=== PATIENT | male | born 1940 | race Caucasian/White ===

== ENCOUNTER → 2017-11-16 16:07 | Outpatient (CLI) | payer MEDICARE, SELFPAY ==
--- NOTE | 2017-11-16 16:11 | RAD_ITS ---
XR Spine Cervical 2 or 3 Views INDICATION: neck pain and back pain COMPARISON: None TECHNIQUE: Frontal and lateral views of the cervical spine including lateral spur is view and open-mouth odontoid view FINDINGS: There is normal cervical lordosis. Height of the vertebral bodies and intervertebral disc spaces is preserved. Anterior osteophyte is noted and C2-3. Prevertebral soft tissue stripe is within normal limits. There is normal atlantoaxial relationship. Vascular calcifications are suggested at the carotid bifurcations. RAD/Cerv Spine 2 or 3 Views IMPRESSION: Negative frontal and lateral views of the cervical spine. at 0040 Reported and signed by: Mickie Davies MD Electronically Signed: Mickie Davies MD at 23:39 EST Tel , Service support ,
--- NOTE | 2017-11-16 16:11 | RAD_ITS ---
STUDY: X-RAY - LEFT KNEE REASON FOR EXAM: Male, 77 years old. Left knee pain TECHNIQUE: 4 view(s) of the knee. COMPARISON: None. FINDINGS: Status post left knee arthroplasty. No evidence of hardware failure or loosening. No acute fracture or dislocation. No significant joint effusion or soft tissue swelling. Vascular calcifications RAD/Knee 4 or More Views IMPRESSION: Left knee arthroplasty without evidence of complications Electronically Signed: Brant Muñoz DO at 8:40 EST Tel , Service support ,
--- NOTE | 2017-11-16 16:12 | RAD_ITS ---
XR Spine Lumbar 2 or 3 Views INDICATION: lower back pain COMPARISON: None TECHNIQUE: Frontal and lateral views of the lumbar spine and coned-down lateral view of the lumbosacral junction FINDINGS: There are 5 lumbar type nonrib-bearing vertebral bodies. There is normal lumbar lordosis and no evidence of scoliosis. Height of the vertebral bodies is preserved. Disc spaces are decreased at all levels with exception of L4-5. Multilevel facet arthritic changes are noted. Marked vascular calcifications are noted. 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 Vascular calcifications. at 0042 Reported and signed by: Mickie Davies MD Electronically Signed: Mickie Davies MD at 23:40 EST Tel , Service support ,
--- NOTE | 2017-11-16 16:20 | RAD_ITS ---
STUDY: X-RAY - RIGHT SHOULDER REASON FOR EXAM: Male, 77 years old. Right shoulder pain TECHNIQUE: 4 view(s) of the shoulder. COMPARISON: None. FINDINGS: There is mild degenerative arthrosis of the glenohumeral articulation. There is degenerative arthrosis of the acromioclavicular joint without inferior osseous spur formation. Normal acromion. High riding humeral head compatible with chronic rotator cuff tear There is demineralization of the humerus and visualized osseous structures. The soft tissue structures are unremarkable. There is no demonstrated fracture. Normal visualized pulmonary apex. RAD/Shoulder min 2 Views IMPRESSION: Degenerative changes of the right shoulder with findings compatible with chronic rotator cuff tear Electronically Signed: Brant Muñoz DO at 8:41 EST Tel , Service support ,
== END ==
PROVIDERS: Family Provider Family Medicine; PCP Family Medicine; Visit Provider Anesthesiology Pain Medicine
DX: M25.511 Pain in right shoulder (principal); M25.562 Pain in left knee; M54.5 Low back pain; M54.2 Cervicalgia
CPT/HCPCS: 72040; 72100; 73030; 73564

== ENCOUNTER → 2017-12-09 12:42 | Outpatient (CLI) | payer MEDICARE, SELFPAY ==
--- NOTE | 2017-12-09 12:45 | RAD_ITS ---
STUDY: X-RAY - RIGHT ELBOW REASON FOR EXAM: Male, 77 years old. Right elbow pain and spur. TECHNIQUE: 3 view(s) of the elbow. COMPARISON: None. FINDINGS: Hypertrophic spur/ enthesophyte of the medial humeral epicondyle. Enthesophyte of the olecranon process. Otherwise normal elbow. Negative for joint effusion. Vascular calcifications. RAD/Elbow min 3 Views IMPRESSION: Spurring/enthesophyte of the medial humeral epicondyles and the olecranon process. No other bone or joint abnormalities. Electronically Signed: Monika Shafer MD at 23:00 EDT , Service support ,
== END ==
PROVIDERS: Family Provider Family Medicine; PCP Family Medicine; Visit Provider Anesthesiology Pain Medicine
DX: M25.521 Pain in right elbow (principal)
CPT/HCPCS: 73080

== ENCOUNTER → 2018-03-24 09:00 | Outpatient (CLI) | payer MEDICARE, SELFPAY ==
--- NOTE | 2018-03-24 09:03 | NM_ITS ---
CLINICAL: 77-year-old male with reported history of painful left knee arthroplasty, operated approximately 4 years previous. LIMITED 99m Tc MDP THREE PHASE BONE SCINTIGRAPHY COMPARISON: Plain film radiograph report left knee 11/16/2017 FINDINGS: Following the intravenous administration of 26.3 mCi of 99m Tc MDP, three-phase bone acquisitions of the knee articulations reveal: 1. The flow and immediate static blood pool acquisitions demonstrate symmetric-normal arterial and venous phase distribution of the radiopharmaceutical. 2. Delayed images depict increased tracer concentration subtly defined in the medial femoral component of the symptomatic right knee prosthesis. 3. Enhanced uptake is defined in the patellofemoral compartment of the left knee, medial tibial compartment of the right knee. 4. The remaining limited skeletal structures are scintigraphically unremarkable. NM/Bone Scan Three Phase IMPRESSION: 1. The increased radiopharmaceutical concentration defined in the medial femoral component of the symptomatic right knee arthroplasty may represent minimal loosening in the setting of operative intervention > 2 years prior to the current presentation. If an infectious ideology is a diagnostic consideration, correlation with labeled leukocyte imaging is recommended. 2. Degenerative arthritis is otherwise demonstrated in the medial tibiofemoral compartment right knee and patellofemoral compartment of the left knee (in the absence of patellar hardware placement). Electronically Signed: Gonzalo Mercado DO at 13:39 EDT Tel , Service support ,
== END ==
PROVIDERS: Family Provider Family Medicine; PCP Family Medicine; Visit Provider Orthopaedic Surgery
DX: T84.84XA Pain due to internal orthopedic prosthetic devices, implants and grafts, initial encounter (principal)
CPT/HCPCS: 78315

== ENCOUNTER 2018-07-25 21:47 | Emergency (ER) | payer MEDICARE, SELFPAY ==
[2018-07-25 21:48] VITALS: BP 173/80; PULSE 80; RESP 14; TEMP 36.7; O2SAT 98; BMI 10.5
[2018-07-25 22:04] VITALS: BP 190/83; PULSE 79; RESP 18; O2SAT 94
--- NOTE | 2018-07-25 22:13 | EKG12_ITS ---
Test Reason : HTN Blood Pressure : / mmHG Vent. Rate : 072 BPM Atrial Rate : 072 BPM P-R Int : 182 ms QRS Dur : 166 ms QT Int : 452 ms P-R-T Axes : 044 -38 022 degrees QTc Int : 494 ms Normal sinus rhythm Left axis deviation Right bundle branch block Voltage criteria for left ventricular hypertrophy Abnormal ECG Confirmed by MALATHI PEREIRA, RE ([id number]), deputy editor in chief JAMI STEIN ([id number]) on 07/28/2018 2:52:45 PM Referred By: REYNA Confirmed By:RE SERVIN MD
--- NOTE | 2018-07-25 22:13 | US_ITS ---
STUDY: ABDOMINAL ULTRASOUND - RIGHT UPPER QUADRANT REASON FOR VISIT: Male, 78 years old. Right upper quadrant pain TECHNIQUE: Ultrasound evaluation of the right upper quadrant was performed with real-time and static ramirez-scale imaging. TECHNICAL QUALITY: Adequate. COMPARISON: None. FINDINGS: Liver: The liver measures 15.5 cm. There is increased echogenicity consistent with fatty infiltration. The bile ducts are within normal limits. There is hepatic color flow. The direction of portal flow is hepatopetal. There is no demonstrated mass lesion. Gallbladder: Normal distended gallbladder. The gallbladder wall measures 3 mm. There is a negative sonographic Renteria's sign. There is no pericholecystic fluid. No shadowing gallstones are seen. Multiple small 3 to 4 mm nonshadowing nodular foci are present along the bucio of the gallbladder which may be small polyps. Common Bile Duct (C.B.D.): The common bile duct measures 3 mm. Pancreas: Tail is obscured by gas. Visible portions are normal. Right Kidney: Normal size of the right kidney. The right kidney measures 13 x 5.6 x 5.3 cm. Normal renal cortex. The right cortex measures 1.6 cm. 4 mm nonobstructing stone. Round slightly hyperechoic renal mass measuring 4.4 x 4.1 x 3.7 cm. There is no right hydronephrosis. US/Gallbladder IMPRESSION: No shadowing gallstones are seen. Multiple small 3 to 4 mm nonshadowing nodular foci are present along the bucio of the gallbladder which may be small polyps. Fatty liver. Right renal mass measuring up to 4.4 cm. Follow-up nonemergent dynamic pre and postcontrast renal CT or MRI is recommended to characterize further if possible. Small nonobstructing right renal stone. Electronically Signed: Fausto Christensen MD at 23:06 EST Tel , Service support ,
--- NOTE | 2018-07-25 22:15 | RAD_ITS ---
STUDY: X-RAY CHEST REASON FOR EXAM: Male, 78 years old. Right lower chest pain TECHNIQUE: Single frontal view of the chest. COMPARISON: 11/30/2015 FINDINGS: Chronic interstitial lung changes without superimposed acute alveolar disease. There is no demonstrated pleural abnormality. Stable cardiomediastinal silhouette. Normal mediastinum and cortney. Normal visualized pulmonary arteries. Normal visualized aortic arch and descending thoracic aorta. Normal visualized thoracic spine. Degenerative right shoulder change. There is no demonstrated abnormality of the visualized soft tissue structures of the upper abdomen. RAD/Chest 1 View (Portable) IMPRESSION: Chronic interstitial lung changes without superimposed acute alveolar disease. Electronically Signed: Fausto Christensen MD at 22:30 EST Tel , Service support ,
[2018-07-25 22:21] LABS: Absolute Neutrophil Count 6.5 X10^3/uL (2.0-7.7); Basophil# 0.03 X10^3/uL; Basophil% 0.3 % (0-1); Eosinophil# 0.47 X10^3/uL; Eosinophils% 4.4 % (0-5); Hematocrit 45.4 % (40-54); Hemoglobin 15.4 g/dl (13.0-16.5); Lymphocyte % 27.3 % (19-41); Mean Corp Hgb Conc 33.9 g/gl (32-36); Mean Corpuscular Hgb 29.2 pg (27.0-32.0); Mean Platelet Vol. 9.7 fl (6.2-12.0); Monocyte# 0.73 X10^3/uL; Monocyte% 6.9 % (0-10); Neutrophil # 6.47 X10^3/uL (2.7-7.7); Neutrophil % 60.9 % (47-70); POSITIVE COUNT NO; POSITIVE DIFFERENTIAL NO; POSITIVE MORPHOLOGY NO; Platelet Count 210 K/mm3 (150-450); RBC Distribution Width CV 13.5 % (11.6-14.6); RBC Distribution Width SD 42.5 fl (35.1-43.9); Red Blood Count 5.28 M/mm3 (4.6-6.2); White Blood Count 10.6 K/mm3 (4.4-11.0)
--- NOTE | 2018-07-25 22:22 | ED.DCSUM_ITS ---
- ER Visit Summary Date of Service: 07/25/18 Chief Complaint: Right upper quadrant abdominal pain History of Present Illness: The patient is a 78 M history of hypertension, rqm-pfbjoiu-prwzlwgyt diabetes and chronic pain. Patient states the last 4 days she has had some right upper quadrant abdominal pain. Not associated with food. No nausea vomiting or diarrhea. No fever. No trauma. He initially thought he may have pulled a muscle but is gotten worse. He saw the nurse practitioner his primary care physician's office in the last day or so who did no testing. He denies any dysuria or melena. He denies chest pain or shortness of breath. Also his blood pressures been elevated. Physical Examination: Well-appearing older male. Vital signs are stable afebrile. Pulse ox 98% on room air no hypoxia. No distress. HEENT exam unremarkable. Neck nontender. Lungs clear to auscultation bilaterally. Heart regular rate and rhythm no murmur rate about 80. Chest wall nontender. Abdomen soft. Nondistended. Normal bowel sounds. No peritoneal signs. He has mild tenderness in the right upper quadrant. No Renteria sign. No McBurney's point tenderness. No pulsatile mass. Patient is moving all 4 extremities. 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 Moving the lower extremities. Calves are nontender no edema. Neurologically is awake and alert. Back is nontender. Test Results: CBC normal white count of 10. Hemoglobin 15. Chemistries normal normal creatinine and gap. Liver enzymes normal. Lipase normal. EKG sinus rhythm rate of 72 no acute signs of ischemia. Chest x-ray chronic changes no acute process. Ultrasound the right upper quadrant shows no gallbladder stones. There were gallbladder polyps. There was a right renal stone no Renteria sign. There is an incidental finding of a renal abnormality on the right which may or may not be a cyst versus a mass. I discussed this with the patient and the family. He will follow-up with his primary care physician Dr. Stanford Tan iii for further imaging. Radiology suggested a possible CT abdomen pelvis with and without contrast to evaluate the kidney. Emergency Department Course and Treatment: Patient with nondescript mild right upper quadrant abdominal pain. Multiple repeat exams patient is doing well. Abdomen is benign. Treatment Plan: Log blood pressures daily. Follow-up with his primary care physician for reevaluation of his blood pressure medications. Also possible further imaging of his right kidney. Disposition: Discharge Impression: Acute right upper quadrant abdominal pain of uncertain etiology. Acute on chronic hypertension Abnormality of the right kidney seen on ultrasound of uncertain etiology which may need further imaging This note was generated with [employer] dictation software. It may contain incorrect words, spelling, and punctuation that were not noted in review of the chart prior to signing ED Disposition - Plan for ED Patient: Chief Complaint: Hypertension Referrals: Stanford Tan III, MD [Primary Care Provider] -
[2018-07-25 22:39] LABS: AST(SGOT) 40 U/L (15-37); Alanine Aminotransfer ALT/SGPT 45 U/L (16-61); Albumin, Serum 3.7 g/dL (3.2-5.0); Alkaline Phosphatase 89 U/L (45-117); Anion Gap 7 (5-15); BUN 16 mg/dL (7-18); Bilirubin, Direct 0.07 mg/dL (0.00-0.30); Calcium,Total 8.2 mg/dL (8.5-10.1); Chloride 105 mmol/L (98-107); Creatinine, Serum 0.73 mg/dL (0.70-1.30); EST Glomerular Filtration Rate 111 mL/min (>60); Est Glom Filt Rate - Afr Amer 134 mL/min (>60); Glucose 124 mg/dL (74-106); Lipase 119 U/L (73-393); Potassium 4.6 mmol/L (3.5-5.1); Protein, Total 7.7 g/dL (6.4-8.2); Sodium Level 138 mmol/L (136-145)
--- NOTE | 2018-07-25 23:53 | ED.DEP ---
ED Disposition - Plan for ED Patient: Disposition: Home or Assisted Living Chief Complaint: Hypertension Instructions: ED Hypertension Conf Out Of Control, ED Abdominal Pain Unkn Cause Referrals: Stanford Tan III, MD [Primary Care Provider] - 1 Week Additional Instructions: Log your blood pressure daily. Follow-up with Dr. Tan to see if he may or may not need to adjust her blood pressure medications. Take your medications currently as prescribed. Your labs tonight were unremarkable. The ultrasound of your gallbladder happened to notice an abnormality of your right kidney which may be a simple renal cyst. Versus other etiologies. Radiology would prefer that you follow-up and get a CAT scan of your abdomen with and without contrast to evaluate the right kidney. You can follow this up with Dr. Tan your primary care physician.
[2018-07-25 23:54] VITALS: BP 184/90; PULSE 83; RESP 16; O2SAT 94
[2018-07-26 00:01] VITALS: RESP 16; O2SAT 97
[2018-07-26] MEDS: Acetaminophen 500 MG Tablet 1000 MG PO (00:04)
== END 2018-07-26 00:07 | disposition home or self-care (01) ==
PROVIDERS: Emergency Provider Emergency Medicine; Family Provider Family Medicine; PCP Family Medicine
DX: R10.11 Right upper quadrant pain (principal); I10 Essential (primary) hypertension; E11.9 Type 2 diabetes mellitus without complications; G89.29 Other chronic pain; Z89.222 Acquired absence of left upper limb above elbow; N20.0 Calculus of kidney; K82.4 Cholesterolosis of gallbladder; I45.10 Unspecified right bundle-branch block; E78.00 Pure hypercholesterolemia, unspecified
CPT/HCPCS: 71045; 76705; 80048; 80076; 83690; 85025; 93005; 99284; A4216

== ENCOUNTER 2018-10-18 12:26 | Inpatient (IN) | payer MEDICARE, OTHER, SELFPAY ==
[2018-09-27 13:53] VITALS: BP 154/85; PULSE 71; RESP 16; TEMP 36.9; O2SAT 96; BMI 29.0
[2018-09-27 14:53] LABS: Prothrombin Time (Protime)PT. 13.5 SECONDS (11.7-14.9)
[2018-09-27 14:54] LABS: Partial Thromboplast Time 55.8 Seconds (24.1-36.2)
[2018-09-27 15:32] LABS: Hemoglobin A1c 6.4 % (4.2-6.3)
[2018-10-18] VITALS (17 sets, daily range): BP systolic 101–152; BP diastolic 59–86; PULSE 68–91; RESP 16–22; TEMP 36.6–37.1; O2SAT 92–100; BMI 29.0
--- NOTE | 2018-10-18 | KI_PTH ---
PATIENT: LOIS GOODMAN LOC: MS2 U#:[id number] AGE/SX: 78/M ROOM: MS210 RE10/18/[address]: Dr. Yuriy Squires MD : [id number] BED: 1 DIS: 10/22/2018 SPEC #: [id number] RECD: 10/18/18 09:52 STATUS: PRIYANK REQ #: [id number] TOMA: 10/18/18 00:[address]: Yuriy Squires DEPT: SURGICAL PATHOLOGY RECD BY: Tonya Sawyer ENTERED: 10/18/18 10:44 SP TYPE: KIDNEY BX OTHR DR: Dr. Stanford Tan III, MD Tissues: A - Adrenal gland, NOS B - Kidney, NOS Procedures: Frozen Section (charge) Surgery Specimen Level IV Surgery Specimen Level V HEADER OPERATION: Lap robotic partial nephrectomy PRE-OP DIAGNOSIS: Right renal mass TISSUE SUBMITTED: A - Sample of right adrenal gland sent to lab 0947, FS, B - Right renal mass FROZEN SECTION DIAGNOSIS A. Right adrenal gland, biopsy: Adrenal gland tissue. AM:barbara 10/18/18 Case has been reviewed in consultation with Dr. Kuo who concurs with the above diagnosis. IDC:COY MICROSCOPIC DIAGNOSIS A. Right adrenal gland, biopsy: A piece of benign adrenal gland tissue. B. Right renal mass, partial nephrectomy: Chromophobe renal cell carcinoma. See cancer summary below. 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 Distant metastasis - not applicable Pathologic findings in nonneoplastic kidney - no significant pathologic change. PATHOLOGIC STAGE: pT1a pNx Mx The above summary is in compliance with [employer] [place] [employer] (CAP) Cancer Protocols Checklist and [place] [employer] on Cancer (AJCC), Staging Manual, 8th Ed. COMMENT Case has been reviewed in consultation with Dr. Desai who concurs with the above diagnosis. IDC: MICROSCOPIC DESCRIPTION Slides are reviewed. GROSS DESCRIPTION A - Received fresh for frozen section diagnosis labeled with the patient's name is a specimen designated sample of right adrenal gland. The specimen consists of a piece of hutchison-red soft tissue measuring 1 x 0.6 x 0.1 cm. The entire specimen is submitted for frozen section diagnosis in one cassette. / AM:barbara 10/18/18 B - Received in fixative is one container labeled with the patient's name and designated right renal mass. The specimen consists of a partial nephrectomy specimen weighing 46 gm and measuring 7 x 5 x 4 cm. A portion of the surface appears to be the renal capsular surface. This surface is inked black and rest of the surface is inked blue. A small amount of perirenal adipose tissue is also present. Grossly, a focal area shows a normal renal cortex which measures up to 1 cm in width. Serial sections reveal a hutchison-yellow congested nodular mass measuring 4 x 4 x 3.5 cm. [employer] sections are submitted in eight cassettes as follows: 1-5 - tumor, 6 & 7 - tumor with adjacent normal appearing renal parenchymal tissue, 8 - perirenal adipose tissue. / SJ:barbara 10/19/18 TC:0 CPT: 06401, 00118, 78483
[2018-10-18 07:02] LABS: Bedside Glucose 135 mg/dL (70-110)
--- NOTE | 2018-10-18 07:04 | HP.PCM_ITS ---
History and Physical Date of Admission: 10/18/18 CC/HPI: 78 yo male with a solid rigth renal mass. Recent pain in the RUQ had u/s with mass on kidney MRI confirms a mostly endophytic right solid renal mass 4cm in size. still having some RUQ pain today discussed the surgery how its done and what to expect. 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 Balanitis - 2014 Benign prostatic hyperplasia without lower urinary tract symptoms - 2014 NON- PMH: Dvrtclos of lg int w/o perforation or abscess w/o bleeding Essential (primary) hypertension 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 Smoking cessation counseling was provided. Does not use smokeless tobacco. Has never drank. Does not use drugs. Drinks 4+ caffeinated drinks per day. Has not had a blood transfusion. REVIEW OF SYSTEMS: Constitutional: Patient denies fever, chills, weight loss, and weight gain. Eyes: Patient denies blurry vision, cataracts, and glaucoma. Ears, Nose, Mouth, Throat: Patient denies hearing loss, sinus infections, and sleep apnea. Cardiovascular: Patient denies chest pains, swollen ankles, irregular heartbeat, and pacemaker/defib. Respiratory: Patient denies shortness of breath, wheezing, oxygen, and cpap machine. Gastrointestinal: Patient denies nausea, diarrhea, constipation, abdominal pain, and vomiting. Genitourinary: Patient reports frequent urination, get up at night to void, and leakage of urine. Patient denies urinary retention, painful urination, blood in the urine, frequent uti's, history of stones, difficulty starting stream, weak stream/scanty, and bedwetting. Musculoskeletal: Patient denies sore muscles, back pain, and gout. Integumentary/Skin: Patient denies rash, skin cancer, and chronic itching. Neurological: Patient denies falling/unsteady, paralysis, and stroke/tia. Hematologic/Lymphatic: Patient denies abnormal bleeding, blood transfusion, swollen lymph nodes, deep venous thrombosis, and pulmonary embolism. Notes: Reviewed previous review of systems 09/18/2018. No changes. VITAL SIGNS: None MULTI-SYSTEM PHYSICAL EXAMINATION: Constitutional: Well-nourished. No physical deformities. Normally developed. Good grooming. Neck: Neck symmetrical, not swollen. Normal tracheal position. Respiratory: No labored breathing, no use of accessory muscles. Cardiovascular: Normal temperature, normal extremity pulses, no swelling, no varicosities. Lymphatic: No enlargement of neck, axillae, groin. Skin: No paleness, no jaundice, no cyanosis. No lesion, no ulcer, no rash. Neurologic / Psychiatric: Oriented to time, oriented to place, oriented to person. No depression, no anxiety, no agitation. Gastrointestinal: No mass, no tenderness, no rigidity, non obese abdomen. Eyes: Normal conjunctivae. Normal eyelids. Ears, Nose, Mouth, and Throat: Left ear no scars, no lesions, no masses. Right ear no scars, no lesions, no masses. Nose no scars, no lesions, no masses. Normal hearing. Normal lips. Musculoskeletal: Normal gait and station of head and neck. 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 bowel prep instructions given.
[2018-10-18] MEDS: Cefazolin 2 GM in 0.9% Normal Saline 100 ML IV (07:26)
[2018-10-18] MEDS: Bupivacaine Mpf 0.5% 30 ML VIAL (12:19)
--- NOTE | 2018-10-18 12:19 | OP.PCM_ITS ---
Report of Operation Date of Procedure: 10/18/18 Pre-Operative Diagnosis: Right renal mass in size Post-Operative Diagnosis: Same Surgery/Procedure Performed:: Laparoscopic robotic-assisted right partial nephrectomy Description of Surgical Findings:: 78-year-old male who was found to have incidental mass on the right kidney on CAT scan is about 4 cm in size given the size of the mass recommended treatment for this mass with a surgical removal with a partial nephrectomy he understands the risks of the procedure include loss of the kidney bleeding infection injury to any critical structures within the abdomen small bowel large bowel liver s pleen vessels and nerves. We also talked about the risk of the surgery and the risk of anesthesia. 78-year-old male taken back to the operating room after smooth induction of anesthesia he was first placed about time in the supine on the table we then placed a Sykes catheter into the bladder we then placed a laterally with the right side up with the axillary roll in place table flexed over the hips and the kidney rest was down we then secured the patient the table made sure all his pressure points were padded and then the abdomen was shaved prepped and draped in usual sterile fashion made a small carina incision in the mid abdomen advanced the Veress needle into the peritoneal cavity and inflated the peritoneal cavity with CO2 gas. Once establishing the peritoneal cavity CO2 gas placed my camera trocar right arm robotic trocar left arm robotic trocar and left arm second trocar and then placed a an air seal port for my sourcing assistant. We started off by dissecting the colon off the lateral wall and incising the white line of Toldt reflecting the colon off the kidney starting inferiorly and working out all the way superiorly until we got to the liver after dissecting the entire colon off the kidney identified Gerota's fascia and the fat of the mesentery these were we then identified the dura was fascia got above the General's fascia and lifted the dura was fashioned up to it that was underneath the ureter I then used the fourth arm the robotic fourth arm to retract the pole truck driver's fascia and the kidney upward and then dissected as I marched along the vena cava came across the gonadal vessel this was clipped and ligated with hemo-locks and then came across one large vein dissected around this and then came up came across the large renal artery artery and artery was branching early but is able to get to the base of the of the renal artery and dissect the space around the renal artery below it I then went up to the renal vein and another renal vein I dissected around the renal vein were then went up to the adrenal gland and the adrenal gland appear to be in usual surgical sample the adrenal gland cutting through the top part of sent off for specimen and this came back normal adrenal tissue therefore left adrenal gland in place after dissecting out the renal artery then we note that the kidney we used the laparoscopic ultrasound to find the tumor the tumor was in the upper pole tumor posterior difficult location this required complete mobilization of the kidney defatted the kidney completely the kidney off the lower pole and upper pole attachments allowed to freely rotate and then was able to rotate the kidney so I could see the tumor on the upper pole posterior wheeze laparoscopic ultrasound to narciso out all the edges of the tumor circumferentially we then plantar attack to the resection of this tumor I then clamped the renal artery with 2 bulldogs the kidney went completely white and then we started with the resection using cold cautery f ollowed our edge of the line of resection it was marked on the kidney until I got underneath the tumor transected through underneath the tumor into the sinus fat and then lifted off the tumor off the kidney base and then the tumor was completely extracted without any violation of the tumor and an completely intact and a complete resection of the tumor was immediately placed into an Endo Catch bag and then I ran the base of the resection site with a 30V lock stitch and then I ran interrupted bolster stitches putting compression on both sides of the kidney from the left and right side all the way along the kidney we then we then continued with a resection at the end of all the bolsters were placed we then unclamped the artery the clamp time was 27 minutes there was a little bit of oozing from the mid part of the resection I placed an extra bolster here tied it down using Humalog and right clips after tightening this down replaced tumor bolster was here and that redness reddish oozing stopped completely there was no bleeding from the resection site during the placement of 1 of the clips the clip did not hold onto the stitch and then the clip flipped off the end of the applicator device we attempted to find his clip initially but we could not find it has not and I flipped off the end of the applicator device, since we are still in the middle of the resection is still a bit of bleeding to continue with the surgery continue planes the more posterior is on the kidney we then rate we removed all suture then at the end of the placement of the pulse was in the kidney resection site there was no more bleeding lower the to 5 again no more bleeding we then undocked the robot we extracted the tumor through the umbilicus site by opening this up and then we closed this up with interrupted V lock 0 Vicryl in [id number] fashion I then went back into the abdomen and looked extensively for this clip and it coming off and could not find it we looked in the pelvis above the liver we suctioned out all the blood there was no more bleeding but we extensively looked for this 1 clip that with diet: Off and on and after an extensive half hour search we decided to abort searching for the clip in my best judgment I felt like it was not necessary to open up the patient the findings clipped there was a small plastic clip should be benign and hopefully will not cause any problems this was a decision made at the time of the surgery we then extracted all the ports closed our air seal port with a stitch and then we closed our subcu jugular stitches. Patient anesthetic is currently being reversed blood loss was minimal was only about 400cc resection was complete complete tumor was removed sent off as a specimen all needle counts were accounted for and one clip was lost in the abdomen patient will be aware and the family will be aware of this I do not think any sequelae work recurrent but we decided not to do an open exploration for such a small clip and the patient is currently being awakened. Type of Anesthesia:: General Drains: sykes. - Admit VTE Documentation VTE Present on Admission: No VTE Mechan Device Prophylaxis: SCD's
[2018-10-18 12:57] LABS: Hematocrit 41.3 % (40-54); Hemoglobin 13.8 g/dl (13.0-16.5); Mean Corp Hgb Conc 33.4 g/gl (32-36); Mean Corpuscular Hgb 28.9 pg (27.0-32.0); Mean Corpuscular Volume 86.6 fL (80-94); Mean Platelet Vol. 10.3 fl (6.2-12.0); Platelet Count 197 K/mm3 (150-450); RBC Distribution Width CV 13.6 % (11.6-14.6); RBC Distribution Width SD 43.3 fl (35.1-43.9); Red Blood Count 4.77 M/mm3 (4.6-6.2); White Blood Count 17.3 K/mm3 (4.4-11.0)
[2018-10-18 12:58] LABS: Scan Indicated on CBC? Y/N NO
[2018-10-18 13:02] LABS: Bedside Glucose 180 mg/dL (70-110)
[2018-10-18 13:15] LABS: Anion Gap 11 (5-15); BUN 15 mg/dL (7-18); Calcium,Total 8.1 mg/dL (8.5-10.1); Chloride 107 mmol/L (98-107); Creatinine, Serum 1.07 mg/dL (0.70-1.30); EST Glomerular Filtration Rate 71 mL/min (>60); Est Glom Filt Rate - Afr Amer 86 mL/min (>60); Glucose 182 mg/dL (74-106); Potassium 3.9 mmol/L (3.5-5.1); Sodium Level 141 mmol/L (136-145)
--- NOTE | 2018-10-18 13:52 | SUR.PHASEI ---
Addendum entered by Avis Calderon 10/18/18 15:19: MORE ALERT, ANSWERS QUESTIONS, FOLLOWS COMMANDS SLOWLY, MATTHEWS X 4, NO NEURO DEFICIT NOTED. MINIMAL PAIN. VSS. SON UPDATED. Original Note: Addendum entered by Avis Calderon 10/18/18 14:07: WITH MUCH PHYSICAL STIMULUS, PATIENT WILL RESPOND WITH ONE WORD, DENIES PAIN, INDICATES HE'S WELL, STILL DOES NOT FOLLOW COMMANDS BUT WHEN ARM MOVED BY RN, PATIENT RESISTS. ROBEL HATFIELD, [facility], SPOKE WITH SON WHO STATES IT TOOK PATIENT THREE HOURS TO WAKE UP FROM LAST SURGERY. DR VILLAGRAN TO BEDSIDE TO EVALUATE, OPENS EYES TO COMMANDS, WILL ANSWER YES WHEN ASKED IF HE'S OKAY. DR VILLAGRAN ADVISED TO CHANGE NASAL CANNULA TO SIMPLE MASK TO HELP BLOW OFF ANY INHALED ANESTHETICS. NO FACIAL OR TONGUE ASYMMETRY, JODI. CONTINUE TO MONITOR. Original Note: IN PACU: PATIENT VERY SOMNOLENT POST-OP, OPENS EYES TO VERBAL/PHYSICAL STIMULI BUT WILL NOT FOLLOW COMMANDS, WILL NOT SQUEEZE RT HAND, MOVE FEET, OR SPEAK ON COMMAND. NOTIFIED DR VILLAGRAN TO EVALUATE.
[2018-10-18] MEDS: Lactated Ringers 1,000 ML 125 ML IV ×2 (14:00→21:06)
[2018-10-18 16:37] LABS: Bedside Glucose 175 mg/dL (70-110)
[2018-10-18] MEDS: Ketorolac 15 MG/ML Vial IV (17:40)
[2018-10-18] MEDS: Ondansetron 4 MG/2 ML Vial IV (21:05)
[2018-10-18] MEDS: 0.9% NaCl Peripheral Flush Adult/Peds IV (21:05)
[2018-10-18] MEDS: Morphine 2 MG/ML Syringe IV (21:05)
[2018-10-18] MEDS: Docusate Sodium 100 MG Capsule PO (21:06)
[2018-10-18] MEDS: Lisinopril 20 MG Tablet PO (21:06)
[2018-10-19] MEDS: Ketorolac 15 MG/ML Vial IV ×2 (00:28→05:16)
[2018-10-19] MEDS: 0.9% NaCl Peripheral Flush Adult/Peds IV ×5 (00:28→20:45)
[2018-10-19] MEDS: Lactated Ringers 500 ML 999 ML IV (01:27)
[2018-10-19 03:15] VITALS: BP 116/62; PULSE 92; RESP 16; TEMP 37.2; O2SAT 96
[2018-10-19] MEDS: HYDROcodone Bitartrate/Apap 5/325 Tablet PO ×5 (03:18→20:31)
[2018-10-19] MEDS: Lactated Ringers 1,000 ML 125 ML IV (05:16)
[2018-10-19] MEDS: Enoxaparin 40 MG/0.4 ML Syringe SC (05:16)
[2018-10-19 06:16] LABS: Anion Gap 12 (5-15); BUN 19 mg/dL (7-18); BUN/Creat Ratio 13.3 RATIO (10-20); Calcium,Total 7.6 mg/dL (8.5-10.1); Chloride 104 mmol/L (98-107); Creatinine, Serum 1.43 mg/dL (0.70-1.30); EST Glomerular Filtration Rate 51 mL/min (>60); Est Glom Filt Rate - Afr Amer 61 mL/min (>60); Estimated Creatinine Clearance 43.25 ml/min; Glucose 142 mg/dL (74-106); Potassium 3.9 mmol/L (3.5-5.1); Sodium Level 139 mmol/L (136-145)
[2018-10-19 06:27] LABS: Hematocrit 35.1 % (40-54); Hemoglobin 11.4 g/dl (13.0-16.5); Mean Corp Hgb Conc 32.5 g/gl (32-36); Mean Corpuscular Hgb 28.6 pg (27.0-32.0); Platelet Count 216 K/mm3 (150-450); RBC Distribution Width SD 44.1 fl (35.1-43.9); Red Blood Count 3.99 M/mm3 (4.6-6.2); White Blood Count 13.5 K/mm3 (4.4-11.0)
[2018-10-19 06:28] LABS: Scan Indicated on CBC? Y/N NO
--- NOTE | 2018-10-19 07:38 | PCM.PROGNOTE ---
Subjective: doing well up in a chair this am no bm no flatus no cp, no sob, no n/v - Physical Exam General: Alert, Oriented x3, Cooperative HEENT: Atraumatic, PERRLA, EOMI, Normocephalic Neck: Supple, No JVD, Negative Carotid Bruits Lungs: Clear to auscultation, Normal air movement Cardiovascular: Regular rate, No murmurs Abdomen: Bowel Sounds Present, Soft, Non Tender Extremities: No edema, Capillary Refill Less than 3 Seconds Skin: No rashes, No breakdown Musculoskeletal: No Tenderness to Palpation of Joints or Extremities Neurological: Cranial nerves II-XII grossly intact Psych/Mental Status: Normal Affect, Appropriate Vital Signs Temp Pulse Resp BP Pulse Ox 98.9 F 92 16 116/62 96 10/19/18 03:15 10/19/18 03:15 10/19/18 03:15 10/19/18 03:15 10/19/18 03:15 Oxygen Flow Rate (L/min) 2 Oxygen Delivery Method Nasal Cannula Weight: 91.8 kg Body Mass Index (BMI) 29.0 Finger Stick Blood Glucose 180 Intake and Output for Last 24 Hours 10/17/18 10/18/18 10/19/18 23:59 23:59 23:59 Intake Total 5200 / 5200 3051 / 3051 Output Total 350 / 350 275 / 275 Balance 4850 / 4850 2776 / 2776 Laboratory Tests Past 24 Hrs 10/18/18 10/18/18 10/19/18 12:45 12:45 05:30 WBC 17.3 H 13.5 H RBC 4.77 3.99 L Hgb 13.8 11.4 L Hct 41.3 35.1 L MCV 86.6 88.0 MCH 28.9 28.6 MCHC 33.4 32.5 RDW 13.6 14.0 RDW Differential 43.3 44.1 H Plt Count 197 216 MPV 10.3 11.0 Sodium 141 Potassium 3.9 Chloride 107 Carbon Dioxide 23.0 Anion Gap 11 BUN 15 Creatinine 1.07 Estim Creat Clear Calc 57.80 Est GFR (MDRD) Af Amer 86 Est GFR (MDRD) Non-Af 71 BUN/Creatinine Ratio 14.0 Glucose 182 H Calcium 8.1 L 10/19/18 05:30 WBC RBC Hgb Hct MCV MCH MCHC RDW RDW Differential Plt Count MPV Sodium 139 Potassium 3.9 Chloride 104 Carbon Dioxide 23.0 Anion Gap 12 BUN 19 H Creatinine 1.43 H Estim Creat Clear Calc 43.25 Est GFR (MDRD) Af Amer 61 Est GFR (MDRD) Non-Af 51 L BUN/Creatinine Ratio 13.3 Glucose 142 H Calcium 7.6 L POC Glucose 10/18/18 10/18/18 16:16 12:57 POC Glucose 175 H 180 H Medical Necessity - Tobacco Use Smoking Status: Never smoker Assessment/Plan All Active Problems Chest pain (Acute) heplock ivf dc sykes full liquid diet ambulate.
--- NOTE | 2018-10-19 09:23 | CASEMGMT ---
RN CM Assessment Presentation: Rt Lap robotic partia nephrectomy. Pt is ambulatory, walked around halls. Denies needing assistance. Intro role of CM and purpose of RN CM assessment. PCP:Dr. Stanford Tan III Specialists: Dr. Squires Preferred Pharmacy: [facility] Insurance: [employer] Prescription Benefit: yes LNOK: Nephew/Niece Living Arrangements: Two story home with 1st floor set up for bedroom, bath, living area and kitchen. Transportation: Has family who can assist, but RN CM discussed and gave brochure for Transportation assist through [facility]. Call to Transportation department and they verified they would do sheepskin pickler from [place] to Dr. Squires's office. DME/HHC: walker, cane- but does not use. No oxygen equipment, no Cpap (pt has been told he needs Cpap, but does not wish to pursue). DC PLAN: anticipate home on discharge. Vickie BANDA RN ACM
--- NOTE | 2018-10-19 10:00 | CASEMGMT ---
SW asked pt about LW/POA. Pt states he has these forms, thought they were on file here. Pt states his nephew Edmar is his POA. SW explained that we do not have copies in the chart unfortunately. SW asked pt if here again if he can bring the forms in, pt states understanding. Pt also states that [facility] has them on file there. INOCENCIA Savage, EDGE STRIPPER
[2018-10-19 10:08] VITALS: BP 110/61; PULSE 90; RESP 18; TEMP 36.6; O2SAT 93
[2018-10-19] MEDS: amLODIPine 10 MG Tablet PO (10:11)
[2018-10-19] MEDS: Docusate Sodium 100 MG Capsule PO ×2 (10:11→22:00)
[2018-10-19] MEDS: Magnesium Hydroxide 30 ML UDC 15 ML PO (10:12)
[2018-10-19] MEDS: Lisinopril 20 MG Tablet PO ×2 (10:12→22:00)
[2018-10-19] MEDS: Psyllium 1 PACKET PO (10:12)
[2018-10-19] MEDS: Pantoprazole Sodium 20 MG Tablet PO (10:12)
[2018-10-19] MEDS: Atorvastatin Calcium 10 MG Tablet 5 MG PO (12:34)
[2018-10-19] MEDS: 0.9% Normal Saline 1,000 ML 500 ML IV (12:34)
[2018-10-19 14:44] VITALS: BP 118/64; PULSE 100; RESP 20; TEMP 37.8; O2SAT 92
[2018-10-19] MEDS: Clobetasol Propionate 0.05% Cream 1 APPLIC TOPICAL (15:08)
[2018-10-19] MEDS: Lidocaine Jelly 2% 20 ML Syringe (URO-JET) 20 APPLIC TOPICAL (18:00)
[2018-10-19] MEDS: Bisacodyl 10 MG Suppository RECTAL (18:31)
[2018-10-19 20:00] VITALS: BP 143/82; PULSE 116; RESP 16; TEMP 37.7; O2SAT 92
[2018-10-19] MEDS: 0.9% Normal Saline 1,000 ML 75 ML IV (20:32)
[2018-10-19 20:58] VITALS: O2SAT 93
[2018-10-19 22:00] VITALS: BP 127/74; PULSE 104; RESP 16; TEMP 37.4; O2SAT 94
[2018-10-20] VITALS (7 sets, daily range): BP systolic 145–165; BP diastolic 69–91; PULSE 95–104; RESP 16–19; TEMP 37–37.9; O2SAT 93–96
[2018-10-20] MEDS: Enoxaparin 40 MG/0.4 ML Syringe SC (05:48)
[2018-10-20 06:26] LABS: Anion Gap 9 (5-15); BUN 19 mg/dL (7-18); BUN/Creat Ratio 15.4 RATIO (10-20); Calcium,Total 7.6 mg/dL (8.5-10.1); Chloride 104 mmol/L (98-107); Creatinine, Serum 1.23 mg/dL (0.70-1.30); EST Glomerular Filtration Rate 60 mL/min (>60); Est Glom Filt Rate - Afr Amer 73 mL/min (>60); Estimated Creatinine Clearance 50.28 ml/min; Glucose 119 mg/dL (74-106); Potassium 3.8 mmol/L (3.5-5.1); Sodium Level 137 mmol/L (136-145)
--- NOTE | 2018-10-20 07:24 | PCM.PROGNOTE ---
Subjective: feeling better, pass gas, + loose BM abd less distended. feels ready to try solids - Physical Exam General: Alert, Oriented x3, Cooperative HEENT: Atraumatic, PERRLA, EOMI, Normocephalic Neck: Supple, No JVD, Negative Carotid Bruits Lungs: Clear to auscultation, Normal air movement Cardiovascular: Regular rate, No murmurs Abdomen: Bowel Sounds Present, Soft, Non Tender Extremities: No edema, Capillary Refill Less than 3 Seconds Skin: No rashes, No breakdown Musculoskeletal: No Tenderness to Palpation of Joints or Extremities Neurological: Cranial nerves II-XII grossly intact Psych/Mental Status: Normal Affect, Appropriate Vital Signs Temp Pulse Resp BP Pulse Ox 99.7 F H 99 16 155/81 H 94 10/20/18 05:45 10/20/18 05:45 10/20/18 05:45 10/20/18 05:45 10/20/18 05:45 Oxygen Flow Rate (L/min) 2 Oxygen Delivery Method Nasal Cannula Weight: 91.8 kg Body Mass Index (BMI) 29.0 Finger Stick Blood Glucose 180 Intake and Output for Last 24 Hours 10/18/18 10/19/18 10/20/18 23:59 23:59 23:59 Intake Total 5200 / 5200 6214 / 6214 662 / 662 Output Total 350 / 350 475 / 475 1450 / 1450 Balance 4850 / 4850 5739 / 5739 -788 / -788 Laboratory Tests Past 24 Hrs 10/20/18 05:44 Sodium 137 Potassium 3.8 Chloride 104 Carbon Dioxide 24.0 Anion Gap 9 BUN 19 H Creatinine 1.23 Estim Creat Clear Calc 50.28 Est GFR (MDRD) Af Amer 73 Est GFR (MDRD) Non-Af 60 BUN/Creatinine Ratio 15.4 Glucose 119 H Calcium 7.6 L Medical Necessity - Tobacco Use Smoking Status: Never smoker Assessment/Plan All Active Problems Chest pain (Acute) s/p partial nephrectomy doing better slow down Ivf reg diet keep sykes in for now, probably remove tomorrow.
[2018-10-20] MEDS: Magnesium Hydroxide 30 ML UDC 15 ML PO (08:49)
[2018-10-20] MEDS: Lisinopril 20 MG Tablet PO ×2 (08:50→18:47)
[2018-10-20] MEDS: Docusate Sodium 100 MG Capsule PO ×2 (08:50→18:47)
[2018-10-20] MEDS: Pantoprazole Sodium 20 MG Tablet PO (08:50)
[2018-10-20] MEDS: amLODIPine 10 MG Tablet PO (08:50)
[2018-10-20] MEDS: Psyllium 1 PACKET PO (08:50)
[2018-10-20] MEDS: Atorvastatin Calcium 10 MG Tablet 5 MG PO (12:06)
[2018-10-20] MEDS: 0.9% Normal Saline 1,000 ML 40 ML IV (13:00)
[2018-10-20] MEDS: Tamsulosin HCl 0.4 MG Capsule PO (18:46)
[2018-10-21 03:16] VITALS: BP 152/78; PULSE 92; RESP 20; TEMP 37.5; O2SAT 95
[2018-10-21 07:24] LABS: Hematocrit 29.9 % (40-54); Hemoglobin 9.9 g/dl (13.0-16.5); Mean Corp Hgb Conc 33.1 g/gl (32-36); Mean Corpuscular Hgb 28.9 pg (27.0-32.0); Mean Corpuscular Volume 87.4 fL (80-94); Platelet Count 155 K/mm3 (150-450); RBC Distribution Width CV 13.3 % (11.6-14.6); RBC Distribution Width SD 41.5 fl (35.1-43.9); Red Blood Count 3.42 M/mm3 (4.6-6.2); White Blood Count 13.3 K/mm3 (4.4-11.0)
[2018-10-21 07:25] LABS: Scan Indicated on CBC? Y/N NO
[2018-10-21 07:34] LABS: Anion Gap 10 (5-15); BUN 15 mg/dL (7-18); BUN/Creat Ratio 13.8 RATIO (10-20); Calcium,Total 7.7 mg/dL (8.5-10.1); Chloride 104 mmol/L (98-107); Creatinine, Serum 1.09 mg/dL (0.70-1.30); EST Glomerular Filtration Rate 69 mL/min (>60); Est Glom Filt Rate - Afr Amer 84 mL/min (>60); Estimated Creatinine Clearance 56.74 ml/min; Glucose 116 mg/dL (74-106); Potassium 3.5 mmol/L (3.5-5.1); Sodium Level 138 mmol/L (136-145)
--- NOTE | 2018-10-21 07:48 | NURSING ---
Pt walked the marie all around the unit. Stood at sink, washed face and brushed teeth. Pt states that he washed up at 2am this morning when this nurse offered him a bath.
--- NOTE | 2018-10-21 08:50 | PCM.PROGNOTE ---
Subjective: appetite still not 100% doing better good uop will d/c sykes - Physical Exam General: Alert, Oriented x3, Cooperative HEENT: Atraumatic, PERRLA, EOMI, Normocephalic Neck: Supple, No JVD, Negative Carotid Bruits Lungs: Clear to auscultation, Normal air movement Cardiovascular: Regular rate, No murmurs Abdomen: Bowel Sounds Present, Soft, Non Tender Extremities: No edema, Capillary Refill Less than 3 Seconds Skin: No rashes, No breakdown Musculoskeletal: No Tenderness to Palpation of Joints or Extremities Neurological: Cranial nerves II-XII grossly intact Psych/Mental Status: Normal Affect, Appropriate Vital Signs Temp Pulse Resp BP Pulse Ox 99.5 F H 92 20 H 152/78 H 95 10/21/18 03:16 10/21/18 03:16 10/21/18 03:16 10/21/18 03:16 10/21/18 03:16 Oxygen Flow Rate (L/min) 2 Oxygen Delivery Method Nasal Cannula Weight: 91.8 kg Body Mass Index (BMI) 29.0 Finger Stick Blood Glucose 180 Intake and Output for Last 24 Hours 10/19/18 10/20/18 10/21/18 23:59 23:59 23:59 Intake Total 6214 / 6214 1940 / 1940 1723 / 1723 Output Total 475 / 475 2250 / 2250 800 / 800 Balance 5739 / 5739 -310 / -310 923 / 923 Laboratory Tests Past 24 Hrs 10/21/18 10/21/18 06:35 06:35 WBC 13.3 H RBC 3.42 L Hgb 9.9 L Hct 29.9 L MCV 87.4 MCH 28.9 MCHC 33.1 RDW 13.3 RDW Differential 41.5 Plt Count 155 MPV 11.0 Sodium 138 Potassium 3.5 Chloride 104 Carbon Dioxide 24.0 Anion Gap 10 BUN 15 Creatinine 1.09 Estim Creat Clear Calc 56.74 Est GFR (MDRD) Af Amer 84 Est GFR (MDRD) Non-Af 69 BUN/Creatinine Ratio 13.8 Glucose 116 H Calcium 7.7 L Medical Necessity - Tobacco Use Smoking Status: Never smoker Assessment/Plan All Active Problems Chest pain (Acute) d/c sykes heplock ivf
[2018-10-21] MEDS: Psyllium 1 PACKET PO (09:36)
[2018-10-21] MEDS: Docusate Sodium 100 MG Capsule PO ×2 (09:36→21:01)
[2018-10-21] MEDS: Lisinopril 20 MG Tablet PO ×2 (09:36→21:02)
[2018-10-21] MEDS: amLODIPine 10 MG Tablet PO (09:36)
[2018-10-21] MEDS: Pantoprazole Sodium 20 MG Tablet PO (09:36)
[2018-10-21] MEDS: Magnesium Hydroxide 30 ML UDC 15 ML PO (09:44)
[2018-10-21 09:50] VITALS: BP 156/89; PULSE 97; RESP 18; TEMP 36.7; O2SAT 96
[2018-10-21] MEDS: Atorvastatin Calcium 10 MG Tablet 5 MG PO (12:24)
[2018-10-21 16:00] VITALS: BP 154/85; PULSE 96; RESP 18; TEMP 37.4; O2SAT 92
--- NOTE | 2018-10-21 16:12 | NURSING ---
Walked in marie for the second time today. This nurse encouraged pt to drink water. Few sips taken. Went to bathroom and urinated 50cc. Will continue to monitor output.
[2018-10-21] MEDS: Tamsulosin HCl 0.4 MG Capsule PO (17:59)
[2018-10-21] MEDS: Acetaminophen 500 MG Tablet PO (17:59)
[2018-10-21 19:55] VITALS: BP 123/69; PULSE 99; RESP 16; TEMP 36.9; O2SAT 94
[2018-10-21] MEDS: Clobetasol Propionate 0.05% Cream 1 APPLIC TOPICAL (21:02)
[2018-10-22 02:14] VITALS: BP 161/80; PULSE 99; RESP 16; TEMP 37.8; O2SAT 94
[2018-10-22] MEDS: 0.9% NaCl Peripheral Flush Adult/Peds IV (02:14)
[2018-10-22] MEDS: Acetaminophen 500 MG Tablet PO (02:14)
[2018-10-22 03:54] VITALS: TEMP 37.8
[2018-10-22 05:48] VITALS: TEMP 37.4
--- NOTE | 2018-10-22 06:15 | NURSING ---
pt walked in marie with rn gait steady with walker
[2018-10-22 08:03] VITALS: BP 157/80; PULSE 85; RESP 16; TEMP 37.1; O2SAT 94
[2018-10-22] MEDS: Lisinopril 20 MG Tablet PO (08:16)
[2018-10-22] MEDS: Pantoprazole Sodium 20 MG Tablet PO (08:17)
[2018-10-22] MEDS: amLODIPine 10 MG Tablet PO (08:17)
--- NOTE | 2018-10-22 08:24 | NURSING ---
Walked into bathroom, had small nonformed, soft BM and voided approx 50cc. Back into chair and starting to eat breakfast.
--- NOTE | 2018-10-22 09:30 | DCINST_ITS ---
Discharge Diet: Light diet - advance as tolerated Discharge Activity: Return to Normal Activity, May not drive while taking narcotic pain medications., May Shower May shower in (days): 1 Call your doctor if your incision/area has: Continuous Slow Oozing, Sudden Increased Bleeding, Increased Pain/ Swelling, Increased Redness, Foul Smelling Discharge, Swelling at the incision site Call your doctor if you observe: Fever of 101 or Higher, Inability to urinate, I nability to have a bowel movement, Shortness of breath, Swelling in the ankles, Chest pain, Uncontrolled pain Suture Line Care: Avoid Pulling/Pushing, Avoid Pinching/Bending Allergies/Adverse Reactions: Allergies Penicillins Allergy (Verified 07/25/18 21:53) Hives Medications to take at Discharge Amlodipine [Norvasc] 10 mg PO DAILY 11/30/15 Aspirin [Aspirin, Baby] 81 mg PO DAILY@0800 11/30/15 Glimepiride [Amaryl] 1 mg PO DAILY 11/30/15 Lovastatin [Mevacor] 20 mg PO LUNCH 11/30/15 Quinapril HCl [Accupril] 20 mg PO BID 11/30/15 Betamethasone Dipropionate 15 gm TP PRN PRN 09/27/18 Celecoxib [Celebrex] 200 mg PO DAILY 09/27/18 Hydrocodone/Acetaminophen [[place] 5-325 Tablet] 1 each PO PRN PRN 09/27/18 Psyllium [Metamucil] 1 packet PO DAILY 09/27/18 Primary Care Physician: Stanford Tan III, MD [Primary Care Provider] - Test Results: Test results from this visit will be discussed in further detail at your follow- up appointment, if applicable. Please Follow Up With: Yuriy Squires MD When: in 2 weeks, please call to make an appointment.
--- NOTE | 2018-10-22 09:32 | DS.PCM_ITS ---
Discharge Date and Diagnosis Date of Admission: 10/18/18 Date of Discharge: 10/22/18 - Secondary Discharge Diagnosis Chronic Problems Hypertension (Chronic) Psoriasis (Chronic) Hospital Course and Treatment Operations: - - Right robotic partial nephrectomy Procedures: None Summary of Care Provided: The patient is a 78 year old male with a 4 cm renal mass he underwent a right robotic partial nephrectomy postoperative day #1 he had a small ileus Liquid Diet Finally by Postop Day #3 He Started Passing Gas and Had a Liquid Bowel Movement Also Had Some Mild Dehydration Postoperatively Which Eventually Recovered with Gentle Hydration. Was Not Able to Urinate Postop Day #1 but Then Finally Was Able to Urinate Postoperative and 3 on Postoperative Day #4 Is Doing Well Ambulating Urinating Tolerating Tolerating Regular Diet Abdomen Soft and Benign Passing Gas Having Bowel Movements Showering and Shaving He Is Doing Well Ambulating on His Own in the Hallway with a Use of a Walker and a Cane He Has Family Assistance at Home We Will Send Him Home Today with Family. - Physical Exam General: Alert, Oriented x3, Cooperative HEENT: Atraumatic, PERRLA, EOMI, Normocephalic Neck: Supple, No JVD, Negative Carotid Bruits Lungs: Clear to auscultation, Normal air movement Cardiovascular: Regular rate, No murmurs Abdomen: Bowel Sounds Present, Soft, Non Tender Extremities: No edema, Capillary Refill Less than 3 Seconds Skin: No rashes, No breakdown Musculoskeletal: No Tenderness to Palpation of Joints or Extremities Neurological: Cranial nerves II-XII grossly intact Psych/Mental Status: Normal Affect, Appropriate Vital Signs Temp Pulse Resp BP Pulse Ox 98.7 F 85 16 157/80 H 94 10/22/18 08:03 10/22/18 08:03 10/22/18 08:03 10/22/18 08:03 10/22/18 08:03 Oxygen Flow Rate (L/min) 2 Oxygen Delivery Method Room Air Weight: 91.8 kg Body Mass Index (BMI) 29.0 Finger Stick Blood Glucose 180 Intake and Output for Last 24 Hours 10/20/18 10/21/18 10/22/18 23:59 23:59 23:59 Intake Total 1940 / 1940 2633 / 2633 680 / 680 Output Total 2250 / 2250 1800 / 1800 1900 / 1900 Balance -310 / -310 833 / 833 -1220 / -1220 Discharge Diet: Light diet - advance as tolerated Discharge Activity: Return to Normal Activity, May not drive while taking narcotic pain medications., May Shower May shower in (days): 1 Call your doctor if your incision/area has: Continuous Slow Oozing, Sudden Increased Bleeding, Increased Pain/ Swelling, Increased Redness, Foul Smelling Discharge, Swelling at the incision site Call your doctor if you observe: Fever of 101 or Higher, Inability to urinate, Inability to have a bowel movement, Shortness of breath, Swelling in the ankles, Chest pain, Uncontrolled pain Suture Line Care: Avoid Pulling/Pushing, Avoid Pinching/Bending Home Medications: Medications to take at Discharge Amlodipine [Norvasc] 10 mg PO DAILY 11/30/15 Aspirin [Aspirin, Baby] 81 mg PO DAILY@0800 11/30/15 Glimepiride [Amaryl] 1 mg PO DAILY 11/30/15 Lovastatin [Mevacor] 20 mg PO LUNCH 11/30/15 Quinapril HCl [Accupril] 20 mg PO BID 11/30/15 Betamethasone Dipropionate 15 gm TP PRN PRN 09/27/18 Celecoxib [Celebrex] 200 mg PO DAILY 09/27/18 Hydrocodone/Acetaminophen [[place] 5-325 Tablet] 1 each PO PRN PRN 09/27/18 Psyllium [Metamucil] 1 packet PO DAILY 09/27/18 Primary Care Physician: Stanford Tan III, MD [Primary Care Provider] - Please Follow Up With: Yuriy Squires MD When: in 2 weeks, please call to make an appointment. Medical Necessity - Tobacco Use Smoking Status: Never smoker Meaningful Use Info Meaningful Use Diagnoses (Choose all that apply): None applicable
[2018-10-22 13:20] VITALS: BP 160/93; PULSE 92; RESP 18; TEMP 37; O2SAT 94
--- NOTE | 2018-10-23 15:18 | CASEMGMT ---
[facility] DC Note DC DATE: 10/22/18 DC DISPOSITION: HOME LACE/STRATA: 06/14 No answer to call, no machine garbage pick up worker for message. Vickie AGUIRREN RN ACM
== END 2018-10-22 13:15 | disposition home or self-care (01) | DRG 658 ==
LOC: SDC 13:16
PROVIDERS: Anesthesiology; Admitting Provider Urology; Family Provider Family Medicine; PCP Family Medicine; Referring Provider Urology; Visit Provider Urology
PROC: 0TB04ZZ Excision of Right Kidney, Percutaneous Endoscopic Approach (ICD-10-PCS; CPT 50543; principal; 2018-10-18 07:10)
DX: C64.1 Malignant neoplasm of right kidney, except renal pelvis (principal); N40.0 Benign prostatic hyperplasia without lower urinary tract symptoms; I10 Essential (primary) hypertension; L40.9 Psoriasis, unspecified; E86.0 Dehydration; E11.9 Type 2 diabetes mellitus without complications; H91.90 Unspecified hearing loss, unspecified ear; H54.7 Unspecified visual loss; E78.5 Hyperlipidemia, unspecified; Z79.84 Long term (current) use of oral hypoglycemic drugs
CPT/HCPCS: 36415; 80048; 82962; 83036; 85027; 85610; 85730; 88305; 88307; 88331; J7030; J7040; J7120; A4216; J2405

== ENCOUNTER 2018-10-29 10:39 | Emergency (ER) | payer MEDICARE, SELFPAY ==
[2018-10-18 15:57] VITALS: BMI 29.0
[2018-10-29 10:40] VITALS: BP 134/70; PULSE 83; RESP 18; TEMP 37.6; O2SAT 96; BMI 27.9
[2018-10-29 11:02] VITALS: TEMP 36.6
--- NOTE | 2018-10-29 11:37 | RAD_ITS ---
STUDY: X-RAY CHEST REASON FOR EXAM: Male, 78 years old. Fever x2 days TECHNIQUE: PA and lateral views of the chest. COMPARISON: 07/25/2018 FINDINGS: The lungs are clear and expanded. There is no demonstrated pleural abnormality. Normal size heart. Normal mediastinum and cortney. Normal visualized pulmonary arteries. Normal visualized aortic arch and descending thoracic aorta. There are diffuse degenerative changes of the visualized thoracic spine. Normal visualized ribs, clavicles, and shoulders. There is no demonstrated abnormality of the visualized soft tissue structures of the upper abdomen. RAD/Chest PA and Lateral IMPRESSION: Normal x-ray examination of the chest. Electronically Signed: Brant Muñoz DO at 12:54 EST Tel , Service support ,
--- NOTE | 2018-10-29 11:42 | ED.DCSUM_ITS ---
- ER Visit Summary Date of Service: 10/29/18 Chief Complaint: Fevers and chills History of Present Illness: The patient is a 78 M who presents with subjective fevers and chills for the past 2 days. Patient had a recent partial nephrectomy performed approximately 11 days ago. Patient states he has been having subjective fevers and chills at home. Patient states she still has some mild right-sided abdominal pain. Patient describes it as constant and dull. Patient did not take his temperature at home. Patient states he has felt warm. Patient denies any nausea or vomiting. Patient denies any dysuria or hematuria. Physical Examination: Vital signs are stable. Patient is afebrile. Patient is in no acute distress. Oral mucosa is pink and moist. Neck is supple. Trachea is midline. There is no JVD noted. Heart was regular rate and rhythm. Lungs are clear and equal bilateral. Abdomen is soft. Bowel sounds are normal. There is mild right-sided tenderness. There is no rebound or guarding noted. Skin is warm dry. Incisions are intact. There is no erythema around the incisions. Steri-Strips are in place. There is some ecchymosis around the incisions. Cranial nerves II through XII are intact. There are no focal motor or sensory deficits noted. The remaining physical exam is within normal limits. Test Results: CBC shows a mild leukocytosis of 14.7. Urinalysis shows evidence of urinary tract infection. Basic metabolic profile was normal. Chest x-ray does not show any acute cardiopulmonary process. Emergency Department Course and Treatment: Patient was given a dose of Cipro IV here. Patient was given a prescription for Cipro. Patient was instructed to follow-up with his urologist in 3-5 days. Patient understood and was agreeable with the plan. All questions were answered. Disposition: Discharge home Impression: Urinary tract infection This note was generated with [employer] dictation software. It may contain incorrect words, spelling, and punctuation that were not noted in review of the chart prior to signing ED Disposition - Plan for ED Patient: Disposition: Home or Assisted Living Diagnosis: Urinary tract infection Instructions: ED UTI Pyelonephritis Male Prescriptions: Ciprofloxacin [Cipro] 500 mg PO BID #14 tablet Referrals: Stanford Tan III, MD [Primary Care Provider] -
[2018-10-29 11:51] LABS: Absolute Lymphocyte Count 2.42 X10^3/ul (0.83-4.51); Absolute Neutrophil Count 10.5 X10^3/uL (2.0-7.7); Basophil# 0.13 X10^3/uL; Basophil% 0.9 % (0-1); Eosinophil# 0.81 X10^3/uL; Eosinophils% 5.5 % (0-5); Hematocrit 36.5 % (40-54); Lymphocyte # 2.42 X10^3/ul (4.0); Lymphocyte % 16.4 % (19-41); Mean Corp Hgb Conc 32.9 g/gl (32-36); Mean Corpuscular Hgb 28.8 pg (27.0-32.0); Mean Corpuscular Volume 87.7 fL (80-94); Mean Platelet Vol. 9.6 fl (6.2-12.0); Monocyte# 0.77 X10^3/uL; Monocyte% 5.2 % (0-10); Neutrophil # 10.51 X10^3/uL (2.7-7.7); Neutrophil % 71.5 % (47-70); POSITIVE COUNT NO; POSITIVE DIFFERENTIAL NO; POSITIVE MORPHOLOGY NO; Platelet Count 419 K/mm3 (150-450); RBC Distribution Width SD 44.2 fl (35.1-43.9); Red Blood Count 4.16 M/mm3 (4.6-6.2); White Blood Count 14.7 K/mm3 (4.4-11.0)
[2018-10-29 11:57] LABS: Anion Gap 6 (5-15); BUN 20 mg/dL (7-18); BUN/Creat Ratio 17.9 RATIO (10-20); Calcium,Total 8.5 mg/dL (8.5-10.1); Chloride 105 mmol/L (98-107); Creatinine, Serum 1.12 mg/dL (0.70-1.30); EST Glomerular Filtration Rate 67 mL/min (>60); Est Glom Filt Rate - Afr Amer 81 mL/min (>60); Estimated Creatinine Clearance 55.22 ml/min; Glucose 109 mg/dL (74-106); Potassium 3.8 mmol/L (3.5-5.1); Sodium Level 137 mmol/L (136-145)
[2018-10-29 12:39] LABS: Bacteria 2+ /hpf (None Seen); Color, Urine Yellow (Yellow); Glucose, Dipstick Normal (Normal); Ketone-Dipstick Negative (Negative); Leukocyte Esterase-Dipstick 500 /ul (Negative); Mucous, Urine 1+ /hpf (<or=2+); Nitrite-Dipstick Positive (Negative); Occult Blood-Urine 250 /ul (Negative); Protein-Dipstick 100 mg/dl (Negative); Red Blood Cells-Urine 5-10 SEEN /hpf (0-5); Squamous Epithelial Cells - UA 0-5 SEEN /hpf (0-5); Urine Bilirubin Dipstick 1 mg/dL (Negative); Urine Clarity Turbid (Clear); Urine Urobilinogen Normal (Normal); White Blood Cells 50-100 SEEN /hpf (0-5)
[2018-10-29] MEDS: Ciprofloxacin 400 MG/200 ML BAG 200 MG IV (13:27)
[2018-10-29 13:31] VITALS: RESP 17
[2018-10-29 14:43] VITALS: BP 159/83; PULSE 94; RESP 16; O2SAT 98
== END 2018-10-29 14:46 | disposition home or self-care (01) ==
PROVIDERS: Emergency Provider Emergency Medicine; Family Provider Family Medicine; PCP Family Medicine
DX: N39.0 Urinary tract infection, site not specified (principal); Z90.5 Acquired absence of kidney
CPT/HCPCS: 71046; 80048; 81001; 85025; 87077; 87086; 87088; 87186; 96365; 99283; J7050; A4216; J0744

== ENCOUNTER → 2018-10-31 13:42 | Outpatient (CLI) | payer MEDICARE, SELFPAY ==
[2018-10-29 10:40] VITALS: BMI 27.9
[2018-10-31 15:51] LABS: Hematocrit 36.6 % (40-54); Hemoglobin 11.9 g/dl (13.0-16.5); Mean Corp Hgb Conc 32.5 g/gl (32-36); Mean Corpuscular Hgb 28.8 pg (27.0-32.0); Mean Corpuscular Volume 88.6 fL (80-94); Mean Platelet Vol. 9.9 fl (6.2-12.0); Platelet Count 425 K/mm3 (150-450); RBC Distribution Width CV 14.1 % (11.6-14.6); RBC Distribution Width SD 44.6 fl (35.1-43.9); Red Blood Count 4.13 M/mm3 (4.6-6.2); White Blood Count 11.6 K/mm3 (4.4-11.0)
[2018-10-31 16:03] LABS: Scan Indicated on CBC? Y/N NO
[2018-10-31 16:12] LABS: Anion Gap 10 (5-15); BUN 21 mg/dL (7-18); BUN/Creat Ratio 17.2 RATIO (10-20); Calcium,Total 8.6 mg/dL (8.5-10.1); Chloride 105 mmol/L (98-107); Creatinine, Serum 1.22 mg/dL (0.70-1.30); EST Glomerular Filtration Rate 61 mL/min (>60); Est Glom Filt Rate - Afr Amer 74 mL/min (>60); Glucose 73 mg/dL (74-106); Potassium 3.8 mmol/L (3.5-5.1); Sodium Level 141 mmol/L (136-145)
== END ==
PROVIDERS: Family Provider Family Medicine; PCP Family Medicine; Referring Provider Urology; Visit Provider Urology
DX: C64.9 Malignant neoplasm of unspecified kidney, except renal pelvis (principal)
CPT/HCPCS: 36415; 80048; 85027

== ENCOUNTER → 2018-11-27 17:37 | Outpatient (CLI) | payer MEDICARE, SELFPAY ==
[2018-10-29 10:40] VITALS: BMI 27.9
== END ==
PROVIDERS: Family Provider Family Medicine; PCP Family Medicine; Referring Provider Urology; Visit Provider Urology
DX: N39.0 Urinary tract infection, site not specified (principal)
CPT/HCPCS: 87086; 87088

== ENCOUNTER → 2018-12-12 17:26 | Outpatient (CLI) | payer MEDICARE, SELFPAY | PROVIDERS: Family Provider Family Medicine; PCP Family Medicine; Referring Provider Urology; Visit Provider Urology | DX: R82.998 Other abnormal findings in urine (principal) | CPT/HCPCS: 87086; 87088 ==

== ENCOUNTER 2019-05-13 18:24 | Emergency (ER) | payer MEDICARE, SELFPAY ==
[2019-05-13] VITALS (14 sets, daily range): BP systolic 145–183; BP diastolic 68–99; PULSE 74–93; RESP 17–20; TEMP 36.6; O2SAT 94–99; BMI 28.9
--- NOTE | 2019-05-13 | CT_ITS ---
STUDY: CTA HEAD AND NECK WITH CONTRAST REASON FOR EXAM: Male, 78 years old. Headache, dizziness, blurred vision. RADIATION DOSAGE (If Supplied By Facility): CTDIvol = ( 20.22 ) mGy, DLP = ( 753.17 ) mGycm TECHNIQUE: CT angiography was performed with a multi-detector CT scanner. Data acquisition was obtained from the skull base through the vertex following intravenous administration of 100 IV Isovue 370. MIP images were reconstructed from the axial data set. Post-processing of the angiographic images was performed, with multiplanar reformation and 3D reconstruction. Individualized dose optimization techniques were used for this CT. COMPARISON: No relevant priors. FINDINGS: Study performed during venous phase. Normal bilateral petrous carotid arteries. Atherosclerotic calcification of the cavernous internal carotid arteries, no stenosis. Normal A1 and A2 segments of the anterior cerebral arteries. No aneurysm, dissection, stenosis, or occlusion. Normal intact anterior communicating artery (ACOM). Normal right M1 and M2 segments of the middle cerebral arteries, with a normal M1 bifurcation. Normal left M1 and M2 segments of the middle cerebral arteries, with a normal M1 bifurcation. Nonvisualized posterior communicating arteries. Normal bilateral vertebral arteries. Normal basilar artery with a normal basilar bifurcation. The visualized bilateral superior cerebellar (SCA) arteries are normal. Normal bilateral P1, P2 and visualized P3 segments of the posterior cerebral arteries. There is no demonstrated aneurysm of the [place]. AORTIC ARCH: Normal visualized aortic arch. Normal origins of the brachiocephalic, left common carotid, and left subclavian arteries. RIGHT CAROTID ARTERIES: Normal right common carotid artery (CCA). Normal right common carotid bulb. Mild atherosclerotic calcification of the right ICA origin, no stenosis. Normal visualized cervical portion of the right internal carotid artery. Normal origin of the right external carotid artery (ECA). LEFT CAROTID ARTERIES: Normal left common carotid artery (CCA). Normal left common carotid bulb. Mild atherosclerotic calcification of the left ICA origin, no stenosis. Normal visualized cervical portion of the left internal carotid artery. Normal origin of the left external carotid artery (ECA). VERTEBRAL ARTERIES: Normal bilateral vertebral arteries. No dissection, stenosis or occlusion. Heterogeneous 3.7 cm left lobe of the thyroid consistent with solid nodule or nodules. CT/CTA Head AND Neck W/ Contrast IMPRESSION: 1. Atherosclerotic calcification of the proximal internal carotid arteries and cavernous carotid arteries bilaterally. 2. No aneurysm, dissection, stenosis, or occlusion of the bilateral vertebral or carotid arteries. 3. Enlarged, heterogeneous left thyroid nodule. Nonemergent thyroid ultrasound is advised for further evaluation. Electronically Signed: Anuradha Gonzales MD at 23:35 EDT Tel , Service support ,
--- NOTE | 2019-05-13 18:31 | ED.RN ---
charge nurse alexa segal of pt sx.
--- NOTE | 2019-05-13 19:27 | CT_ITS ---
STUDY: CT BRAIN WITHOUT CONTRAST REASON FOR EXAM: Male, 78 years old. Headache, blurred vision. RADIATION DOSAGE (If Supplied By Facility): CTDIvol = ( 44.99 ) mGy, DLP = ( 796.11 ) mGycm TECHNIQUE: Transaxial CT imaging of the brain was performed without administration of intravenous contrast material. Individualized dose optimization techniques were used for this CT. COMPARISON: No relevant priors. FINDINGS: Normal soft tissue structures. Normal calvarium. There is mild cerebral atrophy with widening of the extra-axial spaces and ventricular dilatation. There are areas of decreased attenuation within the white matter tracts of the supratentorial brain, consistent with microvascular disease changes. There is no intracranial hemorrhage. There are no findings of an acute ischemic infarction. Normal visualized paranasal sinuses. CT/Brain/Head without Contrast IMPRESSION: 1. No acute findings. 2. Mild microvascular ischemic changes. Atrophy. Electronically Signed: Anuradha Gonzales MD at 20:26 EDT Tel , Service support ,
--- NOTE | 2019-05-13 19:27 | EKG12_ITS ---
Test Reason : DIZZY Blood Pressure : / mmHG Vent. Rate : 084 BPM Atrial Rate : 084 BPM P-R Int : 186 ms QRS Dur : 156 ms QT Int : 416 ms P-R-T Axes : 050 -50 059 degrees QTc Int : 491 ms Sinus rhythm with occasional Premature ventricular complexes Left axis deviation Right bundle branch block Left ventricular hypertrophy Abnormal ECG Confirmed by SAFIA PEREIRA, WHIT ([id number]), film editor supervisor NAVJOT RUVALCABA ([id number]) on 05/15/2019 11:37:23 AM Referred By: KOBE Confirmed By:WHIT BAIG MD
--- NOTE | 2019-05-13 19:31 | ED.DCSUM_ITS ---
History of Present Illness Narrative: Patient states he has had diplopia for several weeks. He states over the last 3 or 4 days, he has had dizziness that is there all the time but worse when he bends over, feels like some type of sensation of movement but not spinning, it is caused him to have multiple falls without any significant injury, he states he bruised his left leg and his left arm. 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 He takes a baby aspirin and no other antiplatelet or anticoagulant medications. He has had no head trauma or injury lately. He states gradually over the course of today, he is having blurry vision throughout the left eye and states he was at the [employer] last week and they put some type of film on the inside of his right eyeglasses. He has chronic numbness of his left lower extremity but no other acute or new neurologic symptoms. He does have a headache, both bifrontal and occipital, he denies any thunderclap or loss of consciousness. He has a very mild amount of left eye pain but that is been there for 2 or 3 days as well. He states he had a CT scan at [facility] about a week ago but does not know the results yet. He had his head and abdomen pelvis done, the latter of which was done to look for recurrence of his remote kidney cancer. <Wilbert [place] - Last Filed: 05/13/19 22:23> Narrative: caro Patient's CT angios shows no aneurysm. Positive atherosclerotic changes. Positive thyroid nodule. Patient aware of the thyroid nodule after I spoke to him and he will follow-up for this. Patient can have an outpatient work-up further. <Ishaan Moctezuma - Last Filed: 05/13/19 23:57> Chief Complaint: Dizziness - Past Medical History (1) Hypertension Status: Chronic (2) Psoriasis Status: Chronic (3) Hyperlipidemia Status: Chronic (4) Type 2 diabetes mellitus Status: Chronic <Wilbert [place] - Last Filed: 05/13/19 22:23> Past Medical History Lives: Alone Smoking Status: Never smoker - Family History Maternal Family History: Reports: No pertinent history <Wilbert [place] - Last Filed: 05/13/19 22:23> <Ishaan Moctezuma - Last Filed: 05/13/19 23:57> - Allergies and Home Meds Allergies/Adverse Reactions: Allergies Penicillins Allergy (Verified 05/13/19 18:25) Hives Primary Care Physician: Stanford Tan III, MD [Primary Care Provider] - Keep Blanche appointment Paul Layne MD [STAFF PHYSICIAN] - 05/15/19 (Call at 8 AM on Tuesday for appointment time same day) Review of Systems General: Denies: Chills, Fever, Sweats Eyes: Reports: Blurred vision - left, Diplopia ENT: Denies: Bilateral ear pain, Rhinorrhea, Sore throat Cardiovascular: Denies: Chest pain, Palpitations Respiratory: Denies: Dyspnea, Cough, Dyspnea on exertion Gastrointestinal: Denies: Abdominal pain, Nausea, Vomiting, Diarrhea, Melena, Hematochezia Genitourinary: Denies: Dysuria, Hematuria, Frequency Musculoskeletal: Denies: Neck pain, Back pain, Extremity Pain Skin: Denies: Rash, Wounds Neurological: Reports: Headache, Numbness - LLE chronic x years, unchanged. Denies: Weakness <Wilbert [place] - Last Filed: 05/13/19 22:23> Physical Exam Vital Signs/Narrative: Vital Signs Temp Pulse Resp BP Pulse Ox 05/13/19 19:27 93 18 98 05/13/19 18:25 97.8 F 89 18 156/82 H 95 NIH Stroke Scale/Score (NIHSS): RESULT SUMMARY: 2 points NIH Stroke Scale INPUTS: 1A: Level of consciousness ?> 0 = Alert; keenly responsive 1B: Ask month and age ?> 0 = Both questions right 1C: 'Blink eyes' & 'squeeze hands' ?> 0 = Performs both tasks 2: Horizontal extraocular movements ?> 1 = Partial gaze palsy: can be overcome 3: Visual monge ?> 0 = No visual loss 4: Facial palsy ?> 0 = Normal symmetry 5A: Left arm motor drift ?> 0 = No drift for 10 seconds 5B: Right arm motor drift ?> 0 = No drift for 10 seconds 6A: Left leg motor drift ?> 0 = No drift for 5 seconds 6B: Right leg motor drift ?> 0 = No drift for 5 seconds 7: Limb Ataxia ?> 0 = No ataxia 8: Sensation ?> 1 = Mild-moderate loss: less sharp/more dull 9: Language/aphasia ?> 0 = Normal; no aphasia 10: Dysarthria ?> 0 = Normal 11: Extinction/inattention ?> 0 = No abnormality Inital Vital Signs reviewed: Yes General: Well nourished, Well developed, No Acute Distress Head: Normocephalic, Atraumatic Eyes: Perrl, - - left ptosis. able to look to left w/ both eyes, but unable to look up and left, possibly due to ptosis blocking vision; EOM to right are WNL with both eyes. ENT: Moist mucous membranes, No rhinorrhea Neck: Supple, Nontender Cardiovascular: Regular rate, Regular rhythm, No murmurs Respiratory: No distress, CTA bilaterally, Chest nontender Abdomen: Soft, Nontender, Nondistended, Normal bowel sounds Back: Nontender, Normal Inspection Extremities: Nontender, No edema Skin: Normal color, No rash Neurological: Alert, Oriented x3, Cranial nerves II-XII grossly intact, Normal Strength, Parasthesia - LLE only Psychological: Normal affect, Normal Mood <Wilbert [place] - Last Filed: 05/13/19 22:23> Vital Signs/Narrative: Vital Signs Pulse Resp BP Pulse Ox 05/13/19 23:28 79 17 145/85 H 95 05/13/19 23:18 76 18 183/99 H 99 05/13/19 22:30 76 18 160/76 H 99 05/13/19 22:23 74 17 163/85 H 94 05/13/19 22:00 74 18 163/85 H 99 05/13/19 21:30 74 18 175/92 H 98 05/13/19 21:00 76 18 165/68 H 99 05/13/19 20:00 74 17 175/92 H 99 <Ishaan Moctezuma - Last Filed: 05/13/19 23:57> Diagnostic/Tx/Re-eval Impressions Brain CT 05/13/19 19:27 IMPRESSION: 1. No acute findings. 2. Mild microvascular ischemic changes. Atrophy. Electronically Signed: Anuradha Gonzales MD at 20:26 EDT Tel , Service support , 05/13/19 19:27 Brain/Head without Contrast [CT] Stat Laboratory Results 09/09/3005/13/19 05/13/19 18:38 18:38 18:38 WBC 7.4 RBC 4.78 Hgb 14.3 Hct 41.6 MCV 87.0 MCH 29.9 MCHC 34.4 RDW Std Deviation 40.5 RDW Coeff of Rosemary 12.9 Plt Count 202 MPV 10.5 Immature Gran % (Auto) 0.400 Neut % (Auto) 47.1 Lymph % (Auto) 36.0 [place] % (Auto) 10.9 H Eos % (Auto) 4.8 Baso % (Auto) 0.8 Absolute Neuts (auto) 3.5 Absolute Lymphs (auto) 2.65 Nucleated RBC % 0 PT 13.3 INR 1.0 APTT 69.8 H Sodium 138 Potassium 3.7 Chloride 107 Carbon Dioxide 24.0 Anion Gap 7 BUN 22 H Creatinine 1.08 Estim Creat Clear Calc 57.27 Est GFR (MDRD) Af Amer 85 Est GFR (MDRD) Non-Af 70 BUN/Creatinine Ratio 20.4 H Glucose 214 H Calcium 8.6 Troponin I < 0.015 - Rhythm Strip Rhythm Strip: Sinus Rhythm Rate: 84 Ectopy: PAC(s) - EKG Initial EKG Interpretation: Sinus Rhythm, No Acute Injury Pattern, RBBB, LAFB, - - PAC. Left axis. Prior: Unchanged - Medical Decision Making CT head is negative, his blood work and EKG are unremarkable. His pupillary exam is normal, there is no Stu My pupil. I discussed with Dr. Layne who is on for ophthalmology, who reviewed the patient's notes from his visit last week with Dr. Fuentes, and he did not have the ptosis then. Given his normal pupillary exam, he would be concerned about possible microvascular cranial nerve III palsy, as opposed to an obstructive 1, for which she would be reasonable for the patient to follow-up for an outpatient MRI, which is what the patient prefers when offered admission. He declines it. However if he is going to go home, we will need to rule out RING STAMPER aneurysm, so CT angiography was performed, followed by flushing with IV fluids. If patient has negative CTA for aneurysm or compressive mass, he may be discharged by oncoming emergency physician, to whom he is checked out. Dr. Layne also will see the patient in 2 days, after the weekend. <Wilbert [place] - Last Filed: 05/13/19 22:23> ED Disposition <Wilbert [place] - Last Filed: 05/13/19 22:23> <Ishaan Moctezuma - Last Filed: 05/13/19 23:57> - Plan for ED Patient: Disposition: Home or Assisted Living Diagnosis: Vertigo, Diplopia, Ptosis, left Instructions: Diploplia, VERTIGO, Unspecified Referrals: Paul Layne MD [STAFF PHYSICIAN] - 05/15/19 (Call at 8 AM on Tuesday for appointment time same day) Stanford Tan III, MD [Primary Care Provider] - Keep Blanche appointment
[2019-05-13 19:40] LABS: Prothrombin Time (Protime)PT. 13.3 SECONDS (11.7-14.9)
[2019-05-13 19:42] LABS: Partial Thromboplast Time 69.8 Seconds (24.1-36.2)
[2019-05-13 19:44] LABS: Absolute Lymphocyte Count 2.65 X10^3/uL (0.83-4.51); Absolute Neutrophil Count 3.5 X10^3/uL (2.0-7.7); Basophil# 0.06 X10^3/uL; Basophil% 0.8 % (0-1); Eosinophil# 0.35 X10^3/uL; Eosinophils% 4.8 % (0-5); Hematocrit 41.6 % (40-54); Hemoglobin 14.3 g/dL (13.0-16.5); Lymphocyte # 2.65 X10^3/ul (4.0); Mean Corp Hgb Conc 34.4 g/dL (32-36); Mean Corpuscular Hgb 29.9 pg (27.0-32.0); Mean Platelet Vol. 10.5 fl (6.2-12.0); Monocyte% 10.9 % (0-10); NRBC Flagged by Analyzer 0 % (0-5); Neutrophil # 3.47 X10^3/uL (2.7-7.7); Neutrophil % 47.1 % (47-70); Platelet Count 202 K/mm3 (150-450); RBC Distribution Width CV 12.9 % (11.6-14.6); RBC Distribution Width SD 40.5 fl (35.1-43.9); Red Blood Count 4.78 M/mm3 (4.6-6.2); White Blood Count 7.4 K/mm3 (4.4-11.0)
[2019-05-13 19:50] LABS: Anion Gap 7 (5-15); BUN 22 mg/dL (7-18); BUN/Creat Ratio 20.4 RATIO (10-20); Calcium,Total 8.6 mg/dL (8.5-10.1); Chloride 107 mmol/L (98-107); Creatinine, Serum 1.08 mg/dL (0.70-1.30); EST Glomerular Filtration Rate 70 mL/min (>60); Est Glom Filt Rate - Afr Amer 85 mL/min (>60); Estimated Creatinine Clearance 57.27 ml/min; Glucose 214 mg/dL (74-106); Potassium 3.7 mmol/L (3.5-5.1); Sodium Level 138 mmol/L (136-145)
--- NOTE | 2019-05-13 20:01 | ED.RN ---
PT REQUESTS SOMETHING FOR MEZA, DR. PEREZ INFORMED. AWAITING CT RESULTS PRIOR TO MED ORDERS PER DR. PEREZ. PT INFORMED.
[2019-05-14] VITALS: BP 146/84; PULSE 77; RESP 18; O2SAT 99
[2019-05-14 00:02] VITALS: BP 146/84; PULSE 79; RESP 18; O2SAT 97
[2019-05-14] MEDS: Ketorolac 15 MG/ML Vial IV (00:10)
== END 2019-05-14 00:14 | disposition home or self-care (01) ==
PROVIDERS: Emergency Medicine; Emergency Provider Emergency Medicine; Family Provider Family Medicine; PCP Family Medicine
DX: H53.2 Diplopia (principal); H02.402 Unspecified ptosis of left eyelid; E04.1 Nontoxic single thyroid nodule; E11.9 Type 2 diabetes mellitus without complications; E78.5 Hyperlipidemia, unspecified; G51.0 Bell's palsy; I10 Essential (primary) hypertension; I45.10 Unspecified right bundle-branch block; Z85.528 Personal history of other malignant neoplasm of kidney; Z88.0 Allergy status to penicillin; Z98.890 Other specified postprocedural states; Z91.81 History of falling; R42 Dizziness and giddiness; L40.9 Psoriasis, unspecified
CPT/HCPCS: 70450; 70496; 70498; 80048; 84484; 85025; 85610; 85730; 93005; 96361; 96374; 99285; J7030; J7040; Q9967; A4216

== ENCOUNTER → 2019-05-18 14:24 | Outpatient (CLI) | payer MEDICARE, SELFPAY ==
[2019-05-13 18:25] VITALS: BMI 28.9
== END ==
PROVIDERS: Family Provider Family Medicine; PCP Family Medicine; Referring Provider Ophthalmology; Visit Provider Ophthalmology
DX: H49.02 Third [oculomotor] nerve palsy, left eye (principal); H53.2 Diplopia
CPT/HCPCS: 36415; 84238

== ENCOUNTER 2019-06-03 09:35 | Emergency (ER) | payer MEDICARE, SELFPAY ==
[2019-05-13 18:25] VITALS: BMI 28.9
[2019-06-03 09:36] VITALS: BP 165/79; PULSE 81; RESP 18; TEMP 36.9; O2SAT 94; BMI 27.9
--- NOTE | 2019-06-03 10:20 | EKG12_ITS ---
Test Reason : DIZZINESS Blood Pressure : / mmHG Vent. Rate : 078 BPM Atrial Rate : 078 BPM P-R Int : 132 ms QRS Dur : 154 ms QT Int : 422 ms P-R-T Axes : 044 -43 044 degrees QTc Int : 481 ms Sinus rhythm with occasional Premature ventricular complexes Left axis deviation Right bundle branch block Moderate voltage criteria for LVH, may be normal variant Cannot rule out Septal infarct , age undetermined Abnormal ECG Confirmed by MALATHI PEREIRA, RE ([id number]), image editor HERSON LINDQUIST ([id number]) on 06/04/2019 9:06:10 AM Referred By: Confirmed By:RE SERVIN MD
--- NOTE | 2019-06-03 10:20 | ED.DCSUM_ITS ---
History of Present Illness Informant: Patient, Family Onset: Month(s) - 2 Context: Onset with activity Timing: Waxes and wanes Quality: room spinning Current Severity: Mild Maximum Severity: Moderate Worsened by: Movement Relieved by: Remaining still Associated Symptoms: double vision and left eye droop Narrative: Omar is a 78-year-old male who presents with vertigo. He was evaluated on May 13 for the same. He has had a gradual left eye droop since April. He had a CAT scan in April of his head that showed no acute process. On May 13 had a CAT scan of his head as well as a CTA of his brain that showed no acute process. He has seen an resistor coater as an outpatient and is under his care for the diplopia and left eyelid lag. Patient's primary care provider is referring him to neurology. He denies facial droop or paresthesia or focal unilateral weakness. He denies fever or chills or chest pain or shortness of breath. His symptoms are worse with movement of his head. He complains of a vague mild headache that is waxing and waning over several weeks. He is taking nothing for the headache. He denies nausea or vomiting and has a normal appetite. Prior similar symptoms: Yes Recent Illness/Hospitalization: Yes - ED evaluation as well as outpatient evaluations for this complaint <Danielle Hopson - Last Filed: 06/03/19 13:32> <Felicity Sparks - Last Filed: 06/03/19 15:49> Chief Complaint: Dizziness - Past Medical History (1) Renal carcinoma Status: Acute <Danielle Hopson - Last Filed: 06/03/19 13:32> Past Medical History Prior records reviewed: Yes Surgical History: herniorrhaphy, total knee arthroplasty, - - Excision of renal tumor Lives: Alone Smoking Status: Never smoker Alcohol: None Drugs: None - Family History Maternal Family History: Reports: No pertinent history <Danielle Hopson - Last Filed: 06/03/19 13:32> <Felicity Sparks - Last Filed: 06/03/19 15:49> - Allergies and Home Meds Allergies/Adverse Reactions: Allergies Penicillins Allergy (Verified 06/03/19 09:38) Hives Primary Care Physician: Stanford Tan III, MD [Primary Care Provider] - Review of Systems All systems negative except as indicated General: Denies: Chills, Fever Eyes: Reports: Visual changes - left, Diplopia ENT: Denies: Bilateral ear pain, Left ear pain, Rhinorrhea, Sore throat Cardiovascular: Denies: Chest pain, Palpitations, Heart racing Respiratory: Denies: Dyspnea, Cough, Sputum Gastrointestinal: Denies: Abdominal pain, Nausea, Vomiting, Diarrhea, Constipation, Melena, Hematochezia Genitourinary: Denies: Dysuria, Hematuria, Frequency Musculoskeletal: Reports: Extremity Pain - Left lower extremity numbness and pain from neuropathy. Denies: Myalgias, Arthralgias, Neck pain, Back pain Skin: Denies: Rash Neurological: Reports: Headache, Numbness - Chronic left lower extremity without weakness. Denies: Weakness, Parasthesia Endocrine: Denies: Polyuria, Polydipsia <Danielle Hopson - Last Filed: 06/03/19 13:32> Physical Exam Vital Signs/Narrative: Vital Signs Temp Pulse Resp BP Pulse Ox 06/03/19 09:36 98.4 F 81 18 165/79 H 94 Inital Vital Signs reviewed: Yes General: Well nourished, Well developed Head: Normocephalic, Atraumatic Eyes: Perrl, EOMI, - - L ptosis x 2 months. Negative for: Pale conjunctiva ENT: Moist mucous membranes, No rhinorrhea Neck: Supple, Nontender, No lymphadenopathy - Thyroid nodule chronic Cardiovascular: Regular rate, Regular rhythm, No murmurs. Negative for: Irregul ar Respiratory: No distress, CTA bilaterally, Chest nontender Abdomen: Nontender, Nondistended Back: Nontender, Normal Inspection. Negative for: CVA tenderness Extremities: Nontender, No edema. Negative for: Tenderness, Calf Tenderness Skin: Normal color, Rash - Chronic right hand dermatitis from psoriasis without cellulitis Left upper extremity congenital anomaly Neurological: Alert, Oriented x3, Cranial nerves II-XII grossly intact - Except left eyelid droop which is been chronic since April. Negative for: Left side facial droop, Right side facial droop Psychological: Normal affect, Normal Mood <Danielle Hopson - Last Filed: 06/03/19 13:32> Vital Signs/Narrative: Vital Signs Pulse Resp BP Pulse Ox 06/03/19 14:02 80 18 160/74 H 06/03/19 12:00 78 22 H 171/76 H 94 <Felicity Sparks - Last Filed: 06/03/19 15:49> Diagnostic/Tx/Re-eval CT brain noncontrast showed no acute process per radiology - EKG Initial EKG Interpretation: Sinus Rhythm, No Acute Injury Pattern, RBBB, - - Sinus rhythm with occasional PVC Ventricular rate 78 [place] interval 132 QRS duration 154 QT/QTc 422/41 No acute STEMI and no acute changes from previous EKG May 13 2019 - Medical Decision Making Modified Dasia at the bedside reproduce vertigo bilaterally. No nystagmus was noted. Patient was offered CT scan of his head but he states he has had 3 in the last month and does not think it is necessary at this time. He did agree to having laboratory test reviewed. He will be treated with meclizine and Tylenol for vertigo and headache and reevaluated. His symptoms improved with meclizine, Tylenol and IV fluids. Laboratory tests were unremarkable as well as CAT scan of the head. His left eye ptosis improved as well. He remained neurologically intact and is nontoxic in appearance and hemodynamically stable. He is requesting discharge home. He is discharged home in stable condition with a prescription for meclizine. He was instructed to increase his fluid intake and take Tylenol as needed for pain. He will call his primary care provider tomorrow and check on his neurology referral. Patient requested we contact his resistor coater. The on-call resistor coater was contacted and did have access to his records today. Patient was inquiring about recent laboratory tests sent off from the resistor coater office. His exam is consistent with positional vertigo. <Danielle Hopson - Last Filed: 06/03/19 13:32> - Medical Decision Making I independently evaluated the patient. 78-year-old male presents with diplopia, vertigo. He states the symptoms have been ongoing since the end of April. He has been seen by ophthalmology multiple times. He has had CT scans of his head. He states he has fallen and hit his head since the last CT scan. He is awaiting test results from his resistor coater. He has been referred to neurology. Symptoms are continuous but not worse than usual today. Denies new complaints. Lab work and CT scan showed no acute process. Discussed with ophthalmology and they do not have access to his records today. Patient is feeling improved following meclizine. He will follow-up with ophthalmology and neurology. Advised return to ED for worsening complaints. <Felicity Sparks - Last Filed: 06/03/19 15:49> ED Disposition <Danielle Hopson - Last Filed: 06/03/19 13:32> <Felicity Sparks - Last Filed: 06/03/19 15:49> - Plan for ED Patient: Disposition: Psychiatric Hospital or Unit Diagnosis: Vertigo, Headache Instructions: Benign Positional Vertigo Prescriptions: Meclizine HCl 25 mg PO Q8H PRN PRN #12 tab PRN Reason: Dizziness Prescription Printed Referrals: Stanford Tan III, MD [Primary Care Provider] -
[2019-06-03 10:29] VITALS: BP 159/94; BP 167/92; BP 172/87; PULSE 79; PULSE 82; PULSE 85
[2019-06-03] MEDS: Acetaminophen 500 MG Tablet 1000 MG PO (10:33)
[2019-06-03] MEDS: Meclizine HCl 25 MG Tablet PO (10:33)
[2019-06-03 10:36] VITALS: BP 167/87; PULSE 85; RESP 18; O2SAT 94
[2019-06-03 10:46] LABS: Anion Gap 5 (5-15); BUN 18 mg/dL (7-18); BUN/Creat Ratio 18.7 RATIO (10-20); Calcium,Total 9.1 mg/dL (8.5-10.1); Chloride 105 mmol/L (98-107); Creatinine, Serum 0.96 mg/dL (0.70-1.30); EST Glomerular Filtration Rate 80 mL/min (>60); Est Glom Filt Rate - Afr Amer 96 mL/min (>60); Estimated Creatinine Clearance 64.42 ml/min; Glucose 168 mg/dL (74-106); Potassium 3.8 mmol/L (3.5-5.1); Sodium Level 138 mmol/L (136-145)
--- NOTE | 2019-06-03 10:50 | CT_ITS ---
STUDY: CT BRAIN WITHOUT CONTRAST REASON FOR EXAM: Male, 78 years old. Vertigo and dizziness for 3 weeks. History of hypertension. RADIATION DOSAGE (If Supplied By Facility): CTDIvol = ( 44.99 ) mGy, DLP = ( 812.98 ) mGycm TECHNIQUE: Transaxial CT imaging of the brain was performed without administration of intravenous contrast material. Individualized dose optimization techniques were used for this CT. COMPARISON: No relevant priors. FINDINGS: Normal soft tissue structures. Normal calvarium. Normal size ventricles and extra-axial spaces for the patient's age. There are mild areas of decreased attenuation within the white matter tracts of the supratentorial brain, consistent with microvascular disease changes. Normal basal ganglia and thalami. Normal brainstem. Normal cerebellum. There is dense calcification in the falx. There is no intracranial hemorrhage. There are no findings of an acute ischemic infarction. There are calcifications of the cavernous internal carotid arteries. Normal visualized paranasal sinuses. CT/Brain/Head without Contrast IMPRESSION: No acute intracranial process. Electronically Signed: Frederick Mirza MD at 11:26 EDT Tel , Service support ,
[2019-06-03 11:00] VITALS: BP 167/92; PULSE 79; RESP 18; O2SAT 99
[2019-06-03 11:03] LABS: Hematocrit 43.4 % (40-54); Hemoglobin 14.7 g/dL (13.0-16.5); Mean Corp Hgb Conc 33.9 g/dL (32-36); Mean Corpuscular Hgb 28.6 pg (27.0-32.0); Mean Corpuscular Volume 84.4 fL (80-94); Mean Platelet Vol. 10.3 fl (6.2-12.0); Platelet Count 167 K/mm3 (150-450); RBC Distribution Width CV 13.1 % (11.6-14.6); RBC Distribution Width SD 40.4 fl (35.1-43.9); Red Blood Count 5.14 M/mm3 (4.6-6.2); White Blood Count 8.1 K/mm3 (4.4-11.0)
[2019-06-03 12:00] VITALS: BP 171/76; PULSE 78; RESP 22; O2SAT 94
[2019-06-03 14:02] VITALS: BP 160/74; PULSE 80; RESP 18
== END 2019-06-03 14:03 ==
PROVIDERS: Emergency Provider Nurse Practitioner; Family Provider Family Medicine; PCP Family Medicine
DX: R42 Dizziness and giddiness (principal); R51 Headache; I45.10 Unspecified right bundle-branch block; Z88.0 Allergy status to penicillin; Z85.528 Personal history of other malignant neoplasm of kidney
CPT/HCPCS: 70450; 80048; 85027; 93005; 99285; J7030; A4216

== ENCOUNTER → 2019-06-07 16:13 | Outpatient (CLI) | payer MEDICARE, SELFPAY ==
[2019-06-03 09:36] VITALS: BMI 27.9
[2019-06-20 10:35] LABS: ACHR AB Modulating 46 % (0-20); ACHR Recep AB, Blocking 42 % (0-25)
== END ==
PROVIDERS: Family Provider Family Medicine; PCP Family Medicine; Referring Provider Psychiatry & Neurology Neurology; Visit Provider Psychiatry & Neurology Neurology
DX: G70.9 Myoneural disorder, unspecified (principal)
CPT/HCPCS: 36415; 83519

== ENCOUNTER → 2019-06-19 16:28 | Outpatient (CLI) | payer MEDICARE, SELFPAY ==
[2019-06-03 09:36] VITALS: BMI 27.9
--- NOTE | 2019-06-19 16:31 | CT_ITS ---
STUDY: CT BRAIN WITH AND WITHOUT CONTRAST REASON FOR EXAM: Male, 79 years old. Diplopia RADIATION DOSAGE (If Supplied By Facility): DLP = ( 1648.46 ) mGycm TECHNIQUE: Transaxial CT imaging of the brain was performed pre and post contrast administration. The examination was performed with intravenous administration of 75ml ml of Isovue 300 contrast material. Individualized dose optimization techniques were used for this CT. COMPARISON: CT head June 03, 2019 FINDINGS: There is no acute bleed or infarct. There are normal white matter tracts. There is no abnormal enhancement following contrast administration. There are no intracranial masses identified. The ventricles are normal in configuration. There is no hydrocephalus. The visualized paranasal sinuses are clear. The mastoid air cells are well aerated. There is no skull fracture. CT/Brain/Head W/WO Contrast IMPRESSION: No acute intracranial abnormality. Electronically Signed: Paul Rivera, at 21:54 EDT Tel , Service support ,
== END ==
PROVIDERS: Family Provider Family Medicine; PCP Family Medicine; Referring Provider Ophthalmology; Visit Provider Ophthalmology
DX: H53.2 Diplopia (principal)
CPT/HCPCS: 70470; Q9967

== ENCOUNTER 2019-06-21 08:09 | Inpatient (IN) | payer MEDICARE, SELFPAY ==
[2019-06-21] VITALS (12 sets, daily range): BP systolic 134–178; BP diastolic 77–98; PULSE 77–101; RESP 16–22; TEMP 36.6–38; O2SAT 91–96; BMI 27.7; BMI 27.0
--- NOTE | 2019-06-21 08:57 | MRI_ITS ---
STUDY: MRI BRAIN WITHOUT CONTRAST REASON FOR EXAM: Male, 79 years old. Headache, stumbling, left eye droop for 6 weeks. TECHNIQUE EXAM DESCRIPTION: An MRI was performed utilizing axial diffusion and ADC map images followed by axial T2 and FLAIR and gradient echo images followed by sagittal and axial T1 weighted images COMPARISON: Previous CT scan of the head dated 07/01/2019. FINDINGS: The diffusion weighted axial images and ADC map images of the head show no evidence of restricted diffusion. The shekhar, medulla and midbrain and cerebellum appear to be normal. There are 2 linear areas of increased signal seen in the left cerebral peduncle most likely representing Virchow- Donald spaces. (A normal variant). The ventricles and sulci are mildly enlarged due to age-related cerebral atrophy.The cerebral hemispheres appear to be normal., But there are some scattered foci of increased signal in the rojas radiata bilaterally most likely to arteriosclerotic demyelinating changes, which are commonly found in patients of this age.. The basal ganglia appear to be normal. No enhancing masses or lesions are seen. The gradient echo axial images are normal. No evidence of a Chiari I malformation is identified. The V4 segments of the vertebral artery, the basilar artery, the posterior cerebral arteries, the cavernous and supraclinoid carotid arteries, and the M1 segments of the middle cerebral arteries are all normal The orbits including the optic nerves and optic chiasm appear normal. The pituitary and pituitary infundibulum appear to be normal. fThe inner and outer tables of the skull are normal The frontal, ethmoid, maxillary, and sphenoid sinuses are normal. The mastoid air cells are normal. MRI/Brain without Contrast IMPRESSION: Age-related cerebral atrophy and scattered periventricular nonspecific demyelinating changes, commonly found in patients of this age. Electronically Signed: King Gates, at 12:20 EDT Tel , Service support ,
[2019-06-21] MEDS: DiphenhydrAMINE 50 MG/ML Syringe 25 MG IV (08:59)
[2019-06-21] MEDS: proCHLORPERazine 10 MG/2 ML Vial IV (08:59)
--- NOTE | 2019-06-21 09:15 | ED.DCSUM_ITS ---
- ER Visit Summary Date of Service: 06/21/19 Chief Complaint: Headache History of Present Illness: The patient is a 79 M with a right side and occipital headache that started today. The patient has recently seen ophthalmology and neurology for ongoing diplopia and vertigo. He was diagnosed with myasthenia gravis. He is taking Mestinon. He says he is here for some type of infusion. He was advised to get the infusion in [place], but did not want to travel there. He said the headache is new. Denies inciting factors. Denies anything making it worse. He takes aspirin but no other blood thinners. Denies any new neurologic symptoms otherwise. Physical Examination: Afebrile and vital signs unremarkable. Head and neck exam unremarkable except for left side ptosis which is not new. Cranial nerves grossly intact. The remainder of his exam is unremarkable. Nothing focal or lateralizing on his neurologic exam. 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 Test Results: Labs and MRI pending. Emergency Department Course and Treatment: Patient was treated with Compazine and Benadryl while awaiting results. He had a CT 2 days ago which showed nothing acute. He had a CTA of his head and neck recently which showed atherosclerosis and an enlarged thyroid but otherwise nothing acute. I attempted to call his neurologist, and spoke with his on-call partner. He advised that patient will need labs including ESR. He recommended MRI. He also advised admission with neurology consultation. The patient was agreeable. Results are pending. Will discuss with the hospitalist. Labs unremarkable. MRI shows age-related changes. Headache has improved. Will contact the hospitalist as advised by neurology. Treatment Plan: As above Disposition: Admission Impression: 1. Headache 2. Myasthenia gravis This note was generated with [employer] software. It may contain incorrect words, spelling, and punctuation that were not noted in review of the chart prior to signing ED Disposition - Plan for ED Patient: Referrals: Stanford Tan III, MD [Primary Care Provider] -
[2019-06-21 09:46] LABS: Absolute Lymphocyte Count 2.08 X10^3/uL (0.83-4.51); Absolute Neutrophil Count 9.3 X10^3/uL (2.0-7.7); Basophil# 0.05 X10^3/uL; Basophil% 0.4 % (0-1); Eosinophil# 0.08 X10^3/uL; Eosinophils% 0.6 % (0-5); Hematocrit 39.8 % (40-54); Hemoglobin 13.8 g/dL (13.0-16.5); Lymphocyte # 2.08 X10^3/ul (4.0); Lymphocyte % 16.6 % (19-41); Mean Corp Hgb Conc 34.7 g/dL (32-36); Mean Corpuscular Hgb 29.6 pg (27.0-32.0); Mean Corpuscular Volume 85.2 fL (80-94); Mean Platelet Vol. 10.2 fl (6.2-12.0); Monocyte# 1.02 X10^3/uL; Monocyte% 8.1 % (0-10); NRBC Flagged by Analyzer 0 % (0-5); Neutrophil # 9.29 X10^3/uL (2.7-7.7); Neutrophil % 74.1 % (47-70); Platelet Count 192 K/mm3 (150-450); RBC Distribution Width CV 13.2 % (11.6-14.6); RBC Distribution Width SD 40.3 fl (35.1-43.9); Red Blood Count 4.67 M/mm3 (4.6-6.2); White Blood Count 12.6 K/mm3 (4.4-11.0)
[2019-06-21 09:53] LABS: International Normalized Ratio 1.1; Prothrombin Time (Protime)PT. 13.5 SECONDS (11.7-14.9)
[2019-06-21 09:55] LABS: Erythrocyte Sedimentation Rate 21 mm/hr (0-20); Partial Thromboplast Time 63.8 Seconds (24.1-36.2)
[2019-06-21 09:58] LABS: Anion Gap 7 (5-15); BUN 15 mg/dL (7-18); BUN/Creat Ratio 15.7 RATIO (10-20); Calcium,Total 8.8 mg/dL (8.5-10.1); Chloride 102 mmol/L (98-107); Creatinine, Serum 0.95 mg/dL (0.70-1.30); EST Glomerular Filtration Rate 81 mL/min (>60); Est Glom Filt Rate - Afr Amer 98 mL/min (>60); Estimated Creatinine Clearance 64.04 ml/min; Glucose 160 mg/dL (74-106); Potassium 3.5 mmol/L (3.5-5.1); Sodium Level 137 mmol/L (136-145)
--- NOTE | 2019-06-21 13:14 | NURSING ---
313 CEPHALGIA, MYASTHENIA GRAVIS SEMENTI
--- NOTE | 2019-06-21 14:44 | CON.PCM_ITS ---
Problem List (1) Myasthenia gravis Status: Acute Reason for Consult Date of Consultation: 06/21/19 Reason for Consultation: Myasthenia gravis History of Present Illness: The patient is a 79 year old M with PMH HTN, HLD, DM, ? History of renal cancer, congenital absence of left forearm/hand admitted with headache and ptosis. Per patient she had he has been having ptosis and diplopia for about 4 to 6 weeks, per patient he was diagnosed with MG about 2 weeks back and probably is on Mestinon currently, has seen Dr. Layne from ophthalmology and Dr. Tanner from neurology and per patient has been told that he needs some form of infusion possibly [facility] for myasthenia gravis but no records available at present. At present patient denies any shortness of breath, swallowing issues or dysphagia. But on examination he does have neck weakness. Per patient he started having some headache since last night 06/20/2019, frontal and occipital headache, with visual blurring, nausea with some photosensitivity. At present per patient his headache is very mild and is almost improved. He denies any neck stiffness or fever. He denies any focal motor weakness, sensory loss, speech disturbances. At present he does complain of dizziness. Patient denies any visual loss, jaw claudication, temporal tenderness. Per patient he lives alone, denies any frequent falls but had about 2-3 falls in the last month, has not driven for about 4 to 6 weeks since his symptoms started, may occasionally use cane or a walker to ambulate. And per patient he does not need any assistance for his ADLs. Acetylcholine receptor binding, blocking and modulating antibody positive (06/07/2019) Past Medical History Past Medical History (Chronic Problems): Chronic Problems Hyperlipidemia (Chronic) Type 2 diabetes mellitus (Chronic) Hypertension (Chronic) Psoriasis (Chronic) Allergies Penicillins Allergy (Verified 06/21/19 08:10) Hives Home Medications: Ambulatory Orders Medication Instructions Recorded Amlodipine [Norvasc] 10 mg PO DAILY 11/30/15 Aspirin [Aspirin, Baby] 81 mg PO DAILY@0800 11/30/15 Lovastatin [Mevacor] 20 mg PO LUNCH 11/30/15 Quinapril HCl [Accupril] 20 mg PO BID 11/30/15 Celecoxib [Celebrex] 200 mg PO DAILY 09/27/18 Psyllium [Metamucil] 1 packet PO DAILY 09/27/18 Meclizine HCl 25 mg PO Q8H PRN PRN #12 tab 06/03/19 Betamethasone Dipropionate 1 applicatio TOPICAL BID 06/21/19 Cyanocobalamin [Vitamin B12] 1,000 mcg PO DAILY@0800 06/21/19 Multivitamin [Multiple Vitamins] 1 ea PO DAILY 06/21/19 Potassium Gluconate 2.5 meq PO DAILY 06/21/19 Pyridostigmine [place] [Mestinon] 30 mg PO TID 06/21/19 Surgical History: herniorrhaphy, total knee arthroplasty, - - Excision of renal tumor Lives: Alone Smoking Status: Never smoker Alcohol: None Drugs: None - *Family History Maternal History Items: No pertinent history Review of Systems Constitutional: Reports: - - Complete ROS negative except as documented in HPI Patient Problems: Active and Suspected Problems Myasthenia gravis (Acute) - Physical Exam General: Alert HEENT: Normocephalic, - - Has neck flexion weakness Neck: Supple Lungs: Normal air movement Cardiovascular: Normal S1, Normal S2 Abdomen: Bowel Sounds Present Extremities: No cyanosis Neurological: - - Conscious, alert, cranial nerve?left eye ptosis, extraocular muscle intact, diplopia present per patient, power 5 x 5 both upper and lower extremities, neck flexion weakness, no sensory loss, no cerebellar signs, gait deferred, reflexes + B/L B/S/T/K/A Psych/Mental Status: Normal Affect Vital Signs Temp Pulse Resp BP Pulse Ox 97.9 F 77 16 144/85 H 96 06/21/19 13:42 06/21/19 13:42 06/21/19 13:42 06/21/19 13:42 06/21/19 13:42 Oxygen Delivery Method Room Air Weight: 85.502 kg Body Mass Index (BMI) 27.0 Finger Stick Blood Glucose 214 Laboratory Tests Past 24 Hrs 06/21/19 06/21/19 06/21/19 09:30 09:30 09:30 WBC 12.6 H RBC 4.67 Hgb 13.8 Hct 39.8 L MCV 85.2 MCH 29.6 MCHC 34.7 RDW Std Deviation 40.3 RDW Coeff of Rosemary 13.2 Plt Count 192 MPV 10.2 Immature Gran % (Auto) 0.200 Neut % (Auto) 74.1 H Lymph % (Auto) 16.6 L [place] % (Auto) 8.1 Eos % (Auto) 0.6 Baso % (Auto) 0.4 Absolute Neuts (auto) 9.3 H Absolute Lymphs (auto) 2.08 Nucleated RBC % 0 ESR 21 H PT 13.5 INR 1.1 APTT 63.8 H Sodium 137 Potassium 3.5 Chloride 102 Carbon Dioxide 28.0 Anion Gap 7 BUN 15 Creatinine 0.95 Estim Creat Clear Calc 64.04 Est GFR (MDRD) Af Amer 98 Est GFR (MDRD) Non-Af 81 BUN/Creatinine Ratio 15.7 Glucose 160 H Calcium 8.8 Assessment/Plan All Active Problems Renal carcinoma (Acute) Myasthenia gravis (Acute) Chest pain (Acute) The patient is a 79 year old M with PMH HTN, HLD, DM, ? History of renal cancer, congenital absence of left forearm/hand admitted with headache and ptosis. Per patient she had he has been having ptosis and diplopia for about 4 to 6 weeks, per patient he was diagnosed with MG about 2 weeks back and probably is on Mestinon currently, has seen Dr. Layne from ophthalmology and Dr. Tanner from neurology and per patient has been told that he needs some form of infusion possibly [facility] for myasthenia gravis but no records available at present. At present patient denies any shortness of breath, swallowing issues or dysphagia. But on examination he does have neck weakness. Per patient he started having some headache since last night 06/20/2019, frontal and occipital headache, with visual blurring, nausea with some photosensitivity. At present per patient his headache is very mild and is almost improved. He denies any neck stiffness or fever. He denies any focal motor weakness, sensory loss, speech disturbances. At present he does complain of dizziness. Patient denies any visual loss, jaw claudication, temporal tenderness. Per patient he lives alone, denies any frequent falls but had about 2-3 falls in the last month, has not driven for about 4 to 6 weeks since his symptoms started, may occasionally use cane or a walker to ambulate. And per patient he does not need any assistance for his ADLs. Acetylcholine receptor binding, blocking and modulating antibody positive (06/07/2019) Impression Myasthenia gravis exacerbation?has worsening left eye ptosis, diplopia and neck flexion weakness Headache -almost resolved Plan ?Check IgA levels. ESR 21 ?IVIG 0.4 g/kg/day for 5 days. S/E disc in detail. If there is any worsening of headache then may have to discontinue/stop IVIG ?Mestinon 60 mg p.o. 3 times daily ?Prednisone 20 mg p.o. once daily, if okay with the hospitalist team as patient is diabetic. Will discuss with the hospitalist team. If okay with prednisone from hospitalist standpoint then needs GI prophylaxis and calcium carbonate 500 mg p.o. twice daily ?CT chest without contrast ?MRI brain without contrast done for dizziness and headache?images reviewed nothing acute, likely chronic small vessel ischemic changes and unlikely to be any demyelinating changes as reported by the radiologist ?MRA head/neck without contrast for dizziness ?Speech therapy evaluation ?GI/DVT prophylaxis ?Follow-up with Dr. Tanner for myasthenia gravis management as outpatient ?Further medical management per hospitalist team ?Please call with questions if any ?Thank you for allowing us to participate in patient's current management This note has been dictated using [employer] dictation software. It may contain incorrect words, spellings and punctuation that were not noted in the review of the note prior to signing. Code Visit Inpatient E&M: 42404 Init Hosp L3
--- NOTE | 2019-06-21 15:01 | RAD_ITS ---
STUDY: X-RAY CHEST REASON FOR EXAM: Male, 79 years old. Decreased breath sounds with leukocytosis. TECHNIQUE: 2 views COMPARISON: Prior chest radiograph October 29, 2018. FINDINGS: The lung monge are expanded without new consolidation or focal atelectasis. There is a continued dense band of scarring in the lingula near the oblique fissure. Negative for pleural effusion. Normal size heart. Normal mediastinum and cortney. Normal visualized pulmonary arteries. There is atherosclerotic calcification of the aortic arch with tortuosity. There are diffuse degenerative changes of the visualized thoracic spine. Normal visualized ribs, clavicles, and shoulders. There is no demonstrated abnormality of the visualized soft tissue structures of the upper abdomen. RAD/Chest PA and Lateral IMPRESSION: No acute cardiopulmonary findings or changes. Negative for new consolidation, focal atelectasis, pleural effusion or cardiomegaly. Electronically Signed: Monika Shafer MD at 15:50 EDT , Service support ,
--- NOTE | 2019-06-21 15:03 | CT_ITS ---
STUDY: CT CHEST WITHOUT CONTRAST REASON FOR EXAM: Male, 79 years old. RADIATION DOSAGE (If Supplied By Facility): CTDIvol = ( 19.11 ) mGy, DLP = ( 702.08 ) mGycm TECHNIQUE: Transaxial imaging was performed without the administration of intravenous contrast material. Individualized dose optimization techniques were used for this CT. COMPARISON: Previous CT of the chest obtained on 11/30/2015, previous PA and lateral chest obtained on 06/21/2019 FINDINGS: The lungs are normal. There is no demonstrated pleural abnormality. Coronary calcific arteriosclerosis is identified. The heart is otherwise normal. The superior mediastinum including the subcarinal bifurcation, both cortney and the superior mediastinum are normal. There is marked enlargement of the left thyroid lobe which appears somewhat heterogeneous in appearance. The right thyroid lobe is much smaller than the left and this is probably due to an asymmetrical thyroid goiter. Unfortunately an underlying thyroid tumor can't completely excluded and for this reason a thyroid ultrasound is recommended for additional evaluation. Bone scanning windows through the thorax show the ribs and thoracic spine to be normal. The visualized liver, spleen, and adrenals are normal. Incidentally noted in the superior pole of the right kidney is some irregularity with calcifications not seen on the previous CTA of the chest obtained on 11/30/2015. An underlying right renal mass lesion, completely excluded, and for this reason a CT urogram would be helpful for additional evaluation. CT/Chest without Contrast IMPRESSION: 1. Coronary calcification or sclerosis. 2. An enlarged left thyroid lobe is identified which is slightly increased in size when compared with the previous study probably representing a thyroid goiter. Because underlying tumor cannot be completely excluded a thyroid ultrasound would be helpful for evaluation. 3. There appears to be irregular enlargement of the superior pole of the right kidney and an underlying tumor can't be completely excluded. For this reason a CT urogram is recommended for additional evaluation. Electronically Signed: King Gates, at 16:26 EDT Tel , Service support ,
--- NOTE | 2019-06-21 15:12 | HP.PCM_ITS ---
Problem List (1) Thyroid nodule Status: Acute History of Present Illness Date of Admission: 06/21/19 Chief Complaint: headache and vertigo The patient is a 79 year old M with a past medical history of hypertension, psoriasis, BPH, diverticulosis, hyperlipidemia, thyroid nodule, renal carcinoma with partial nephrectomy on the right in October [address] 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 The headache started in the posterior cerebrum and neck and then spread to the frontal area. He was given Benadryl and Compazine in the emergency department with improvement. He has been having diplopia for approximately [address] Layne from ophthalmology and he is also been seen by Dr. Tanner. He has been diagnosed with myasthenia gravis. Since that time he has also been experiencing vertigo and loss of balance with 3-4 falls over the past 6 weeks. He lives alone. Eyes fevers/chills/sweats and also denies sore throat, rhinorrhea, ear pain, cough, dysuria. MRI in the emergency department was negative for any acute findings. Vital signs at presentation to the emergency department were temperature 98.2, pulse rate 95, blood pressure 160/81, respiratory rate 17 and he was 95% saturated on room air. Significant lab included an elevated white blood cell count at 12.6 With 74% neutrophils. Hemoglobin is 13.8 and platelets are within normal limits. PTT is mildly increased at 63.8 but the patient denies any trouble with bleeding. BMP is unremarkable. He sometimes has problems swallowing pills and also sometimes with swallowing meat and bread. Denies any dysphagia with fluids. He has trouble holding his head up recently. Past Medical History Past Medical History (Chronic Problems): Chronic Problems Hyperlipidemia (Chronic) Type 2 diabetes mellitus (Chronic) Hypertension (Chronic) Psoriasis (Chronic) Allergies Penicillins Allergy (Verified 06/21/19 08:10) Hives Home Medications: Ambulatory Orders Medication Instructions Recorded Amlodipine [Norvasc] 10 mg PO DAILY 11/30/15 Aspirin [Aspirin, Baby] 81 mg PO DAILY@0800 11/30/15 Lovastatin [Mevacor] 20 mg PO LUNCH 11/30/15 Quinapril HCl [Accupril] 20 mg PO BID 11/30/15 Celecoxib [Celebrex] 200 mg PO DAILY 09/27/18 Psyllium [Metamucil] 1 packet PO DAILY 09/27/18 Meclizine HCl 25 mg PO Q8H PRN PRN #12 tab 06/03/19 Betamethasone Dipropionate 1 applicatio TOPICAL BID 06/21/19 Cyanocobalamin [Vitamin B12] 1,000 mcg PO DAILY@0800 06/21/19 Multivitamin [Multiple Vitamins] 1 ea PO DAILY 06/21/19 Potassium Gluconate 2.5 meq PO DAILY 06/21/19 Pyridostigmine [place] [Mestinon] 30 mg PO TID 06/21/19 Surgical History: herniorrhaphy, total knee arthroplasty, - - Excision of renal tumor - 30% of the right kidny excised in Oct Psychiatric History: No pertinent psych hx Lives: Alone Smoking Status: Never smoker Tobacco Use: Non-smoker Alcohol: None Drugs: None - *Family History Maternal History Items: No pertinent history Review of Systems Constitutional: Denies: Chills, Fever, Weight Change Eyes: Reports: Blurred vision, - - drooopy left upper lid HEENT: Reports: Hard of Hearing, Visual Changes, - - vertigo. Denies: Head Aches, Nasal Congestion, Sinus Congestion, Sinus Drainage, Sore Throat Cardiovascular: Denies: Chest Pain, Light Headedness, Orthopnea, Palpitations, Syncope Respiratory: Denies: Cough, Shortness of breath at rest, Sputum production Gastrointestinal: Denies: Abdominal Pain, Nausea, Vomiting Genitourinary: Denies: Dysuria Musculoskeletal: Reports: Neck Pain. Denies: Joint Pain, Joint Tenderness Skin: Denies: Rash, Wounds Neurological: Reports: Blurred vision, Double vision, Headaches, Incoordination. Denies: Slurred speech, Confusion, Focal weakness, Numbness, Tingling, Tremor, Seizures Psychiatric: Denies: Anxiety, Depression, Homicidal Ideations, Suicidal Ideations Endocrine: Denies: Change in Body Habitus, Hx of Thyroiditis Hematologic/ Lymphatic: Denies: Easy Bruising, Easy Bleeding, Hx of blood clot VTE Information - Inpt Only VTE Present on Admission: No VTE Mechan Device Prophylaxis: Knee High CELESTINE Hose VTE Pharm Prophylaxis ordered?: Yes Patient Problems: Active and Suspected Problems Myasthenia gravis (Acute) Thyroid nodule (Acute) - Physical Exam General: Alert, Oriented x3, Cooperative, No apparent distress, Well developed, Well nourished HEENT: Atraumatic, Normocephalic, - - [place]. He has ptosis of the left upper eyelid Oral: No Gingival or Mucosal Lesions/ Ulcerations, Dry Mucosa, - - tongu very mildly deviates to the right Neck: Supple, - - his neck is weak and he is not holding his head upright Lungs: Clear to auscultation, Diminished Cardiovascular: Regular rate, Regular Rhythm, Normal S1, Normal S2, No murmurs, No rub noted, No Gallop Abdomen: Bowel Sounds Present, Soft, Non Tender, Non-Distended Extremities: No clubbing, No cyanosis, No edema Vital Signs Temp Pulse Resp BP Pulse Ox 97.9 F 77 16 144/85 H 96 06/21/19 13:42 06/21/19 13:42 06/21/19 13:42 06/21/19 13:42 06/21/19 13:42 Oxygen Delivery Method Room Air Weight: 188 lb 8 oz Body Mass Index (BMI) 27.0 Finger Stick Blood Glucose 214 Laboratory Tests Past 24 Hrs 06/21/19 06/21/19 06/21/19 09:30 09:30 09:30 WBC 12.6 H RBC 4.67 Hgb 13.8 Hct 39.8 L MCV 85.2 MCH 29.6 MCHC 34.7 RDW Std Deviation 40.3 RDW Coeff of Rosemary 13.2 Plt Count 192 MPV 10.2 Immature Gran % (Auto) 0.200 Neut % (Auto) 74.1 H Lymph % (Auto) 16.6 L [place] % (Auto) 8.1 Eos % (Auto) 0.6 Baso % (Auto) 0.4 Absolute Neuts (auto) 9.3 H Absolute Lymphs (auto) 2.08 Nucleated RBC % 0 ESR 21 H PT 13.5 INR 1.1 APTT 63.8 H Sodium 137 Potassium 3.5 Chloride 102 Carbon Dioxide 28.0 Anion Gap 7 BUN 15 Creatinine 0.95 Estim Creat Clear Calc 64.04 Est GFR (MDRD) Af Amer 98 Est GFR (MDRD) Non-Af 81 BUN/Creatinine Ratio 15.7 Glucose 160 H Calcium 8.8 Assessment/Plan All Active Problems Renal carcinoma (Acute) Myasthenia gravis (Acute) Thyroid nodule (Acute) Chest pain (Acute) Impressions 1. Acute myasthenia Gravis with diplopia, neck weakness and L eye ptosis - IVIG started and Prednisone 20 mg daily. Mestinon increased to 60 mg TID. Discussed with Dr. Augustin. 2. MEZA - suspect this may be due to neck weakness and straining of trapezius muscles. will order a soft cervical collar to support the head and decrease strain on the neck muscles. 3. Hx of renal CA - S/P resection of a portion of the R kidney by Dr. Squires in Oct 2018 4. large thyroid nodule - consult Dr. Baires for possible bx 5. Diabetes mellitus type 2-currently diet controlled after he has lost 30 pounds in the past 9 months. Recently on medication. 6. Hyperlipidemia/hypertension/psoriasis/history of vertigo/presbycusis-chronic conditions -continue home medications 7. DVT prophylaxis with enoxaparin and knee-high CELESTINE hose. Code Visit Inpatient E&M: 41107 Init Hosp L2
--- NOTE | 2019-06-21 15:19 | US_ITS ---
STUDY: THYROID ULTRASOUND REASON FOR EXAM: Male, 79 years old. Left thyroid nodule. TECHNIQUE: Ultrasound evaluation of the thyroid was performed with real-time and static ramirez-scale imaging. COMPARISON: None. FINDINGS: RIGHT LOBE: The right lobe of the thyroid gland measures 4.1 x 1.4 x 1.9 cm. There is a homogeneous echotexture. There are no demonstrated solid, cystic or complex lesions. LEFT LOBE: The left lobe of the thyroid gland measures 9.0 x 4.0 x 4.0 cm. There is a homogeneous echotexture. There is a 5.0 x 4.0 x 3.0 cm well-defined complex nodule of the mid to lower pole with irregular margins and internal nodular vascularity. ISTHMUS: The isthmus measures 0.4 centimeter. US/Thyroid IMPRESSION: 5.0 x 4.0 x 3.0 cm complex (cystic and solid) well marginated soft tissue nodule of the left thyroid with internodular vascularity. Normal right lobe of the thyroid. Electronically Signed: Monika Shafer MD at 15:57 EDT , Service support ,
--- NOTE | 2019-06-21 15:22 | NURSING ---
pt transported to radiology via wheelchair at this time
[2019-06-21 16:04] LABS: Hemoglobin A1c 6.3 % (4.2-6.3)
[2019-06-21 16:06] LABS: AST(SGOT) 20 U/L (15-37); Alanine Aminotransfer ALT/SGPT 27 U/L (16-61); Albumin, Serum 3.6 g/dL (3.2-5.0); Alkaline Phosphatase 87 U/L (45-117); Bilirubin, Direct 0.18 mg/dL (0.00-0.30); Globulin 3.6 g/dL (2.2-4.2); Magnesium 2.1 mg/dL (1.6-2.6); Phosphorus 3.2 mg/dL (2.5-4.9); Protein, Total 7.2 g/dL (6.4-8.2)
[2019-06-21] MEDS: Atorvastatin Calcium 10 MG Tablet 5 MG PO (17:34)
[2019-06-21] MEDS: Clobetasol Propionate 0.05% Cream 1 APPLIC TOPICAL (17:34)
[2019-06-21] MEDS: Immune Globulin 20 gm Premixed Solution 42.8 BAG IV (18:58)
[2019-06-21] MEDS: 0.9% NaCl Peripheral Flush Adult/Peds IV (19:03)
[2019-06-21 19:21] LABS: Bacteria 0 SEEN /hpf (None Seen); Red Blood Cells-Urine 0 SEEN /hpf (0-5); Squamous Epithelial Cells - UA 0 SEEN /hpf (0-5)
[2019-06-21 19:30] LABS: Color, Urine Yellow (Yellow); Glucose, Dipstick Normal (Normal); Ketone-Dipstick Negative (Negative); Leukocyte Esterase-Dipstick 25 /ul (Negative); Nitrite-Dipstick Negative (Negative); Occult Blood-Urine 10 /ul (Negative); Protein-Dipstick 30 mg/dl (Negative); Urine Bilirubin Dipstick Negative (Negative); Urine Clarity Sl. Cloudy (Clear); Urine Urobilinogen Normal (Normal)
[2019-06-21 19:36] LABS: White Blood Cells 0-5 SEEN /hpf (0-5)
[2019-06-21 19:37] LABS: Mucous, Urine 3+ /hpf (<or=2+)
[2019-06-21] MEDS: Immune Globulin 10 gm Premixed Solution 128 BAG IV (21:15)
[2019-06-21] MEDS: Lisinopril 20 MG Tablet PO (21:29)
[2019-06-21] MEDS: Famotidine 20 MG Tablet PO (21:29)
[2019-06-21] MEDS: Acetaminophen 325 MG Tablet 650 MG PO (21:37)
[2019-06-21] MEDS: Pyridostigmine Bromide 60 MG Tablet 30 MG PO (21:44)
[2019-06-22] VITALS (11 sets, daily range): BP systolic 145–186; BP diastolic 70–92; PULSE 82–91; RESP 16–22; TEMP 36.6–37.5; O2SAT 92–97
[2019-06-22] MEDS: Pyridostigmine Bromide 60 MG Tablet 30 MG PO (05:23)
[2019-06-22 05:59] LABS: Absolute Neutrophil Count 8.2 X10^3/uL (2.0-7.7); Basophil# 0.07 X10^3/uL; Basophil% 0.6 % (0-1); Eosinophil# 0.22 X10^3/uL; Eosinophils% 1.9 % (0-5); Hematocrit 42.8 % (40-54); Hemoglobin 14.5 g/dL (13.0-16.5); Lymphocyte % 17.4 % (19-41); Mean Corp Hgb Conc 33.9 g/dL (32-36); Mean Corpuscular Hgb 29.2 pg (27.0-32.0); Mean Corpuscular Volume 86.1 fL (80-94); Mean Platelet Vol. 10.3 fl (6.2-12.0); Monocyte# 0.98 X10^3/uL; Monocyte% 8.5 % (0-10); NRBC Flagged by Analyzer 0 % (0-5); Neutrophil % 71.2 % (47-70); Platelet Count 196 K/mm3 (150-450); RBC Distribution Width CV 13.1 % (11.6-14.6); RBC Distribution Width SD 41.1 fl (35.1-43.9); Red Blood Count 4.97 M/mm3 (4.6-6.2); White Blood Count 11.5 K/mm3 (4.4-11.0)
[2019-06-22] MEDS: Multivitamins,Therapeutic Tablet 1 TABLET PO (09:16)
[2019-06-22] MEDS: Aspirin 81 MG TAB.CHEW PO (09:16)
[2019-06-22] MEDS: Cyanocobalamin 500 MCG Tablet 1000 MCG PO (09:16)
[2019-06-22] MEDS: Celecoxib 200 MG Capsule PO (09:16)
[2019-06-22] MEDS: Famotidine 20 MG Tablet PO ×2 (09:16→21:20)
[2019-06-22] MEDS: Enoxaparin 40 MG/0.4 ML Syringe SC (09:16)
[2019-06-22] MEDS: amLODIPine 10 MG Tablet PO (09:17)
[2019-06-22] MEDS: Lisinopril 20 MG Tablet PO ×2 (09:17→21:20)
[2019-06-22] MEDS: Clobetasol Propionate 0.05% Cream 1 APPLIC TOPICAL ×2 (09:17→21:22)
--- NOTE | 2019-06-22 11:30 | CASEMGMT ---
RN CM Assessment Presentation: Headache, nausea, vertigo Intro role of CM and purpose of RN CM assessment to patient in room. Pt is awake, alert, [place], able to participate in assessment. Demographics, PCP and Pharmacy verified. Pt states he has had difficulty @ home due to blurred vision. Is not driving, Family assists with transportation. Pt stated someone recommended a walker with a seat for him. pt has defect- absence of L arm below elbow. RN CM called to Parmjit, PT to update. Will eval for pt needs, however anticipate use of cane is sufficient for pt. PCP: Dr. Stanford Tan III Preferred [facility]acy[facility] Insurance: [employer] Prescription Benefit: yes LNOK: Ileana Dawson, niece Living Arrangements: Bedroom, bath, living area and kitchen one floor. ramp into home. Transportation: DME: walker, cane- uses cane only. Physicial therapy to recommend if other equipment is needed. Pt prefers [facility] for any DME HHC: none Patient DC goals: Home DC PLAN: Home Vickie BANDA RN ACM
--- NOTE | 2019-06-22 11:58 | PN.NEURO_ITS ---
Patient Problems: Active and Suspected Problems Myasthenia gravis (Acute) Thyroid nodule (Acute) Subjective: No issues overnight. Patient received first dose of IVIG yesterday, had some mild increase in temperature, evaluated by hospitalist overnight. Per patient his headache is much better and intensity is about 1-2 out of 10 at present. Started on Mestinon. His ptosis in the left eye is much better and per patient his diplopia had intermittently improved completely. He is wearing a soft cervical collar. Continues to have mild neck muscle flexion weakness at present - Physical Exam General: Alert HEENT: Normocephalic Neck: Supple Lungs: Normal air movement Cardiovascular: Normal S1, Normal S2 Abdomen: Bowel Sounds Present Extremities: No cyanosis Neurological: - - Conscious, alert, cranial nerve?left eye ptosis much improved at present, extraocular muscle intact, diplopia has improved per patient, power 5 x 5 both upper and lower extremities, mild neck flexion weakness which seems to have improved, no sensory loss, no cerebellar signs, gait deferred, reflexes + B/L B/S/T/K/A Psych/Mental Status: Normal Affect Vital Signs Temp Pulse Resp BP Pulse Ox 98.1 F 90 16 149/70 H 92 06/22/19 09:15 06/22/19 09:15 06/22/19 09:15 06/22/19 09:15 06/22/19 09:15 Oxygen Delivery Method Room Air Weight: 85.502 kg Body Mass Index (BMI) 27.0 Finger Stick Blood Glucose 214 Intake and Output for Last 24 Hours 06/20/19 06/21/19 06/22/19 23:59 23:59 23:59 Intake Total 700.00 / 1200.00 950 / 950 Output Total 750 / 750 Balance 700.00 / 850.00 200 / 200 Laboratory Tests Past 24 Hrs 06/21/19 06/21/19 06/21/19 09:30 09:30 19:05 WBC RBC Hgb Hct MCV MCH MCHC RDW Std Deviation RDW Coeff of Rosemary Plt Count MPV Immature Gran % (Auto) Neut % (Auto) Lymph % (Auto) [place] % (Auto) Eos % (Auto) Baso % (Auto) Absolute Neuts (auto) Absolute Lymphs (auto) Nucleated RBC % Hemoglobin A1c 6.3 Phosphorus 3.2 Magnesium 2.1 Total Bilirubin 0.70 Direct Bilirubin 0.18 AST 20 ALT 27 Alkaline Phosphatase 87 Total Protein 7.2 Albumin 3.6 Globulin 3.6 TSH 1.60 Urine Color Yellow Urine Clarity Sl. Cloudy Urine pH 6.0 Ur Specific [place] 1.020 Urine Protein 30 H Urine Glucose (UA) Normal Urine Ketones Negative Urine Occult Blood 10 H Urine Nitrite Negative Urine Bilirubin Negative Urine Urobilinogen Normal Ur Leukocyte Esterase 25 H Urine RBC 0 SEEN Urine WBC 0-5 SEEN Ur Squamous Epith Cells 0 SEEN Urine Bacteria 0 SEEN Urine Mucus 3+ 06/22/19 05:40 WBC 11.5 H RBC 4.97 Hgb 14.5 Hct 42.8 MCV 86.1 MCH 29.2 MCHC 33.9 RDW Std Deviation 41.1 RDW Coeff of Rosemary 13.1 Plt Count 196 MPV 10.3 Immature Gran % (Auto) 0.400 Neut % (Auto) 71.2 H Lymph % (Auto) 17.4 L [place] % (Auto) 8.5 Eos % (Auto) 1.9 Baso % (Auto) 0.6 Absolute Neuts (auto) 8.2 H Absolute Lymphs (auto) 2.00 Nucleated RBC % 0 Hemoglobin A1c Phosphorus Magnesium Total Bilirubin Direct Bilirubin AST ALT Alkaline Phosphatase Total Protein Albumin Globulin TSH Urine Color Urine Clarity Urine pH Ur Specific [place] Urine Protein Urine Glucose (UA) Urine Ketones Urine Occult Blood Urine Nitrite Urine Bilirubin Urine Urobilinogen Ur Leukocyte Esterase Urine RBC Urine WBC Ur Squamous Epith Cells Urine Bacteria Urine Mucus Medical Necessity - Tobacco Use Smoking Status: Never smoker Tobacco Use: Non-smoker Assessment/Plan All Active Problems Renal carcinoma (Acute) Myasthenia gravis (Acute) Thyroid nodule (Acute) Chest pain (Acute) The patient is a 79 year old M with PMH HTN, HLD, DM, ? History of renal cancer, congenital absence of left forearm/hand admitted with headache and ptosis. Per patient she had he has been having ptosis and diplopia for about 4 to 6 weeks, per patient he was diagnosed with MG about 2 weeks back and probably is on Mestinon currently, has seen Dr. Layne from ophthalmology and Dr. Tanner from neurology and per patient has been told that he needs some form of infusion possibly [facility] for myasthenia gravis but no records available at present. At present patient denies any shortness of breath, swallowing issues or dysphagia. But on examination he does have neck weakness. Per patient he started having some headache since last night 06/20/2019, frontal and occipital headache, with visual blurring, nausea with some photosensitivity. At present per patient his headache is very mild and is almost improved. He denies any neck stiffness or fever. He denies any focal motor weakness, sensory loss, speech disturbances. At present he does complain of dizziness. Patient denies any visual loss, jaw claudication, temporal tenderness. Per patient he lives alone, denies any frequent falls but had about 2-3 falls in the last month, has not driven for about 4 to 6 weeks since his symptoms started, may occasionally use cane or a walker to ambulate. And per patient he does not need any assistance for his ADLs. Acetylcholine receptor binding, blocking and modulating antibody positive (06/07/2019) Impression Myasthenia gravis exacerbation?has worsening left eye ptosis, diplopia and neck flexion weakness Headache -almost resolved Plan ?Check IgA levels. ESR 21 ?IVIG 0.4 g/kg/day for 5 days. S/E disc in detail. If there is any worsening of headache/SOB or worsening creatinine then may have to discontinue/stop IVIG ?Mestinon 60 mg p.o. 3 times daily ?Prednisone 20 mg p.o. once daily, discussed with the hospitalist team and Dr. Jayden luz with the same. ?Calcium Carbonate 500 mg PO BID. ?CT chest without contrast- An enlarged left thyroid lobe is identified which is slightly increased in size when compared with the previous study probably representing a thyroid goiter. Because underlying tumor cannot be completely excluded a thyroid ultrasound would be helpful for evaluation. There appears to be irregular enlargement of the superior pole of the right kidney and an underlying tumor can't be completely excluded. Will defer further evaluation and management to hospitalist team. ?MRI brain without contrast done for dizziness and headache?images reviewed nothing acute, likely chronic small vessel ischemic changes and unlikely to be any demyelinating changes as reported by the radiologist ?MRA head/neck without contrast for dizziness ?Speech therapy evaluation ?GI/DVT prophylaxis ?Follow-up with Dr. Tanner for myasthenia gravis management as outpatient ?Further medical management per hospitalist team ?Please call with questions if any ?Thank you for allowing us to participate in patient's current management This note has been dictated using [employer] dictation software. It may contain incorrect words, spellings and punctuation that were not noted in the review of the note prior to signing.
--- NOTE | 2019-06-22 12:17 | MRI_ITS ---
STUDY: MRA OF THE HEAD WITHOUT CONTRAST REASON FOR EXAM: Male, 79 years old. Dizziness TECHNIQUE: 3-D [id number] (TOF) imaging was performed with MIPs. The study was performed unenhanced. COMPARISON: Previous MRI obtained on 06/21/2019, previous CT scan obtained on 06/19/2019. FINDINGS: Posterior cerebral circulation: The V4 segments of the vertebral arteries are normal. The basilar artery is normal. The anterior superior cerebellar arteries are seen at their origins bilaterally. The P1 and P2 segments of posterior cerebral arteries are visualized and appear to be normal. Anterior cerebral circulation: The petrous, cavernous, and supraclinoid portions of the internal carotid arteries appear to be normal. The A1 segments of the anterior cerebral arteries and the pericallosal arteries appear to be normal. The anterior communicating artery is normal. The M1 segments of the middle cerebral arteries appear to be normal. The bifurcations of the middle cerebral arteries appear to be normal. No abnormal areas of spasm or peripheral dilatation of peripheral arteries is seen. No acevedo aneurysms are identified. MRI/MRA Head ONLY without Contrast IMPRESSION: Normal MRA of the head Electronically Signed: King Gates, at 13:42 EDT Tel , Service support ,
--- NOTE | 2019-06-22 12:19 | MRI_ITS ---
STUDY: MRA NECK WITH AND WITHOUT CONTRAST REASON FOR EXAM: Male, 79 years old. Headache, cephalgia, ptosis, left thigh TECHNIQUE: 2-D phase contrast and 3-D [id number] (TOF) imaging was performed in an 1.5 T MRI scanner. IV Dotarem 17 was administered for the contrast enhanced images. The source images were also reviewed. COMPARISON: Previous MRA of the head obtained on 06/22/2019 FINDINGS: RIGHT CAROTID ARTERIES: Normal right common carotid artery (CCA). Normal right common carotid bulb. Normal origin of the right internal carotid (ICA) artery without a hemodynamically significant stenosis. Normal visualized cervical portion of the right internal carotid artery. Normal origin of the right external carotid artery (ECA). LEFT CAROTID ARTERIES: Normal left common carotid artery (CCA). Normal left common carotid bulb. Normal origin of the left internal carotid (ICA) artery without a hemodynamically significant stenosis. Normal visualized cervical portion of the left internal carotid artery. Normal origin of the left external carotid artery (ECA). VERTEBRAL ARTERIES: Normal antegrade flow within the bilateral vertebral artery without a hemodynamically significant stenosis. MRI/MRA Neck WITH and W/O Contrast IMPRESSION: Normal bilateral cervical carotid and vertebral arteries. Electronically Signed: King Gates, at 14:11 EDT Tel , Service support ,
[2019-06-22] MEDS: 0.9% NaCl Peripheral Flush Adult/Peds IV ×3 (12:34→21:25)
[2019-06-22] MEDS: Atorvastatin Calcium 10 MG Tablet 5 MG PO (12:34)
--- NOTE | 2019-06-22 13:18 | CON.PCM_ITS ---
- Consult Date of Consult: 06/22/19 - Reason for Consult Chief complaint - neck mass History of present illness: Omar Jimenez is a 79 year old male who is admitted to [facility] for complications of myasthenia gravis. Found by chest CT to have neck mass. US thyroid reveals - 5 x 4 x 3 cm left thyroid mass. No known thyroid cancer in family. Denies unusual radiation exposure. Has swallowing problems - related to myasthenia. He has been recently diagnosed with Myasthenia Gravis per Dr. Tanner. Started on Pyridostigmine BR 60 mg, 1/2 tablet tid. Continues to have intermittent Diplopia, drooping eyelids L>R, thinks some better. Still feels unsteady at times notes intermittent falls. Has walker and a cane at home. Not driving, utilizing close friend for help. ? Admitted for treatment and neurological evaluation. I was consulted for consideration of biopsy of this thyroid mass. He is presently on aspirin and lovenox. ? PAST?MEDICAL?HISTORY ? Arthropathy associated with other viral diseases ? ? Cervical disc disorder with radiculopathy 09/16/2010 ? Cervical radicular pain 08/26/2010 ? Diverticulosis of colon (without mention of hemorrhage) ? ? Diverticulosis ? 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 Essential hypertension, benign ? ? Hyperlipidemia LDL goal <100 07/03/2015 ? Lumbar degenerative disc disease 01/24/2012 ? Osteoarthritis 08/26/2010 ? Other and unspecified hyperlipidemia ? ? Peripheral arteriosclerosis (HCC) 07/03/2015 ? Prolonged Q-T interval on ECG 08/14/2015 ? 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 Psoriasis 06/10/2011 ? Psoriatic arthritis (HCC) 01/24/2012 ? renal cancer s/p partial nephrectomy ? Unspecified hemorrhoids without mention of complication ? ? Hemorrhoids PAST?SURGICAL?HISTORY ? COLONOSCOP W/ OR W/O [facility] SPE[facility] ? ? ? Colonoscopy ? HEMORRHOID;BAND LIGAT, SNGL/MUL ? ? ? HERNIA REPAIR HX ? ? ? LAPAROSCOPY PARTIAL NEPHRECTOMY Right 10/18/2018 ? Dr. [id number]-[id number]-[email or web address]-assisted ? PAST SURGICAL HISTORY OF ? 08/20/2015 ? left knee scar tissue repair ? PAST SURGICAL HISTORY OF ? ? ? Sinus surgery ? [facility],TOTAL KNEE ARTHROPLASTY Left 03/25/14 ? Dr Peterson ? TRANSURETHRAL ELEC-SURG PROSTATECTOM ? ? FAMILY HISTORY ? Coronary Artery Disease Mother ? ? Prostate Cancer Father ? ? Cancer Paternal Grandfather ? ? Cancer Sister ? ALLERGIES ? Cardura [Doxazosin * ? ? nasal congestion ? Covera-Hs [Verapami* ? Gabapentin Other: See Comments? ? Bad dreams ? Hydrodiuril [Hydroc* ? ? Hytrin [Terazosin H* ? ? Labetalol ? ? Lyrica [Pregabalin] Other: See Comments? ? Bad dreams/headache ? Meloxicam Other: See Comments? ? Does not work for patient ? Penicillins Hives, Itching ? Pregabalin (Bulk) Other: See Comments? ? Bad dreams and headaches ? Relafen [Nabumetone] Unknown ? Ultram [Tramadol Hc* Unknown ? Zocor [Simvastatin] ? ? ? Current Medications Current Outpatient Medications on File Prior to Visit: pyridostigmine (MESTINON) 60 mg tablet Take 60 mg by mouth three times daily. Take one half tablet three times daily. tamsulosin ER (FLOMAX) 0.4 mg cap Take 1 capsule by mouth daily at bedtime. celecoxib (CELEBREX) 200 mg capsule Take 1 capsule by mouth once daily. mupirocin (BACTROBAN) 2 % ointment Apply 1 application to affected area three times daily. quinapril (ACCUPRIL) 20 mg tablet Take 1 tablet by mouth twice daily. aspirin, enteric coated (ASPIRIN, ENTERIC COATED) 81 mg EC tablet Take 81 mg by mouth once daily. psyllium husk (KONSYL) 6 gram pwpk packet Take 1 Packet by mouth once daily. lovastatin (MEVACOR) 20 mg tablet Take 1 tablet by mouth daily with dinner. amLODIPine (NORVASC) 10 mg tablet Take 1 tablet by mouth once daily. acetaminophen (TYLENOL EXTRA STRENGTH) 500 mg tablet Take 2 tablets by mouth every 8 hours as needed for Pain. MULTIVITAMIN ORAL Take by mouth once daily. cyanocobalamin (VITAMIN B-12) 1,000 mcg tab Take 1,000 mcg by mouth once daily. Potassium Gluconate 595 mg (99 mg) tab Take 595 mg by mouth once daily. betamethasone dipropionate 0.05 % ointment Apply 1 Tube to affected area twice daily. ? SOCIAL?HISTORY Socioeconomic History Marital status: Single ? EXAM: BP 138/70 Pulse 80 Temp 97.8 ?F Resp 20 Wt 193 lb BMI 30.00 kg/m? General Appearance: Well appearing, alert, in no acute distress, well-hydrated, well nourished. and gait is slow and steady. Eyes: Anicteric sclera. Pupils are equally round and reactive to light. Ptosis of left eyelid noted. Extraocular movements are intact except does not tract to upward Ears: External ears normal, canals clear. Oropharynx: Lips, mucosa, and tongue normal, teeth and gums normal, oropharynx normal. Neck: Supple, palpable neck mass - left Lungs: lungs clear to auscultation. No wheezing, rhonchi, rales. Heart: RRR without murmur, gallop, or rubs. No ectopy. 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 Oriented X 3. Impression: left thyroid mass Plan: I have offered US guided left thyroid FNA biopsy. To be done in the radiology department. Patient on aspirin, will hold this. Also to hold lovenox on Tuesday morning Patient scheduled for 11:30 on radiology department of US guided left thyroid FNA. I have explained procedure to patient. I have counseled patient as to the risks of the procedure, including but not limited to: infection, bleeding, etc - he understands. He agrees to proceed. I have answered all his questions and he has no further questions.
--- NOTE | 2019-06-22 13:47 | CASEMGMT ---
Addendum entered by Cathleen Hilton 06/22/19 13:54: LW form faxed to hospital, SW placed it in the paper chart. INOCENCIA Savage Original Note: LW/POA forms not on file. Pt let pt know, he states he has brought them in to the hospital before. SW apologized for not being able to find them in the system and asked if he can bring them in at some point in the future as able. Pt states that his PCP's office, Dr. Tan, has them on file and gave SW permission to call to have them sent over. SW called Dr. Tan's office. They have a copy of the living will but not the POA and will fax it over. SW let pt know. INOCENCIA Savage
[2019-06-22] MEDS: Pyridostigmine Bromide 60 MG Tablet PO ×2 (14:16→21:25)
--- NOTE | 2019-06-22 14:28 | PCM.PROGNOTE ---
Patient Problems: Active and Suspected Problems Myasthenia gravis (Acute) Thyroid nodule (Acute) Subjective: All events of the past 24 hours been reviewed. He had his first dose of IVIG last night. He is afebrile. Blood pressure is mildly increased He is maintaining appropriate oxygen saturation on CBC is unremarkable. MRA of the head is normal. MRA of the neck showed normal bilateral cervical carotid and vertebral arteries. Dr. Augustin started prednisone 20 mg p.o. daily. He was seen by Dr. Baires regarding the large thyroid nodule. She plans on biopsy on 06/25/2019. He had the soft collar on when I entered the room and he states he has no headache today. He denies shortness of breath, cough, palpitations, chest pain. double vision is a little better. The left ptosis is improving. - Physical Exam General: Alert, Oriented x3, Cooperative, No apparent distress HEENT: Atraumatic, Normocephalic, - - less ptosis today Oral: Moist Mucosa Neck: Supple, - - he has the soft collar on and there is much less trapezius spasm today. Lungs: Clear to auscultation, Normal air movement, No rhonchi, No wheeze, No rales, - - not tachypneic and no conversational dyspnea Cardiovascular: Regular rate, Regular Rhythm, Normal S1, Normal S2, No murmurs, No Gallop Abdomen: Bowel Sounds Present, Soft, Non Tender, Non-Distended Extremities: No clubbing, No cyanosis, No edema Skin: No rashes Psych/Mental Status: Normal Affect, Appropriate Vital Signs Temp Pulse Resp BP Pulse Ox 98.1 F 90 16 149/70 H 92 06/22/19 09:15 06/22/19 09:15 06/22/19 09:15 06/22/19 09:15 06/22/19 09:15 Oxygen Delivery Method Room Air Weight: 188 lb 8 oz Body Mass Index (BMI) 27.0 Finger Stick Blood Glucose 214 Intake and Output for Last 24 Hours 06/20/19 06/21/19 06/22/19 23:59 23:59 23:59 Intake Total 700.00 / 1200.00 950 / 950 Output Total 750 / 750 Balance 700.00 / 850.00 200 / 200 Laboratory Tests Past 24 Hrs 06/21/19 06/21/19 06/21/19 09:30 09:30 19:05 WBC RBC Hgb Hct MCV MCH MCHC RDW Std Deviation RDW Coeff of Rosemary Plt Count MPV Immature Gran % (Auto) Neut % (Auto) Lymph % (Auto) Grayson % (Auto) Eos % (Auto) Baso % (Auto) Absolute Neuts (auto) Absolute Lymphs (auto) Nucleated RBC % Hemoglobin A1c 6.3 Phosphorus 3.2 Magnesium 2.1 Total Bilirubin 0.70 Direct Bilirubin 0.18 AST 20 ALT 27 Alkaline Phosphatase 87 Total Protein 7.2 Albumin 3.6 Globulin 3.6 TSH 1.60 Urine Color Yellow Urine Clarity Sl. Cloudy Urine pH 6.0 Ur Specific [place] 1.020 Urine Protein 30 H Urine Glucose (UA) Normal Urine Ketones Negative Urine Occult Blood 10 H Urine Nitrite Negative Urine Bilirubin Negative Urine Urobilinogen Normal Ur Leukocyte Esterase 25 H Urine RBC 0 SEEN Urine WBC 0-5 SEEN Ur Squamous Epith Cells 0 SEEN Urine Bacteria 0 SEEN Urine Mucus 3+ 06/22/19 05:40 WBC 11.5 H RBC 4.97 Hgb 14.5 Hct 42.8 MCV 86.1 MCH 29.2 MCHC 33.9 RDW Std Deviation 41.1 RDW Coeff of Rosemary 13.1 Plt Count 196 MPV 10.3 Immature Gran % (Auto) 0.400 Neut % (Auto) 71.2 H Lymph % (Auto) 17.4 L Grayson % (Auto) 8.5 Eos % (Auto) 1.9 Baso % (Auto) 0.6 Absolute Neuts (auto) 8.2 H Absolute Lymphs (auto) 2.00 Nucleated RBC % 0 Hemoglobin A1c Phosphorus Magnesium Total Bilirubin Direct Bilirubin AST ALT Alkaline Phosphatase Total Protein Albumin Globulin TSH Urine Color Urine Clarity Urine pH Ur Specific [place] Urine Protein Urine Glucose (UA) Urine Ketones Urine Occult Blood Urine Nitrite Urine Bilirubin Urine Urobilinogen Ur Leukocyte Esterase Urine RBC Urine WBC Ur Squamous Epith Cells Urine Bacteria Urine Mucus Medical Necessity - Tobacco Use Smoking Status: Never smoker Tobacco Use: Non-smoker Assessment/Plan All Active Problems Renal carcinoma (Acute) Myasthenia gravis (Acute) Thyroid nodule (Acute) Chest pain (Acute) Impressions 1. Acute myasthenia Gravis with diplopia, neck weakness and L eye ptosis - IVIG started and Prednisone 20 mg daily. Mestinon increased to 60 mg [address]ID. Discussed with Dr. Augustin. Continue current tx. 2. MEZA - better with soft cervical collar. Monitor closely for recurrence since IVIG can cause MEZA. 3. Hx of renal CA - S/P resection of a portion of the R kidney by Dr. Squires in Oct 2018 4. large thyroid nodule -Dr. Baires plans thyroid nodule biopsy on 06/25/2019 5. Diabetes mellitus type 2-diet controlled however patient is on prednisone now blood sugars are mildly increased. Will start sliding insulin scale coverage. 6. Hyperlipidemia/hypertension/psoriasis/history of vertigo/presbycusis-chronic conditions -continue home medications 7. DVT prophylaxis with enoxaparin and knee-high CELESTINE hose. Code Visit Inpatient E&M: 62099 Subs Hosp L2
[2019-06-22] MEDS: Immune Globulin 20 gm Premixed Solution 42.6 BAG IV (17:27)
[2019-06-22] MEDS: Immune Globulin 10 gm Premixed Solution 170 BAG IV (19:28)
[2019-06-22] MEDS: Insulin Lispro 100 UNIT/ML INSULN.PEN SC (21:30)
[2019-06-23] VITALS (11 sets, daily range): BP systolic 144–170; BP diastolic 78–97; PULSE 77–94; RESP 12–18; TEMP 36.8–37.1; O2SAT 92–96
[2019-06-23 02:56] LABS: Bedside Glucose 200 mg/dL (70-110)
[2019-06-23] MEDS: Pyridostigmine Bromide 60 MG Tablet PO ×3 (06:33→22:08)
[2019-06-23] MEDS: Acetaminophen 325 MG Tablet 650 MG PO (06:37)
[2019-06-23] MEDS: Insulin Lispro 100 UNIT/ML INSULN.PEN SC ×4 (06:43→22:07)
[2019-06-23 06:55] LABS: Bedside Glucose 153 mg/dL (70-110)
[2019-06-23] MEDS: Clobetasol Propionate 0.05% Cream 1 APPLIC TOPICAL ×2 (09:16→22:05)
[2019-06-23] MEDS: Cyanocobalamin 500 MCG Tablet 1000 MCG PO (09:18)
[2019-06-23] MEDS: Celecoxib 200 MG Capsule PO (09:19)
[2019-06-23] MEDS: Enoxaparin 40 MG/0.4 ML Syringe SC (09:19)
[2019-06-23] MEDS: predniSONE 20 MG Tablet PO (09:19)
[2019-06-23] MEDS: Multivitamins,Therapeutic Tablet 1 TABLET PO (09:19)
[2019-06-23] MEDS: Famotidine 20 MG Tablet PO ×2 (09:20→22:06)
[2019-06-23] MEDS: Lisinopril 20 MG Tablet PO ×2 (09:21→22:04)
[2019-06-23] MEDS: amLODIPine 10 MG Tablet PO (09:21)
[2019-06-23 11:21] LABS: Bedside Glucose 150 mg/dL (70-110)
--- NOTE | 2019-06-23 14:13 | PCM.PROGNOTE ---
Patient Problems: Active and Suspected Problems Myasthenia gravis (Acute) Thyroid nodule (Acute) Subjective: All events of the past 24 hours of been reviewed. He is afebrile. Blood pressures have been labile and when he is anxious or agitated they go up significantly. He is maintaining appropriate oxygen saturation on room air. Blood sugars are mildly elevated secondary to steroids. He is complaining of a headache today and he says it is currently a 7. He denies any shortness of breath. He is a little confused today and he seems quite anxious. He is asked me the same questions I answered the past 2 days. He also tells me he did not sleep well last night. - Physical Exam General: Alert, Cooperative, Confused - He is perseverating having problems with memory., - - Agitated HEENT: Atraumatic, PERRLA, EOMI, Normocephalic, - - No nuchal rigidity Oral: Moist Mucosa Neck: Supple, No Nodes, No Nuchal Rigidity, Trachea Midline Lungs: Clear to auscultation, - - Lying flat in bed without any respiratory distress. Cardiovascular: Regular rate, Regular Rhythm, Normal S1, Normal S2, No murmurs, No Gallop, - - Heart rate is mildly increased at the present time but not greater than 100 Abdomen: Bowel Sounds Present, Soft, Non Tender, Non-Distended Extremities: No clubbing, No cyanosis, No Calf Tenderness Skin: No rashes Musculoskeletal: - - some spasm in the trapezius muscles Neurological: Cranial nerves II-XII grossly intact, Neuro grossly intact Psych/Mental Status: Agitated, Anxious Vital Signs Temp Pulse Resp BP Pulse Ox 98.3 F 82 12 148/92 H 94 06/23/19 08:55 06/23/19 11:20 06/23/19 08:55 06/23/19 11:20 06/23/19 08:55 Oxygen Delivery Method Room Air Weight: 187 lb 11.2 oz Body Mass Index (BMI) 27.0 Finger Stick Blood Glucose 214 Intake and Output for Last 24 Hours 06/21/19 06/22/19 06/23/19 23:59 23:59 23:59 Intake Total 700.00 / 1200.00 1850.00 / 1850.00 Output Total 750 / 750 400 / 400 Balance 700.00 / 850.00 1100.00 / 1100.00 -400 / -400 Laboratory Tests Past 24 Hrs 06/21/19 09:30 IgA Pending POC Glucose 06/23/19 06/23/19 06/22/19 11:14 06:41 21:17 POC Glucose 150 H 153 H 200 H Medical Necessity - Tobacco Use Smoking Status: Never smoker Tobacco Use: Non-smoker Assessment/Plan All Active Problems Renal carcinoma (Acute) Myasthenia gravis (Acute) Thyroid nodule (Acute) Chest pain (Acute) Impressions 1. Acute myasthenia Gravis with diplopia, neck weakness and L eye ptosis - IVIG started and Prednisone 20 mg daily. Mestinon increased to 60 mg TID. 2. MEZA at admission resolved with a cervical collar to support his neck. Has 03/21 MEZA now - possibly secondary to IVIG. Scheduled Tylenol ordered. 3. Hx of renal CA - S/P resection of a portion of the R kidney by Dr. Squires in Oct 2018 4. large thyroid nodule - Dr. Baires consulted and plan biopsy on Tuesday. 5. Diabetes mellitus type 2-blood sugars mildly increased secondary to prednisone. Continue sliding scale insulin. 6. agitation today and trouble with memory - no sign infection, neck supple with no nuchal rigidity......? Low-dose Seroquel started. 7. Hyperlipidemia/hypertension/psoriasis/history of vertigo/presbycusis-chronic conditions Code Visit Inpatient E&M: 37486 Subs Hosp L2
[2019-06-23] MEDS: Acetaminophen 500 MG Tablet 1000 MG PO ×2 (14:31→22:04)
[2019-06-23] MEDS: QUEtiapine 25 MG Tablet 12.5 MG PO (14:32)
[2019-06-23] MEDS: 0.9% NaCl Peripheral Flush Adult/Peds IV (15:13)
[2019-06-23] MEDS: 0.9% Normal Saline 1,000 ML 60 ML IV (15:14)
[2019-06-23 16:25] LABS: Bedside Glucose 171 mg/dL (70-110)
[2019-06-23] MEDS: Immune Globulin 20 gm Premixed Solution 42 BAG IV (18:45)
--- NOTE | 2019-06-23 19:25 | NURSING ---
INCREASED RATE TO 85 ML/HR
--- NOTE | 2019-06-23 19:33 | NURSING ---
Called RX requesting labatolol, awaiting.
[2019-06-23] MEDS: QUEtiapine 25 MG Tablet PO (20:07)
[2019-06-23] MEDS: Immune Globulin 10 gm Premixed Solution 128 BAG IV (21:14)
[2019-06-23] MEDS: Atorvastatin Calcium 10 MG Tablet 5 MG PO (22:06)
[2019-06-23 22:21] LABS: Bedside Glucose 171 mg/dL (70-110)
[2019-06-24] VITALS (16 sets, daily range): BP systolic 146–169; BP diastolic 80–100; PULSE 53–94; RESP 12–18; TEMP 36.6–36.9; O2SAT 92–95
[2019-06-24] MEDS: Acetaminophen 500 MG Tablet 1000 MG PO ×3 (05:56→22:28)
[2019-06-24] MEDS: Pyridostigmine Bromide 60 MG Tablet PO ×3 (05:56→21:33)
--- NOTE | 2019-06-24 06:04 | NURSING ---
This RN assisted patient in ordering breakfast this AM.
[2019-06-24 06:40] LABS: Bedside Glucose 123 mg/dL (70-110)
[2019-06-24 08:37] LABS: Immunoglobulin A 147 mg/dL (61-437)
[2019-06-24] MEDS: Clobetasol Propionate 0.05% Cream 1 APPLIC TOPICAL ×2 (08:43→21:34)
[2019-06-24] MEDS: predniSONE 20 MG Tablet PO (08:45)
[2019-06-24] MEDS: amLODIPine 10 MG Tablet PO (08:46)
[2019-06-24] MEDS: Cyanocobalamin 500 MCG Tablet 1000 MCG PO (08:46)
[2019-06-24] MEDS: Famotidine 20 MG Tablet PO ×2 (08:46→21:34)
[2019-06-24] MEDS: Celecoxib 200 MG Capsule PO (08:47)
[2019-06-24] MEDS: Enoxaparin 40 MG/0.4 ML Syringe SC (08:48)
[2019-06-24] MEDS: Lisinopril 20 MG Tablet PO ×2 (08:49→21:28)
[2019-06-24] MEDS: Multivitamins,Therapeutic Tablet 1 TABLET PO (08:51)
--- NOTE | 2019-06-24 09:31 | PCM.PROGNOTE ---
Patient Problems: Active and Suspected Problems Myasthenia gravis (Acute) Thyroid nodule (Acute) Subjective: 79-year-old male with recent diagnosis of myasthenia gravis admitted to the hospital with complaints of left eye ptosis, neck weakness and diplopia. Started on IVIG daily for a total of 5 days. Also started on prednisone 20 mg p.o. daily. Cover to have a large thyroid nodule which is vascular on CT scan of the head and neck. Dr. Baires consulted and thyroid biopsy planned for Tuesday. History is positive for renal cell carcinoma and he had a partial nephrectomy on the right by Dr. Squires in October 2018. Started on Seroquel 06/23 for suspected ing. All events of the past 24 hours of been reviewed. Afebrile for the past 48 hours. Blood pressures are mildly increased. Current blood pressure is 155/80. He is maintaining an appropriate oxygen saturation of 94 to 95% on room air with no tachypnea. Fluid balance since admission is +2000. All lab was personally reviewed. Blood sugars are well controlled. He was on medication for DM in the past but it was stopped. Currently on a SSI since he was placed on steroids. Hemoglobin A1c is 6.3. Slept well last night. Feels rested today. No bad nightmares last night. He is alert and oriented today. He is appropriate and able to stay off topic. Headache is a 1 today. Denies any shortness of breath. No cough. Denies diplopia today. Blurred vision is better. Not wearing the cervical collar and he is able to hold his head up. Ptosis is better and he is now able to track my finger up. - Physical Exam General: Alert, Oriented x3, Cooperative HEENT: - - Less ptosis, he is now able to track my finger when I move it upwards has good lateral movement and downward gaze. Oral: Moist Mucosa Neck: Supple, Trachea Midline Lungs: Clear to auscultation, Normal air movement Cardiovascular: Regular rate, Regular Rhythm, Normal S1, Normal S2, No murmurs, No Gallop Abdomen: Bowel Sounds Present, Soft, Non Tender, Non-Distended Extremities: No edema Skin: No rashes Neurological: - - Less ptosis of the left upper lid, better able to hold his head up and look up towards the ceiling. Denies diplopia Psych/Mental Status: Normal Affect, Appropriate Vital Signs Temp Pulse Resp BP Pulse Ox 98.3 F 70 14 155/80 H 95 06/24/19 08:28 06/24/19 08:28 06/24/19 08:28 06/24/19 08:28 06/24/19 08:28 Oxygen Delivery Method Room Air Weight: 187 lb 11.2 oz Body Mass Index (BMI) 27.0 Finger Stick Blood Glucose 214 Intake and Output for Last 24 Hours 06/22/19 06/23/19 06/24/19 23:59 23:59 23:59 Intake Total 1850.00 / 1850.00 525.30 / 525.30 Output Total 750 / 750 400 / 400 Balance 1100.00 / 1100.00 125.30 / 125.30 Laboratory Tests Past 24 Hrs 06/21/19 09:30 IgA 147 POC Glucose 06/24/19 06/23/19 06/23/19 06:34 22:03 16:14 POC Glucose 123 H 171 H 171 H 06/23/19 11:14 POC Glucose 150 H Medical Necessity - Tobacco Use Smoking Status: Never smoker Tobacco Use: Non-smoker Assessment/Plan All Active Problems Renal carcinoma (Acute) Myasthenia gravis (Acute) Thyroid nodule (Acute) Chest pain (Acute) Impressions 1. Acute myasthenia Gravis with diplopia, neck weakness and L eye ptosis - IVIG started and Prednisone 20 mg daily. Mestinon increased to 60 [address]ID. Discussed with Dr. Augustin. Continue current tx. Diplopia has resolved. Left upper lid ptosis is improving. Better able to hold his head up, blurred vision improve 2. MEZA - better with soft cervical collar at admission. No MEZA today 3. Hx of renal CA - S/P resection of a portion of the R kidney by Dr. Squires in Oct 2018 4. large thyroid nodule -Dr. Baires plans thyroid nodule biopsy on 06/25/2019 5. Diabetes mellitus type 2-diet controlled however patient is on prednisone now blood sugars are mildly increased. Will start sliding insulin scale coverage. Pt is requesting he be restarted on an oral agent. Getting on average only 1 unit at meals. Will start Metformin 500 mg Q AM and DC the SSI. continue the accuchecks for 1 more day 6. Hyperlipidemia/hypertension/psoriasis/history of vertigo/presbycusis-chronic conditions -continue home medications 7. Hypokalemia-supplement added 8. DVT prophylaxis with enoxaparin and knee-high CELESTINE dianae. Dr. Tanner will be seeing the pt tomorrow and will need a plan for follow up Continue the Seroquel. Has been having a very difficult time sleeping recently with bad nightmares and he is much better today. Code Visit Inpatient E&M: 72264 Subs Hosp L2
[2019-06-24 09:58] LABS: Hematocrit 41.8 % (40-54); Hemoglobin 14.3 g/dL (13.0-16.5); Mean Corp Hgb Conc 34.2 g/dL (32-36); Mean Corpuscular Hgb 28.7 pg (27.0-32.0); Mean Corpuscular Volume 83.9 fL (80-94); Mean Platelet Vol. 9.9 fl (6.2-12.0); Platelet Count 222 K/mm3 (150-450); RBC Distribution Width CV 12.8 % (11.6-14.6); RBC Distribution Width SD 38.8 fl (35.1-43.9); Red Blood Count 4.98 M/mm3 (4.6-6.2); White Blood Count 6.8 K/mm3 (4.4-11.0)
[2019-06-24 10:12] LABS: Anion Gap 5 (5-15); BUN 19 mg/dL (7-18); BUN/Creat Ratio 18.4 RATIO (10-20); Calcium,Total 8.7 mg/dL (8.5-10.1); Chloride 108 mmol/L (98-107); Creatinine, Serum 1.03 mg/dL (0.70-1.30); EST Glomerular Filtration Rate 74 mL/min (>60); Est Glom Filt Rate - Afr Amer 89 mL/min (>60); Estimated Creatinine Clearance 59.06 ml/min; Glucose 183 mg/dL (74-106); Magnesium 1.9 mg/dL (1.6-2.6); Phosphorus 2.5 mg/dL (2.5-4.9); Potassium 3.3 mmol/L (3.5-5.1); Sodium Level 138 mmol/L (136-145)
[2019-06-24 10:56] LABS: Bedside Glucose 151 mg/dL (70-110)
[2019-06-24] MEDS: 0.9% NaCl Peripheral Flush Adult/Peds IV ×2 (11:24→18:48)
[2019-06-24] MEDS: 0.9% Normal Saline 1,000 ML 60 ML IV (11:25)
[2019-06-24] MEDS: Insulin Lispro 100 UNIT/ML INSULN.PEN SC (12:50)
[2019-06-24 15:51] LABS: Bedside Glucose 226 mg/dL (70-110)
[2019-06-24] MEDS: Immune Globulin 20 gm Premixed Solution 42 BAG IV (18:49)
--- NOTE | 2019-06-24 19:17 | NURSING ---
IMMUNE GLOBULIN 10% INFUSING AT 42 ML/HR
[2019-06-24] MEDS: QUEtiapine 25 MG Tablet PO (20:02)
[2019-06-24] MEDS: Atorvastatin Calcium 10 MG Tablet 5 MG PO (21:27)
[2019-06-24] MEDS: Immune Globulin 10 gm Premixed Solution 128 BAG IV (22:01)
[2019-06-24 23:41] LABS: Bedside Glucose 165 mg/dL (70-110)
[2019-06-25] VITALS (15 sets, daily range): BP systolic 130–176; BP diastolic 78–100; PULSE 55–93; RESP 16–22; TEMP 36.3–37.4; O2SAT 91–95
[2019-06-25] MEDS: Acetaminophen 500 MG Tablet 1000 MG PO ×3 (05:19→21:56)
[2019-06-25] MEDS: Pyridostigmine Bromide 60 MG Tablet PO ×3 (05:20→22:11)
[2019-06-25] MEDS: 0.9% Normal Saline 1,000 ML 60 ML IV ×2 (05:21→21:56)
[2019-06-25 05:32] LABS: Potassium 3.5 mmol/L (3.5-5.1)
[2019-06-25 06:40] LABS: Bedside Glucose 120 mg/dL (70-110)
[2019-06-25] MEDS: Cyanocobalamin 500 MCG Tablet 1000 MCG PO (08:32)
[2019-06-25] MEDS: metFORMIN HCl 500 MG Tablet PO (08:32)
[2019-06-25] MEDS: Celecoxib 200 MG Capsule PO (08:32)
[2019-06-25] MEDS: predniSONE 20 MG Tablet PO ×2 (08:33→13:23)
[2019-06-25] MEDS: Multivitamins,Therapeutic Tablet 1 TABLET PO (08:33)
[2019-06-25] MEDS: Famotidine 20 MG Tablet PO ×2 (08:34→21:56)
[2019-06-25] MEDS: Lisinopril 20 MG Tablet PO ×2 (08:35→22:06)
[2019-06-25] MEDS: amLODIPine 10 MG Tablet PO (08:35)
[2019-06-25] MEDS: Clobetasol Propionate 0.05% Cream 1 APPLIC TOPICAL ×2 (08:35→22:07)
--- NOTE | 2019-06-25 09:26 | PCM.PROGNOTE ---
Patient Problems: Active and Suspected Problems Myasthenia gravis (Acute) Thyroid nodule (Acute) Subjective: Chief complaint: Follow-up after admission for acute myasthenia gravis and also found to have large thyroid nodule. Patient seen and examined. No acute events overnight. He is still complaining of diplopia. Ptosis on the left eye started to improve and patient able to open his left eye. Again, he had nightmares last night although he was able to sleep well in the right before.. Headache improved. His vital signs are stable. - Physical Exam General: Alert, Oriented x3, Cooperative, No apparent distress HEENT: Atraumatic, PERRLA, EOMI, - - Left eye ptosis. Oral: Moist Mucosa, No Gingival or Mucosal Lesions/ Ulcerations Neck: Supple, No JVD, Negative Carotid Bruits, Trachea Midline, Thyroid Normal Size and Texture Lungs: Clear to auscultation, Normal air movement, No rhonchi, No wheeze, No rales, Diminished Cardiovascular: Regular rate, Regular Rhythm, Normal S1, Normal S2 Abdomen: Bowel Sounds Present, Soft, Non Tender, Non-Distended, No Hepato-splenomegaly Extremities: No clubbing, No cyanosis, No edema Skin: No rashes, No breakdown Musculoskeletal: - - Status post below left elbow amputation. Neurological: Cranial nerves II-XII grossly intact, Motor Exam 5/5 strength throughout, - - Left eye ptosis. Psych/Mental Status: Normal Affect, Appropriate, Alert and oriented to time, place, person, mood and affect Vital Signs Temp Pulse Resp BP Pulse Ox 97.4 F L 60 18 130/78 H 93 06/25/19 02:35 06/25/19 07:38 06/25/19 02:35 06/25/19 02:35 06/25/19 02:35 Oxygen Delivery Method Room Air Weight: 187 lb 11.2 oz Body Mass Index (BMI) 27.0 Finger Stick Blood Glucose 214 Intake and Output for Last 24 Hours 06/23/19 06/24/19 06/25/19 23:59 23:59 23:59 Intake Total 525.30 / 525.30 1035.0 / 1385.0 1650 / 1650 Output Total 400 / 400 Balance 125.30 / 125.30 1035.0 / 1385.0 1650 / 1650 Laboratory Tests Past 24 Hrs 06/24/19 06/24/19 06/25/19 09:47 09:47 05:08 WBC 6.8 RBC 4.98 Hgb 14.3 Hct 41.8 MCV 83.9 MCH 28.7 MCHC 34.2 RDW Std Deviation 38.8 RDW Coeff of Rosemary 12.8 Plt Count 222 MPV 9.9 Sodium 138 Potassium 3.3 L 3.5 Chloride 108 H Carbon Dioxide 25.0 Anion Gap 5 BUN 19 H Creatinine 1.03 Estim Creat Clear Calc 59.06 Est GFR (MDRD) Af Amer 89 Est GFR (MDRD) Non-Af 74 BUN/Creatinine Ratio 18.4 Glucose 183 H Calcium 8.7 Phosphorus 2.5 Magnesium 1.9 POC Glucose 06/25/19 06/24/19 06/24/19 06:36 23:36 15:44 POC Glucose 120 H 165 H 226 H 06/24/19 10:51 POC Glucose 151 H Medical Necessity - Tobacco Use Smoking Status: Never smoker Tobacco Use: Non-smoker Assessment/Plan All Active Problems Myasthenia gravis (Acute) Thyroid nodule (Acute) This is an 79 years old male patient presented to the emergency room because of headache and vertigo, was recently diagnosed with myasthenia gravis and he was found to have acute myasthenia gravis with left eye ptosis, started on IV immunoglobulin and also was found to have large thyroid nodule and he is going for CT-guided thyroid nodule biopsy today. #1 acute myasthenia gravis: With diplopia, left eye ptosis and neck weakness. Patient is on IV immunoglobulin, day 5. He is on Mestinon and started on prednisone. Left eye ptosis improved, still having diplopia, decrease improved. His vital signs are stable, afebrile. Routine blood work was unremarkable. Neurology on the case. Plan to continue IVIG, continue Mestinon and prednisone. #2 headache/neck pain: Attributed to acute myasthenia gravis attack. Patient cervical collar. MRI brain showed no acute stroke. MRA of the head and neck was unremarkable. He is on Tylenol PRN, symptoms are improving. He is getting better. #3 large thyroid nodule: With normal TSH. General surgery consulted, plan for CT-guided thyroid nodule biopsy today. #4 type 2 diabetes mellitus: Blood sugar stable, he has been on metformin. #5 hypertension: Blood pressure stable, continue Norvasc and lisinopril. #6 history of renal cell carcinoma: Status post partial resection of the right kidney. Kidney function is stable. #7 DVT prophylaxis: Subcu Lovenox. This note was generated with [employer] dictation software. It may contain incorrect words, spelling, and punctuation that were not noted in checking the note before signing. Code Visit Inpatient E&M: 52349 Subs Hosp L2
--- NOTE | 2019-06-25 10:36 | PCM.PN.NEU ---
Patient Problems: Active and Suspected Problems Myasthenia gravis (Acute) Thyroid nodule (Acute) Subjective: feels better, still diplopia and ptosis, no sob. swallowing ok with precautions. was told to use soft collar - Physical Exam General: Alert, Oriented x3, Cooperative HEENT: - - gaze disconjugate and left ptosis Vital Signs Temp Pulse Resp BP Pulse Ox 36.3 C L 60 18 130/78 H 93 06/25/19 02:35 06/25/19 07:38 06/25/19 02:35 06/25/19 02:35 06/25/19 02:35 Oxygen Delivery Method Room Air Weight: 85.139 kg Body Mass Index (BMI) 27.0 Finger Stick Blood Glucose 214 Intake and Output for Last 24 Hours 06/23/19 06/24/19 06/25/19 23:59 23:59 23:59 Intake Total 525.30 / 525.30 1035.0 / 1385.0 1650 / 1650 Output Total 400 / 400 Balance 125.30 / 125.30 1035.0 / 1385.0 1650 / 1650 Laboratory Tests Past 24 Hrs 06/25/19 05:08 Potassium 3.5 POC Glucose 06/25/19 06/24/19 06/24/19 06:36 23:36 15:44 POC Glucose 120 H 165 H 226 H 06/24/19 10:51 POC Glucose 151 H Current Home Med List Medication Instructions Recorded Confirmed Type Amlodipine [Norvasc] 10 mg PO DAILY 11/30/15 06/21/19 History Aspirin [Aspirin, Baby] 81 mg PO DAILY@0800 11/30/15 06/21/19 History Lovastatin [Mevacor] 20 mg PO LUNCH 11/30/15 06/21/19 History Quinapril HCl [Accupril] 20 mg PO BID 11/30/15 06/21/19 History Celecoxib [Celebrex] 200 mg PO DAILY 09/27/18 06/21/19 History Psyllium [Metamucil] 1 packet PO DAILY 09/27/18 06/21/19 History Meclizine HCl 25 mg PO Q8H PRN PRN #12 tab 06/03/19 06/21/19 Rx Betamethasone Dipropionate 1 applicatio TOPICAL BID 06/21/19 06/21/19 History Cyanocobalamin [Vitamin B12] 1,000 mcg PO DAILY@0800 06/21/19 06/21/19 History Multivitamin [Multiple Vitamins] 1 ea PO DAILY 06/21/19 06/21/19 History Potassium Gluconate 2.5 meq PO DAILY 06/21/19 06/21/19 History Pyridostigmine [place] [Mestinon] 30 mg PO TID 06/21/19 06/21/19 History Medical Necessity - Tobacco Use Smoking Status: Never smoker Tobacco Use: Non-smoker Assessment/Plan All Active Problems Renal carcinoma (Acute) Myasthenia gravis (Acute) Thyroid nodule (Acute) Chest pain (Acute) MG exac continue mestinon 60 tid finish ivig course continue pred, 40mg qd for 3d, then 30mg qd for 3d, then 20mg qd for 3d, then 10mg qd for 3d, then 5mg qd for 3d then stop op f/u for soliris, will call in [facility]
--- NOTE | 2019-06-25 11:45 | ASPIG_PTH ---
PATIENT: LOIS GOODMAN LOC: MS3 U#:[id number] AGE/SX: 79/M ROOM: IL313 RE06/21/[address]: Dr. Lenin Rogers MD : 1940 BED: 1 DIS: 06/26/2019 SPEC #: [id number] RECD: 06/25/19 13:22 STATUS: SOUT REQ #: [id number] TOMA: 06/25/19 11:[address]: Love Baires DEPT: CYTOLOGY RECD BY: Zeeshan Johnson ENTERED: 06/25/19 13:22 SP TYPE: ASP OUT OTHR DR: DO Dr. Stanford Morales III, MD Dr. Ghasem E Ashelfah, MD Dr. Linda Wang, MD Dr. Ramnath S Ramanathan, MD Tissues: Thyroid gland, NOS Procedures: FNA Specimen Adequacy Special Stain Group II Surgery Specimen Level IV Cytology Other Comments: @ Ordering doctor for SSII edited from to @ by SARANYA at 06/25/191356 @ Ordering doctor for SUIV edited from to @ by SARANYA at 06/25/19 135 @ Ordering doctor for CYOTHER edited from to DR.LWANG Fry by SARANYA at 06/25/19 135 @ Ordering doctor for FNASA edited from to @ by SARANYA at 06/25/19 135 @ Submitting doctor edited from to DR.LWANG Lisandra BEAVER at 06/25/19 1357 HEADER OPERATION: Ultrasound-guided left thyroid biopsy PRE-OP DIAGNOSIS: Left thyroid mass TISSUE SUBMITTED: Left thyroid FNA DIAGNOSIS CYTOLOGY Left thyroid nodule, ultrasound-guided FNA (cytospin, cell block and smears): Consistent with benign colloid 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 Adequate for evaluation. SJ:barbara 06/26/19 COMMENT The specimen is evaluated at the time of FNA by Dr. Kuo. Immediate Evaluation = Follicular cells and colloid noted. Adequate for evaluation. Correlation with clinical, radiologic findings and appropriate follow up are necessary. 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 CYTOLOGY STUDY Slides are reviewed. CYTOLOGY GROSS Received in five passes is 18 ml of dark red cloudy fluid labeled with the patient's name, and designated left thyroid. Twelve imprints and eight paps are made from the submitted fluid and the rest is added to CytoLyt for cell block preparation. Submitted for cytology study. / COY:barbara 06/25/19 TC:5 CPT: 99046, 98944, 38872, 59500
--- NOTE | 2019-06-25 12:15 | PCM.OPRPT ---
Report of Operation Date of Procedure: 06/25/19 Pre-Operative Diagnosis: left thyroid mass Post-Operative Diagnosis: same Surgery/Procedure Performed:: US guided FNA of left thyroid mass Description of Surgical Findings:: 5 cm partially cystic left thyroid mass Type of Anesthesia:: Local - 1% xylocaine Anesthesiologist: none Specimen's removed: cytology of left thyroid mass Estimated Blood Loss (mL): minimal Fluids Replaced: none Description of Procedure: After informed consent was given, the patient was brought to the ultrasound suite. Appropriate time out protocol was followed. He was then placed in the supine position with slight neck extension. Using the ultrasound transducer, the suspicious lesion was localized and noted. It was in the left side and abouve 5 cm in maximum dimension. The skin at where the biopsy needle would be inserted was then cleansed with betadyne and the skin and subcutaneous tissues at the biopsy site were infiltrated with 1% xylocaine. Holding the transducer in my left hand, I guided the 22G needle attached to a 10 cc syringe into the left thyroid nodule. The needle was aspirated and then the needle was withdrawn and with syringe was passed to the pathologist who immediately made slides for review. The specimen had inadequate follicular cells for review. Therefore, another pass was made with another 22 G needle attached to 10 cc syringe. Once again, guided into the thyroid nodule with the ultrasound. The needle was aspirated and then the needle was withdrawn and with syringe was passed to the pathologist who immediately made slides for review. This specimen was adequate for review. Hemostasis was controlled with pressure. Of note, the lesion was partly cystic and heterogeneous. A bandaid was applied to the site. The patient tolerated the procedure well. He was discharged from the radiology suite in stable condition. - Complications none noted
--- NOTE | 2019-06-25 12:26 | NURSING ---
1125-pt off unit via bed for procedure
--- NOTE | 2019-06-25 16:06 | US_ITS ---
PROCEDURE: ULTRASOUND GUIDED LEFT THYROID FNA/BIOPSY. DATE: June 25, 2019. INDICATION: Male, 79 years old. Complex left thyroid nodule. PHYSICIAN: Bertin Tolbert M.D. MEDICATIONS: 2% lidocaine administered subcutaneously for local anesthesia. ACCESS SITE: Left - anterior approach. NEEDLE: 25-gauge FNA needle. SPECIMEN: Multiple FNA specimen collected and given to pathology. EBL: None. COMPLICATIONS: None immediate. PROCEDURE: The risks, benefits, and alternatives to the procedure were explained to the patient. The specific risk of hemorrhage requiring further treatment or intervention was detailed and accepted. Written informed consent was obtained. The patient was brought into the ultrasound room and placed in the supine position on the stretcher. An appropriate entry site was identified. The overlying skin was prepped and draped in the usual sterile fashion. 2% lidocaine was administered subcutaneously for local anesthesia. Under ultrasound guidance, a 25-gauge FNA needle was advanced into the lesion. Aspiration was performed and the needle was withdrawn. A total of 5 passes were performed with specimen collected and given to the pathologist who was present during the procedure. Hemostasis was achieved with manual compression. Repeat ultrasound images of the biopsy area was performed which demonstrated no gross bleeding or hematoma. An antibiotic ointment dressing was placed and the patient was given an icepack. The patient tolerated the procedure well without immediate complications. The patient was discharged in stable condition. US/FNA 1st Biopsy w/ US IMPRESSION: Successful ultrasound-guided left thyroid nodule FNA/biopsy, as described above. Electronically Signed: Bertin Tolbert, at 13:54 EDT , Service support ,
[2019-06-25] MEDS: Immune Globulin 20 gm Premixed Solution 42.6 BAG IV (19:31)
[2019-06-25] MEDS: Immune Globulin 10 gm Premixed Solution 213 BAG IV (21:22)
[2019-06-25] MEDS: Loperamide 2 MG Capsule PO (21:56)
[2019-06-25] MEDS: Atorvastatin Calcium 10 MG Tablet 5 MG PO (22:04)
[2019-06-25] MEDS: QUEtiapine 25 MG Tablet PO (22:05)
[2019-06-25] MEDS: 0.9% NaCl Peripheral Flush Adult/Peds IV (22:05)
[2019-06-26 04:00] VITALS: PULSE 62
[2019-06-26 04:14] VITALS: BP 170/96; PULSE 71; RESP 20; TEMP 36.4; O2SAT 92
[2019-06-26] MEDS: 0.9% NaCl Peripheral Flush Adult/Peds IV (05:46)
[2019-06-26] MEDS: Pyridostigmine Bromide 60 MG Tablet PO (05:46)
[2019-06-26] MEDS: Acetaminophen 500 MG Tablet 1000 MG PO (05:46)
[2019-06-26] MEDS: Loperamide 2 MG Capsule PO (05:48)
[2019-06-26 05:51] LABS: Bedside Glucose 116 mg/dL (70-110)
[2019-06-26 07:50] VITALS: BP 140/76; PULSE 61; RESP 14; TEMP 36.4; O2SAT 95
[2019-06-26 07:59] VITALS: PULSE 58
[2019-06-26] MEDS: Celecoxib 200 MG Capsule PO (08:52)
[2019-06-26] MEDS: Enoxaparin 40 MG/0.4 ML Syringe SC (08:53)
[2019-06-26] MEDS: Clobetasol Propionate 0.05% Cream 1 APPLIC TOPICAL (08:53)
[2019-06-26] MEDS: Multivitamins,Therapeutic Tablet 1 TABLET PO (08:53)
[2019-06-26] MEDS: Lisinopril 20 MG Tablet PO (08:53)
[2019-06-26] MEDS: amLODIPine 10 MG Tablet PO (08:54)
[2019-06-26] MEDS: metFORMIN HCl 500 MG Tablet PO (08:54)
[2019-06-26] MEDS: Cyanocobalamin 500 MCG Tablet 1000 MCG PO (08:54)
[2019-06-26] MEDS: Famotidine 20 MG Tablet PO (08:54)
[2019-06-26] MEDS: predniSONE 10 MG Tablet 30 MG PO (08:54)
--- NOTE | 2019-06-26 09:14 | DCINST_ITS ---
- Discharge Diagnoses Current Active Problems: Current Active and Chronic Problems Myasthenia gravis (Acute) Thyroid nodule (Acute) You will use the following diet at home:: Calorie/Carbohydrate Controlled (specify 1200, 1400, etc) - 1800 calories, Cardiac Your food should be the consistency of: Regular Discharge Activity: Return to Normal Activity Weight Bearing Status: Weight bearing as tolerated Call your doctor if you observe: Fever of 101 or Higher, Shortness of breath, Dizziness, Fainting spells, Chest pain, Increased palpitations (irregular heartbeat), Uncontrolled pain Instructions: Controlling High Blood Pressure, Taking Your Blood Pressure Additional Instructions: Please monitor your blood pressure, check it twice a day and follow-up with your family doctor in a week. Allergies/Adverse Reactions: Allergies Penicillins Allergy (Verified 06/21/19 08:10) Hives Medications to take at Discharge Amlodipine [Norvasc] 10 mg PO DAILY 11/30/15 Aspirin [Aspirin, Baby] 81 mg PO DAILY@0800 11/30/15 Lovastatin [Mevacor] 20 mg PO LUNCH 11/30/15 Quinapril HCl [Accupril] 20 mg PO BID 11/30/15 Celecoxib [Celebrex] 200 mg PO DAILY 09/27/18 Psyllium [Metamucil] 1 packet PO DAILY 09/27/18 Meclizine HCl 25 mg PO Q8H PRN PRN #12 tab 06/03/19 Betamethasone Dipropionate 1 applicatio TOPICAL BID 06/21/19 Cyanocobalamin [Vitamin B12] 1,000 mcg PO DAILY@0800 06/21/19 Multivitamin [Multiple Vitamins] 1 ea PO DAILY 06/21/19 Potassium Gluconate 2.5 meq PO DAILY 06/21/19 Prednisone 5 mg PO DAILY #40 tab 06/26/19 Pyridostigmine [place] [Mestinon] 60 mg PO Q8 #90 tab 06/26/19 Quetiapine Fumarate [Seroquel] 25 mg PO DAILY@1999 #30 tab 06/26/19 metFORMIN HCl [Glucophage] 500 mg PO DAILYCM #30 tab 06/26/19 The following prescriptions were given: metFORMIN HCl [Glucophage] 500 mg PO DAILYCM #30 tab Transmission Status: Pending to [facility] Pyridostigmine [place] [Mestinon] 60 mg PO Q8 #90 tab Transmission Status: Pending to [facility] Prednisone 5 mg PO DAILY #40 tab Prescription Printed Quetiapine Fumarate [Seroquel] 25 mg PO DAILY@1999 #30 tab Transmission Status: Pending to [facility] Primary Care Physician: Stanford Tan III, MD [Primary Care Provider] - Please follow up with your Primary Care Physician in: 1 week. Test Results: Test results from this visit will be discussed in further detail at your follow- up appointment, if applicable. Please Follow Up With: Rigoberto Tanner MD When: As scheduled this coming Tuesday Please Follow Up With: Love Baires MD When: 1 week.
--- NOTE | 2019-06-26 11:32 | CASEMGMT ---
CLARENCE HAN in to follow-up with patient regarding discharge needs. Patient denies needs at this time. States he has everything that he needs at home. CLARENCE HAN instructed patient that should he ever need and HHC or DME to follow-up with PCP.
--- NOTE | 2019-06-26 12:37 | PCM.DC.SUM ---
Discharge Date and Diagnosis Date of Admission: 06/21/19 Date of Discharge: 06/26/19 - Primary Discharge Diagnosis #1 acute myasthenia gravis with diplopia, left eye ptosis and neck weakness. #2 headache due to uncontrolled hypertension. #3 large left thyroid nodule, status post ultrasound-guided biopsy, pathology is pending. - Secondary Discharge Diagnosis Chronic Problems Hyperlipidemia (Chronic) Type 2 diabetes mellitus (Chronic) Renal carcinoma (Chronic) Hypertension (Chronic) Psoriasis (Chronic) Hospital Course and Treatment Imaging Results: Clinical Impression(s) from Imaging Studies Brain MRI 06/21/19 08:57 IMPRESSION: Age-related cerebral atrophy and scattered periventricular nonspecific demyelinating changes, commonly found in patients of this age. Electronically Signed: King Gates at 12:20 EDT Tel , Service support , Chest X-Ray 06/21/19 15:01 IMPRESSION: No acute cardiopulmonary findings or changes. Negative for new consolidation, focal atelectasis, pleural effusion or cardiomegaly. Electronically Signed: Monika Shafer MD at 15:50 EDT , Service support , Chest CT 06/21/19 15:03 IMPRESSION: 1. Coronary calcification or sclerosis. 2. An enlarged left thyroid lobe is identified which is slightly increased in size when compared with the previous study probably representing a thyroid goiter. Because underlying tumor cannot be completely excluded a thyroid ultrasound would be helpful for evaluation. 3. There appears to be irregular enlargement of the superior pole of the right kidney and an underlying tumor can't be completely excluded. For this reason a CT urogram is recommended for additional evaluation. Electronically Signed: King Gates at 16:26 EDT Tel , Service support , Thyroid Ultrasound 06/21/19 15:19 IMPRESSION: 5.0 x 4.0 x 3.0 cm complex (cystic and solid) well marginated soft tissue nodule of the left thyroid with internodular vascularity. Normal right lobe of the thyroid. Electronically Signed: Monika Shafer MD at 15:57 EDT , Service support , Head MRA 06/22/19 12:17 IMPRESSION: Normal MRA of the head Electronically Signed: King Gates, at 13:42 EDT Tel , Service support , Neck MRA 06/22/19 12:19 IMPRESSION: Normal bilateral cervical carotid and vertebral arteries. Electronically Signed: King Gates, at 14:11 EDT Tel , Service support , Biopsy Ultrasound 06/25/19 16:06 IMPRESSION: Successful ultrasound-guided left thyroid nodule FNA/biopsy, as described above. Electronically Signed: Bertin Tolbert, at 13:54 EDT , Service support , Dr. Baires, general surgery. Dr. Tanner/Dr. Aishwarya Baron, neurology. Operations: - Procedures: None Summary of Care Provided: Patient seen and examined on the day of discharge and appeared to be stable to be discharged home. He states that diplopia is resolved, vision is more clear now. Headache still there but it is improving every day. All over, is feeling better. His blood pressure has been high and fluctuating but he mentioned that his blood pressure is high at home occasionally but usually under control. His other vital signs are stable. This is an 79 years old male patient presented to the emergency room because of headache and vertigo, was recently diagnosed with myasthenia gravis and he was found to have acute myasthenia gravis with left eye ptosis, started on IV immunoglobulin and also was found to have large thyroid nodule. #1 acute myasthenia gravis: With diplopia, left eye ptosis and neck weakness. Patient was treated with IV immunoglobulin and received a total of 5 days of treatment. Neurology consulted and recommended to start patient on Mestinon and prednisone as well. Left eye ptosis and diplopia significantly improved. His routine blood work was unremarkable. Apart from elevated blood pressure, his other vital signs remained stable throughout admission. Patient discharged home on tapering course of prednisone and Mestinon, plan to follow-up with neurology this coming Saturday, June 29, 2019. #2 headache/neck pain: Attributed to elevated blood pressure and myasthenia gravis. MRI brain showed no acute stroke. MRA of the head and neck was unremarkable. His blood pressure Fluctuating but he mentioned with Norvasc and quinapril, his blood pressure has been under control at home. #3 large left thyroid nodule: With normal TSH. Status post ultrasound-guided biopsy, pathology is pending. Plan to follow-up with Dr. Baires as outpatient for pathology results follow-up and referral for surgery if needed. #4 type 2 diabetes mellitus: Started on metformin upon discharge. #5 hypertension: Blood pressure has been high during this hospital stay, continued on Norvasc and quinapril. Because patient mentioned that usually his blood pressure is under control with those 2 medications, I did not change or increase his blood pressure medications but recommended to keep close monitoring of his blood pressure and follow-up with PCP in 1 week. #6 history of renal cell carcinoma: Status post partial resection of the right kidney. Kidney function is stable. Patient discharged home in a stable medical condition, discharged on prednisone taper, discharged on Mestinon 60 mg 3 times daily, plan to follow-up with neurology this coming Saturday, June 29, 2019, plan to follow-up with Dr. Baires in 1 week regarding the thyroid biopsy, recommended follow-up with PCP in 1 week. This note was generated with [employer] dictation software. It may contain incorrect words, spelling, and punctuation that were not noted in checking the note before signing. - Physical Exam General: Alert, Oriented x3, Cooperative, No apparent distress HEENT: Atraumatic, PERRLA, EOMI, Normocephalic, - - Minimal left eye ptosis, improved. Oral: Moist Mucosa, No Gingival or Mucosal Lesions/ Ulcerations Neck: Supple, No JVD, Negative Carotid Bruits, Trachea Midline, Thyroid Normal Size and Texture Lungs: Clear to auscultation, No rhonchi, No wheeze, No rales, Diminished Cardiovascular: Regular rate, Regular Rhythm, Normal S1, Normal S2, PMI Normal Abdomen: Bowel Sounds Present, Soft, Non Tender, Non-Distended, No Hepato-splenomegaly Extremities: No clubbing, No cyanosis, No edema Skin: No rashes, No breakdown Lymphatic: No Cervical, Supraclavicular, or Inguinal Adenopathy Neurological: Motor Exam 5/5 strength throughout, - - Minimal left ptosis. Psych/Mental Status: Normal Affect, Appropriate Vital Signs Temp Pulse Resp BP Pulse Ox 97.6 F L 58 L 14 140/76 H 95 06/26/19 07:50 06/26/19 07:59 06/26/19 07:50 06/26/19 07:50 06/26/19 07:50 Oxygen Delivery Method Room Air Weight: 187 lb 11.2 oz Body Mass Index (BMI) 27.0 Finger Stick Blood Glucose 214 Intake and Output for Last 24 Hours 06/24/19 06/25/19 06/26/19 23:59 23:59 23:59 Intake Total 1035.0 / 1385.0 3199.00 / 3199.00 764 / 764 Balance 1035.0 / 1385.0 3199.00 / 3199.00 764 / 764 POC Glucose 06/26/19 05:45 POC Glucose 116 H Discharge Activity: Return to Normal Activity Weight Bearing Status: Weight bearing as tolerated Call your doctor if you observe: Fever of 101 or Higher, Shortness of breath, Dizziness, Fainting spells, Chest pain, Increased palpitations (irregular heartbeat), Uncontrolled pain Home Medications: Medications to take at Discharge Amlodipine [Norvasc] 10 mg PO DAILY 11/30/15 Aspirin [Aspirin, Baby] 81 mg PO DAILY@0800 11/30/15 Lovastatin [Mevacor] 20 mg PO LUNCH 11/30/15 Quinapril HCl [Accupril] 20 mg PO BID 11/30/15 Celecoxib [Celebrex] 200 mg PO DAILY 09/27/18 Psyllium [Metamucil] 1 packet PO DAILY 09/27/18 Meclizine HCl 25 mg PO Q8H PRN PRN #12 tab 06/03/19 Betamethasone Dipropionate 1 applicatio TOPICAL BID 06/21/19 Cyanocobalamin [Vitamin B12] 1,000 mcg PO DAILY@0800 06/21/19 Multivitamin [Multiple Vitamins] 1 ea PO DAILY 06/21/19 Potassium Gluconate 2.5 meq PO DAILY 06/21/19 Prednisone 5 mg PO DAILY #40 tab 06/26/19 Pyridostigmine [place] [Mestinon] 60 mg PO Q8 #90 tab 06/26/19 Quetiapine Fumarate [Seroquel] 25 mg PO DAILY@2000 #30 tab 06/26/19 metFORMIN HCl [Glucophage] 500 mg PO DAILYCM #30 tab 06/26/19 Following Prescrptions Were Given to Patient: metFORMIN HCl [Glucophage] 500 mg PO DAILYCM #30 tab Transmission Status: Received by [facility] Pyridostigmine [place] [Mestinon] 60 mg PO Q8 #90 tab Transmission Status: Received by [facility] Prednisone 5 mg PO DAILY #40 tab Prescription Printed Quetiapine Fumarate [Seroquel] 25 mg PO DAILY@1999 #30 tab Transmission Status: Received by [facility] Primary Care Physician: Stanford Tan III, MD [Primary Care Provider] - Please follow up with your Primary Care Physician in: 1 week. Please Follow Up With: Rigoberto Tanner MD When: As scheduled this coming Tuesday Please Follow Up With: Love Baires MD When: 1 week. Patient Instructions: Controlling High Blood Pressure, Taking Your Blood Pressure Disposition: Home Minutes spent on discharge:: 32 Patient Condition:: Stable Medical Necessity - Tobacco Use Smoking Status: Never smoker Tobacco Use: Non-smoker Meaningful Use Info Meaningful Use Diagnoses (Choose all that apply): None applicable Code Visit Inpatient E&M: 94726 Disch Hosp
--- NOTE | 2019-06-27 15:26 | CASEMGMT ---
CLARENCE HAN Discharge Follow-Up Phone Call. Mahsa: 14 Strata: 4 Discharge Date: 06/26/19 Adm Dx: Cephalgia, Myastenia gravis Call to pt to inquire about how he has been doing since being discharged from the hospital. Pt stated, I'm doing pretty good. States he still has some double vision but it is improving and his eye is opening up better. He states he has an appt with Dr Tanner in [place] on Tuesday and is awaiting call back from Dr Baires's office with biopsy results and willl schedule follow-up appt with her then. Pt states he was able to order picker/assembler the new prescriptions and has no questions about them, stating he has set up a schedule for taking them so that he ensures he takes them correctly. Pt denies having any questions or concerns about the discharge instructions. CLARENCE HAN thanked pt for choosing [facility]. Pt thanked CLARENCE HAN for calling. Louis BANDA RN, CM
== END 2019-06-26 11:40 | disposition home or self-care (01) | DRG 57 ==
LOC: ED 09:03 → MS3 13:11
PROVIDERS: Psychiatry & Neurology Neurology; Admitting Provider Internal Medicine; Emergency Provider Emergency Medicine; Family Provider Family Medicine; PCP Family Medicine; Referring Provider Internal Medicine; Visit Provider Hospitalist
DX: G70.01 Myasthenia gravis with (acute) exacerbation (principal); H91.10 Presbycusis, unspecified ear; I10 Essential (primary) hypertension; E78.5 Hyperlipidemia, unspecified; R51 Headache; E87.6 Hypokalemia; E04.1 Nontoxic single thyroid nodule; E11.9 Type 2 diabetes mellitus without complications; R53.1 Weakness; H53.2 Diplopia; H02.402 Unspecified ptosis of left eyelid; Z90.5 Acquired absence of kidney; Z85.528 Personal history of other malignant neoplasm of kidney
CPT/HCPCS: 10005; 36415; 70470; 70544; 70549; 70551; 71046; 71250; 76536; 80048; 80076; 81001; 82784; 82962; 83036; 83735; 84100; 84132; 84443; 85025; 85027; 85610; 85652; 85730; 88161; 88172; 88305; 88313; 90733; 92610; 97110; 97162; 97166; 97530; 99284; A9575; J7030; Q9967; A4216; J1568

== ENCOUNTER 2019-08-13 08:55 | Emergency (ER) | payer MEDICARE, SELFPAY ==
[2019-06-21 14:17] VITALS: BMI 27.0
[2019-08-13 08:56] VITALS: BP 163/79; PULSE 75; RESP 18; TEMP 36.7; O2SAT 95; BMI 26.2
--- NOTE | 2019-08-13 09:12 | ED.VIS.GEN ---
History of Present Illness Chief Complaint: General Illness Detail of Chief Complaint: Chills, congestion, cough Informant: Patient Onset: Days - 3 to 4 days Current Severity: Mild Maximum Severity: Moderate Narrative: Patient presents with chills for the past several days. He complains of a headache, worse in the frontal area over the sinuses. He reports head and chest congestion. He is coughing up white to clear-colored sputum. He denies having fever. Patient was admitted approximately 5 weeks ago with myasthenia gravis. At that time he had left eyelid weakness. He states he has not had any recurrent weakness at this time. - Past Medical History (1) Myasthenia gravis Status: Chronic (2) Thyroid nodule Status: Chronic (3) Hyperlipidemia Status: Chronic (4) Hypertension Status: Chronic (5) Psoriasis Status: Chronic (6) Renal carcinoma Status: Chronic (7) Type 2 diabetes mellitus Status: Chronic Past Medical History - Allergies and Home Meds Allergies/Adverse Reactions: Allergies Penicillins Allergy (Verified 08/13/19 08:58) Hives Primary Care Physician: Stanford Tan III, MD [Primary Care Provider] - Prior records reviewed: Yes Surgical History: herniorrhaphy, total knee arthroplasty, - - Excision of renal tumor - 30% of the right kidny excised in Oct Smoking Status: Never smoker - Family History Maternal Family History: Reports: No pertinent history Review of Systems General: Reports: Chills. Denies: Fever Eyes: Denies: Visual changes - bilaterally ENT: Reports: - - Head congestion. Denies: Bilateral ear pain, Sore throat Cardiovascular: Denies: Chest pain, Palpitations Respiratory: Reports: Cough, Sputum. Denies: Dyspnea Gastrointestinal: Reports: Nausea. Denies: Abdominal pain, Vomiting, Diarrhea Genitourinary: Denies: Dysuria Musculoskeletal: Denies: Extremity Pain Neurological: Reports: Headache Endocrine: Denies: Polyuria, Polydipsia Allergy: Denies: Uticaria Physical Exam Vital Signs/Narrative: Vital Signs Temp Pulse Resp BP Pulse Ox 08/13/19 08:56 98.1 F 75 18 163/79 H 95 Inital Vital Signs reviewed: Yes General: Well nourished, Well developed Head: Normocephalic Eyes: Perrl, EOMI ENT: Moist mucous membranes, TM's clear, Sinus tenderness - Bilateral frontal sinus tenderness., - - Mild posterior pharyngeal drainage. Uvula midline. Neck: Supple Cardiovascular: Regular rate, Regular rhythm Respiratory: No distress, CTA bilaterally Abdomen: Soft, Nontender, Nondistended Extremities: Nontender Skin: Normal color Neurological: Alert, Oriented x3 Psychological: Normal affect Diagnostic/Tx/Re-eval Impressions Chest X-Ray 08/13/19 09:16 IMPRESSION: Stable examination suggestive of scarring at the lung bases worse on the left side. Electronically Signed: Bertin Tomasz, at 9:33 EST , Service support , 08/13/19 09:16 Chest PA and Lateral [RAD] Stat - Medical Decision Making X-ray results are discussed with the patient. He does have tenderness over his sinuses and has symptoms of bronchitis. With his history of myasthenia gravis we will go ahead and treat with antibiotics. He will be given doxycycline, first dose given here. ED Disposition - Plan for ED Patient: Disposition: Home or Assisted Living Diagnosis: Sinusitis, Bronchitis Instructions: Acute Bronchitis, SINUSITIS, Abx Tx Prescriptions: Doxycycline 100 mg PO BID #20 cap Transmission Status: Pending to [facility] Referrals: Stanford Tan III, MD [Primary Care Provider] - 5-7 Days
--- NOTE | 2019-08-13 09:16 | RAD_ITS ---
STUDY: X-RAY CHEST REASON FOR EXAM: Male, 79 years old. Cough and chest congestion. TECHNIQUE: PA and lateral views of the chest. COMPARISON: Comparison is made with prior study dated June 21, 2019. FINDINGS: Stable increased markings at the lung bases slightly worse on the left side suggests above the scarring. The lungs are clear and expanded. There is no demonstrated pleural abnormality. Normal size heart. Normal mediastinum and cortney. Normal visualized pulmonary arteries. There is atherosclerotic calcification of the aortic arch with tortuosity. There are diffuse degenerative changes of the visualized thoracic spine. Normal visualized ribs, clavicles, and shoulders. There is no demonstrated abnormality of the visualized soft tissue structures of the upper abdomen. RAD/Chest PA and Lateral IMPRESSION: Stable examination suggestive of scarring at the lung bases worse on the left side. Electronically Signed: Bertin Tolbert, at 9:33 EST , Service support ,
[2019-08-13] MEDS: Doxycycline 100 MG CAPSULE PO (10:09)
== END 2019-08-13 10:11 | disposition home or self-care (01) ==
PROVIDERS: Emergency Provider Emergency Medicine; Family Provider Family Medicine; PCP Family Medicine
DX: J32.9 Chronic sinusitis, unspecified (principal); J40 Bronchitis, not specified as acute or chronic; G70.00 Myasthenia gravis without (acute) exacerbation; E78.5 Hyperlipidemia, unspecified; I10 Essential (primary) hypertension; L40.9 Psoriasis, unspecified; E11.9 Type 2 diabetes mellitus without complications; E04.1 Nontoxic single thyroid nodule; Z85.528 Personal history of other malignant neoplasm of kidney; Z79.82 Long term (current) use of aspirin; Z79.84 Long term (current) use of oral hypoglycemic drugs; Z79.899 Other long term (current) drug therapy
CPT/HCPCS: 71046; 99283

== ENCOUNTER 2019-09-24 08:01 | Emergency (ER) | payer MEDICARE, SELFPAY ==
[2019-09-24 08:02] VITALS: BP 154/81; PULSE 89; RESP 16; TEMP 36.6; O2SAT 94; BMI 27.2
--- NOTE | 2019-09-24 08:42 | RAD_ITS ---
STUDY: X-RAY - LEFT KNEE REASON FOR EXAM: Male, 79 years old. Fell 2 months ago; knee replacement 4 years ago TECHNIQUE: 4 view(s) of the knee. COMPARISON: Comparison is made with prior study dated November 16, 2017. FINDINGS: Normal visualized distal femur. Normal visualized proximal tibia and fibula. Normal proximal tibiofibular articulation. The patient is status post total knee replacement. There is good alignment. There are atherosclerotic calcifications. Soft tissue swelling. RAD/Knee 4 or More Views IMPRESSION: Status post total knee replacement. There is good alignment. Soft tissue swelling. Electronically Signed: Bertin Tolbert, at 10:50 EST , Service support ,
--- NOTE | 2019-09-24 08:43 | ED.DCSUM_ITS ---
History of Present Illness Chief Complaint: Lower Extremity Injury Informant: Patient Occurred: Month(s) - 2 Mechanism/Context: Fall Timing: Continuous Quality of Pain: Aching Location: lateral and anterior left knee Current Severity: Moderate Maximum Severity: Severe Worsened by: walking, bending Relieved by: remaining still Associated Symptoms: Negative for: Parasthesia, Weakness, Loss of Funtion Narrative: Patient states he slipped and fell 2 months ago with his left lower extremity going beneath him, twisting at the left knee somehow, his pain started then. He had a total knee replacement there, Dr. Mi performed it. States he has been having pain ever since and does not want to go back to see him so presents here for evaluation. Denies any swelling although it feels like it is swollen on the inside. Denies any other injury. He also wants his right elbow evaluated. States it has been hurting for for 5 years and he was told he had a spur there and wants to know if I can do anything to relieve the pain. No recent swelling, redness, fevers. He states pending it while down low does not make it worse but when he reaches up over his head he has more pain at his elbow but not his shoulder. 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 - Past Medical History (1) Hyperlipidemia Status: Chronic (2) Hypertension Status: Chronic (3) Myasthenia gravis Status: Chronic (4) Psoriasis Status: Chronic (5) Renal carcinoma Status: Chronic (6) Thyroid nodule Status: Chronic (7) Type 2 diabetes mellitus Status: Chronic Past Medical History - Allergies and Home Meds Allergies/Adverse Reactions: Allergies Penicillins Allergy (Verified 09/24/19 08:06) Hives Primary Care Physician: Stanford Tan III, MD [Primary Care Provider] - Surgical History: herniorrhaphy, total knee arthroplasty, - - Excision of renal tumor - 30% of the right kidny excised in Oct Lives: Alone Smoking Status: Unknown if ever smoked - Family History Maternal Family History: Reports: No pertinent history Review of Systems General: Denies: Chills, Fever, Sweats Musculoskeletal: Reports: Extremity Pain. Denies: Swelling Skin: Denies: Rash, Wounds Neurological: Denies: Headache, Weakness, Numbness Physical Exam Vital Signs/Narrative: Vital Signs Temp Pulse Resp BP Pulse Ox 09/24/19 08:02 98 F 89 16 154/81 H 94 Inital Vital Signs reviewed: Yes - Extremity Exam Left Knee: - - Well-healed surgical incision. No erythema or excessive warmth about the left knee. He has tenderness along the lateral joint line and at the distal aspect of the iliotibial band tendon. With ligament stressing, he has no pain focused at the LCL, nor the other tendons with stressing them. There is no laxity or instability. Negative Bowen, negative posterior drawer. No effusion clinically, no patella or tibial tuberosity tenderness. With regards to the right elbow, there is no bony tenderness. There is no bursal swelling at the olecranon. He has full range of motion without any pain with his arm resting at his side. With supination pronation there is no radial head pain or tenderness. There are no deformities. I palpate no nodules or masses. No epitrochlear lymphadenopathy. No erythema or excessive warmth compared to the surrounding areas.. Negative for: Deformity, Edema, Limited ROM General: Well nourished, Well developed Head: Normocephalic, Atraumatic Skin: Normal color - No erythema to extremities, No rash, No Trauma Neurological: Alert, Oriented x3, Cranial nerves II-XII grossly intact, Normal Strength, Normal Sensation, Normal Gait Psychological: Normal affect, Normal Mood Diagnostic/Tx/Re-eval - Medical Decision Making On my interpretation, 4 views of the left knee x-ray series is negative for anything acute. There are chronic arthritic changes and the knee replacement hardware is intact and appears unremarkable. Given his exam, my suspicion is that maybe he strained the iliotibial band, best case scenario. He really is not examining like a sprained LCL. I am not able to rule out the possibility of an internal derangement. For this reason I recommend following up with orthopedics. Also, with regards to his right elbow, there is no indication for an emergent test or x-ray, there is no sign of bursitis or septic arthritis. He said something about a spur which may have been told to him based on an old x- ray but I do not feel anything abnormal around the olecranon. I advised that he follow-up with orthopedics about that as well. He states he does not want to go back to his old orthopod or that practice so he was referred to another. ED Disposition - Plan for ED Patient: Disposition: Home or Assisted Living Diagnosis: Strain of left knee, Right elbow pain Instructions: KNEE PAIN, Uncertain Cause Referrals: Stanford Tan III, MD [Primary Care Provider] - Jayesh Perez DO [STAFF PHYSICIAN] - (call for appt)
[2019-09-24 10:37] VITALS: BP 112/74; PULSE 62; RESP 15; O2SAT 99
== END 2019-09-24 10:38 | disposition home or self-care (01) ==
PROVIDERS: Emergency Provider Emergency Medicine; Family Provider Family Medicine; PCP Family Medicine
DX: S86.912A Strain of unspecified muscle(s) and tendon(s) at lower leg level, left leg, initial encounter (principal); M25.521 Pain in right elbow; Z96.652 Presence of left artificial knee joint; E78.5 Hyperlipidemia, unspecified; I10 Essential (primary) hypertension; G70.00 Myasthenia gravis without (acute) exacerbation; L40.9 Psoriasis, unspecified; E11.9 Type 2 diabetes mellitus without complications; Z85.528 Personal history of other malignant neoplasm of kidney; Z88.0 Allergy status to penicillin; W01.0XXA Fall on same level from slipping, tripping and stumbling without subsequent striking against object, initial encounter; Y92.9 Unspecified place or not applicable; Y99.9 Unspecified external cause status
CPT/HCPCS: 73564; 99282

== ENCOUNTER → 2019-10-03 13:27 | Outpatient (CLI) | payer MEDICARE, SELFPAY ==
[2019-10-03 13:09] VITALS: BMI 27.2
--- NOTE | 2019-10-03 13:28 | RAD_ITS ---
STUDY: X-RAY - LEFT ELBOW REASON FOR EXAM: Male, 79 years old. 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 COMPARISON: None. 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 Normal radiocapitellar and ulnotrochlear articulations. The soft tissue structures are unremarkable. RAD/Elbow min 3 Views IMPRESSION: No acute fracture or dislocation. Electronically Signed: Gonzalo Mendoza MD at 14:02 EST Tel , Service support ,
--- NOTE | 2019-10-03 13:28 | RAD_ITS ---
STUDY: X-RAY - RIGHT ELBOW REASON FOR EXAM: Male, 79 years old. pain TECHNIQUE: 4 view(s) of the elbow. COMPARISON: None. FINDINGS: Normal visualized humerus, radius and ulna. Normal radiocapitellar and ulnotrochlear articulations. Enthesophyte at the posterior olecranon at the triceps insertion. The soft tissue structures are unremarkable. RAD/Elbow min 3 Views IMPRESSION: Normal x-ray examination of the elbow. Electronically Signed: Gonzalo Mendoza MD at 14:01 EST Tel , Service support ,
== END ==
PROVIDERS: PCP Family Medicine; Referring Provider Orthopaedic Surgery; Visit Provider Orthopaedic Surgery
DX: M25.521 Pain in right elbow (principal); M25.522 Pain in left elbow
CPT/HCPCS: 73080

== ENCOUNTER → 2019-10-16 09:42 | Outpatient (CLI) | payer MEDICARE, SELFPAY ==
[2019-10-03 13:09] VITALS: BMI 27.2
--- NOTE | 2019-10-16 09:47 | BD_ITS ---
STUDY: DUAL ENERGY X-RAY ABSORPTIOMETRY / DXA REASON FOR EXAM: Male, 79 years old. MICHELLE OF 4 INCHES -- TAKES CALCIUM AND MULTIVITAMIN -- DOES LITTLE EXERCISE TECHNIQUE: Bone Mineral Density (BMD) measurements of lumbar spine and bilateral hips were obtained. COMPARISON: None. FINDINGS: Lumbar Spine (L1-L4): g/cm2 (1.229) / T-score (0.2) / Z-score (0.9) Findings are suggestive of normal bone density with a low fracture risk. Left Femur Total: g/cm2 (0.961) / T-score (-1.0) / Z-score (0.2) Left Femoral Neck: g/cm2 (0.929) / T-score (-1.1) / Z-score (0.5) Right Femur Total: g/cm2 (0.844) / T-score (-1.8) / Z-score (-0.6) Right Femoral Neck: g/cm2 (0.903) / T-score (-1.3) / Z-score (0.3) BD/Dexa Bone Density Study IMPRESSION: The patient is considered osteopenic as outlined below according to World [employer] Organization (WHO) criteria with a moderate fracture risk. Reference Information: The T-score is the number of standard deviations above or below the standard which is normal for young adults at their peak bone mineral density. The World Health Organization (WHO) interprets the T-scores as follows: Above -1 Normal bone density Between -1 and -2.5 Osteopenia Equal to / or below -2.5 Osteoporosis As a practical clinical guideline, osteopenia may be graded as follows: Mild -1 through -1.5 Moderate -1.6 through -2.0 Severe -2.1 through -2.4 The Z-score is the number of standard deviations above or below age-matched controls. A Z-score of less than -1.5 would be considered abnormal. References: 1. NIH Osteoporosis and Related Bone Diseases http://www.osteo.org 2. International Society for Clinical Densitometry http://www.iscd.org 3. National Osteoporosis Foundation http://www.nof.org Electronically Signed: Bertin Tolbert, at 12:42 EST , Service support ,
== END ==
PROVIDERS: PCP Family Medicine; Referring Provider Orthopaedic Surgery; Visit Provider Orthopaedic Surgery
DX: M85.80 Other specified disorders of bone density and structure, unspecified site (principal); M81.0 Age-related osteoporosis without current pathological fracture
CPT/HCPCS: 77080

== ENCOUNTER 2020-07-28 15:55 | Emergency (ER) | payer MEDICARE, SELFPAY ==
[2019-11-12 07:26] VITALS: BMI 27.2
[2020-07-28 15:55] VITALS: BP 195/101; PULSE 72; RESP 15; TEMP 36.3; O2SAT 96; BMI 27.2
--- NOTE | 2020-07-28 17:18 | CT_ITS ---
STUDY: CT BRAIN WITHOUT CONTRAST REASON FOR EXAM: Male, 80 years old. HEADACHES X2 WEEKS RADIATION DOSAGE (If Supplied By Facility): CTDIvol = ( 44.99 ) mGy, DLP = ( 796.11 ) mGycm TECHNIQUE: Transaxial CT imaging of the brain was performed without administration of intravenous contrast material. Individualized dose optimization techniques were used for this CT. COMPARISON: No relevant priors. FINDINGS: Normal soft tissue structures. Normal calvarium. There is mild cerebral atrophy with widening of the extra-axial spaces and ventricular dilatation. There are areas of decreased attenuation within the white matter tracts of the supratentorial brain, consistent with microvascular disease changes. Normal basal ganglia and thalami. Normal brainstem. Normal cerebellum. There is no intracranial hemorrhage. There are no findings of an acute ischemic infarction. Normal visualized paranasal sinuses. CT/Brain/Head without Contrast IMPRESSION: 1. No acute findings. 2. Mild microvascular ischemic changes. Atrophy. Electronically Signed: Anuradha Gonzales MD at 18:17 EST Tel , Service support ,
--- NOTE | 2020-07-28 17:19 | ED.DCSUM_ITS ---
History of Present Illness Chief Complaint: Headache Informant: Patient Onset: Weeks Context: Gradual Onset Timing: Waxes and wanes Current Severity: Mild Maximum Severity: Moderate Narrative: Patient presents with 2-week history of headache. He states the pain seems to be better in the morning and gets worse as the day goes on. He complains of pain just behind his eyes and in the occiput. He does report some blurry vision. No nausea or vomiting. Patient states his been taking Tylenol with minimal improvement. He denies any recent head injury. Patient is noted to be hypertensive on arrival with blood pressure of 195/101 in triage. He states his blood pressure typically runs 140s systolic. He has not checked his blood pressure at home in quite some time. - Past Medical History (1) Hyperlipidemia Status: Chronic (2) Hypertension Status: Chronic (3) Myasthenia gravis Status: Chronic (4) Psoriasis Status: Chronic (5) Renal carcinoma Status: Chronic (6) Thyroid nodule Status: Chronic (7) Type 2 diabetes mellitus Status: Chronic Past Medical History - Allergies and Home Meds Allergies/Adverse Reactions: Allergies Penicillins Allergy (Verified 07/28/20 15:57) Hives Primary Care Physician: Stanford Tan III, MD [Primary Care Provider] - Prior records reviewed: Yes Surgical History: herniorrhaphy, total knee arthroplasty, - - Excision of renal tumor - 30% of the right kidny excised in Oct Smoking Status: Unknown if ever smoked - Family History Maternal Family History: Family History (Last Updated 11/12/19 @ 07:26 by Juana Ge) Other Cancer Heart disease Family History: Reports: No pertinent history Review of Systems General: Denies: Chills, Fever Eyes: Reports: Visual changes - bilaterally ENT: Denies: Bilateral ear pain Cardiovascular: Denies: Chest pain Respiratory: Denies: Dyspnea, Cough Gastrointestinal: Denies: Abdominal pain, Nausea, Vomiting Musculoskeletal: Denies: Extremity Pain Skin: Denies: Rash Neurological: Reports: Headache. Denies: Weakness, Parasthesia Hematologic: Denies: Easy bruising, Easy bleeding Allergy: Denies: Uticaria Physical Exam Vital Signs/Narrative: Vital Signs Temp Pulse Resp BP Pulse Ox 07/28/20 15:55 97.4 F L 72 15 195/101 H 96 Inital Vital Signs reviewed: Yes General: Well nourished, Well developed Head: Normocephalic ENT: Moist mucous membranes Neck: Supple Cardiovascular: Regular rate, Regular rhythm Respiratory: No distress, CTA bilaterally Abdomen: Soft, Nontender Skin: Normal color Neurological: Alert, Oriented x3, Normal Strength, Normal Sensation Psychological: Normal affect Diagnostic/Tx/Re-eval Impressions Brain CT 07/28/20 17:18 IMPRESSION: 1. No acute findings. 2. Mild microvascular ischemic changes. Atrophy. Electronically Signed: Anuradha Gonzales MD at 18:17 EST Tel , Service support , 07/28/20 17:18 CT Head [Brain/Head without Contrast] [CT] Stat Laboratory Results 07/28/20 07/28/20 17:15 17:15 WBC 8.8 RBC 5.41 Hgb 15.2 Hct 46.1 MCV 85.2 MCH 28.1 MCHC 33.0 RDW Std Deviation 40.9 RDW Coeff of Rosemary 13.2 Plt Count 240 MPV 10.0 Immature Gran % (Auto) 0.200 Neut % (Auto) 56.6 Lymph % (Auto) 32.9 Vernon % (Auto) 7.4 Eos % (Auto) 2.1 Baso % (Auto) 0.8 Absolute Neuts (auto) 5.0 Absolute Lymphs (auto) 2.88 Nucleated RBC % 0 ESR 17 Sodium 137 Potassium 3.6 Chloride 103 Carbon Dioxide 29.0 Anion Gap 5 BUN 18 Creatinine 0.84 Estim Creat Clear Calc 71.21 Est GFR (MDRD) Af Amer 113 Est GFR (MDRD) Non-Af 93 BUN/Creatinine Ratio 21.4 H Glucose 179 H Calcium 8.6 C-React Prot Ext Range < 2.90 - Medical Decision Making Patient is initially given 10 mg of IV labetalol. His systolic blood pressure did drop 20 points. He was given a second dose of labetalol but his blood pressure remained in the 170s systolic. Work-up was unremarkable. On repeat evaluation patient states he does feel improved. I did speak with his PCP, Dr. Stanford Tan. He asked that we add labetalol 200 mg twice daily to his medication regimen. Patient is to check his blood pressures daily and keep a journal. Dr. Tan's office will call him later this week for an update. ED Disposition - Plan for ED Patient: Disposition: Home or Assisted Living Diagnosis: Hypertension, Headache Instructions: ED Headache Unspecified, ED Hypertension Established Prescriptions: Labetalol [Trandate (Beta Bartolo)] 200 mg PO BID #60 tab Transmission Status: Pending to [id number] Referrals: Stanford Tan III, MD [Primary Care Provider] - 1 Week
[2020-07-28] MEDS: Labetalol (Prefilled) 20 MG/4 ML 10 MG IV ×2 (17:33→18:36)
[2020-07-28 17:37] LABS: Absolute Lymphocyte Count 2.88 X10^3/uL (0.83-4.51); Basophil# 0.07 X10^3/uL; Basophil% 0.8 % (0-1); Eosinophil# 0.18 X10^3/uL; Eosinophils% 2.1 % (0-5); Hematocrit 46.1 % (40-54); Hemoglobin 15.2 g/dL (13.0-16.5); Lymphocyte # 2.88 X10^3/ul (4.0); Lymphocyte % 32.9 % (19-41); Mean Corpuscular Hgb 28.1 pg (27.0-32.0); Mean Corpuscular Volume 85.2 fL (80-94); Monocyte# 0.65 X10^3/uL; Monocyte% 7.4 % (0-10); NRBC Flagged by Analyzer 0 % (0-5); Neutrophil # 4.95 X10^3/uL (2.7-7.7); Neutrophil % 56.6 % (47-70); Platelet Count 240 K/mm3 (150-450); RBC Distribution Width CV 13.2 % (11.6-14.6); RBC Distribution Width SD 40.9 fl (35.1-43.9); Red Blood Count 5.41 M/mm3 (4.6-6.2); White Blood Count 8.8 K/mm3 (4.4-11.0)
[2020-07-28 18:03] LABS: Anion Gap 5 (5-15); BUN 18 mg/dL (7-18); BUN/Creat Ratio 21.4 RATIO (10-20); CRP < 2.90 mg/L (0.0-3.0); Calcium,Total 8.6 mg/dL (8.5-10.1); Chloride 103 mmol/L (98-107); Creatinine, Serum 0.84 mg/dL (0.70-1.30); EST Glomerular Filtration Rate 93 mL/min (>60); Est Glom Filt Rate - Afr Amer 113 mL/min (>60); Estimated Creatinine Clearance 71.21 ml/min; Glucose 179 mg/dL (74-106); Potassium 3.6 mmol/L (3.5-5.1); Sodium Level 137 mmol/L (136-145)
[2020-07-28 18:17] VITALS: BP 176/104; PULSE 64; RESP 17; O2SAT 94
[2020-07-28 18:17] LABS: Erythrocyte Sedimentation Rate 17 mm/hr (0-20)
[2020-07-28 19:49] VITALS: BP 164/100; PULSE 75; RESP 18; O2SAT 99
== END 2020-07-28 19:49 | disposition home or self-care (01) ==
PROVIDERS: Emergency Provider Emergency Medicine; PCP Family Medicine
DX: I10 Essential (primary) hypertension (principal); R51.9 Headache, unspecified; E11.9 Type 2 diabetes mellitus without complications; E78.5 Hyperlipidemia, unspecified; G70.00 Myasthenia gravis without (acute) exacerbation; I67.82 Cerebral ischemia; Z82.49 Family history of ischemic heart disease and other diseases of the circulatory system; Z85.528 Personal history of other malignant neoplasm of kidney; Z88.0 Allergy status to penicillin; L40.9 Psoriasis, unspecified
CPT/HCPCS: 70450; 80048; 85025; 85652; 86140; 96374; 96376; 99283; A4216

== ENCOUNTER → 2020-07-30 12:09 | Outpatient (CLI) | payer MEDICARE, SELFPAY ==
[2019-11-12 07:26] VITALS: BMI 27.2
[2020-07-28 15:55] VITALS: BMI 27.2
--- NOTE | 2020-07-30 12:13 | MRI_ITS ---
STUDY: MRI ABDOMEN WITH AND WITHOUT CONTRAST REASON FOR EXAM: Male, 80 years old. Malignant neoplasm of right kidney, bilat. flank pain, RIGHT partial nephrectomy TECHNIQUE: Standardized fat and water weighted pulse sequences were obtained in all 3 orthogonal planes post contrast administration. 18ml Dotarem via IV was administered for the contrast portion of the examination. COMPARISON: Ultrasound 07/25/2018 FINDINGS: The visualized lung bases are unremarkable. The visualized portions of the heart are within normal limits. Normal liver. Normal gallbladder and extrahepatic biliary system. Normal spleen. Normal pancreas. Normal bilateral adrenal glands. Defect within the upper pole the right kidney consistent with partial nephrectomy 1.2 cm cyst in the upper pole the right kidney superior and anterior to the nephrectomy site. No enhancing mass at the nephrectomy site to suggest residual or recurrent renal cell carcinoma. No tumor thrombus within the right renal vein or inferior vena cava. No adjacent retroperitoneal lymphadenopathy.. Normal left kidney. Normal visualized stomach. Normal small intestine. Normal colon. There is non-visualization of the appendix. Normal abdominal aorta. Normal inferior vena cava. Normal retroperitoneum. Normal abdominal wall. Normal osseous structures. MRI/MRI Abd WITH and W/O Contrast IMPRESSION: Status post right partial nephrectomy without evidence of residual, recurrent, or metastatic renal cell carcinoma. Electronically Signed: Gonzalo Mendoza MD at 16:04 EST Tel , Service support ,
[2020-07-30 12:36] LABS: CREATININE FINGERSTICK 0.7 mg/dL (0.70-1.30); EGFR FINGERSTICK > 60.0000 mL/min (>60)
[2020-07-30 13:35] VITALS: BP 154/63; PULSE 64; RESP 16
== END ==
PROVIDERS: PCP Family Medicine; Referring Provider Nurse Practitioner Adult Health; Visit Provider Nurse Practitioner Adult Health
DX: C64.1 Malignant neoplasm of right kidney, except renal pelvis (principal); Z90.5 Acquired absence of kidney
CPT/HCPCS: 74183; A9575

== ENCOUNTER → 2020-08-25 08:07 | Outpatient (CLI) | payer MEDICARE, SELFPAY ==
[2020-07-28 15:55] VITALS: BMI 27.2
--- NOTE | 2020-08-25 10:20 | FLU_PTH ---
PATIENT: LOSI GOODMAN LOC: [facility] U#:[id number] AGE/SX: 85/M ROOM: RE08/25/[address]: Dr. Stanford Tan III, MD : 1940 BED: DIS: SPEC #: [id number] RECD: 08/25/20 16:54 STATUS: PRIYANK REQ #: [id number] TOMA: 08/25/20 10:[address]: Love Baires DEPT: CYTOLOGY RECD BY: Mariel Palacios ENTERED: 08/26/20 10:06 SP TYPE: Fluid OTHR DR: Dr. Stanford Tan III, MD Tissues: A - Thyroid gland, NOS B - Thyroid gland, NOS Procedures: Special Stain Group II Surgery Specimen Level IV Cytospin Fluid Comments: @ Ordering doctor for SSII edited from to @ by SARANYA at 08/26/20 1310 @ Ordering doctor for SUIV edited from to DR.LWANG Fry by SARANYA at 08/26/20 1310 @ Ordering doctor for CYSPIN edited from to DR.LWANG Fry by SARANYA at 08/26/20 1310 @ Submitting doctor edited from to DR.LWANG Fry by SARANYA at 08/26/20 1310 HEADER OPERATION: Ultrasound-guided fine needle aspiration of left thyroid PRE-OP DIAGNOSIS: Thyroid nodules TISSUE SUBMITTED: A - FNA left thyroid fluid, B - FNA left thyroid 6 slides DIAGNOSIS CYTOLOGY A. Fine needle aspiration, left thyroid nodule (cytospin and cell block): Consistent with benign cyst contents. Benign follicular cells. B. Fine needle aspiration, left thyroid nodule (smears): Adequate for evaluation. Benign, consistent with follicular nodule with cystic change. AM:barbara 08/27/20 CYTOLOGY STUDY Slides are reviewed. CYTOLOGY GROSS A - Received is 30 ml of brown cloudy fluid labeled with the patient's name and and designated per the requisition as left thyroid. Submitted for cytology preparation including cell block. B - Received are six smears labeled with the patient's name and designated per the requisition as left thyroid. Submitted for staining. / barbara 08/26/20 TC:5 CPT: 12008, 28668 , 73196
== END ==
PROVIDERS: PCP Family Medicine; Referring Provider Family Medicine; Visit Provider Family Medicine
DX: E04.2 Nontoxic multinodular goiter (principal)
CPT/HCPCS: 88108; 88305; 88313

== ENCOUNTER 2020-09-13 13:49 | Emergency (ER) | payer MEDICARE, SELFPAY ==
[2020-09-13 13:51] VITALS: BP 160/87; PULSE 86; RESP 16; TEMP 36.3; O2SAT 95; BMI 28.0
--- NOTE | 2020-09-13 14:07 | CT_ITS ---
STUDY: CT BRAIN WITHOUT CONTRAST REASON FOR EXAM: Male, 80 years old. MEZA X 3-4 DAYS WITH HTN, BLURRED VISION, HX-RENAL CA, DB, MYASTHENIA GRAVIS RADIATION DOSAGE (If Supplied By Facility): CTDIvol = ( 44.99 ) mGy, DLP = ( 812.98 ) mGycm TECHNIQUE: Transaxial CT imaging of the brain was performed without administration of intravenous contrast material. Individualized dose optimization techniques were used for this CT. COMPARISON: 07/28/2020 FINDINGS: Normal soft tissue structures. Normal calvarium. There is mild cerebral atrophy with widening of the extra-axial spaces and ventricular dilatation. There are areas of decreased attenuation within the white matter tracts of the supratentorial brain, consistent with microvascular disease changes. Normal basal ganglia and thalami. Normal brainstem. Normal cerebellum. There is no intracranial hemorrhage. There are no findings of an acute ischemic infarction. Normal visualized paranasal sinuses. CT/Brain/Head without Contrast IMPRESSION: 1. No acute intracranial hemorrhage or mass effect. 2. Central parenchymal volume loss. White matter changes that are nonspecific but most commonly associated with chronic small vessel ischemic disease. Electronically Signed: Dain Richardson MD (Brooks) at 14:50 EST , Service support ,
--- NOTE | 2020-09-13 14:10 | ED.VIS.GEN ---
History of Present Illness Chief Complaint: Hypertension Informant: Patient Onset: Days Context: Gradual Onset Narrative: Patient presents with headache for the past 1 week and intermittent blurred vision for the past 3 or 4 days. He was seen here approximately 6 weeks ago with similar symptoms and found to be hypertensive. His medications were adjusted at that time. Patient states after he was last seen his blood pressure been running in the 140s and had been feeling well. For the past 1 week he has had headache again. When he checks his blood pressure it is in the 160s or higher systolic. Patient is currently on labetalol, Norvasc, and quinapril. - Past Medical History (1) Hyperlipidemia Status: Chronic (2) Hypertension Status: Chronic (3) Myasthenia gravis Status: Chronic (4) Renal carcinoma Status: Chronic (5) Type 2 diabetes mellitus Status: Chronic Past Medical History - Allergies and Home Meds Allergies/Adverse Reactions: Allergies Penicillins Allergy (Verified 09/13/20 13:50) Hives Primary Care Physician: Stanford Tan III, MD [Primary Care Provider] - Prior records reviewed: Yes Surgical History: herniorrhaphy, total knee arthroplasty, - - Excision of renal tumor - 30% of the right kidny excised in Oct Smoking Status: Never smoker - Family History Maternal Family History: Family History (Last Updated 11/12/19 @ 07:26 by Juana Ge) Other Cancer Heart disease Family History: Reports: No pertinent history Review of Systems General: Denies: Chills, Fever Eyes: Reports: Visual changes - bilaterally ENT: Denies: Bilateral ear pain Cardiovascular: Denies: Chest pain Respiratory: Denies: Dyspnea, Cough Gastrointestinal: Denies: Abdominal pain, Vomiting, Diarrhea Neurological: Reports: Headache. Denies: Weakness, Parasthesia Hematologic: Denies: Easy bruising, Easy bleeding Allergy: Denies: Uticaria Physical Exam Vital Signs/Narrative: Vital Signs Temp Pulse Resp BP Pulse Ox 09/13/20 13:51 97.3 F L 86 16 160/87 H 95 Inital Vital Signs reviewed: Yes General: Well nourished, Well developed Head: Normocephalic Eyes: Perrl, EOMI ENT: Moist mucous membranes Cardiovascular: Regular rate, Regular rhythm Respiratory: No distress, CTA bilaterally Abdomen: Soft, Nontender, Normal bowel sounds Back: Nontender Extremities: Nontender Skin: Normal color Neurological: Alert, Oriented x3, Normal Strength, Normal Sensation Psychological: Normal affect Diagnostic/Tx/Re-eval Impressions Brain CT 09/13/20 14:07 IMPRESSION: 1. No acute intracranial hemorrhage or mass effect. 2. Central parenchymal volume loss. White matter changes that are nonspecific but most commonly associated with chronic small vessel ischemic disease. Electronically Signed: Dain Richardson MD (Brooks) at 14:50 EST , Service support , 09/13/20 14:07 Brain/Head without Contrast [CT] Stat Laboratory Results 09/13/20 09/13/20 14:15 14:15 WBC 7.8 RBC 5.24 Hgb 14.9 Hct 44.5 MCV 84.9 MCH 28.4 MCHC 33.5 RDW Std Deviation 39.8 RDW Coeff of Rosemary 12.9 Plt Count 220 MPV 10.0 Immature Gran % (Auto) 0.100 Neut % (Auto) 59.5 Lymph % (Auto) 29.4 [place] % (Auto) 7.3 Eos % (Auto) 3.1 Baso % (Auto) 0.6 Absolute Neuts (auto) 4.7 Absolute Lymphs (auto) 2.30 Nucleated RBC % 0 Sodium 138 Potassium 3.4 L Chloride 103 Carbon Dioxide 28.0 Anion Gap 7 BUN 20 H Creatinine 0.91 Estim Creat Clear Calc 63.66 Est GFR (MDRD) Af Amer 103 Est GFR (MDRD) Non-Af 85 BUN/Creatinine Ratio 22.0 H Glucose 181 H Calcium 8.8 - Medical Decision Making Patient was initially given 15 mg of Toradol along with 10 mg of labetalol. Repeat blood pressure remained elevated in the 180s. 20 mg of labetalol was given and pressure is currently 161 systolic. Patient overall does feel improved. I did review prior records and patient was admitted in June 2019 shortly after being diagnosed with myasthenia gravis. At that time he was having blurry vision/diplopia along with headaches. Patient states that the blurry vision he gets does remind him somewhat of this. He states he usually require prednisone tapers every couple months and believes its probably about time for that now. He states that he has had difficulty getting through to his neurologist. He is comfortable with starting a prednisone taper now and following up with his neurologist on Tuesday. He will be given 60 mg here and written for a taper. Return instructions are provided. ED Disposition - Plan for ED Patient: Disposition: Home or Assisted Living Diagnosis: Hypertension, Myasthenia gravis Instructions: ED Hypertension, Established, Myasthenia Gravis Prescriptions: Prednisone 10 mg PO DAILY #63 tablet Referrals: Stanford Tan III, MD [Primary Care Provider] - Additional Instructions: Follow-up with your neurologist as soon as possible. Return for any concerns.
[2020-09-13] MEDS: Labetalol 100 MG/20 ML Vial 10 MG IV (14:17)
[2020-09-13] MEDS: Ketorolac 15 MG/ML Vial IV (14:17)
[2020-09-13 14:20] VITALS: BP 183/95; PULSE 88; RESP 20; O2SAT 94
[2020-09-13 14:28] LABS: Absolute Neutrophil Count 4.7 X10^3/uL (2.0-7.7); Basophil# 0.05 X10^3/uL; Basophil% 0.6 % (0-1); Eosinophil# 0.24 X10^3/uL; Eosinophils% 3.1 % (0-5); Hematocrit 44.5 % (40-54); Hemoglobin 14.9 g/dL (13.0-16.5); Lymphocyte % 29.4 % (19-41); Mean Corp Hgb Conc 33.5 g/dL (32-36); Mean Corpuscular Hgb 28.4 pg (27.0-32.0); Mean Corpuscular Volume 84.9 fL (80-94); Monocyte# 0.57 X10^3/uL; Monocyte% 7.3 % (0-10); NRBC Flagged by Analyzer 0 % (0-5); Neutrophil # 4.66 X10^3/uL (2.7-7.7); Neutrophil % 59.5 % (47-70); Platelet Count 220 K/mm3 (150-450); RBC Distribution Width CV 12.9 % (11.6-14.6); RBC Distribution Width SD 39.8 fl (35.1-43.9); Red Blood Count 5.24 M/mm3 (4.6-6.2); White Blood Count 7.8 K/mm3 (4.4-11.0)
[2020-09-13 14:35] LABS: Anion Gap 7 (5-15); BUN 20 mg/dL (7-18); Calcium,Total 8.8 mg/dL (8.5-10.1); Chloride 103 mmol/L (98-107); Creatinine, Serum 0.91 mg/dL (0.70-1.30); EST Glomerular Filtration Rate 85 mL/min (>60); Est Glom Filt Rate - Afr Amer 103 mL/min (>60); Estimated Creatinine Clearance 63.66 ml/min; Glucose 181 mg/dL (74-106); Potassium 3.4 mmol/L (3.5-5.1); Sodium Level 138 mmol/L (136-145)
[2020-09-13 15:07] VITALS: BP 186/92; PULSE 70; RESP 24; O2SAT 92
[2020-09-13] MEDS: Labetalol 100 MG/20 ML Vial 20 MG IV (15:19)
[2020-09-13 16:03] VITALS: BP 168/88; PULSE 71
[2020-09-13] MEDS: predniSONE 20 MG Tablet 60 MG PO (16:03)
== END 2020-09-13 16:12 | disposition home or self-care (01) ==
PROVIDERS: Emergency Provider Emergency Medicine; PCP Family Medicine
DX: I10 Essential (primary) hypertension (principal); G70.00 Myasthenia gravis without (acute) exacerbation; E78.5 Hyperlipidemia, unspecified; E11.9 Type 2 diabetes mellitus without complications; Z82.49 Family history of ischemic heart disease and other diseases of the circulatory system; Z85.528 Personal history of other malignant neoplasm of kidney; Z88.0 Allergy status to penicillin
CPT/HCPCS: 70450; 80048; 85025; 96374; 96375; 99285; A4216

== ENCOUNTER 2020-09-16 09:01 | Emergency (ER) | payer MEDICARE, SELFPAY ==
[2020-09-16 09:02] VITALS: BP 151/100; PULSE 94; RESP 17; TEMP 36.3; O2SAT 95; BMI 28.0
--- NOTE | 2020-09-16 09:21 | RAD_ITS ---
STUDY: X-RAY CHEST REASON FOR EXAM: Male, 80 years old. DYSPNEA TECHNIQUE: Single AP portable view of the chest. COMPARISON: Comparison is made with prior examination dated 08/13/2019. FINDINGS: EKG electrodes are seen. Stable mild increased markings at the lung bases suggestive of a scarring. There is no demonstrated pleural abnormality. Normal size heart. Normal mediastinum and cortney. Normal visualized pulmonary arteries. There is atherosclerotic calcification of the aortic arch with tortuosity. There are diffuse degenerative changes of the visualized thoracic spine. There is degenerative osteoarthritis of the bilateral shoulders. There is no demonstrated abnormality of the visualized soft tissue structures of the upper abdomen. RAD/Chest 1 View (Portable) IMPRESSION: Stable mild increased markings at the lung bases suggestive of scarring. Electronically Signed: Bertin Tolbert, at 10:08 EST , Service support ,
--- NOTE | 2020-09-16 09:21 | EKG12_ITS ---
Test Reason : SOB Blood Pressure : / mmHG Vent. Rate : 093 BPM Atrial Rate : 093 BPM P-R Int : 174 ms QRS Dur : 154 ms QT Int : 400 ms P-R-T Axes : 051 -46 041 degrees QTc Int : 497 ms Sinus rhythm with occasional Premature ventricular complexes and Fusion complexes Left axis deviation Left ventricular hypertrophy with QRS widening Abnormal ECG Confirmed by SAFIA PEREIRA, WHIT ([id number]), editor department HERSON LINDQUIST ([id number]) on 09/17/2020 9:35:39 AM Referred By: JERRI Confirmed By:WHIT BAIG MD
--- NOTE | 2020-09-16 09:23 | ED.DCSUM_ITS ---
- ER Visit Summary Date of Service: 09/16/20 Chief Complaint: [Shortness of breath and headache] History of Present Illness: The patient is a 80 M [ presents to the emergency department with complaint of feeling short of breath this morning while in the shower. Patient feels like he cannot catch his breath. He denies any chest pain. He denies fever or cough. He does have some chills. Patient states that he was seen in the emergency department 4 days ago and treated for hypertension and headache. Patient had a CT scan of his brain at that time that was negative. Patient does have history of myasthenia gravis. Patient has history of headaches and intermittent blurred vision. Patient's had blurred vision off and on for years. Patient states he is had 2 CAT scans in the last several months that have been negative. Patient does see Dr. Rigoberto Tanner of neurology. Patient has been compliant with his medications. His main complaint is the shortness of breath today. He has no history of PE or DVT. No history of COPD or emphysema.] Physical Examination: [HEENT-PERRLA, EOMI. Cranial nerves II through XII grossly intact. TMs clear. Mucous membranes moist. No adenopathy. Cardiovascular-regular rate and rhythm without murmur or ectopy Lungs-coarse breath sounds bilaterally. No significant tachypnea. No accessory muscle use or retractions. Pulse ox was 95% on room air. Abdomen-normoactive bowel sounds, soft, nontender, no rebound or rigidity, no peritoneal signs. Extremities-intact ?4, normal range of motion, normal pulses, atraumatic. No edema.] Test Results: [EKG obtained arrival shows sinus rhythm with a ventricular rate of 93 bpm with occasional PVCs and some LVH noted. Chest x-ray obtained read by myself as some increased markings in the bases which likely represent scarring. Radiology in agreement. CBC with differential showed a white count of 16.5, hemoglobin 15, hematocrit 45, placed 293. Chemistries unremarkable. BUN was 21 and creatinine 0.99. COVID-19 test was negative. Troponin was less than 0.0 15. D-dimer was 0.51 which is normal when corrected for age.] ABG obtained showed a pH of 7.449, CO2 of 38, PaO2 of 68, bicarb of 26.7 and satting 94% on room air. Emergency Department Course and Treatment: [Case was discussed with hospitalist as well as with disposal operator Dr. Cox. I was asked to have patient transferred to facility with available neurology in-house to manage suspected myasthenia crisis. I made multiple phone calls to multiple facilities who either did not have bed availability or were unable to take the patient due to patient's insurance not being accepted. I did finally discuss case with [facility] who accepted transfer of patient.] Patient was started on nasal cannula O2. He is not in any respiratory distress at this time. Treatment Plan: [Transfer to [facility]. I was told it may take a few hours to get a bed available for the patient. Care of patient will be turned over to evening physician awaiting transfer to [facility]] Disposition: [Transfer] Impression: [Dyspnea Myasthenia crisis] ED Disposition - Plan for ED Patient: Referrals: Stanford Tan III, MD [Primary Care Provider] -
[2020-09-16 09:34] VITALS: PULSE 97; RESP 16; O2SAT 93
[2020-09-16 09:46] VITALS: O2SAT 98
[2020-09-16 09:54] LABS: Absolute Lymphocyte Count 1.99 X10^3/uL (0.83-4.51); Absolute Neutrophil Count 13.4 X10^3/uL (2.0-7.7); Basophil# 0.04 X10^3/uL; Basophil% 0.2 % (0-1); Eosinophil# 0.01 X10^3/uL; Eosinophils% 0.1 % (0-5); Hematocrit 45.4 % (40-54); Hemoglobin 15.3 g/dL (13.0-16.5); Lymphocyte # 1.99 X10^3/ul (4.0); Mean Corp Hgb Conc 33.7 g/dL (32-36); Mean Corpuscular Hgb 28.5 pg (27.0-32.0); Mean Corpuscular Volume 84.7 fL (80-94); Mean Platelet Vol. 10.1 fl (6.2-12.0); Monocyte% 5.4 % (0-10); NRBC Flagged by Analyzer 0 % (0-5); Neutrophil # 13.38 X10^3/uL (2.7-7.7); Neutrophil % 81.1 % (47-70); Platelet Count 293 K/mm3 (150-450); RBC Distribution Width CV 12.8 % (11.6-14.6); RBC Distribution Width SD 39.4 fl (35.1-43.9); Red Blood Count 5.36 M/mm3 (4.6-6.2); White Blood Count 16.5 K/mm3 (4.4-11.0)
[2020-09-16] MEDS: DiphenhydrAMINE 50 MG/ML Syringe 25 MG IV (09:55)
[2020-09-16] MEDS: Metoclopramide 10 MG/2 ML Vial IV (09:55)
[2020-09-16] MEDS: Ketorolac 15 MG/ML Vial IV (09:56)
[2020-09-16 10:03] LABS: D-Dimer Quantitative (DVT/PE) 0.51 FEU/ug/m (0.27-0.49)
[2020-09-16 10:04] LABS: Anion Gap 8 (5-15); BUN 21 mg/dL (7-18); BUN/Creat Ratio 21.2 RATIO (10-20); Calcium,Total 9.2 mg/dL (8.5-10.1); Chloride 99 mmol/L (98-107); Creatinine, Serum 0.99 mg/dL (0.70-1.30); EST Glomerular Filtration Rate 77 mL/min (>60); Est Glom Filt Rate - Afr Amer 93 mL/min (>60); Estimated Creatinine Clearance 58.52 ml/min; Glucose 255 mg/dL (74-106); Potassium 3.6 mmol/L (3.5-5.1); Sodium Level 136 mmol/L (136-145)
--- NOTE | 2020-09-16 10:04 | ED.RN ---
d-dimer 0.51. dr mai
--- NOTE | 2020-09-16 11:01 | NURSING ---
CALLED [facility] FOR TRANSFER. NOTHING TIL TOMORROW
[2020-09-16 11:08] VITALS: BP 148/87; PULSE 78; RESP 16; O2SAT 93
--- NOTE | 2020-09-16 11:13 | NURSING ---
1105 CALLED [facility]. TALKED TO KATIA. THEY ARE FULL WITH A WAIT LIST
--- NOTE | 2020-09-16 11:32 | NURSING ---
CALLED [facility]. CALL ROLLED OVER TO ER CHARGE, KEVIN. HE WILL RELAY MESSAGE TO TILE DECORATOR. DR ORTEGA TALKING TO HIM.
[2020-09-16 11:51] LABS: Allen Test Positive; Base Excess 3 mmol/L (-2 to +2); Bicarbonate 26.7 mmol/L (22-26); Blood Gas Specimen Type ART; O2 Delivery Device Room Air; PO2 69 mmHG (75-100); SITE R Radial; SO2 94 % (95-99); Total Carbon Dioxide 28 mmol/L; pCO2 38.4 mmHg (35-45); pH 7.45 (7.35-7.45)
--- NOTE | 2020-09-16 12:03 | NURSING ---
CALLED [facility]. TALKED TO CHINYERE. DR ORTEGA TALKED TO HIM FAXED FACESHEET
--- NOTE | 2020-09-16 12:40 | ED.RN ---
[facility] DOES NOT ACCEPT PT INSURANCE
--- NOTE | 2020-09-16 12:59 | NURSING ---
DR VASQUEZ IN ER
--- NOTE | 2020-09-16 13:19 | NURSING ---
CALLED [facility] FOR TRANSFER.
--- NOTE | 2020-09-16 13:33 | NURSING ---
LAZARO, [facility] TRANSFER, ON LINE WITH DR ORTEGA
--- NOTE | 2020-09-16 13:50 | NURSING ---
FAXED FACESHEET AND COVID TEST TO [phone] AND [phone]
--- NOTE | 2020-09-16 14:13 | NURSING ---
ACCEPTED AT [facility]. WAITING ON BED
--- NOTE | 2020-09-16 14:54 | NURSING ---
[facility] MAIN H22 BED 2 NURSE TO NURSE [phone] ETA IS 50 MIN
[2020-09-16 15:03] VITALS: BP 163/92; PULSE 84; RESP 16; O2SAT 96
--- NOTE | 2020-09-16 15:03 | NURSING ---
1453 PER [facility] THALIA, ETA IS 50 MIN
--- NOTE | 2020-09-16 16:34 | PCM.CONS.GEN ---
Reason for Consult Date of Consultation: 09/16/20 Reason for Consultation: Shortness of breath History of Present Illness: The patient is a 80 year old M who has been having diplopia for several weeks. He has known history of myasthenia gravis which he gets Soliris injections for. Over the past few days he has been more short of breath. He presented to the emergency room saying he just needed more oxygen. Patient was having NIF testing that was 10 cm of water with an check later was 15 cm of water. The hospital service was asked for admission, though the concerns, given his respiratory weakness and overall generalized weakness that the patient should be transferred to tertiary facility so that he can go undergo plasmapheresis for myasthenia gravis crisis. The ER had difficulty finding a facility due to a myriad of issues including insurance but they did finally get the [facility] to accept the patient and patient was transferred today. [] Past Medical History Past Medical History (Chronic Problems): Chronic Problems (Last Updated 11/12/19 @ 07:23 by Juana Ge) Hyperlipidemia (Chronic) Type 2 diabetes mellitus (Chronic) Renal carcinoma (Chronic) Myasthenia gravis (Chronic) Thyroid nodule (Chronic) Hypertension (Chronic) Psoriasis (Chronic) Medical History: Medical History (Last Reviewed 09/16/20 @ 16:[address] Aristeo Elam, DO) Arthritis M19.90 Cancer of kidney C64.9 Diabetes E11.9 Diarrhea R19.7 Fatigue R53.83 Incontinence R32 Kidney disease N28.9 Knee pain M25.569 Migraines G43.909 Shoulder pain M25.519 HTN (hypertension) I10 Allergies Penicillins Allergy (Verified 09/16/20 09:01) Hives Home Medications: Ambulatory Orders Medication Instructions Recorded Amlodipine [Norvasc] 10 mg PO DAILY 11/30/15 Lovastatin [Mevacor] 20 mg PO LUNCH 11/30/15 Quinapril HCl [Accupril] 20 mg PO BID 11/30/15 Celecoxib [Celebrex] 200 mg PO DAILY 09/27/18 Betamethasone Dipropionate 1 applicatio TOPICAL BID 06/21/19 Cyanocobalamin [Vitamin B12] 1,000 mcg PO DAILY@0800 06/21/19 Multivitamin [Multiple Vitamins] 1 ea PO DAILY 06/21/19 Potassium Gluconate 2.5 meq PO DAILY 06/21/19 Pyridostigmine [place] [Mestinon] 60 mg PO Q8 #90 tab 06/26/19 Eculizumab [Soliris] 300 mg IV QMONTH 09/13/20 Hydrochlorothiazide 12.5 mg PO DAILY 09/13/20 Mirabegron [Myrbetriq] 50 mg PO DAILY 09/16/20 Surgical History: herniorrhaphy, total knee arthroplasty, - - Excision of renal tumor - 30% of the right kidny excised in Oct Psychiatric History: No pertinent psych hx Smoking Status: Never smoker - *Family History Maternal Family History: Family History (Last Reviewed 09/16/20 @ 16:[address] Aristeo Elam, DO) Other Cancer Heart disease History Items: No pertinent history Review of Systems Constitutional: Denies: Anorexia, Chills, Fever, Night Sweats Eyes: Reports: Double vision. Denies: Blurred vision HEENT: Denies: Head Aches, Sinus Congestion, Sinus Drainage Cardiovascular: Denies: Chest Pain, Palpitations Respiratory: Reports: Shortness of Breath. Denies: Cough Gastrointestinal: Denies: Abdominal Pain, Nausea, Vomiting Genitourinary: Denies: Dysuria Musculoskeletal: Denies: Joint Pain, Joint Tenderness Skin: Denies: Rash, Wounds Neurological: Reports: Double vision. Denies: Focal weakness, Numbness, Tingling Psychiatric: Denies: Anxiety, Depression Hematologic/ Lymphatic: Denies: Easy Bruising, Easy Bleeding Comment: All review of systems were negative except as mentioned above in the history of present illness and the other review of systems. - Physical Exam Vitals/I&O's: Vital Signs Temp Pulse Resp BP Pulse Ox 36.3 C L 84 16 163/92 H 96 09/16/20 09:02 09/16/20 15:03 09/16/20 15:03 09/16/20 15:03 09/16/20 15:03 Oxygen Delivery Method Room Air Weight: 86.183 kg Body Mass Index (BMI) 28.0 Finger Stick Blood Glucose 214 General: Alert, Cooperative, No apparent distress HEENT: Atraumatic, Normocephalic Oral: Moist Mucosa, No Gingival or Mucosal Lesions/ Ulcerations Neck: No Nodes, Thyroid Normal Size and Texture Lungs: Clear to auscultation, Normal air movement, No rhonchi, No wheeze, No rales Cardiovascular: Regular rate, Regular Rhythm, Normal S1, Normal S2, No murmurs Abdomen: Bowel Sounds Present, Soft, Non Tender, Non-Distended, No Hepato-splenomegaly Extremities: No edema, No Calf Tenderness Skin: No rashes, No breakdown Musculoskeletal: No Tenderness to Palpation of Joints or Extremities, No Muscle Wasting Neurological: Cranial nerves II-XII grossly intact, - - Muscle strength 3 out of 5 in upper and lower extremities Psych/Mental Status: Normal Affect, Appropriate Microbiology Past 72 Hours 09/16/20 09:35 Mucosa - Nose SARS-CoV-2 Antigen (Rapid) - Final 09/16/20 09:35 Mucosa - Nose Influenza Types A,B Direct FA (LISHA) - Final Laboratory Results 09/16/20 09:30: WBC 16.5 H, RBC 5.36, Hgb 15.3, Hct 45.4, MCV 84.7, MCH 28.5, MCHC 33.7, RDW Std Deviation 39.4, RDW Coeff of Rosemary 12.8, Plt Count 293, MPV 10.1, Immature Gran % (Auto) 1.200 H, Neut % (Auto) 81.1 H, Lymph % (Auto) 12.0 L, [place] % (Auto) 5.4, Eos % (Auto) 0.1, Baso % (Auto) 0.2, Absolute Neuts (auto) 13.4 H, Absolute Lymphs (auto) 1.99, Nucleated RBC % 0 09/16/20 09:30: D-Dimer Quant (PE/DVT) 0.51 H* 09/16/20 09:30: Sodium 136, Potassium 3.6, Chloride 99, Carbon Dioxide 29.0, Anion Gap 8, BUN 21 H, Creatinine 0.99, Estim Creat Clear Calc 58.52, Est GFR (MDRD) Af Amer 93, Est GFR (MDRD) Non-Af 77, BUN/Creatinine Ratio 21.2 H, Glucose 255 H, Calcium 9.2, Troponin I < 0.015 09/16/20 11:46: Specimen Type ART, Sample Site R Radial, pH 7.45, Bicarbonate Actual 26.7 H, Total CO2 28, Base Excess 3 H, O2 Saturation 94 L, ABG pCO2 38.4, ABG pO2 69 L, Evens Test Positive, O2 Delivery Device Room Air Assessment/Plan All Active Problems (Last Updated 11/12/19 @ 07:23 by Juana Ge) Sinusitis, acute (Acute) 1. Acute myasthenia gravis crisis: Explained to patient that his issue is not oxygen to his muscles and that he needs further treatment and strongly recommended he be transferred to a tertiary facility so that he can get plasmapheresis or least have the ability to have that available if necessary. And find the patient that we could treat him here but it may be unsatisfactory particularly if his symptoms get worse. Fortunately the [facility] was able to accept him and had a bed available for him. I did recommend prior to the patient leaving that he received IV steroids as well as IVIG. Further management at [facility]. I did explain to him without proper treatment that he could have worsening respiratory failure and potential wind up on a ventilator. Patient very concerned about cost but I explained to him that if if he wants about ventilator then he would likely be on a ventilator for several days and then afterwards require intermediate facility before returning home. Office Visits / Consults: [id number] OP Consult L4
== END 2020-09-16 15:57 | disposition short-term general hospital (02) ==
LOC: ED 09:42
PROVIDERS: Emergency Provider Emergency Medicine; PCP Family Medicine
DX: R06.00 Dyspnea, unspecified (principal); G70.01 Myasthenia gravis with (acute) exacerbation; E11.9 Type 2 diabetes mellitus without complications; I10 Essential (primary) hypertension; E78.00 Pure hypercholesterolemia, unspecified; Z79.1 Long term (current) use of non-steroidal anti-inflammatories (NSAID); Z82.49 Family history of ischemic heart disease and other diseases of the circulatory system; Z85.528 Personal history of other malignant neoplasm of kidney; Z88.0 Allergy status to penicillin
CPT/HCPCS: 36600; 71045; 80048; 82803; 84484; 85025; 85379; 87426; 87804; 93005; 94150; 96374; 96375; 97162; 99285; J7030; A4216

== ENCOUNTER 2021-01-07 08:30 | Emergency (ER) | payer MEDICARE, SELFPAY ==
[2021-01-05 15:20] VITALS: BMI 31.6
[2021-01-07 08:31] VITALS: BP 167/88; PULSE 80; RESP 16; TEMP 36.8; O2SAT 93
--- NOTE | 2021-01-07 09:23 | CT_ITS ---
STUDY: CT ABDOMEN AND PELVIS WITHOUT CONTRAST REASON FOR EXAM: Male, 80 years old. One month history of right inguinal pain. Patient is status post partial right nephrectomy. RADIATION DOSAGE (If Supplied By Facility): CTDIvol = ( 20.94 ) mGy, DLP = ( 1117.27 ) mGycm TECHNIQUE: Transaxial images were obtained from the dome of the diaphragm to the symphysis pubis without oral contrast, and without intravenous contrast. Sagittal and coronal images were reconstructed. Individualized dose optimization techniques were used for this CT. COMPARISON: None. FINDINGS: Increased linear markings at the lung bases with areas of confluence suggestive of bibasilar scarring. Coronary artery calcification. Normal liver. Normal gallbladder and extrahepatic biliary system. Normal spleen. Normal pancreas. Normal bilateral adrenal glands. There is evidence of a scarring and postoperative changes in the upper posterior aspect of the right kidney. There is a 1.2 cm cyst in the upper pole of the right kidney. Normal left kidney. Normal visualized stomach. Normal small intestine. There are multiple colonic diverticula consistent with diverticulosis. The appendix is visualized and appears normal. There is diffuse atherosclerotic calcification of the abdominal aorta and its major visceral branches, without a demonstrated aneurysm. Normal inferior vena cava. Normal retroperitoneum. Mild degree of diffuse bladder wall thickening. I suspect a 1.4 cm bladder diverticulum in the anterior right superior aspect of the bladder. There is enlargement of the prostate gland. It measures 4.6 cm x 4.8 cm. Calcifications are seen within it. Normal abdominal wall. Moderate degree of disc space narrowing and disc degeneration at the L5-S1 level. CT/Abdomen/Pelvis without Cont IMPRESSION: Sigmoid diverticulosis. Status post partial right nephrectomy with postoperative scarring in the upper pole of the right kidney. Prostatic enlargement. Mild degree of bladder wall thickening and small bladder diverticulum as described. Electronically Signed: Bertin Tolbert MD at 10:22 EDT , Service support ,
--- NOTE | 2021-01-07 09:26 | EDS_ITS ---
HPI History of Present Illness Chief Complaint: Other, Pain/Inj Detail of Chief Complaint: Right inguinal pain Informant: patient Onset/Context/Timing Onset: Weeks (6) Context: Gradual Onset Timing: Intermittent Quality: Sharp Location: Right inguinal area Worsened by: Activity Narrative Narrative: Patient presents with right inguinal pain that has been intermittent over the past 6 weeks. Patient states it is worse when he is active during the day and it gets progressively worse throughout the day. Patient states the pain gets better when he rests at night. Patient denies any nausea or vomiting. Patient denies any fevers or chills. Patient denies any urinary complaints. Patient is concerned over right inguinal hernia. [facility] Medical History (Updated 01/07/21 @ 11:[address] Aristeo Ovalle, DO) Arthritis back problems Cancer of kidney Carpal tunnel syndrome Diabetes Diarrhea Fatigue Frequent headaches Hearing problem High cholesterol Hives HTN (hypertension) Incontinence Kidney disease Knee pain Migraines Myasthenia gravis Pneumonia prostate issues Shoulder pain Vision problems Home Medications amlodipine 10 mg PO DAILY 11/30/15 [History Last Taken 06/21/19 08:00] lovastatin 20 mg PO LUNCH 11/30/15 [History Last Taken 06/20/19] quinapril 20 mg PO BID 11/30/15 [History Last Taken 06/21/19 08:00] celecoxib 200 mg PO DAILY 09/27/18 [History Last Taken 06/21/19 08:00] betamethasone dipropionate 1 applicatio TOPICAL BID 06/21/19 [History Last Taken Unknown] cyanocobalamin (vitamin B-12) 1,000 mcg PO DAILY@0800 06/21/19 [History Last Taken 06/21/19 08:00] multivitamin 1 ea PO DAILY 06/21/19 [History Last Taken 06/21/19 08:00] potassium gluconate 2.5 meq PO DAILY 06/21/19 [History Last Taken 06/21/19 08:00] pyridostigmine bromide 60 mg PO Q8 #90 tab 06/26/19 [Rx Last Taken Unknown] Hydrochlorothiazide 12.5 mg PO DAILY 09/13/20 [History Last Taken Unknown] eculizumab 300 mg IV QMONTH 09/13/20 [History Last Taken Unknown] mirabegron 50 mg PO DAILY 09/16/20 [History Last Taken Unknown] aspirin 81 mg tablet,delayed release 81 mg PO DAILY 01/05/21 [History Last Taken Unknown] glimepiride 2 mg tablet 2 mg PO DAILY 01/05/21 [History Last Taken Unknown] prednisone 5 mg tablet 5 mg PO DAILY #30 tablet 01/05/21 [Rx Last Taken Unknown] Allergy/AdvReac Type Severity Reaction Status Date / Time Penicillins Allergy Hives Verified 01/07/21 08:32 Family History (Updated 01/05/21 @ 15:17 by Chichi Granados) Mother Heart disease Myocardial infarction Other Cancer Surgical History (Updated 01/07/21 @ 09:[address] Aristeo Ovalle, DO) History of hemorrhoidectomy History of partial nephrectomy History of thyroid surgery History of total left knee replacement Social History Smoking Status: Never smoker alcohol intake: never ROS ROS ED Constitutional Constitutional ED: Denies chills or fever(s) Eyes Eyes: Denies blurry vision or change in vision ENT ENT ED: Denies rhinorrhea or sore throat Cardiovascular Cardiovascular: Denies chest pain or palpitations Respiratory/Chest Respiratory/Chest: Denies cough or dyspnea Gastrointestinal Gastrointestinal: Denies nausea or vomiting Genitourinary Genitourinary ED: Denies dysuria or hematuria Musculoskeletal Musculoskeletal: Reports back pain and neck pain Integumentary Reports rash; Denies abscess Neurologic Neurologic: Reports headache(s); Denies weakness Allergic/Immunologic Allergic/Immunologic ED: Denies mouth swelling or urticaria EXAM Physical Exam Const Vital Signs: 01/07/21 08:31 01/07/21 09:31 Temperature 98.3 F Temperature Source Temporal Pulse Rate 80 Respiratory Rate 16 Respiratory Effort Normal Non-Labored Blood Pressure 167/88 H Blood Pressure Mean 114 Pulse Ox 93 Oxygen Delivery Method Room Air Positive well nourished and well developed General Appearance ED: well developed HEENT Reports moist mucous membranes Neck supple and no JVD Resp normal respiratory effort and clear to auscultation bilaterally Cardio regular rate and regular rhythm GI non-distended Auscultation: normoactive bowel sounds Palpation: soft Narrative: There is tenderness in the right inguinal area. I do not appreciate a hernia at this time. There were no masses palpated. There is no lymphadenopathy noted. Bladder / Kidney Exam: other Neuro oriented x3, CN's II-XII intact bilaterally and no sensory deficits noted Sensorium / Orientation: alert Motor Exam: strength 5/5 throughout MDM MDM MDM Narrative Medical decision making narrative: CBC and comprehensive metabolic profile were obtained and were essentially within normal limits. CT scan of the abdomen and pelvis was obtained. There is no right inguinal hernia noted. There is sigmoid diverticulosis but no evidence of diverticulitis. There is diffuse bladder wall thickening. There is also a small bladder diverticulum noted. Patient was advised that she may have a hernia that has spontaneously reduced. Patient was given a referral to Dr. Rizo for general surgery. Patient was instructed to follow-up with his primary care physician as well. Patient understood and was agreeable with the plan. All questions were answered. Lab Data Attestation: I reviewed the patient's lab results. Labs: Laboratory Results - last 24 hr 01/07/21 01/07/21 09:50 09:50 WBC 10.9 RBC 5.40 Hgb 15.0 Hct 46.6 MCV 86.3 MCH 27.8 MCHC 32.2 RDW Std Deviation 43.0 RDW Coeff of Rosemary 13.6 Plt Count 221 MPV 10.0 Immature Gran % (Auto) 0.300 Neut % (Auto) 79.3 H Lymph % (Auto) 13.4 L Dubois % (Auto) 5.6 Eos % (Auto) 0.7 Baso % (Auto) 0.7 Absolute Neuts (auto) 8.6 H Absolute Lymphs (auto) 1.45 Nucleated RBC % 0 Sodium 138 Potassium 3.6 Chloride 104 Carbon Dioxide 30.0 Anion Gap 4 L BUN 22 H Creatinine 1.09 Estim Creat Clear Calc 49.69 Est GFR (MDRD) Af Amer 83 Est GFR (MDRD) Non-Af 69 BUN/Creatinine Ratio 20.2 H Glucose 226 H Calcium 8.8 Total Bilirubin 0.60 AST 26 ALT 34 Alkaline Phosphatase 80 Total Protein 7.5 Albumin 3.7 Globulin 3.8 Albumin/Globulin Ratio 1.0 Radiography Diagnostic Testing: Radiology Impression Abdomen/Pelvis CT 01/07/21 09:23 IMPRESSION: Sigmoid diverticulosis. Status post partial right nephrectomy with postoperative scarring in the upper pole of the right kidney. Prostatic enlargement. Mild degree of bladder wall thickening and small bladder diverticulum as described. Electronically Signed: Bertin Tolbert MD at 10:22 EDT , Service support , Discharge Plan Triage Chief Complaint: Other, Pain/Inj ED Provider: Aristeo Ovalle Dx/Rx/DC Orders Clinical Impression: Right inguinal pain Instructions: ED Hernia (Adult) Prescriptions: No Action aspirin [Adult Low Dose Aspirin] 81 mg tablet,delayed release (DR/EC) 81 mg PO DAILY RF: 0 glimepiride 2 mg tablet 2 mg PO DAILY RF: 0 prednisone 5 mg tablet 5 mg PO DAILY Qty: 30 RF: 8 amlodipine 5 MG tablet 10 mg PO DAILY RF: 0 quinapril 40 MG tablet 20 mg PO BID RF: 0 lovastatin 20 MG tablet 20 mg PO LUNCH RF: 0 celecoxib 200 MG capsule 200 mg PO DAILY RF: 0 multivitamin 1 EACH tablet 1 ea PO DAILY RF: 0 cyanocobalamin (vitamin B-12) 500 MCG tablet 1,000 mcg PO DAILY@0800 RF: 0 betamethasone dipropionate 0.05% cream 1 applicatio topical BID RF: 0 potassium gluconate 2.5 MEQ tablet 2.5 meq PO DAILY RF: 0 pyridostigmine bromide 60 MG tablet 60 mg PO Q8 Qty: 90 RF: 0 eculizumab 300 MG/30 ML solution 300 mg IV QMONTH RF: 0 Hydrochlorothiazide 12.5 MG capsule 12.5 mg PO DAILY RF: 0 mirabegron 50 MG tablet extended release 24 hr 50 mg PO DAILY RF: 0 Primary Care Provider: Iram Russell Referrals: Murali Rizo MD [STAFF PHYSICIAN] - 5-7 Days Iram Russell PA [Primary Care Provider] - 5-7 Days Disposition Disposition: Home, self care
[2021-01-07 09:57] LABS: Absolute Lymphocyte Count 1.45 X10^3/uL (0.83-4.51); Absolute Neutrophil Count 8.6 X10^3/uL (2.0-7.7); Basophil# 0.08 X10^3/uL; Basophil% 0.7 % (0-1); Eosinophil# 0.08 X10^3/uL; Eosinophils% 0.7 % (0-5); Hematocrit 46.6 % (40-54); Lymphocyte # 1.45 X10^3/ul (0.83-4.51); Lymphocyte % 13.4 % (19-41); Mean Corp Hgb Conc 32.2 g/dL (32-36); Mean Corpuscular Hgb 27.8 pg (27.0-32.0); Mean Corpuscular Volume 86.3 fL (80-94); Monocyte# 0.61 X10^3/uL; Monocyte% 5.6 % (0-10); NRBC Flagged by Analyzer 0 % (0-5); Neutrophil % 79.3 % (47-70); Platelet Count 221 K/mm3 (150-450); RBC Distribution Width CV 13.6 % (11.6-14.6); White Blood Count 10.9 K/mm3 (4.4-11.0)
[2021-01-07 10:14] LABS: AST(SGOT) 26 U/L (15-37); Alanine Aminotransfer ALT/SGPT 34 U/L (16-61); Albumin, Serum 3.7 g/dL (3.2-5.0); Alkaline Phosphatase 80 U/L (45-117); Anion Gap 4 (5-15); BUN 22 mg/dL (7-18); BUN/Creat Ratio 20.2 RATIO (10-20); Calcium,Total 8.8 mg/dL (8.5-10.1); Chloride 104 mmol/L (98-107); Creatinine, Serum 1.09 mg/dL (0.70-1.30); EST Glomerular Filtration Rate 69 mL/min (>60); Est Glom Filt Rate - Afr Amer 83 mL/min (>60); Estimated Creatinine Clearance 49.69 ml/min; Globulin 3.8 g/dL (2.2-4.2); Glucose 226 mg/dL (74-106); Potassium 3.6 mmol/L (3.5-5.1); Protein, Total 7.5 g/dL (6.4-8.2); Sodium Level 138 mmol/L (136-145)
== END 2021-01-07 11:48 | disposition home or self-care (01) ==
PROVIDERS: Emergency Provider Emergency Medicine; PCP Physician Assistant
DX: R10.30 Lower abdominal pain, unspecified (principal); K57.30 Diverticulosis of large intestine without perforation or abscess without bleeding; Z90.5 Acquired absence of kidney; N40.1 Benign prostatic hyperplasia with lower urinary tract symptoms; N32.3 Diverticulum of bladder; Z96.652 Presence of left artificial knee joint; E11.9 Type 2 diabetes mellitus without complications; E78.00 Pure hypercholesterolemia, unspecified; I10 Essential (primary) hypertension; G70.00 Myasthenia gravis without (acute) exacerbation; Z79.1 Long term (current) use of non-steroidal anti-inflammatories (NSAID); Z79.52 Long term (current) use of systemic steroids; Z79.82 Long term (current) use of aspirin
CPT/HCPCS: 74176; 80053; 85025; 99283; A4216

== ENCOUNTER 2021-01-23 12:59 | Emergency (ER) | payer MEDICARE, SELFPAY ==
[2021-01-13 13:17] VITALS: BMI 30.9
[2021-01-23] VITALS (7 sets, daily range): BP systolic 165–208; BP diastolic 93–107; PULSE 59–76; RESP 16–17; TEMP 36.7; O2SAT 94; BMI 31.4
--- NOTE | 2021-01-23 13:44 | CT_ITS ---
STUDY: CT BRAIN WITHOUT CONTRAST REASON FOR EXAM: Male, 80 years old. Headache RADIATION DOSAGE (If Supplied By Facility): CTDIvol = ( 44.99 ) mGy, DLP = ( 796.11 ) mGycm TECHNIQUE: Transaxial CT imaging of the brain was performed without administration of intravenous contrast material. Individualized dose optimization techniques were used for this CT. COMPARISON: Comparison is made with prior study dated 09/13/2020. FINDINGS: Normal soft tissue structures. Normal calvarium. There is mild cerebral atrophy with widening of the extra-axial spaces and ventricular dilatation. There are areas of decreased attenuation within the white matter tracts of the supratentorial brain, consistent with microvascular disease changes. Normal basal ganglia and thalami. Normal brainstem. Normal cerebellum. There is no intracranial hemorrhage. There are no findings of an acute ischemic infarction. Atherosclerotic calcification of the vertebral arteries and cavernous portions of the internal carotid arteries bilaterally. Normal visualized paranasal sinuses. CT/Brain/Head without Contrast IMPRESSION: Chronic involutional changes of the brain. Electronically Signed: Bertin Tolbert MD at 14:50 EDT , Service support ,
[2021-01-23] MEDS: Labetalol (Prefilled) 20 MG/4 ML 10 MG IV (14:18)
[2021-01-23] MEDS: Labetalol (Prefilled) 20 MG/4 ML IV (15:49)
--- NOTE | 2021-01-23 16:18 | EX.ED.DYSGE1 ---
HPI History of Present Illness Chief Complaint: Headache [facility] Medical History Arthritis back problems Cancer of kidney Carpal tunnel syndrome Diabetes Diarrhea Fatigue Frequent headaches Hearing problem High cholesterol Hives HTN (hypertension) Iatrogenic adrenal insufficiency Incontinence Kidney disease Knee pain Migraines Myasthenia gravis Pneumonia prostate issues Shoulder pain Vision problems Home Medications amlodipine 10 mg PO DAILY 11/30/15 [History Last Taken 06/21/19 08:00] lovastatin 20 mg PO LUNCH 11/30/15 [History Last Taken 06/20/19] quinapril 20 mg PO BID 11/30/15 [History Last Taken 06/21/19 08:00] celecoxib 200 mg PO DAILY 09/27/18 [History Last Taken 06/21/19 08:00] betamethasone dipropionate 1 applicatio TOPICAL BID 06/21/19 [History Last Taken Unknown] cyanocobalamin (vitamin B-12) 1,000 mcg PO DAILY@0800 06/21/19 [History Last Taken 06/21/19 08:00] multivitamin 1 ea PO DAILY 06/21/19 [History Last Taken 06/21/19 08:00] potassium gluconate 2.5 meq PO DAILY 06/21/19 [History Last Taken 06/21/19 08:00] pyridostigmine bromide 60 mg PO Q8 #90 tab 06/26/19 [Rx Last Taken Unknown] eculizumab 300 mg IV QMONTH 09/13/20 [History Last Taken Unknown] mirabegron 50 mg PO DAILY 09/16/20 [History Last Taken Unknown] aspirin 81 mg tablet,delayed release 81 mg PO DAILY 01/05/21 [History Last Taken Unknown] glimepiride 2 mg tablet 2 mg PO DAILY 01/05/21 [History Last Taken Unknown] prednisone 5 mg tablet 5 mg PO DAILY #30 tablet 01/05/21 [Rx Last Taken Unknown] hydrochlorothiazide 12.5 mg capsule 12.5 mg PO DAILY 01/13/21 [History Last Taken Unknown] hydrocodone-acetaminophen 5-325mg 5mg-325mg 1 tab PO QHS PRN 01/13/21 [History Last Taken Unknown] cetirizine [Zyrtec] 10 mg PO DAILY #14 tab 01/23/21 [Rx Last Taken Unknown] labetalol 100 mg PO DAILY PRN #20 tab 01/23/21 [Rx Last Taken Unknown] Allergy/AdvReac Type Severity Reaction Status Date / Time Penicillins Allergy Hives Verified 01/23/21 13:00 Family History Mother Heart disease Myocardial infarction Other Cancer Surgical History History of hemorrhoidectomy History of partial nephrectomy History of thyroid surgery History of total left knee replacement Social History Smoking Status: Never smoker alcohol intake: never EXAM Physical Exam Const Vital Signs: 01/23/21 13:00 01/23/21 14:18 01/23/21 14:40 Temperature 98.1 F Temperature Source Oral Pulse Rate 76 Respiratory Rate 17 Blood Pressure 170/96 H 208/93 H 180/96 H Blood Pressure Mean 120 131 124 Pulse Ox 94 Oxygen Delivery Method Room Air 01/23/21 14:56 01/23/21 15:45 01/23/21 16:10 Temperature Temperature Source Pulse Rate 71 59 L Respiratory Rate 16 Blood Pressure 197/106 H 203/102 H 165/98 H Blood Pressure Mean 136 135 120 Pulse Ox Oxygen Delivery Method MDM MDM Radiography Diagnostic Testing: Radiology Impression Brain CT 01/23/21 13:44 IMPRESSION: Chronic involutional changes of the brain. Electronically Signed: Bertin Tolbert MD at 14:50 EDT , Service support , Discharge Plan Triage Chief Complaint: Headache ED Provider: Berenice Martin Dx/Rx/DC Orders Clinical Impression: Cephalalgia, Hypertension Instructions: Controlling High Blood Pressure, Understanding Headache Pain Prescriptions: New labetalol 100 mg tablet 100 mg PO DAILY PRN (Reason: HTN) Qty: 20 RF: 0 cetirizine [Zyrtec] 10 mg tablet 10 mg PO DAILY Qty: 14 RF: 0 No Action aspirin [Adult Low Dose Aspirin] 81 mg tablet,delayed release (DR/EC) 81 mg PO DAILY RF: 0 glimepiride 2 mg tablet 2 mg PO DAILY RF: 0 prednisone 5 mg tablet 5 mg PO DAILY Qty: 30 RF: 8 hydrochlorothiazide 12.5 mg capsule 12.5 mg PO DAILY RF: 0 hydrocodone-acetaminophen 5-325 mg tablet 1 tab PO QHS PRNRF: 0 amlodipine 5 MG tablet 10 mg PO DAILY RF: 0 quinapril 40 MG tablet 20 mg PO BID RF: 0 lovastatin 20 MG tablet 20 mg PO LUNCH RF: 0 celecoxib 200 MG capsule 200 mg PO DAILY RF: 0 multivitamin 1 EACH tablet 1 ea PO DAILY RF: 0 cyanocobalamin (vitamin B-12) 500 MCG tablet 1,000 mcg PO DAILY@0800 RF: 0 betamethasone dipropionate 0.05% cream 1 applicatio topical BID RF: 0 potassium gluconate 2.5 MEQ tablet 2.5 meq PO DAILY RF: 0 pyridostigmine bromide 60 MG tablet 60 mg PO Q8 Qty: 90 RF: 0 eculizumab 300 MG/30 ML solution 300 mg IV QMONTH RF: 0 mirabegron 50 MG tablet extended release 24 hr 50 mg PO DAILY RF: 0 Primary Care Provider: Iram Russell Referrals: Iram Russell PA [Primary Care Provider] - 1 Week Disposition Disposition: Home, self care
== END 2021-01-23 17:00 | disposition home or self-care (01) ==
PROVIDERS: Emergency Provider Emergency Medicine; PCP Physician Assistant
DX: R51.9 Headache, unspecified (principal); I10 Essential (primary) hypertension; E11.9 Type 2 diabetes mellitus without complications; E78.00 Pure hypercholesterolemia, unspecified; Z79.1 Long term (current) use of non-steroidal anti-inflammatories (NSAID); Z79.52 Long term (current) use of systemic steroids; Z79.82 Long term (current) use of aspirin; M19.90 Unspecified osteoarthritis, unspecified site; G70.00 Myasthenia gravis without (acute) exacerbation
CPT/HCPCS: 70450; 96374; 96376; 99284; A4216

== ENCOUNTER 2021-02-01 07:17 | Emergency (ER) | payer MEDICARE, SELFPAY ==
[2021-01-23 13:00] VITALS: BMI 31.4
[2021-02-01 07:19] VITALS: BP 191/93; PULSE 71; RESP 16; TEMP 36.2; O2SAT 2; BMI 31.4
--- NOTE | 2021-02-01 07:52 | EX.ED.DYSGE1 ---
HPI History of Present Illness Chief Complaint: Headache Informant: patient Narrative Narrative: 80-year-old male presents for evaluation of headache blurred vision and dry eye. He states that he believes that this is his MG and by this he means myasthenia gravis. He states he has had the symptoms before and has required some prednisone. He brings in an old bottle of a tapering dose of prednisone. He states that he was in the emergency room about 9 days ago for hypertension and was prescribed labetalol. He states he is been taking that at nighttime. No recent follow-up with his doctors. He took his blood pressure pills this morning and also noted that he was hypertensive. Patient is a poor historian stating that he has other issues but cannot remember what they are. He states that everything should be in the computer for me to review. [facility] Medical History Arthritis back problems Cancer of kidney Carpal tunnel syndrome Diabetes Diarrhea Fatigue Frequent headaches Hearing problem High cholesterol Hives HTN (hypertension) Iatrogenic adrenal insufficiency Incontinence Kidney disease Knee pain Migraines Myasthenia gravis Pneumonia prostate issues Shoulder pain Vision problems Home Medications amlodipine 10 mg PO DAILY 11/30/15 [History Last Taken 06/21/19 08:00] lovastatin 20 mg PO LUNCH 11/30/15 [History Last Taken 06/20/19] quinapril 20 mg PO BID 11/30/15 [History Last Taken 06/21/19 08:00] celecoxib 200 mg PO DAILY 09/27/18 [History Last Taken 06/21/19 08:00] betamethasone dipropionate 1 applicatio TOPICAL BID 06/21/19 [History Last Taken Unknown] cyanocobalamin (vitamin B-12) 1,000 mcg PO DAILY@0800 06/21/19 [History Last Taken 06/21/19 08:00] multivitamin 1 ea PO DAILY 06/21/19 [History Last Taken 06/21/19 08:00] potassium gluconate 2.5 meq PO DAILY 06/21/19 [History Last Taken 06/21/19 08:00] pyridostigmine bromide 60 mg PO Q8 #90 tab 06/26/19 [Rx Last Taken Unknown] eculizumab 300 mg IV QMONTH 09/13/20 [History Last Taken Unknown] mirabegron 50 mg PO DAILY 09/16/20 [History Last Taken Unknown] aspirin 81 mg tablet,delayed release 81 mg PO DAILY 01/05/21 [History Last Taken Unknown] glimepiride 2 mg tablet 2 mg PO DAILY 01/05/21 [History Last Taken Unknown] prednisone 5 mg tablet 5 mg PO DAILY #30 tablet 01/05/21 [Rx Last Taken Unknown] hydrocodone-acetaminophen 5-325mg 5mg-325mg 1 tab PO QHS PRN 01/13/21 [History Last Taken Unknown] cetirizine [Zyrtec] 10 mg PO DAILY #14 tab 01/23/21 [Rx Last Taken Unknown] labetalol 100 mg PO DAILY PRN #20 tab 01/23/21 [Rx Last Taken Unknown] hydrochlorothiazide [Microzide] 12.5 mg PO DAILY 02/01/21 [History Last Taken Unknown] labetalol 100 mg PO DAILY PRN #20 tab 02/01/21 [Rx Last Taken Unknown] prednisone 10 mg PO DAILY #63 tab 02/01/21 [Rx Last Taken Unknown] Allergy/AdvReac Type Severity Reaction Status Date / Time Penicillins Allergy Hives Verified 01/23/21 13:00 Family History Mother Heart disease Myocardial infarction Other Cancer Surgical History History of hemorrhoidectomy History of partial nephrectomy History of thyroid surgery History of total left knee replacement Social History Smoking Status: Never smoker alcohol intake: never ROS ROS ED Constitutional Constitutional ED: Denies chills or weight loss Eyes Eyes: Reports blurry vision, change in vision and other Details: Dry eyes ; Denies diplopia ENT ENT ED: Denies ear pain, rhinorrhea or sore throat Cardiovascular Cardiovascular: Denies chest pain, orthopnea, palpitations or racing heartbeat Respiratory/Chest Respiratory/Chest: Denies cough, dyspnea or orthopnea Gastrointestinal Gastrointestinal: Denies abdominal pain, diarrhea, nausea or vomiting Genitourinary Genitourinary ED: Denies dysuria, hematuria or urinary frequency Musculoskeletal Musculoskeletal: Denies arthralgias or myalgias Integumentary Denies abscess or rash Neurologic Neurologic: Reports headache(s); Denies weakness Psychiatric Psychiatric: Denies anxiety, depression, suicidal ideation or suicidal thoughts Endocrine Endocrinology: Denies polydipsia, polyphagia or polyuria Allergic/Immunologic Allergic/Immunologic ED: Denies mouth swelling, tongue swelling or urticaria EXAM Physical Exam Const Vital Signs: 02/01/21 07:19 Temperature 97.1 F L Temperature Source Temporal Pulse Rate 71 Respiratory Rate 16 Blood Pressure 191/93 H Blood Pressure Mean 125 Pulse Ox 2 Oxygen Delivery Method Room Air Positive well nourished and well developed General Appearance ED: well developed HEENT Reports normocephalic, head/scalp atraumatic and moist mucous membranes Eyes PERRL and EOMs intact bilaterally Neck no lymphadenopathy, supple and no JVD Resp normal respiratory effort and clear to auscultation bilaterally Cardio regular rate, regular rhythm and no murmurs GI normal to inspection, nondistended, normoactive bowel sounds and non-tender Palpation: soft Back/Spine no CVA tenderness and normal ROM Extremity normal to inspection General Extremety ED: Negative for edema General Extremity: Negative for edema Neuro oriented x3 and CN's II-XII intact bilaterally Sensorium / Orientation: alert Motor Exam: strength 5/5 throughout Psych mental status grossly normal Mood & Affect: Negative for depressed or tearful Skin no rashes or lesions noted and no wounds MDM MDM MDM Narrative Medical decision making narrative: 2 hours after taking his morning blood pressure pills his blood pressure is coming down from the 200 systolic range. He is now currently 160. Headache however is unchanged. He received an extra dose of labetalol. He states he needs more as needed labetalol at home. I will also write for the prednisone that he is requesting for his myasthenia gravis. I have strongly urged him to see his neurologist. Discharge Plan Triage Chief Complaint: Headache ED Provider: Barry Yee Dx/Rx/DC Orders Clinical Impression: Hypertension, Myasthenia gravis, Cephalalgia Instructions: ED Hypertension, Established Prescriptions: New labetalol 100 mg tablet 100 mg PO DAILY PRN (Reason: Systolic blood pressure greater than 160) Qty: 20 RF: 0 prednisone 10 MG tablet 10 mg PO DAILY Qty: 63 RF: 0 No Action aspirin [Adult Low Dose Aspirin] 81 mg tablet,delayed release (DR/EC) 81 mg PO DAILY RF: 0 glimepiride 2 mg tablet 2 mg PO DAILY RF: 0 prednisone 5 mg tablet 5 mg PO DAILY Qty: 30 RF: 8 hydrocodone-acetaminophen 5-325 mg tablet 1 tab PO QHS PRN (Reason: Pain) RF: 0 amlodipine 5 MG tablet 10 mg PO DAILY RF: 0 quinapril 40 MG tablet 20 mg PO BID RF: 0 lovastatin 20 MG tablet 20 mg PO LUNCH RF: 0 celecoxib 200 MG capsule 200 mg PO DAILY RF: 0 multivitamin 1 EACH tablet 1 ea PO DAILY RF: 0 cyanocobalamin (vitamin B-12) 500 MCG tablet 1,000 mcg PO DAILY@0800 RF: 0 betamethasone dipropionate 0.05% cream 1 applicatio topical BID RF: 0 potassium gluconate 2.5 MEQ tablet 2.5 meq PO DAILY RF: 0 pyridostigmine bromide 60 MG tablet 60 mg PO Q8 Qty: 90 RF: 0 eculizumab 300 MG/30 ML solution 300 mg IV QMONTH RF: 0 mirabegron 50 MG tablet extended release 24 hr 50 mg PO DAILY RF: 0 labetalol 100 mg tablet 100 mg PO DAILY PRN (Reason: HTN) Qty: 20 RF: 0 cetirizine [Zyrtec] 10 mg tablet 10 mg PO DAILY Qty: 14 RF: 0 hydrochlorothiazide [Microzide] 12.5 mg Capsule 12.5 mg PO DAILY RF: 0 Primary Care Provider: Iram Russell Referrals: Iram Russell PA [Primary Care Provider] - As soon as possible Activity Restrictions/Additional Instructions: Please follow-up with your neurologist as soon as possible. Disposition Disposition: Home, self care
[2021-02-01] MEDS: Labetalol 100 MG Tablet PO (08:22)
[2021-02-01 08:51] VITALS: BP 143/90; PULSE 74; RESP 16; O2SAT 99
== END 2021-02-01 08:52 | disposition home or self-care (01) ==
PROVIDERS: Emergency Provider Emergency Medicine; PCP Physician Assistant
DX: R51.9 Headache, unspecified (principal); I10 Essential (primary) hypertension; G70.00 Myasthenia gravis without (acute) exacerbation; E11.9 Type 2 diabetes mellitus without complications; E78.00 Pure hypercholesterolemia, unspecified; Z79.1 Long term (current) use of non-steroidal anti-inflammatories (NSAID); Z79.52 Long term (current) use of systemic steroids; Z79.82 Long term (current) use of aspirin; Z79.899 Other long term (current) drug therapy; M19.90 Unspecified osteoarthritis, unspecified site
CPT/HCPCS: 99283

== ENCOUNTER 2021-04-12 11:06 | Emergency (ER) | payer MEDICARE, SELFPAY ==
[2021-04-12] VITALS (8 sets, daily range): BP systolic 159–198; BP diastolic 76–99; PULSE 60–65; RESP 17–32; TEMP 36.5; O2SAT 93–95; BMI 29.5
--- NOTE | 2021-04-12 11:41 | RAD_ITS ---
STUDY: X-RAY CHEST REASON FOR EXAM: Male, 80 years old. Shortness of breath TECHNIQUE: Single AP portable view of the chest. COMPARISON: 09/16/2020. FINDINGS: Slightly proptotic is unchanged likely chronic. No focal infiltrate is seen. There is no demonstrated pleural abnormality. Normal size heart. Normal mediastinum and cortney. Normal visualized pulmonary arteries. There is atherosclerotic calcification of the aortic arch with tortuosity. Unchanged osseous structures. There is no demonstrated abnormality of the visualized soft tissue structures of the upper abdomen. RAD/Chest 1 View (Portable) IMPRESSION: 1. No significant change. 2. No new infiltrate is seen. Electronically Signed: Frederick Mirza MD at 13:56 EDT Tel , Service support ,
--- NOTE | 2021-04-12 11:41 | EKG12_ITS ---
Test Reason : SOB Blood Pressure : / mmHG Vent. Rate : 065 BPM Atrial Rate : 065 BPM P-R Int : 182 ms QRS Dur : 160 ms QT Int : 464 ms P-R-T Axes : 043 -51 020 degrees QTc Int : 482 ms Sinus rhythm with ectopic complexes Left axis deviation Left ventricular hypertrophy with QRS widening Abnormal ECG Confirmed by SAFIA PEREIRA, WHIT ([id number]), editor index HERSON LINDQUIST ([id number]) on 04/16/2021 1:27:03 PM Referred By: MATEO Confirmed By:WHIT BAIG MD
[2021-04-12 12:31] LABS: Absolute Lymphocyte Count 2.29 X10^3/uL (0.83-4.51); Absolute Neutrophil Count 4.5 X10^3/uL (2.0-7.7); Basophil# 0.11 X10^3/uL; Basophil% 1.3 % (0-1); Eosinophil# 0.82 X10^3/uL; Eosinophils% 9.7 % (0-5); Hematocrit 46.1 % (40-54); Hemoglobin 15.2 g/dL (13.0-16.5); Lymphocyte # 2.29 X10^3/ul (0.83-4.51); Mean Corpuscular Hgb 28.1 pg (27.0-32.0); Mean Corpuscular Volume 85.2 fL (80-94); Mean Platelet Vol. 10.5 fl (6.2-12.0); Monocyte# 0.74 X10^3/uL; Monocyte% 8.7 % (0-10); NRBC Flagged by Analyzer 0 % (0-5); Neutrophil # 4.49 X10^3/uL (2.7-7.7); Neutrophil % 53.1 % (47-70); Platelet Count 200 K/mm3 (150-450); RBC Distribution Width SD 43.2 fl (35.1-43.9); Red Blood Count 5.41 M/mm3 (4.6-6.2); White Blood Count 8.5 K/mm3 (4.4-11.0)
[2021-04-12] MEDS: Labetalol (Prefilled) 20 MG/4 ML IV ×2 (12:42→14:10)
[2021-04-12 12:45] LABS: Anion Gap 6 (5-15); BUN 17 mg/dL (7-18); BUN/Creat Ratio 16.8 RATIO (10-20); Calcium,Total 9.1 mg/dL (8.5-10.1); Chloride 105 mmol/L (98-107); Creatinine, Serum 1.01 mg/dL (0.70-1.30); EST Glomerular Filtration Rate 75 mL/min (>60); Est Glom Filt Rate - Afr Amer 91 mL/min (>60); Estimated Creatinine Clearance 57.36 ml/min; Glucose 94 mg/dL (74-106); Potassium 3.7 mmol/L (3.5-5.1); Sodium Level 137 mmol/L (136-145); Troponin-I HS 8.3 pg/mL (3.0-78.5)
--- NOTE | 2021-04-12 14:53 | ED.RN ---
med scanner in room not work. scanner was unplugged from computer to reset without success. reset barcode scanned without change. nurse discharge made aware. flora gamboa rn [id number]
[2021-04-12] MEDS: hydroCHLOROthiazide 25 MG Tablet PO (15:47)
[2021-04-12] MEDS: amLODIPine 10 MG Tablet PO (15:48)
--- NOTE | 2021-04-12 15:52 | ED.RN ---
[place]. call for a ride home. flora gamboa rn [id number]
[2021-04-12] MEDS: Labetalol (Prefilled) 20 MG/4 ML 40 MG IV (17:58)
--- NOTE | 2021-04-12 18:21 | EDS_ITS ---
HPI History of Present Illness Chief Complaint: Shortness of Breath Informant: patient Onset/Context/Timing Onset: Days (4 days) Context: Gradual Onset Current Severity: Mild Maximum Severity: Mild Narrative Narrative: Patient presents secondary to shortness of breath, intermittent headache, double vision, and feeling off balance. He states that the shortness of breath started 4 days ago. His headache has been intermittent for the past month but worse today. Has been off balance for the past week. Patient has a history of myasthenia gravis. He gets injections every other week and his most recent injection was 2 days ago. He states this morning his systolic blood pressure was 160. Blood pressures been elevating since that time and is 198/95 at the time of triage. [facility] Medical History Arthritis back problems Cancer of kidney Carpal tunnel syndrome Diabetes Diarrhea Fatigue Frequent headaches Hearing problem High cholesterol Hives HTN (hypertension) Iatrogenic adrenal insufficiency Incontinence Kidney disease Knee pain Migraines Myasthenia gravis Pneumonia prostate issues Shoulder pain Vision problems Home Medications amlodipine 10 mg PO DAILY 11/30/15 [History Last Taken 06/21/19 08:00] lovastatin 20 mg PO LUNCH 11/30/15 [History Last Taken 06/20/19] quinapril 20 mg PO BID 11/30/15 [History Last Taken 06/21/19 08:00] celecoxib 200 mg PO DAILY 09/27/18 [History Last Taken 06/21/19 08:00] betamethasone dipropionate 1 applicatio TOPICAL BID 06/21/19 [History Last Taken Unknown] cyanocobalamin (vitamin B-12) 1,000 mcg PO DAILY@0800 06/21/19 [History Last Taken 06/21/19 08:00] multivitamin 1 ea PO DAILY 06/21/19 [History Last Taken 06/21/19 08:00] potassium gluconate 2.5 meq PO DAILY 06/21/19 [History Last Taken 06/21/19 0 8:00] eculizumab 300 mg IV QMONTH 09/13/20 [History Last Taken Unknown] mirabegron 50 mg PO DAILY 09/16/20 [History Last Taken Unknown] aspirin 81 mg tablet,delayed release 81 mg PO DAILY 01/05/21 [History Last Taken Unknown] glimepiride 2 mg tablet 2 mg PO DAILY 01/05/21 [History Last Taken Unknown] hydrocodone-acetaminophen 5-325mg 5mg-325mg 1 tab PO QHS PRN 01/13/21 [History Last Taken Unknown] hydrochlorothiazide [Microzide] 25 mg PO DAILY 02/01/21 [History Last Taken Unknown] labetalol 300 mg PO BID 04/12/21 [History Last Taken Unknown] Allergy/AdvReac Type Severity Reaction Status Date / Time Penicillins Allergy Hives Verified 04/12/21 11:09 Family History Mother Heart disease Myocardial infarction Other Cancer Surgical History History of hemorrhoidectomy History of partial nephrectomy History of thyroid surgery History of total left knee replacement Social History Smoking Status: Never smoker alcohol intake: never ROS ROS ED Constitutional Constitutional ED: Denies chills or fever(s) Eyes Eyes: Reports change in vision and diplopia ENT ENT ED: Denies sore throat Cardiovascular Cardiovascular: Denies chest pain Respiratory/Chest Respiratory/Chest: Reports dyspnea; Denies cough Gastrointestinal Gastrointestinal: Denies abdominal pain, diarrhea, nausea or vomiting Genitourinary Genitourinary ED: Denies dysuria Musculoskeletal Musculoskeletal: Denies back pain Integumentary Denies rash Neurologic Neurologic: Reports headache(s); Denies weakness Psychiatric Psychiatric: Denies anxiety or depression Endocrine Endocrinology: Denies polydipsia or polyuria Allergic/Immunologic Allergic/Immunologic ED: Denies urticaria EXAM Physical Exam Const Vital Signs: 04/12/21 11:06 04/12/21 12:18 04/12/21 13:03 Temperature 97.7 F L Temperature Source Temporal Pulse Rate 63 65 63 Respiratory Rate 32 H 21 H 22 H Blood Pressure 198/95 H 186/89 H 176/76 H Blood Pressure Mean 129 121 109 Pulse Ox 94 94 94 Oxygen Delivery Method Room Air Room Air Room Air 04/12/21 14:54 04/12/21 15:04 04/12/21 16:35 Temperature Temperature Source Pulse Rate 60 65 65 Respiratory Rate 17 17 21 H Blood Pressure 177/99 H 190/97 H 170/82 H Blood Pressure Mean 125 128 111 Pulse Ox 95 95 93 Oxygen Delivery Method Room Air Room Air Room Air 04/12/21 18:16 04/12/21 18:43 Temperature Temperature Source Pulse Rate 64 64 Respiratory Rate 23 H 21 H Blood Pressure 159/90 H 179/94 H Blood Pressure Mean 113 Pulse Ox 93 94 Oxygen Delivery Method Room Air Positive well nourished and well developed General Appearance ED: well developed HEENT Reports normocephalic and head/scalp atraumatic Eyes PERRL and EOMs intact bilaterally Neck supple Chest Wall inspection of chest normal and palpation of chest normal Resp normal respiratory effort and clear to auscultation bilaterally Cardio regular rate and regular rhythm GI normal to inspection, nondistended, normoactive bowel sounds Palpation: soft Back/Spine no CVA tenderness Extremity normal to inspection Extremity Narrative: 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 Lab work, chest x-ray. Prior head CTs with previous similar complaints is reviewed. Lab Data Attestation: I reviewed the patient's lab results. Labs: Laboratory Results - last 24 hr 04/12/21 04/12/21 12:24 12:24 WBC 8.5 RBC 5.41 Hgb 15.2 Hct 46.1 MCV 85.2 MCH 28.1 MCHC 33.0 RDW Std Deviation 43.2 RDW Coeff of Rosemary 14.0 Plt Count 200 MPV 10.5 Immature Gran % (Auto) 0.200 Neut % (Auto) 53.1 Lymph % (Auto) 27.0 Rogers % (Auto) 8.7 Eos % (Auto) 9.7 H Baso % (Auto) 1.3 H Absolute Neuts (auto) 4.5 Absolute Lymphs (auto) 2.29 Nucleated RBC % 0 Sodium 137 Potassium 3.7 Chloride 105 Carbon Dioxide 26.0 Anion Gap 6 BUN 17 Creatinine 1.01 Estim Creat Clear Calc 57.36 Est GFR (MDRD) Af Amer 91 Est GFR (MDRD) Non-Af 75 BUN/Creatinine Ratio 16.8 Glucose 94 Calcium 9.1 Troponin I High Sens 8.3 Radiography Chest X-Ray - ED: 1 View, Read by ED Physician and Chronic Changes Diagnostic Testing: Radiology Impression Chest X-Ray 04/12/21 11:41 IMPRESSION: 1. No significant change. 2. No new infiltrate is seen. Electronically Signed: Frederick Mirza MD at 13:56 EDT Tel , Service support , EKG Initial EKG: Attestation: I personally reviewed and interpreted this EKG as follows: Interpretation: Sinus Rhythm (Sinus at 65 with single premature complex. No acute ischemia. No significant change when compared to prior study.) Treatment and Re-Evaluation Comments:: Repeat evaluation patient's blood pressure had come down into the 170 range and then did increase again. He is given his afternoon blood pressure medication as well as 40 mg of IV labetalol. I did raise concern about this being a myasthenia flare as he was having shortness of breath as well as vision change. He asked that I speak with his neurologist, Dr. Tanner. Dr. Wells does not feel that this is likely a flare as the Solaris injections that he gets is very effective. He did want further evaluation for other causes of hypertension and does not believe this is related to his myasthenia. Patient has had multiple previous work-ups for this. The nurse practitioner that he is working with has been adjusting his medications and I did recommend he follow-up with her this week. At the time of discharge blood pressure is 159/90. Discharge Plan Triage Chief Complaint: Shortness of Breath ED Provider: Berenice Martin Dx/Rx/DC Orders Clinical Impression: Hypertension Instructions: ED Hypertension, Established Prescriptions: No Action aspirin [Adult Low Dose Aspirin] 81 mg tablet,delayed release (DR/EC) 81 mg PO DAILY RF: 0 glimepiride 2 mg tablet 2 mg PO DAILY RF: 0 hydrocodone-acetaminophen 5-325 mg tablet 1 tab PO QHS PRN (Reason: Pain) RF: 0 amlodipine 5 MG tablet 10 mg PO DAILY RF: 0 quinapril 40 MG tablet 20 mg PO BID RF: 0 lovastatin 20 MG tablet 20 mg PO LUNCH RF: 0 celecoxib 200 MG capsule 200 mg PO DAILY RF: 0 multivitamin 1 EACH tablet 1 ea PO DAILY RF: 0 cyanocobalamin (vitamin B-12) 500 MCG tablet 1,000 mcg PO DAILY@0800 RF: 0 betamethasone dipropionate 0.05% cream 1 applicatio topical BID RF: 0 potassium gluconate 2.5 MEQ tablet 2.5 meq PO DAILY RF: 0 eculizumab 300 MG/30 ML solution 300 mg IV QMONTH RF: 0 mirabegron 50 MG tablet extended release 24 hr 50 mg PO DAILY RF: 0 hydrochlorothiazide [Microzide] 12.5 mg Capsule 25 mg PO DAILY RF: 0 labetalol 100 mg tablet 300 mg PO BID RF: 0 Primary Care Provider: Iram Russell Referrals: Iram Russell, PA [Primary Care Provider] - 3-5 Days if not improving Disposition Disposition: Home, Self Care Discharge Date/Time: 04/12/21 18:59
== END 2021-04-12 18:59 | disposition home or self-care (01) ==
PROVIDERS: Emergency Provider Emergency Medicine; PCP Physician Assistant
DX: I10 Essential (primary) hypertension (principal); E11.9 Type 2 diabetes mellitus without complications; E78.00 Pure hypercholesterolemia, unspecified; G70.00 Myasthenia gravis without (acute) exacerbation; M19.90 Unspecified osteoarthritis, unspecified site; Z79.1 Long term (current) use of non-steroidal anti-inflammatories (NSAID); Z79.82 Long term (current) use of aspirin; Z79.899 Other long term (current) drug therapy; Z96.652 Presence of left artificial knee joint; Z90.5 Acquired absence of kidney
CPT/HCPCS: 71045; 80048; 84484; 85025; 93005; 99284; A4216

== ENCOUNTER 2021-11-25 09:54 | Emergency (ER) | payer MEDICARE, SELFPAY ==
[2021-11-25 09:55] VITALS: BP 170/97; PULSE 76; RESP 16; TEMP 36.3; O2SAT 95; BMI 29.2
--- NOTE | 2021-11-25 10:15 | EKG12_ITS ---
Test Reason : Blood Pressure : / mmHG Vent. Rate : 072 BPM Atrial Rate : 072 BPM P-R Int : 172 ms QRS Dur : 164 ms QT Int : 448 ms P-R-T Axes : 040 -50 042 degrees QTc Int : 490 ms Normal sinus rhythm Left axis deviation Left ventricular hypertrophy with QRS widening Abnormal ECG Confirmed by DINORA PEREIRA, JAREK ([id number]), metropolitan editor KANIKA FLAHERTY ([id number]) on 11/27/2021 7:18:31 AM Referred By: VIRA Confirmed By:RANDI FARIAS MD
--- NOTE | 2021-11-25 10:15 | EDS_ITS ---
HPI History of Present Illness Chief Complaint: Hypertension Narrative Narrative: Patient presents with frontal headache sinus congestion and he has noticed that his blood pressure has been high in the past few days. No fevers or chills no difficulty breathing he is denying chest pain. He was seen by the PCP and sent here. No vision changes no neck stiffness. [facility] Medical History Arthritis back problems Cancer of kidney Carpal tunnel syndrome Diabetes Diarrhea Fatigue Frequent headaches Hearing problem High cholesterol Hives HTN (hypertension) Iatrogenic adrenal insufficiency Incontinence Kidney disease Knee pain Migraines Myasthenia gravis Pneumonia prostate issues Shoulder pain Vision problems Home Medications amlodipine 10 mg PO DAILY 11/30/15 [History Last Taken 06/21/19 08:00] lovastatin 20 mg PO LUNCH 11/30/15 [History Last Taken 06/20/19] quinapril 20 mg PO BID 11/30/15 [History Last Taken 06/21/19 08:00] celecoxib 200 mg PO DAILY 09/27/18 [History Last Taken 06/21/19 08:00] betamethasone dipropionate 1 applicatio TOPICAL BID 06/21/19 [History Last Taken Unknown] cyanocobalamin (vitamin B-12) 1,000 mcg PO DAILY@0800 06/21/19 [History Last Taken 06/21/19 08:00] multivitamin 1 ea PO DAILY 06/21/19 [History Last Taken 06/21/19 08:00] potassium gluconate 2.5 meq PO DAILY 06/21/19 [History Last Taken 06/21/19 08:00] eculizumab 300 mg IV QMONTH 09/13/20 [History Last Taken Unknown] mirabegron 50 mg PO DAILY 09/16/20 [History Last Taken Unknown] aspirin 81 mg tablet,delayed release 81 mg PO DAILY 01/05/21 [History Last Taken Unknown] glimepiride 2 mg tablet 2 mg PO DAILY 01/05/21 [History Last Taken Unknown] hydrocodone-acetaminophen 5-325mg 5mg-325mg 1 tab PO QHS PRN 01/13/21 [History Last Taken Unknown] hydrochlorothiazide [Microzide] 25 mg PO DAILY 02/01/21 [History Last Taken Unknown] labetalol 300 mg PO BID 08/01/21 [History Last Taken Unknown] doxycycline hyclate 100 mg PO BID #20 cap 11/25/21 [Rx Last Taken Unknown] guaifenesin [Mucinex] 600 mg PO BID #10 tab 11/25/21 [Rx Last Taken Unknown] Allergy/AdvReac Type Severity Reaction Status Date / Time Penicillins Allergy Hives Verified 11/25/21 09:58 Family History Mother Heart disease Myocardial infarction Other Cancer Surgical History History of hemorrhoidectomy History of partial nephrectomy History of thyroid surgery History of total left knee replacement Social History Smoking Status: Never smoker alcohol intake: never ROS ROS ED ROS Narrative Past medical history: Reviewed, significant for hypertension, adrenal insufficiency, hyperlipidemia, type 2 diabetes, myasthenia gravis. Medications: Reviewed Social history: Noncontributory, he is able to drive and perform most of his ADLs with no difficulty. Review of systems: All systems negative except as indicated General: No fever Eyes: No visual changes ENT: Frontal headache, upper airway congestion and rhinorrhea Neck: No neck pain Cardiovascular: No chest pain Respiratory: No shortness of breath or cough Gastrointestinal: No abdominal pain, nausea vomiting or diarrhea Genitourinary: No dysuria Musculoskeletal: Denies myalgias no difficulty with ambulation Skin: No rash Neurological: No memory loss, confusion or any focal weakness Psych: No recent behavioral changes Hematologic: No easy bleeding or easy bruising EXAM Physical Exam Narrative Exam Narrative: Physical exam General: Well nourished, Well developed, No Acute Distress Head: Normocephalic, Atraumatic Eyes: Conjunctiva not pale ENT: Patient has upper airway congestion and rhinorrhea, swollen nasal turbinates and frontal headache. He has some postnasal drip but no pharyngeal erythema. Neck: Supple, Nontender, No lymphadenopathy Cardiovascular: Regular rate, Regular rhythm Respiratory: No distress, CTA bilaterally Abdomen: Soft, Nontender, Nondistended Back: Nontender, Normal Inspection. Negative for: CVA tenderness Extremities: Nontender, No edema Skin: Normal color, No rash Neurological: Alert, Normal Strength, Normal Sensation Psychological: Normal affect Const Vital Signs: 11/25/21 09:55 11/25/21 10:40 11/25/21 10:42 Temperature 97.3 F L Temperature Source Temporal Pulse Rate 76 73 Respiratory Rate 16 19 H Respiratory Effort Short of Breath Respiratory Pattern Normal Blood Pressure 170/97 H 161/85 H Blood Pressure Mean 121 110 Pulse Ox 95 Oxygen Delivery Method Room Air MDM MDM MDM Narrative Medical decision making narrative: Patient has an unremarkable ED work-up. His hypertension is likely secondary to his sinus infection. I will treat him as such, I will also it is highly likely that his blood pressure will return to normal after his sinus infection improves. Give decongestants. I do not believe we need to alter his antihypertensives, his blood pressure will likely improve on its own after the sinus infection improves. Lab Data Labs: Laboratory Results - last 24 hr 11/25/21 11/25/21 10:20 10:20 WBC 7.4 RBC 5.27 Hgb 16.0 Hct 45.1 MCV 85.6 MCH 30.4 MCHC 35.5 RDW Std Deviation 41.9 RDW Coeff of Rosemary 13.4 Plt Count 181 MPV 9.9 Immature Gran % (Auto) 0.400 Neut % (Auto) 61.1 Lymph % (Auto) 27.8 Swain % (Auto) 7.1 Eos % (Auto) 2.9 Baso % (Auto) 0.7 Absolute Neuts (auto) 4.5 Absolute Lymphs (auto) 2.04 Nucleated RBC % 0 Sodium 138 Potassium 3.3 L Chloride 104 Carbon Dioxide 30.0 Anion Gap 4 L BUN 13 Creatinine 0.96 Estim Creat Clear Calc 61.26 Est GFR (MDRD) Af Amer 97 Est GFR (MDRD) Non-Af 80 BUN/Creatinine Ratio 13.6 Glucose 204 H Calcium 8.5 Total Bilirubin 0.70 AST 35 ALT 45 Alkaline Phosphatase 73 Total Protein 7.3 Albumin 3.8 Globulin 3.5 Albumin/Globulin Ratio 1.1 EKG Initial EKG: Comments: Sinus rhythm with a rate of 72. Normal ND interval. QTC is slightly prolonged at 490. There is a slight left axis deviation. Otherwise nonspecific ST changes. Interpreted by emergency doctor Discharge Plan Triage Chief Complaint: Hypertension ED Provider: Jayant Syed Dx/Rx/DC Orders Clinical Impression: Sinusitis, acute, Hypertension Instructions: Causes of Sinusitis Prescriptions: New doxycycline hyclate 100 mg capsule 100 mg PO BID Qty: 20 RF: 0 guaifenesin [Mucinex] 600 mg tablet extended release 12hr 600 mg PO BID Qty: 10 RF: 0 No Action aspirin [Adult Low Dose Aspirin] 81 mg tablet,delayed release (DR/EC) 81 mg PO DAILY RF: 0 glimepiride 2 mg tablet 2 mg PO DAILY RF: 0 hydrocodone-acetaminophen 5-325 mg tablet 1 tab PO QHS PRN (Reason: Pain) RF: 0 amlodipine 5 MG tablet 10 mg PO DAILY RF: 0 quinapril 40 MG tablet 20 mg PO BID RF: 0 lovastatin 20 MG tablet 20 mg PO LUNCH RF: 0 celecoxib 200 MG capsule 200 mg PO DAILY RF: 0 multivitamin 1 EACH tablet 1 ea PO DAILY RF: 0 cyanocobalamin (vitamin B-12) 500 MCG tablet 1,000 mcg PO DAILY@0800 RF: 0 betamethasone dipropionate 0.05% cream 1 applicatio topical BID RF: 0 potassium gluconate 2.5 MEQ tablet 2.5 meq PO DAILY RF: 0 eculizumab 300 MG/30 ML solution 300 mg IV QMONTH RF: 0 mirabegron 50 MG tablet extended release 24 hr 50 mg PO DAILY RF: 0 hydrochlorothiazide [Microzide] 12.5 mg Capsule 25 mg PO DAILY RF: 0 labetalol 100 mg tablet 300 mg PO BID RF: 0 Primary Care Provider: Iram Russell Referrals: Iram Russell PA [Primary Care Provider] - 2 Days Disposition Disposition: Home, Self Care
[2021-11-25 10:32] LABS: Absolute Lymphocyte Count 2.04 X10^3/uL (0.83-4.51); Absolute Neutrophil Count 4.5 X10^3/uL (2.0-7.7); Basophil# 0.05 X10^3/uL; Basophil% 0.7 % (0-1); Eosinophil# 0.21 X10^3/uL; Eosinophils% 2.9 % (0-5); Hematocrit 45.1 % (40-54); Lymphocyte # 2.04 X10^3/ul (0.83-4.51); Lymphocyte % 27.8 % (19-41); Mean Corp Hgb Conc 35.5 g/dL (32-36); Mean Corpuscular Hgb 30.4 pg (27.0-32.0); Mean Corpuscular Volume 85.6 fL (80-94); Mean Platelet Vol. 9.9 fl (6.2-12.0); Monocyte# 0.52 X10^3/uL; Monocyte% 7.1 % (0-10); NRBC Flagged by Analyzer 0 % (0-5); Neutrophil % 61.1 % (47-70); Platelet Count 181 K/mm3 (150-450); RBC Distribution Width CV 13.4 % (11.6-14.6); RBC Distribution Width SD 41.9 fl (35.1-43.9); Red Blood Count 5.27 M/mm3 (4.6-6.2); White Blood Count 7.4 K/mm3 (4.4-11.0)
[2021-11-25 10:42] VITALS: BP 161/85; PULSE 73; RESP 19
[2021-11-25 10:55] LABS: ALB/GLOB Ratio 1.1 RATIO (0.9-2.4); AST(SGOT) 35 U/L (15-37); Alanine Aminotransfer ALT/SGPT 45 U/L (16-61); Albumin, Serum 3.8 g/dL (3.2-5.0); Alkaline Phosphatase 73 U/L (45-117); Anion Gap 4 (5-15); BUN 13 mg/dL (7-18); BUN/Creat Ratio 13.6 RATIO (10-20); Calcium,Total 8.5 mg/dL (8.5-10.1); Chloride 104 mmol/L (98-107); Creatinine, Serum 0.96 mg/dL (0.70-1.30); EST Glomerular Filtration Rate 80 mL/min (>60); Est Glom Filt Rate - Afr Amer 97 mL/min (>60); Estimated Creatinine Clearance 61.26 ml/min; Globulin 3.5 g/dL (2.2-4.2); Glucose 204 mg/dL (74-106); Potassium 3.3 mmol/L (3.5-5.1); Protein, Total 7.3 g/dL (6.4-8.2); Sodium Level 138 mmol/L (136-145)
[2021-11-25 11:25] VITALS: BP 164/83; PULSE 71
--- NOTE | 2021-11-26 11:20 | CASEMGMT ---
CLARENCE HAN ED follow-up: Date of ED visit: 11/25/2021 Presenting ED complaint: hypertension CLARENCE HAN placed call to patient's telephone number listed on demographics and patient answered. CLARENCE HAN introduced self and role at [facility]. Patient states doing a little bit better today and reports SBP 140-150 today. States headache from an 8 to about a 4 now. Per chart review, hypertension felt to be related to sinus infection and no hypertension medication adjustments. 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 Patient has PCP follow up appointment on 12/15/2021. Patient encouraged to monitor BP and keep log. Voiced understanding. Patient denies questions, needs or concerns. CLARENCE Macias CM
== END 2021-11-25 11:28 | disposition home or self-care (01) ==
PROVIDERS: Emergency Provider Emergency Medicine; PCP Physician Assistant; Visit Provider Emergency Medicine
DX: J01.90 Acute sinusitis, unspecified (principal); G70.00 Myasthenia gravis without (acute) exacerbation; E27.40 Unspecified adrenocortical insufficiency; E11.9 Type 2 diabetes mellitus without complications; E78.00 Pure hypercholesterolemia, unspecified; E78.5 Hyperlipidemia, unspecified; I10 Essential (primary) hypertension; Z79.899 Other long term (current) drug therapy; M19.90 Unspecified osteoarthritis, unspecified site; G43.909 Migraine, unspecified, not intractable, without status migrainosus; Z85.528 Personal history of other malignant neoplasm of kidney; Z87.01 Personal history of pneumonia (recurrent); Z90.5 Acquired absence of kidney
CPT/HCPCS: 80053; 85025; 93005; 99283

== ENCOUNTER 2021-12-08 15:09 | Emergency (ER) | payer MEDICARE, SELFPAY ==
[2021-12-08 15:10] VITALS: BP 196/88; PULSE 61; RESP 16; TEMP 36.2; O2SAT 95; BMI 29.5
--- NOTE | 2021-12-08 16:03 | EDS_ITS ---
HPI HPI - URI History of Present Illness Chief Complaint: Cold Sx Informant: patient Onset/Context/Timing Onset: Weeks (2.5) Context: Gradual Onset Timing: Continuous Quality: Cough Location: Chest Relieved by: - (Blood pressure medicines) Associated Symptoms Associated Symptoms: Positive for Nasal Congestion, Headache, Diarrhea, Shortness of Breath and Productive Cough; Negative for Nausea, Vomiting, Chest Pain, Nonproductive cough and Hemoptysis Narrative Narrative: Patient presents with cough and congestion that has been getting worse over the past 2-1/2 weeks. Patient states he was seen here for this and was diagnosed with a sinus infection. Patient was put on Mucinex and doxycycline. Patient states he had no improvement with this. Patient states he has not followed up with his primary care physician because it is too hard to get in there. Patient admits to loss of smell. Patient admits to subjective fevers. Patient states he has been having some rhinorrhea. Patient admits to some shortness of breath and cough. Patient denies any chest pain. Patient denies any nausea or vomiting but admits to some diarrhea. Patient admits to some increasing weakness and fatigue. ROS ROS ED Constitutional Constitutional ED: Reports fever(s) and subjective; Denies chills Eyes Eyes: Reports blurry vision; Denies diplopia ENT ENT ED: Reports rhinorrhea; Denies sore throat Cardiovascular Cardiovascular: Denies chest pain or palpitations Respiratory/Chest Respiratory/Chest: Reports cough and dyspnea Gastrointestinal Gastrointestinal: Reports diarrhea; Denies nausea or vomiting Genitourinary Genitourinary ED: Denies dysuria or hematuria Musculoskeletal Musculoskeletal: Reports neck pain; Denies back pain Integumentary Reports rash; Denies abscess Neurologic Neurologic: Reports weakness; Denies headache(s) Allergic/Immunologic Allergic/Immunologic ED: Denies mouth swelling or urticaria [facility] Medical History Arthritis back problems Cancer of kidney Carpal tunnel syndrome Diabetes Diarrhea Fatigue Frequent headaches Hearing problem High cholesterol Hives HTN (hypertension) Iatrogenic adrenal insufficiency Incontinence Kidney disease Knee pain Migraines Myasthenia gravis Pneumonia prostate issues Shoulder pain Vision problems Home Medications amlodipine 10 mg PO DAILY 11/30/15 [History Last Taken 06/21/19 08:00] lovastatin 20 mg PO LUNCH 11/30/15 [History Last Taken 06/20/19] quinapril 20 mg PO BID 11/30/15 [History Last Taken 06/21/19 08:00] celecoxib 200 mg PO DAILY 09/27/18 [History Last Taken 06/21/19 08:00] betamethasone dipropionate 1 applicatio TOPICAL BID 06/21/19 [History Last Taken Unknown] cyanocobalamin (vitamin B-12) 1,000 mcg PO DAILY@0800 06/21/19 [History Last Taken 06/21/19 08:00] multivitamin 1 ea PO DAILY 06/21/19 [History Last Taken 06/21/19 08:00] potassium gluconate 2.5 meq PO DAILY 06/21/19 [History Last Taken 06/21/19 08:00] eculizumab 300 mg IV QMONTH 09/13/20 [History Last Taken Unknown] mirabegron 50 mg PO DAILY 09/16/20 [History Last Taken Unknown] aspirin 81 mg tablet,delayed release 81 mg PO DAILY 01/05/21 [History Last Taken Unknown] glimepiride 2 mg tablet 2 mg PO DAILY 01/05/21 [History Last Taken Unknown] hydrocodone-acetaminophen 5-325mg 5mg-325mg 1 tab PO QHS PRN 01/13/21 [History Last Taken Unknown] hydrochlorothiazide [Microzide] 25 mg PO DAILY 02/01/21 [History Last Taken Unknown] labetalol 300 mg PO BID 04/12/21 [History Last Taken Unknown] doxycycline hyclate 100 mg PO BID #20 cap 11/25/21 [Rx Last Taken Unknown] doxycycline hyclate 100 mg PO BID #20 cap 11/25/21 [Rx Last Taken Unknown] guaifenesin [Mucinex] 600 mg PO BID #10 tab 11/25/21 [Rx Last Taken Unknown] guaifenesin [Mucinex] 600 mg PO BID #10 tab 11/25/21 [Rx Last Taken Unknown] Allergy/AdvReac Type Severity Reaction Status Date / Time Penicillins Allergy Hives Verified 12/08/21 15:13 Family History Mother Heart disease Myocardial infarction Other Cancer Surgical History History of hemorrhoidectomy History of partial nephrectomy History of thyroid surgery History of total left knee replacement Social History Smoking Status: Never smoker alcohol intake: never EXAM Physical Exam Const Vital Signs: 12/08/21 15:10 12/08/21 16:31 12/08/21 17:13 Temperature 97.2 F L Temperature Source Temporal Pulse Rate 61 73 Respiratory Rate 16 16 Respiratory Pattern Normal Blood Pressure 196/88 H 127/70 H Blood Pressure Mean 124 89 Pulse Ox 95 98 Oxygen Delivery Method Room Air Room Air Positive well nourished and well developed General Appearance ED: well developed HEENT Reports moist mucous membranes normocephalic Face and Sinus: sinus tenderness Positive for frontal Neck supple and no JVD Resp normal respiratory effort and clear to auscultation bilaterally Cardio regular rate, regular rhythm and no murmurs Rate: regular rate Rhythm: regular rhythm GI normal to inspection, nondistended, normoactive bowel sounds and non-tender Palpation: soft Extremity normal to inspection General Extremety ED: Negative for edema or tenderness General Extremity: Negative for edema Neuro oriented x3, CN's II-XII intact bilaterally and no sensory deficits noted Sensorium / Orientation: alert Motor Exam: strength 5/5 throughout Psych mental status grossly normal Skin no rashes or lesions noted MDM MDM MDM Narrative Medical decision making narrative: Portable 1 view chest x-ray was obtained. On my interpretation, lung monge are clear. There is normal cardiac silhouette. Bony thorax is normal. There is no acute process noted. Radiologist also int erpreted the x-ray and agrees. COVID-19 rapid antigen with influenza A and influenza B swab was obtained. These were all negative. Patient was advised of his findings. Patient was advised that this may be a viral upper respiratory infection. Patient was instructed to use Coricidin HBP as needed for cough and congestion. Patient was instructed to follow-up with his primary care physician in 5 to 7 days for reevaluation. Patient understood and was agreeable with the plan. All questions were answered. Radiography Chest X-Ray - ED: 1 View, Read by ED Physician, Read by Radiologist and No Acute Disease Diagnostic Testing: Clinical Impression(s) from Imaging Studies Chest X-Ray 12/08/21 16:25 IMPRESSION: There are no acute findings. Electronically Signed: Ron Rebolledo MD at 16:38 EDT Reading Location ID and State: [facility] / [place] , Service support , Discharge Plan Triage Chief Complaint: Cold Sx ED Provider: Aristeo Ovalle Dx/Rx/DC Orders Clinical Impression: Viral upper respiratory tract infection, Hypertension, Myasthenia gravis Instructions: ED URI, Viral, No Abx (Adult) Prescriptions: No Action aspirin [Adult Low Dose Aspirin] 81 mg tablet,delayed release (DR/EC) 81 mg PO DAILY RF: 0 glimepiride 2 mg tablet 2 mg PO DAILY RF: 0 hydrocodone-acetaminophen 5-325 mg tablet 1 tab PO QHS PRN (Reason: Pain) RF: 0 amlodipine 5 MG tablet 10 mg PO DAILY RF: 0 quinapril 40 MG tablet 20 mg PO BID RF: 0 lovastatin 20 MG tablet 20 mg PO LUNCH RF: 0 celecoxib 200 MG capsule 200 mg PO DAILY RF: 0 multivitamin 1 EACH tablet 1 ea PO DAILY RF: 0 cyanocobalamin (vitamin B-12) 500 MCG tablet 1,000 mcg PO DAILY@0800 RF: 0 betamethasone dipropionate 0.05% cream 1 applicatio topical BID RF: 0 potassium gluconate 2.5 MEQ tablet 2.5 meq PO DAILY RF: 0 eculizumab 300 MG/30 ML solution 300 mg IV QMONTH RF: 0 mirabegron 50 MG tablet extended release 24 hr 50 mg PO DAILY RF: 0 hydrochlorothiazide [Microzide] 12.5 mg Capsule 25 mg PO DAILY RF: 0 labetalol 100 mg tablet 300 mg PO BID RF: 0 doxycycline hyclate 100 mg capsule 100 mg PO BID Qty: 20 RF: 0 guaifenesin [Mucinex] 600 mg tablet extended release 12hr 600 mg PO BID Qty: 10 RF: 0 guaifenesin [Mucinex] 600 mg tablet extended release 12hr 600 mg PO BID Qty: 10 RF: 0 doxycycline hyclate 100 mg capsule 100 mg PO BID Qty: 20 RF: 0 Primary Care Provider: Iram Russell Referrals: Iram Russell PA [Primary Care Provider] - 5-7 Days Activity Restrictions/Additional Instructions: You may take Coricidin HBP for cough and congestion. This is [id number]. This will not affect your blood pressure. Disposition Disposition: Home, Self Care
--- NOTE | 2021-12-08 16:25 | RAD_ITS ---
STUDY: X-RAY CHEST REASON FOR EXAM: Male, 81 years old. CHEST PAIN Cough TECHNIQUE: XR Chest 1 View COMPARISON: 8.1 FINDINGS: Elevated right humeral head with eburnation of the acromion suggest a chronic rotator cuff tear. Normal size heart. Normal mediastinum and cortney. Normal visualized pulmonary arteries. There is atherosclerotic calcification of the aortic arch with tortuosity. There are diffuse degenerative changes of the visualized thoracic spine. There is degenerative osteoarthritis of the bilateral shoulders. There is no demonstrated abnormality of the visualized soft tissue structures of the upper abdomen. RAD/Chest 1 View (Portable) IMPRESSION: There are no acute findings. Electronically Signed: Ron Rebolledo MD at 16:38 EDT ,
[2021-12-08 17:13] VITALS: BP 127/70; PULSE 73; RESP 16; O2SAT 98
== END 2021-12-08 18:02 | disposition home or self-care (01) ==
PROVIDERS: Emergency Provider Emergency Medicine; PCP Physician Assistant; Visit Provider Emergency Medicine
DX: J06.9 Acute upper respiratory infection, unspecified (principal); G70.00 Myasthenia gravis without (acute) exacerbation; E11.9 Type 2 diabetes mellitus without complications; R19.7 Diarrhea, unspecified; I10 Essential (primary) hypertension; E78.00 Pure hypercholesterolemia, unspecified; R06.02 Shortness of breath; Z90.5 Acquired absence of kidney; Z85.528 Personal history of other malignant neoplasm of kidney
CPT/HCPCS: 71045; 87428; 99282

== ENCOUNTER 2021-12-14 10:36 | Emergency (ER) | payer MEDICARE, SELFPAY ==
[2021-12-14 10:36] VITALS: BP 174/81; PULSE 63; RESP 18; TEMP 36.5; O2SAT 94; BMI 29.0
[2021-12-14 11:38] VITALS: BP 169/80; PULSE 57; RESP 17; TEMP 37.2
[2021-12-14] MEDS: Acetaminophen 500 MG Tablet 1000 MG PO (13:05)
[2021-12-14 13:08] VITALS: BP 176/76; PULSE 64; RESP 17; O2SAT 93
--- NOTE | 2021-12-14 15:00 | EX.ED.DYSGE1 ---
HPI History of Present Illness Chief Complaint: Hypertension Narrative Narrative: Patient presenting with headache and elevated blood pressure. These are not new issues. Patient has had these for about a month. Patient was seen in the emergency room and is already had CT imaging done. He denies dizziness, lightheadedness, nausea, vomiting. He denies chest pain or shortness of breath. Patient states that he did follow-up with his primary care physician who did not address his blood pressure. He states he has been checking his blood pressure multiple times and they have been elevated as high as 180s systolically. His diastolic number is usually under 80. [facility] Medical History Arthritis back problems Cancer of kidney Carpal tunnel syndrome Diabetes Diarrhea Fatigue Frequent headaches Hearing problem High cholesterol Hives HTN (hypertension) Iatrogenic adrenal insufficiency Incontinence Kidney disease Knee pain Migraines Myasthenia gravis Pneumonia prostate issues Shoulder pain Vision problems Home Medications amlodipine 10 mg PO DAILY 11/30/15 [History Last Taken 06/21/19 08:00] lovastatin 20 mg PO LUNCH 11/30/15 [History Last Taken 06/20/19] quinapril 20 mg PO BID 11/30/15 [History Last Taken 06/21/19 08:00] cyanocobalamin (vitamin B-12) 1,000 mcg PO DAILY@0800 06/21/19 [History Last Taken 06/21/19 08:00] multivitamin 1 ea PO DAILY 06/21/19 [History Last Taken 06/21/19 08:00] potassium gluconate 2.5 meq PO DAILY 06/21/19 [History Last Taken 06/21/19 08:00] eculizumab 300 mg IV QMONTH 09/13/20 [History Last Taken Unknown] aspirin 81 mg tablet,delayed release 81 mg PO DAILY 01/05/21 [History Last Taken Unknown] glimepiride 2 mg tablet 2 mg PO DAILY 01/05/21 [History Last Taken Unknown] hydrochlorothiazide [Microzide] 25 mg PO DAILY 02/01/21 [History Last Taken Unknown] labetalol 300 mg PO BID 04/12/21 [History Last Taken Unknown] acetaminophen [Tylenol 8 Hour] 650 mg PO Q8H PRN #14 tab 12/14/21 [Rx Last Taken Unknown] Allergy/AdvReac Type Severity Reaction Status Date / Time Penicillins Allergy Hives Verified 12/14/21 11:38 Family History Mother Heart disease Myocardial infarction Other Cancer Surgical History History of hemorrhoidectomy History of partial nephrectomy History of thyroid surgery History of total left knee replacement Social History Smoking Status: Never smoker alcohol intake: never ROS ROS ED Constitutional Constitutional ED: Denies chills, fever(s) or sweats Eyes Eyes: Denies blurry vision or change in vision ENT ENT ED: Denies rhinorrhea or sore throat Cardiovascular Cardiovascular: Denies chest pain or palpitations Respiratory/Chest Respiratory/Chest: Denies cough, dyspnea or dyspnea on exertion Gastrointestinal Gastrointestinal: Denies abdominal pain, diarrhea, nausea or vomiting Genitourinary Genitourinary ED: Denies dysuria or hematuria Musculoskeletal Musculoskeletal: Denies myalgias Integumentary Denies rash Neurologic Neurologic: Reports headache(s); Denies paresthesias or weakness Psychiatric Psychiatric: Denies anxiety or depression EXAM Physical Exam Const Vital Signs: 12/14/21 10:36 12/14/21 11:38 12/14/21 13:08 Temperature 97.7 F L 99.0 F Temperature Source Temporal Oral Pulse Rate 63 57 L 64 Respiratory Rate 18 17 17 Respiratory Effort Normal Short of Breath Respiratory Pattern Normal Blood Pressure 174/81 H 169/80 H 176/76 H Blood Pressure Mean 112 109 Pulse Ox 94 93 Oxygen Delivery Method Room Air Room Air Positive well nourished General Appearance ED: NAD; Negative for pallor HEENT Reports normocephalic, head/scalp atraumatic and moist mucous membranes Negative for trauma Eyes PERRL and EOMs intact bilaterally Neck no lymphadenopathy and supple Chest Wall inspection of chest normal and palpation of chest normal Resp normal respiratory effort and clear to auscultation bilaterally Auscultation: Negative for rales, rhonchi or wheezes Cardio regular rate and regular rhythm GI normal to inspection, nondistended, normoactive bowel sounds and non-distended Auscultation: normoactive bowel sounds Palpation: soft Narrative: Deferred Extremity normal to inspection General Extremety ED: Yes edema and tenderness General Extremity: edema Neuro oriented x3, CN's II-XII intact bilaterally and no sensory deficits noted Sensorium / Orientation: alert Motor Exam: strength 5/5 throughout Psych mental status grossly normal Attitude: No agitated Skin no rashes or lesions noted and no wounds General Skin Exam: Negative for jaundice or pallor MDM MDM MDM Narrative Medical decision making narrative: 81-year-old male presenting with a mild headache. He is noted his blood pressures have been elevated. He states this has been going on for about a month. He states he followed up with his primary care provider who did nothing for his blood pressure. I spoke with Dr. Russell who states that he had referred the patient to nephrology and he is pending an appointment. He stated that if his blood pressures were elevated he was supposed to call the office and he would address them there. He has a history of renal cell stenosis which he believes is driving his blood pressure to be elevated. He does not currently recommend any medication changes and asked that I have the patient call the office to have his blood pressure assessed again. Patient himself has no focal neurologic deficits or lateralizing signs or symptoms. His headache is mild. No red flags. I do not believe he needs blood work or imaging. Patient will be given Tylenol and discharged home to follow-up with his primary provider and nephrology. Impression: 1. Hypertension 2. Headache Discharge Plan Triage Chief Complaint: Hypertension ED Provider: Morgan Miranda Dx/Rx/DC Orders Instructions: Understanding Headache Pain, ED Hypertension, Established Prescriptions: New acetaminophen [Tylenol 8 Hour] 650 mg tablet extended release 650 mg PO Q8H PRN (Reason: headache) Qty: 14 RF: 0 No Action aspirin [Adult Low Dose Aspirin] 81 mg tablet,delayed release (DR/EC) 81 mg PO DAILY RF: 0 glimepiride 2 mg tablet 2 mg PO DAILY RF: 0 amlodipine 5 MG tablet 10 mg PO DAILY RF: 0 quinapril 40 MG tablet 20 mg PO BID RF: 0 lovastatin 20 MG tablet 20 mg PO LUNCH RF: 0 multivitamin 1 EACH tablet 1 ea PO DAILY RF: 0 cyanocobalamin (vitamin B-12) 500 MCG tablet 1,000 mcg PO DAILY@0800 RF: 0 potassium gluconate 2.5 MEQ tablet 2.5 meq PO DAILY RF: 0 eculizumab 300 MG/30 ML solution 300 mg IV QMONTH RF: 0 hydrochlorothiazide [Microzide] 12.5 mg Capsule 25 mg PO DAILY RF: 0 labetalol 100 mg tablet 300 mg PO BID RF: 0 Primary Care Provider: Iram Russell Referrals: Ana Paula Delgado MD [STAFF PHYSICIAN] - As soon as possible Iram Russell PA [Primary Care Provider] - Disposition Disposition: Home, Self Care Discharge Date/Time: 12/14/21 13:16
== END 2021-12-14 13:16 | disposition home or self-care (01) ==
PROVIDERS: Emergency Provider Student in an Organized Health Care Education/Training Program; PCP Physician Assistant; Visit Provider Student in an Organized Health Care Education/Training Program
DX: I10 Essential (primary) hypertension (principal); E11.9 Type 2 diabetes mellitus without complications; E78.00 Pure hypercholesterolemia, unspecified; R51.9 Headache, unspecified
CPT/HCPCS: 99283

== ENCOUNTER → 2022-01-07 | Outpatient (CLI) | payer MEDICARE, SELFPAY ==
--- NOTE | 2022-01-07 12:00 | RAD_ITS ---
EXAM: XR CERVICAL SPINE, 2 OR 3 VIEWS CLINICAL INDICATION: Other cervical disc degeneration, unspecified cervical region TECHNIQUE: Frontal and lateral views of the cervical spine. This report was created using [employer] report generation technology. COMPARISON: None. FINDINGS: VERTEBRAE: Accentuated cervical lordosis. Bony structures are diffusely osteoporotic. Multilevel facet arthropathy. Preserved vertebral body height. No acute fracture. No spondylolisthesis. DISC SPACES: Unremarkable. Disc spaces are maintained. SOFT TISSUES: Unremarkable. No prevertebral soft tissue widening. LUNG APICES: Clear. RAD/Cerv Spine 2 or 3 Views IMPRESSION: No acute abnormality. Electronically Signed: Mando Beatty MD at 16:53 EDT ,
== END | disposition home or self-care (01) ==
LOC: RAD 11:54
PROVIDERS: PCP Physician Assistant; Referring Provider Anesthesiology Pain Medicine; Visit Provider Anesthesiology Pain Medicine
DX: M50.30 Other cervical disc degeneration, unspecified cervical region (principal); M47.892 Other spondylosis, cervical region
CPT/HCPCS: 72040

== ENCOUNTER → 2022-02-04 | Outpatient (CLI) | payer MEDICARE, SELFPAY ==
[2022-02-04 13:25] LABS: Amphetamine Urine VISTA NEGATIVE (<1000 ng/mL); Barbiturate Urine VISTA NEGATIVE (< 200 ng/mL); Benzodiazepine Urine VISTA NEGATIVE (< 200 ng/mL); Cocaine Urine VISTA NEGATIVE (< 300 ng/mL); Ecstacy Urine VISTA POSITIVE (< 500 ng/mL); Methadone Urine VISTA NEGATIVE (< 300 ng/mL); PCP Urine VISTA NEGATIVE (< 25 ng/mL); THC Urine VISTA NEGATIVE (< 50 ng/mL); Vista UDS pH Range 6
== END | disposition home or self-care (01) ==
LOC: LAB 11:57
PROVIDERS: PCP Physician Assistant; Referring Provider Anesthesiology Pain Medicine; Visit Provider Anesthesiology Pain Medicine
DX: F11.20 Opioid dependence, uncomplicated (principal)
CPT/HCPCS: 80307

== ENCOUNTER → 2022-06-22 | Outpatient (CLI) | payer MEDICARE, SELFPAY ==
[2022-06-22 15:05] LABS: Absolute Lymphocyte Count 2.45 X10^3/uL (0.83-4.51); Absolute Neutrophil Count 4.6 X10^3/uL (2.0-7.7); Basophil# 0.06 X10^3/uL; Basophil% 0.7 % (0-1); Eosinophil# 0.39 X10^3/uL; Eosinophils% 4.8 % (0-5); Hematocrit 45.1 % (40-54); Hemoglobin 14.9 g/dL (13.0-16.5); Lymphocyte # 2.45 X10^3/ul (0.83-4.51); Lymphocyte % 30.1 % (19-41); Mean Corpuscular Hgb 29.9 pg (27.0-32.0); Mean Corpuscular Volume 90.6 fL (80-94); Mean Platelet Vol. 10.7 fl (6.2-12.0); Monocyte# 0.64 X10^3/uL; Monocyte% 7.9 % (0-10); NRBC Flagged by Analyzer 0 % (0-5); Neutrophil # 4.55 X10^3/uL (2.7-7.7); Platelet Count 205 K/mm3 (150-450); RBC Distribution Width CV 13.1 % (11.6-14.6); RBC Distribution Width SD 43.1 fl (35.1-43.9); Red Blood Count 4.98 M/mm3 (4.6-6.2); White Blood Count 8.1 K/mm3 (4.4-11.0)
[2022-06-22 15:31] LABS: AST(SGOT) 39 U/L (15-37); Alanine Aminotransfer ALT/SGPT 55 U/L (16-61); Albumin, Serum 3.7 g/dL (3.2-5.0); Alkaline Phosphatase 68 U/L (45-117); Bilirubin, Direct 0.15 mg/dL (0.00-0.30); Globulin 3.6 g/dL (2.2-4.2); Protein, Total 7.3 g/dL (6.4-8.2)
[2022-06-24 14:09] LABS: QNTFERON TB Mitogen Value > 10.00 IU/mL (.); QNTFERON TB Nil Value 0.04 IU/mL (.); QNTFERON TB1+ Ag Value 0.04 IU/mL (.); QNTFERON TB2+ Ag Value 0.04 IU/mL (.)
[2022-06-24 17:33] LABS: QNTIFERON TB Positive Criteria Negative (Negative)
== END | disposition home or self-care (01) ==
LOC: MTLAB 11:40
PROVIDERS: PCP Physician Assistant; Referring Provider Dermatology; Visit Provider Dermatology
DX: L40.3 Pustulosis palmaris et plantaris (principal); Z79.899 Other long term (current) drug therapy; L82.0 Inflamed seborrheic keratosis; L29.8 Other pruritus; L53.8 Other specified erythematous conditions; R20.8 Other disturbances of skin sensation
CPT/HCPCS: 36415; 80076; 85025; 86480

== ENCOUNTER → 2022-07-20 | Outpatient (CLI) | payer MEDICARE, SELFPAY ==
[2022-07-20 14:09] LABS: Amphetamine Urine VISTA NEGATIVE (<1000 ng/mL); Barbiturate Urine VISTA NEGATIVE (< 200 ng/mL); Benzodiazepine Urine VISTA NEGATIVE (< 200 ng/mL); Cocaine Urine VISTA NEGATIVE (< 300 ng/mL); Ecstacy Urine VISTA POSITIVE (< 500 ng/mL); Methadone Urine VISTA NEGATIVE (< 300 ng/mL); PCP Urine VISTA NEGATIVE (< 25 ng/mL); THC Urine VISTA NEGATIVE (< 50 ng/mL); Vista UDS pH Range 7
== END | disposition home or self-care (01) ==
LOC: LAB 13:04
PROVIDERS: PCP Physician Assistant; Referring Provider Anesthesiology Pain Medicine; Visit Provider Anesthesiology Pain Medicine
DX: F11.20 Opioid dependence, uncomplicated (principal)
CPT/HCPCS: 80307

== ENCOUNTER 2022-09-30 10:00 | Emergency (ER) | payer MEDICARE, SELFPAY ==
[2022-09-30 10:01] VITALS: BP 157/72; PULSE 62; RESP 18; TEMP 36.6; O2SAT 96; BMI 27.2
--- NOTE | 2022-09-30 10:51 | ED.RN ---
PT DENIES ANY CHEST PAIN. STATES HAS NOT HAD CP
--- NOTE | 2022-09-30 11:00 | EX.ED.VIS.HA ---
HPI History of Present Illness Chief Complaint: Headache Informant: patient Onset/Context/Timing Onset: Weeks (2) Context: Gradual Timing: Continuous Quality -Headache: Positive for Dull Location: frontal and behind his eyes Worsened by: Nothing Relieved by: Nothing Associated Symptoms/Injury Associated Symptoms: Positive for Sinus Pressure; Negative for Fever, Nausea, Vomiting, Sore Throat, Numbness, Tingling, Preceding Aura, Blurred Vision, Photophobia or Visual Loss Narrative Narrative: Patient presents with a headache that has been getting worse over the last 2 weeks. Patient states it is gradually getting worse. Patient states it is constant. Patient states it is behind his eyes but worse on the left. Patient describes it as a dull pain. Patient admits to some sinus pressure. Patient denies any fevers or chills. Patient states nothing makes it worse and nothing makes it better. 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 Patient denies any other visual changes. Patient states his pain does radiate into his neck. PFSH PFS Medical History Arthritis back problems Cancer of kidney Carpal tunnel syndrome Diabetes Diarrhea Fatigue Frequent headaches Hearing problem High cholesterol Hives HTN (hypertension) Iatrogenic adrenal insufficiency Incontinence Kidney disease Knee pain Migraines Myasthenia gravis Pneumonia prostate issues Shoulder pain Vision problems Home Medications amlodipine 5 mg tablet 10 mg PO DAILY BP 11/30/15 [History Last Taken 06/21/19 08:00] lovastatin 20 mg tablet 20 mg PO LUNCH CHOLESTEROL 11/30/15 [History Last Taken 06/20/19] quinapril 40 mg tablet 20 mg PO BID BP 11/30/15 [History Last Taken 06/21/19 08:00] cyanocobalamin (vitamin B-12) 500 mcg tablet 1,000 mcg PO DAILY@0800 supplement 06/21/19 [History Last Taken 06/21/19 08:00] multivitamin 1 ea PO DAILY supplement 06/21/19 [History Last Taken 06/21/19 08:00] potassium gluconate 2.5 mEq tablet 2.5 meq PO DAILY supplement 06/21/19 [History Last Taken 06/21/19 08:00] eculizumab 300 mg/30 mL intravenous solution 300 mg IV QMONTH 09/13/20 [History Last Taken Unknown] aspirin 81 mg tablet,delayed release (Adult Low Dose Aspirin) 81 mg PO DAILY 01/05/21 [History Last Taken Unknown] glimepiride 2 mg tablet 2 mg PO DAILY 01/05/21 [History Last Taken Unknown] hydrochlorothiazide 12.5 mg capsule 25 mg PO DAILY 02/01/21 [History Last Taken Unknown] labetalol 100 mg tablet 300 mg PO BID 04/12/21 [History Last Taken Unknown] acetaminophen 650 mg tablet,extended release (Tylenol 8 Hour) 650 mg PO Q8H PRN headache #14 tabs 12/14/21 [Rx Last Taken Unknown] azithromycin 250 mg tablet 250 mg PO DAILY #4 TABLETS 09/30/22 [Rx Last Taken Unknown] buprenorphine 5 mcg/hour weekly transdermal patch 09/30/22 [History Last Taken Unknown] fluticasone propionate 50 mcg/actuation nasal spray,suspension (Flonase Allergy Relief) 1 spray intranasal DAILY #16 grams 09/30/22 [Rx Last Taken Unknown] hydrocodone 7.5 mg-acetaminophen 325 mg tablet tab 09/30/22 [History Last Taken Unknown] Allergy/AdvReac Type Severity Reaction Status Date / Time Penicillins Allergy Hives Verified 09/30/22 10:04 Family History Mother Heart disease Myocardial infarction Other Cancer Surgical History History of hemorrhoidectomy History of partial nephrectomy History of thyroid surgery History of total left knee replacement Social History Smoking Status: Never smoker alcohol intake: never ROS ROS ED Constitutional Constitutional ED: Denies chills or fever(s) Eyes Eyes: Reports diplopia; Denies blurry vision ENT ENT ED: Denies rhinorrhea or sore throat Cardiovascular Cardiovascular: Denies chest pain or palpitations Respiratory/Chest Respiratory/Chest: Denies cough or dyspnea Gastrointestinal Gastrointestinal: Denies nausea or vomiting Genitourinary Genitourinary ED: Denies dysuria or hematuria Musculoskeletal Musculoskeletal: Reports neck pain; Denies back pain Integumentary Denies abscess or rash Neurologic Neurologic: Reports headache(s); Denies weakness Allergic/Immunologic Allergic/Immunologic ED: Denies mouth swelling or urticaria EXAM Physical Exam Const Vital Signs: 09/30/22 10:01 Temperature 97.9 F Temperature Source Temporal Pulse Rate 62 Respiratory Rate 18 Blood Pressure 157/72 H Blood Pressure Mean 100 Pulse Ox 96 Oxygen Delivery Method Room Air Positive well nourished and well developed General Appearance ED: well developed and NAD HEENT Reports normocephalic and moist mucous membranes atraumatic; Negative for temporal artery tenderness Face and Sinus: sinus tenderness Positive for frontal (Left) and maxillary (Left) Neck supple and no JVD Resp normal respiratory effort and clear to auscultation bilaterally Cardio regular rate and regular rhythm Neuro oriented x3, CN's II-XII intact bilaterally and no sensory deficits noted Sensorium / Orientation: awake and alert Speech: speech normal Motor Exam: strength 5/5 throughout Psych mental status grossly normal MDM MDM MDM Narrative Medical decision making narrative: Given the patient's symptoms have been constant for 2 weeks, I feel antibiotics would be indicated at this time for sinusitis. Patient was given a prescription for Zithromax. Patient was also given a prescription for Flonase nasal spray. Patient was instructed to follow-up with his primary care physician in 5 to 7 days. Patient understood and was agreeable with the plan. All questions were answered. Discharge Plan Triage Chief Complaint: Headache ED Provider: Aristeo Ovalle Dx/Rx/DC Orders Clinical Impression: Sinusitis, acute, Headache Instructions: ED Sinus Headache, ED Sinusitis (Antibiotic Treatment) Prescriptions: New azithromycin [azithromycin] 250 mg tablet 250 mg PO DAILY Qty: 4 0RF fluticasone propionate [Flonase Allergy Relief] 50 mcg/actuation spray,suspension 1 spray intranasal DAILY Qty: 16 0RF Rx Instructions: administer into each nostril No Action aspirin [Adult Low Dose Aspirin] 81 mg tablet,delayed release (DR/EC) 81 mg PO DAILY glimepiride 2 mg tablet 2 mg PO DAILY amlodipine 5 MG tablet 10 mg PO DAILY Label Comments: blood pressure quinapril 40 MG tablet 20 mg PO BID Label Comments: blood pressure lovastatin 20 MG tablet 20 mg PO LUNCH Label Comments: cholesterol multivitamin 1 EACH tablet 1 ea PO DAILY cyanocobalamin (vitamin B-12) 500 MCG tablet 1,000 mcg PO DAILY@0800 potassium gluconate 2.5 MEQ tablet 2.5 meq PO DAILY Rx Instructions: potassium gluconate 595 eculizumab 300 MG/30 ML solution 300 mg IV QMONTH Rx Instructions: every 2 weeks hydrochlorothiazide [Microzide] 12.5 mg Capsule 25 mg PO DAILY labetalol 100 mg tablet 300 mg PO BID Rx Instructions: For SBP > 160 acetaminophen [Tylenol 8 Hour] 650 mg tablet extended release 650 mg PO Q8H PRN (Reason: headache) Qty: 14 0RF hydrocodone-acetaminophen 7.5-325 mg tablet Label Comments: take 1 tablet by mouth twice a day for 28 DAYS buprenorphine 5 mcg/hour patch weekly Label Comments: apply TRANSDERMALLY every 7 days for 28 DAYS Primary Care Provider: Iram Russell Referrals: Iram Russell, PA [Primary Care Provider] - 5-7 Days Disposition Disposition: Home, Self Care
[2022-09-30] MEDS: Azithromycin 250 MG Tablet 500 MG PO (11:39)
== END 2022-09-30 11:53 | disposition home or self-care (01) ==
PROVIDERS: Emergency Provider Emergency Medicine; PCP Physician Assistant; Visit Provider Emergency Medicine
DX: J01.90 Acute sinusitis, unspecified (principal); E11.9 Type 2 diabetes mellitus without complications; R51.9 Headache, unspecified; E78.00 Pure hypercholesterolemia, unspecified; I10 Essential (primary) hypertension
CPT/HCPCS: 99283

== ENCOUNTER 2023-07-05 13:10 | Emergency (ER) | payer MEDICARE, SELFPAY ==
[2023-07-05 13:11] VITALS: BP 166/72; PULSE 59; RESP 16; TEMP 36.1; O2SAT 96
--- NOTE | 2023-07-05 13:27 | EX.ED.DYSGE1 ---
HPI <HAMMAD Lilly - Last Filed: 07/05/23 14:32> History of Present Illness Chief Complaint: Abn Labs Narrative Narrative: 83-year-old male states he had labs drawn yesterday because he has had months of feeling tired and decreased appetite. Today his PCP called and sent him in for low blood counts. He is not aware of the exact results. He states he has had intermittent diarrhea over the last few months which occasionally looks black. Last BM was 2 days ago. He is on aspirin 81 mg, no blood thinners. He has decreased appetite but no nausea, vomiting, or abdominal pain. He has had a 25 pound weight loss over the last year. Reports a normal colonoscopy about 10 years ago. PFS <HAMMAD Lilly - Last Filed: 07/05/23 14:32> [facility] Medical History Arthritis back problems Cancer of kidney Carpal tunnel syndrome Diabetes Diarrhea Fatigue Frequent headaches Hearing problem High cholesterol Hives HTN (hypertension) Iatrogenic adrenal insufficiency Incontinence Kidney disease Knee pain Migraines Myasthenia gravis Pneumonia prostate issues Shoulder pain Vision problems Home Medications amlodipine 5 mg tablet 10 mg PO DAILY BP 11/30/15 [History Last Taken 06/21/19 08:00] lovastatin 20 mg tablet 20 mg PO LUNCH CHOLESTEROL 11/30/15 [History Last Taken 06/20/19] quinapril 40 mg tablet 20 mg PO BID BP 11/30/15 [History Last Taken 06/21/19 08:00] cyanocobalamin (vitamin B-12) 500 mcg tablet 1,000 mcg PO DAILY@0800 supplement 06/21/19 [History Last Taken 06/21/19 08:00] multivitamin 1 ea PO DAILY supplement 06/21/19 [History Last Taken 06/21/19 08:00] potassium gluconate 2.5 mEq tablet 2.5 meq PO DAILY supplement 06/21/19 [History Last Taken 06/21/19 08:00] eculizumab 300 mg/30 mL intravenous solution 300 mg IV QMONTH 09/13/20 [History Last Taken Unknown] aspirin 81 mg tablet,delayed release (Adult Low Dose Aspirin) 81 mg PO DAILY 01/05/21 [History Last Taken Unknown] glimepiride 2 mg tablet 2 mg PO DAILY 01/05/21 [History Last Taken Unknown] hydrochlorothiazide 12.5 mg capsule 25 mg PO DAILY 02/01/21 [History Last Taken Unknown] labetalol 100 mg tablet 300 mg PO BID 04/12/21 [History Last Taken Unknown] acetaminophen 650 mg tablet,extended release (Tylenol 8 Hour) 650 mg PO Q8H PRN headache #14 tabs 12/14/21 [Rx Last Taken Unknown] azithromycin 250 mg tablet 250 mg PO DAILY #4 TABLETS 09/30/22 [Rx Last Taken Unknown] buprenorphine 5 mcg/hour weekly transdermal patch 09/30/22 [History Last Taken Unknown] fluticasone propionate 50 mcg/actuation nasal spray,suspension (Flonase Allergy Relief) 1 spray intranasal DAILY #16 grams 09/30/22 [Rx Last Taken Unknown] hydrocodone 7.5 mg-acetaminophen 325 mg tablet tab 09/30/22 [History Last Taken Unknown] Allergy/AdvReac Type Severity Reaction Status Date / Time Penicillins Allergy Hives Verified 07/05/23 13:12 Family History Mother Heart disease Myocardial infarction Other Cancer Surgical History History of hemorrhoidectomy History of partial nephrectomy History of thyroid surgery History of total left knee replacement Social History Smoking Status: Never smoker alcohol intake: never ROS <HAMMAD Lilly - Last Filed: 07/05/23 14:32> ROS ED ROS Narrative Constitutional: Negative for fever, chills, malaise. CVS: Negative for chest pain. Respiratory: Negative for shortness of breath. GI: Positive for diarrhea, melena. Negative for abdominal pain, nausea, vomiting. : Negative for dysuria, hematuria. EXAM <HAMMAD Lilly - Last Filed: 07/05/23 14:32> Physical Exam Narrative Exam Narrative: CONST: Patient sitting in no acute distress. EYES: Normal inspection. NECK: Normal inspection. RESP: No respiratory distress, CTAB. CVS: Regular rate and rhythm, no murmur, no gallop. ABD: Soft and nontender, no guarding or rebound, nondistended. LUCIANO: Normal external exam, medium brown/yellow stool. SKIN: Color normal, no rash, warm, dry, intact. EXTREMITIES: Congenital absence of left arm, no pedal edema. NEURO: Oriented x4. PSYCH: Normal affect. Const Vital Signs: 07/05/23 13:11 07/05/23 14:00 Temperature 96.9 F L Temperature Source Temporal Pulse Rate 59 L Respiratory Rate 16 Respiratory Pattern Normal Blood Pressure 166/72 H Blood Pressure Mean 103 Pulse Ox 96 Oxygen Delivery Method Room Air <Jhony Wiley MD - Last Filed: 07/05/23 14:41> Physical Exam Const Vital Signs: 07/05/23 13:11 07/05/23 14:00 Temperature 96.9 F L Temperature Source Temporal Pulse Rate 59 L Respiratory Rate 16 Respiratory Pattern Normal Blood Pressure 166/72 H Blood Pressure Mean 103 Pulse Ox 96 Oxygen Delivery Method Room Air MDM <HAMMAD Lilly - Last Filed: 07/05/23 14:32> [facility] MDM Narrative Medical decision making narrative: History gathered from: Patient and niece Patient was sent in for abnormal outpatient labs with low blood counts. He reports history of intermittent diarrhea, melena, and weight loss. He appears well and nontoxic and is afebrile with unremarkable vital signs. His exam is unremarkable and stool is brown/yellow and Hemoccult negative. Hemoglobin of 8.2 is stable from previous labs. White count is 8.0. BMP unremarkable with normal BUN/creatinine. I feel that the patient is stable to follow-up outpatient with GI as he is due for colonoscopy especially with new anemia. I recommended he stop ibuprofen as he has been taking this 3 times a day for joint pain. He is also on [place] for pain control. I discussed return precautions and he was discharged in stable condition. Differential: GI bleed, iron deficiency, anemia of chronic disease, colon neoplasm among others Lab Data Labs: Laboratory Results - last 24 hr 07/05/23 13:36 WBC 8.0 RBC 2.71 L Hgb 8.2 L Hct 25.8 L MCV 95.2 H MCH 30.3 MCHC 31.8 L RDW Std Deviation 68.3 H RDW Coeff of Rosemary 20.1 H Plt Count 232 MPV 8.9 Immature Gran % (Auto) 0.400 Neut % (Auto) 47.9 Lymph % (Auto) 34.2 Eddy % (Auto) 11.6 H Eos % (Auto) 4.9 Baso % (Auto) 1.0 Absolute Neuts (auto) 3.8 Absolute Lymphs (auto) 2.73 Nucleated RBC % 0 Anisocytosis 1+ Sodium 136 Potassium 4.3 Chloride 105 Carbon Dioxide 28.0 Anion Gap 3 L BUN 17 Creatinine 0.84 Est GFR (MDRD) Af Amer 111 Est GFR (MDRD) Non-Af 92 BUN/Creatinine Ratio 20.1 H Glucose 117 H Calcium 8.5 <Jhony Wiley MD - Last Filed: 07/05/23 14:41> [facility] MDM Narrative Medical decision making narrative: History gathered from: Patient and niece Patient was sent in for abnormal outpatient labs with low blood counts. He reports history of intermittent diarrhea, melena, and weight loss. He appears well and nontoxic and is afebrile with unremarkable vital signs. His exam is unremarkable and stool is brown/yellow and Hemoccult negative. Hemoglobin of 8.2 is stable from previous labs. White count is 8.0. BMP unremarkable with normal BUN/creatinine. I feel that the patient is stable to follow-up outpatient with GI as he is due for colonoscopy especially with new anemia. I recommended he stop ibuprofen as he has been taking this 3 times a day for joint pain. He is also on [place] for pain control. I discussed return precautions and he was discharged in stable condition. Differential: GI bleed, iron deficiency, anemia of chronic disease, colon neoplasm among others Dr. Wiley: I have personally performed a face to face assessment of the patient and have reviewed the LUPE Note. I performed a substantive portion of the visit including all aspects of the following. My chan findings include: History is sent by primary care provider for decrease in hemoglobin, fatigue and tiredness times months. Exam is afebrile. Vital signs noted. Regular rate and rhythm. Lungs clear to auscultation bilaterally. Abdomen soft and nontender with normal active bowel sounds. Awake, alert, hard of hearing. Medical Decision Making: Reviewed outpatient labs. Repeat labs in emergency department were reviewed, hemoglobin 8.2. I do not feel he requires transfusion. Hemoccult is negative for blood. This point in time, I do not feel that he would benefit from observation or admission. Stop use of NSAIDs, follow-up with gastroenterology and primary care provider. Return instructions reviewed. Disposition is discharged home in stable condition. Other additions or changes: [None] History & Record Review Additional record(s) reviewed:: Prior ED visit and Prior labs Lab Data Attestation: I reviewed the patient's lab results. Labs: Laboratory Results - last 24 hr 07/05/23 13:36 WBC 8.0 RBC 2.71 L Hgb 8.2 L Hct 25.8 L MCV 95.2 H MCH 30.3 MCHC 31.8 L RDW Std Deviation 68.3 H RDW Coeff of Rosemary 20.1 H Plt Count 232 MPV 8.9 Immature Gran % (Auto) 0.400 Neut % (Auto) 47.9 Lymph % (Auto) 34.2 Eddy % (Auto) 11.6 H Eos % (Auto) 4.9 Baso % (Auto) 1.0 Absolute Neuts (auto) 3.8 Absolute Lymphs (auto) 2.73 Nucleated RBC % 0 Anisocytosis 1+ Sodium 136 Potassium 4.3 Chloride 105 Carbon Dioxide 28.0 Anion Gap 3 L BUN 17 Creatinine 0.84 Est GFR (MDRD) Af Amer 111 Est GFR (MDRD) Non-Af 92 BUN/Creatinine Ratio 20.1 H Glucose 117 H Calcium 8.5 Discharge Plan Triage Chief Complaint: Abn Labs ED Midlevel Provider: Stefanie Nobles ED Provider: Jhony Wiley Dx/Rx/DC Orders Clinical Impression: Anemia Instructions: Anemia Prescriptions: No Action aspirin [Adult Low Dose Aspirin] 81 mg tablet,delayed release (DR/EC) 81 mg PO DAILY glimepiride 2 mg tablet 2 mg PO DAILY amlodipine 5 MG tablet 10 mg PO DAILY Patient Comments: blood pressure quinapril 40 MG tablet 20 mg PO BID Patient Comments: blood pressure lovastatin 20 MG tablet 20 mg PO LUNCH Patient Comments: cholesterol multivitamin 1 EACH tablet 1 ea PO DAILY cyanocobalamin (vitamin B-12) 500 MCG tablet 1,000 mcg PO DAILY@0800 potassium gluconate 2.5 MEQ tablet 2.5 meq PO DAILY Rx Instructions: potassium gluconate 595 eculizumab 300 MG/30 ML solution 300 mg IV QMONTH Rx Instructions: every 2 weeks hydrochlorothiazide [Microzide] 12.5 mg Capsule 25 mg PO DAILY labetalol 100 mg tablet 300 mg PO BID Rx Instructions: For SBP > 160 acetaminophen [Tylenol 8 Hour] 650 mg tablet extended release 650 mg PO Q8H PRN (Reason: headache) Qty: 14 0RF hydrocodone-acetaminophen 7.5-325 mg tablet Patient Comments: take 1 tablet by mouth twice a day for 28 DAYS buprenorphine 5 mcg/hour patch weekly Patient Comments: apply TRANSDERMALLY every 7 days for 28 DAYS azithromycin [azithromycin] 250 mg tablet 250 mg PO DAILY Qty: 4 0RF fluticasone propionate [Flonase Allergy Relief] 50 mcg/actuation spray,suspension 1 spray intranasal DAILY Qty: 16 0RF Rx Instructions: administer into each nostril Primary Care Provider: Iram Russell Referrals: Aquilino De La Garza DO [Med Staff - Active Staff] - Iram Russell, PA [Primary Care Provider] - Activity Restrictions/Additional Instructions: STOP TAKING IBUPROFEN. With [place] you can take 1 Tylenol 500 mg tablet twice a day. Call the GI doctor for an appointment. If your symptoms worsen in the meantime you have a significant increase in dark stool or weakness return to the ER. Disposition Disposition: Home, Self Care
[2023-07-05 13:46] LABS: Absolute Lymphocyte Count 2.73 X10^3/uL (0.83-4.51); Absolute Neutrophil Count 3.8 X10^3/uL (2.0-7.7); Basophil# 0.08 X10^3/uL; Differential Indicated SCAN CRITERIA MET; Eosinophil# 0.39 X10^3/uL; Eosinophils% 4.9 % (0-5); Hematocrit 25.8 % (40-54); Hemoglobin 8.2 g/dL (13.0-16.5); Lymphocyte # 2.73 X10^3/ul (0.83-4.51); Lymphocyte % 34.2 % (19-41); Mean Corp Hgb Conc 31.8 g/dL (32-36); Mean Corpuscular Hgb 30.3 pg (27.0-32.0); Mean Corpuscular Volume 95.2 fL (80-94); Mean Platelet Vol. 8.9 fl (6.2-12.0); Monocyte# 0.93 X10^3/uL; Monocyte% 11.6 % (0-10); NRBC Flagged by Analyzer 0 % (0-5); Neutrophil # 3.83 X10^3/uL (2.7-7.7); Neutrophil % 47.9 % (47-70); POSITIVE MORPHOLOGY YES; Platelet Count 232 K/mm3 (150-450); RBC Distribution Width CV 20.1 % (11.6-14.6); RBC Distribution Width SD 68.3 fl (35.1-43.9); Red Blood Count 2.71 M/mm3 (4.6-6.2)
[2023-07-05 13:59] LABS: Anion Gap 3 (5-15); BUN 17 mg/dL (7-18); BUN/Creat Ratio 20.1 RATIO (10-20); Calcium,Total 8.5 mg/dL (8.5-10.1); Chloride 105 mmol/L (98-107); Creatinine, Serum 0.84 mg/dL (0.70-1.30); EST Glomerular Filtration Rate 92 mL/min (>60); Est Glom Filt Rate - Afr Amer 111 mL/min (>60); Glucose 117 mg/dL (74-106); Potassium 4.3 mmol/L (3.5-5.1); Sodium Level 136 mmol/L (136-145)
[2023-07-05 14:14] LABS: Anisocytosis 1+
[2023-07-05 14:45] VITALS: RESP 16
== END 2023-07-05 14:46 | disposition home or self-care (01) ==
PROVIDERS: Physician Assistant; Emergency Provider Emergency Medicine; PCP Physician Assistant; Visit Provider Emergency Medicine
DX: D64.9 Anemia, unspecified (principal); G70.00 Myasthenia gravis without (acute) exacerbation; E11.9 Type 2 diabetes mellitus without complications; I10 Essential (primary) hypertension; E78.00 Pure hypercholesterolemia, unspecified; Z79.82 Long term (current) use of aspirin; Z79.899 Other long term (current) drug therapy; Z90.5 Acquired absence of kidney; Z96.652 Presence of left artificial knee joint
CPT/HCPCS: 80048; 82274; 85025; 99283; A4216

== ENCOUNTER 2023-08-06 20:56 | Inpatient (IN) | payer MEDICARE, SELFPAY ==
[2023-08-06 20:59] VITALS: BP 143/82; PULSE 102; RESP 19; TEMP 36.2; O2SAT 97
[2023-08-06 21:02] VITALS: BP 157/99; PULSE 119; RESP 34; TEMP 36.3; O2SAT 95
--- NOTE | 2023-08-06 21:12 | EKG12_ITS ---
Test Reason : CP Blood Pressure : / mmHG Vent. Rate : 112 BPM Atrial Rate : 112 BPM P-R Int : 140 ms QRS Dur : 154 ms QT Int : 402 ms P-R-T Axes : 046 -67 079 degrees QTc Int : 548 ms Sinus tachycardia with occasional Premature ventricular complexes Right bundle branch block Left anterior fascicular block Bifascicular block Septal infarct , age undetermined Abnormal ECG Confirmed by MALATHI PEREIRA, RE ([id number]), communications editor HERSON LINDQUIST ([id number]) on 08/08/2023 12:12:29 PM Referred By: OSCAR Confirmed By:RE SERVIN MD
[2023-08-06] MEDS: Aspirin 81 MG TAB.CHEW 324 MG PO (21:20)
[2023-08-06 21:32] VITALS: BP 150/103; PULSE 113; RESP 36; TEMP 36.4; O2SAT 94
--- NOTE | 2023-08-06 21:32 | RAD_ITS ---
INDICATION: chest pain EXAMINATION: Frontal view of the chest COMPARISON: None. FINDINGS: Frontal view of the chest was obtained. Suboptimal inspiration which crowds the bronchovascular markings. The cardiac silhouette is borderline enlarged. Mild opacities in the lower lungs bilaterally. Possible small left pleural effusion. No pneumothorax. Degenerative changes of the right shoulder. High riding right humeral head suggestive of chronic rotator cuff tear. No acute fracture identified. RAD/Chest 1 View (Portable) IMPRESSION: Mild opacities in the lower lungs bilaterally most likely represent atelectasis. Mild infection or aspiration are less likely. Possible small left pleural effusion. Electronically Signed: Roshan Burkett MD at 22:19 EST ,
[2023-08-06 21:40] LABS: Absolute Lymphocyte Count 2.86 X10^3/uL (0.83-4.51); Absolute Neutrophil Count 7.6 X10^3/uL (2.0-7.7); Basophil# 0.06 X10^3/uL; Basophil% 0.5 % (0-1); Eosinophil# 0.48 X10^3/uL; Eosinophils% 3.9 % (0-5); Hematocrit 24.3 % (40-54); Hemoglobin 7.6 g/dL (13.0-16.5); Lymphocyte # 2.86 X10^3/ul (0.83-4.51); Mean Corp Hgb Conc 31.3 g/dL (32-36); Mean Corpuscular Hgb 29.8 pg (27.0-32.0); Mean Corpuscular Volume 95.3 fL (80-94); Mean Platelet Vol. 9.9 fl (6.2-12.0); Monocyte# 1.37 X10^3/uL; NRBC Flagged by Analyzer 0 % (0-5); Neutrophil # 7.61 X10^3/uL (2.7-7.7); Neutrophil % 61.1 % (47-70); POSITIVE MORPHOLOGY YES; Platelet Count 277 K/mm3 (150-450); RBC Distribution Width CV 22.5 % (11.6-14.6); RBC Distribution Width SD 74.9 fl (35.1-43.9); Red Blood Count 2.55 M/mm3 (4.6-6.2); White Blood Count 12.4 K/mm3 (4.4-11.0)
[2023-08-06 21:43] VITALS: BMI 25.7
[2023-08-06 21:55] LABS: Anion Gap 3 (5-15); BUN 18 mg/dL (7-18); BUN/Creat Ratio 18.5 RATIO (10-20); Calcium,Total 8.7 mg/dL (8.5-10.1); Chloride 106 mmol/L (98-107); Creatinine, Serum 0.97 mg/dL (0.70-1.30); EST Glomerular Filtration Rate 78 mL/min (>60); Est Glom Filt Rate - Afr Amer 95 mL/min (>60); Estimated Creatinine Clearance 58.53 ml/min; Glucose 165 mg/dL (74-106); Potassium 4.1 mmol/L (3.5-5.1); Sodium Level 137 mmol/L (136-145); Troponin-I HS 79 pg/mL (3.0-78.0)
[2023-08-06 22:00] VITALS: BP 151/86; PULSE 116; RESP 30; TEMP 36.4; O2SAT 95
[2023-08-06 22:04] LABS: Differential Indicated SCAN CRITERIA MET
[2023-08-06] MEDS: Ondansetron 4 MG/2 ML Vial IV (22:05)
[2023-08-06 22:06] LABS: Anisocytosis 1+; Hypochromasia RARE; Macrocytosis 1+; Platelet Estimate ADEQUATE (ADEQ); Red Cell Morphology N CHROM NORMAL (NORM C&C)
--- NOTE | 2023-08-06 22:15 | ED.VIS.CHEST ---
HPI History of Present Illness Chief Complaint: Chest Pain Narrative Narrative: 83-year-old male with acute onset shortness of breath, chest pain, nausea. States this started about 4 hours ago. He relates that he recently had low hemoglobins and was checked and found to be Hemoccult negative. He had blood work done and was referred to the ER for low hemoglobin and ultimately discharged home. He has a CT ordered as an outpatient as there is no etiology as to his hemoglobin dropping. Patient denies black or bloody stools or black or bloody emesis. He states that he was fine other than up to 4 hours ago. Denies cardiac history. He does state that he is significantly short of breath. He is diaphoretic which is new. No history of gastric ulcers or peptic ulcer disease. No history of GERD. [facility] Medical History Arthritis back problems Cancer of kidney Carpal tunnel syndrome Diabetes Diarrhea Fatigue Frequent headaches Hearing problem High cholesterol Hives HTN (hypertension) Iatrogenic adrenal insufficiency Incontinence Kidney disease Knee pain Migraines Myasthenia gravis Pneumonia prostate issues Shoulder pain Skin cancer Vision problems Home Medications amlodipine 5 mg tablet 10 mg PO DAILY BP 11/30/15 [History Last Taken 06/21/19 08:00] lovastatin 20 mg tablet 20 mg PO LUNCH CHOLESTEROL 11/30/15 [History Last Taken 06/20/19] quinapril 40 mg tablet 20 mg PO BID BP 11/30/15 [History Last Taken 06/21/19 08:00] cyanocobalamin (vitamin B-12) 500 mcg tablet 1,000 mcg PO DAILY@0800 supplement 06/21/19 [History Last Taken 06/21/19 08:00] multivitamin 1 ea PO DAILY supplement 06/21/19 [History Last Taken 06/21/19 08:00] eculizumab 300 mg/30 mL intravenous solution 300 mg IV QMONTH 09/13/20 [History Last Taken Unknown] aspirin 81 mg tablet,delayed release (Adult Low Dose Aspirin) 81 mg PO DAILY 01/05/21 [History Last Taken Unknown] glimepiride 2 mg tablet 2 mg PO DAILY 01/05/21 [History Last Taken Unknown] labetalol 100 mg tablet 300 mg PO BID 04/12/21 [History Last Taken Unknown] acetaminophen 650 mg tablet,extended release (Tylenol 8 Hour) 650 mg PO Q8H PRN headache #14 tabs 12/14/21 [Rx Last Taken Unknown] buprenorphine 5 mcg/hour weekly transdermal patch 1 patch transdermal Q7D 09/30/22 [History Last Taken Unknown] fosinopril 20 mg tablet mg 08/06/23 [History Last Taken Unknown] glucosamine-chondroitin 250 mg-200 mg tablet (Osteo Bi-Flex) 2 tab PO DAILY 08/06/23 [History Last Taken Unknown] polyethylene glycol 3350 17 gram oral powder packet (Miralax) 17 g PO DAILY 08/06/23 [History Last Taken Unknown] Allergy/AdvReac Type Severity Reaction Status Date / Time Penicillins Allergy Hives Verified 08/06/23 20:59 Family History Mother Heart disease Myocardial infarction Other Cancer Surgical History History of hemorrhoidectomy History of partial nephrectomy History of thyroid surgery History of total left knee replacement Social History Smoking Status: Never smoker alcohol intake: never ROS ROS ED Constitutional Constitutional ED: Reports sweats; Denies fever(s) Eyes Eyes: Denies blurry vision or change in vision ENT ENT ED: Denies rhinorrhea or sore throat Cardiovascular Cardiovascular: Reports as per HPI Respiratory/Chest Respiratory/Chest: Reports dyspnea; Denies cough Gastrointestinal Gastrointestinal: Reports abdominal pain and nausea Genitourinary Genitourinary ED: Denies dysuria or hematuria Musculoskeletal Musculoskeletal: Denies arthralgias or back pain Integumentary Denies abscess Neurologic Neurologic: Reports headache(s); Denies paresthesias or weakness Psychiatric Psychiatric: Denies anxiety or depression EXAM Physical Exam Const Vital Signs: 08/06/23 20:59 08/06/23 21:32 08/06/23 21:48 Temperature 97.1 F L 97.5 F L Temperature Source Temporal Oral Pulse Rate 102 H 113 H Respiratory Rate 19 H 36 H Blood Pressure 143/82 H 150/103 H Blood Pressure Mean 102 118 Pulse Ox 97 94 Oxygen Delivery Method Room Air Nasal Cannula Nasal Cannula Oxygen Flow Rate (L/min) 2 4 08/06/23 21:02 08/06/23 22:00 08/06/23 23:00 Temperature 97.4 F L 97.5 F L 97.6 F L Temperature Source Oral Oral Oral Pulse Rate 119 H 116 H 114 H Respiratory Rate 34 H 30 H 29 H Blood Pressure 157/99 H 151/86 H 123/82 H Blood Pressure Mean 118 107 95 Pulse Ox 95 95 97 Oxygen Delivery Method Nasal Cannula Nasal Cannula Nasal Cannula Oxygen Flow Rate (L/min) 4 4 4 08/07/23 00:00 Temperature 97.8 F Temperature Source Oral Pulse Rate 112 H Respiratory Rate 29 H Blood Pressure 133/85 H Blood Pressure Mean 101 Pulse Ox 98 Oxygen Delivery Method Nasal Cannula Oxygen Flow Rate (L/min) 4 Positive well nourished General Appearance ED: NAD HEENT Reports moist mucous membranes normocephalic and atraumatic Eyes PERRL General Eye ED: Yes pale conjunctiva Neck no lymphadenopathy Resp normal respiratory effort Auscultation: diminished lung sounds bilateral lower Cardio regular rhythm Rate: tachycardic GI normal to inspection, nondistended, normoactive bowel sounds GI Narrative: Mild epigastric tenderness. Neuro oriented x3 and CN's II-XII intact bilaterally MDM MDM MDM Narrative Medical decision making narrative: Chest pains also epigastric pain was found about 4 hours ago. He complains of shortness of breath. Differential includes pneumonia, PE, dehydration, electrolyte abnormalities, gastritis, GERD, peptic ulcer disease, anemia, GI bleed. CBC obtained to assess white blood cell count, hemoglobin, platelets. P to assess renal function, electrolytes. High-sensitivity troponin and EKG to assess for ischemia/dysrhythmia. EKG on my interpretation shows sinus tachycardia with occasional PVCs at a rate of 112 bpm. Right bundle branch block pattern noted. Chest x-ray on my interpretation shows lateral lower lobe atelectasis. Radiology interprets this and agrees. High-sensitivity troponin is 79. I did check a Hemoccult stool and this was positive today. We will obtain a delta troponin. The case was discussed with general surgery (Dr. Montesinos). She was comfortable managing the patient says he is not on any antiplatelet medication or blood thinners. She did recommend that if he had a positive CTA for PE or required anticoagulation of any sort that he be transferred. This was discussed with the family at length. Patient will be signed out to incoming ED physician for monitoring until delta troponin, LFTs and lipase return. Impression: 1. Chest pain 2. Epigastric pain 3. GI bleed 4. Acute blood loss anemia Lab Data Attestation: I reviewed the patient's lab results. Labs: Laboratory Results - last 24 hr 08/06/23 21:12 WBC 12.4 H RBC 2.55 L Hgb 7.6 L Hct 24.3 L MCV 95.3 H MCH 29.8 MCHC 31.3 L RDW Std Deviation 74.9 H RDW Coeff of Rosemary 22.5 H Plt Count 277 MPV 9.9 Immature Gran % (Auto) 0.500 Neut % (Auto) 61.1 Lymph % (Auto) 23.0 Mathews % (Auto) 11.0 H Eos % (Auto) 3.9 Baso % (Auto) 0.5 Absolute Neuts (auto) 7.6 Absolute Lymphs (auto) 2.86 Nucleated RBC % 0 Platelet Estimate ADEQUATE RBC Morphology N CHROM Hypochromasia RARE Anisocytosis 1+ Macrocytosis 1+ Sodium 137 Potassium 4.1 Chloride 106 Carbon Dioxide 28.0 Anion Gap 3 L BUN 18 Creatinine 0.97 Estim Creat Clear Calc 58.53 Est GFR (MDRD) Af Amer 95 Est GFR (MDRD) Non-Af 78 BUN/Creatinine Ratio 18.5 Glucose 165 H Calcium 8.7 Troponin I High Sens 79 H Radiography Diagnostic Testing: Clinical Impression(s) from Imaging Studies Chest X-Ray 08/06/23 21:32 IMPRESSION: Mild opacities in the lower lungs bilaterally most likely represent atelectasis. Mild infection or aspiration are less likely. Possible small left pleural effusion. Electronically Signed: Roshan Burkett MD at 22:19 EST , Discharge Plan Triage Chief Complaint: Chest Pain ED Provider: Morgan Miranda Dx/Rx/DC Orders Prescriptions: No Action aspirin [Adult Low Dose Aspirin] 81 mg tablet,delayed release (DR/EC) 81 mg PO DAILY glimepiride 2 mg tablet 2 mg PO DAILY amlodipine 5 MG tablet 10 mg PO DAILY Patient Comments: blood pressure quinapril 40 MG tablet 20 mg PO BID Patient Comments: blood pressure lovastatin 20 MG tablet 20 mg PO LUNCH Patient Comments: cholesterol multivitamin 1 EACH tablet 1 ea PO DAILY cyanocobalamin (vitamin B-12) 500 MCG tablet 1,000 mcg PO DAILY@0800 eculizumab 300 MG/30 ML solution 300 mg IV QMONTH Rx Instructions: every 2 weeks labetalol 100 mg tablet 300 mg PO BID Rx Instructions: For SBP > 160 acetaminophen [Tylenol 8 Hour] 650 mg tablet extended release 650 mg PO Q8H PRN (Reason: headache) Qty: 14 0RF buprenorphine 5 mcg/hour patch weekly 1 patch transdermal Q7D Patient Comments: apply TRANSDERMALLY every 7 days, changes on tuesday polyethylene glycol 3350 [Miralax] 17 gram powder in packet 17 g PO DAILY glucosamine-chondroitin [Osteo Bi-Flex] 250-200 mg tablet 2 tab PO DAILY Rx Instructions: give after food/meal fosinopril 20 mg tablet Primary Care Provider: Iram Russell Referrals: Iram Russell PA [Primary Care Provider] -
--- NOTE | 2023-08-06 22:18 | CT_ITS ---
EXAM: CT pulmonary angiogram. HISTORY: chest pain/abdominal pain TECHNIQUE: CTA Chest WO/W Contrast Injection A radiation dose optimization technique was used for this scan. Multiplanar reconstructions were obtained. 3-D postprocessing was performed. COMPARISON: Noncontrast CT chest June 21, 2019. LIMITATIONS: Motion artifact. LUNGS: Atelectasis in the lower lobes bilaterally associated with the pleural effusions. Possible mild pulmonary vascular congestion. Atelectasis/scarring in the lingula. No confluent airspace disease. PULMONARY VESSELS: No pulmonary emboli identified. PLEURA: Normal. MEDIASTINUM: Calcified mediastinal lymph nodes are evidence of prior granulomatous disease as before. Mildly enlarged noncalcified retrocrural lymph nodes are new. HEART: Borderline enlarged. Extensive coronary artery calcifications. AORTA: No thoracic aortic aneurysm or dissection. UPPER ABDOMEN: The spleen is partially visualized, but is enlarged measuring 17 cm in anterior posterior dimension, increased from the prior exam. BONES/SOFT TISSUES: No acute fracture. OTHER: A 5.5 x 3.5 cm mass arises from the left lobe of the thyroid gland, mildly increased in size. CONCLUSION: Motion artifact limits evaluation. No pulmonary emboli identified. Small bilateral pleural effusions. Mild retrocrural lymphadenopathy, new. Splenomegaly, increased since the prior exam. 5.5 x 3.5 cm thyroid mass, mildly increased. Electronically Signed: Roshan Burkett MD at 0:51 EST , CT/CTA Chest W/WO Contrast IMPRESSION: undefined
[2023-08-06] MEDS: 0.9% Normal Saline (1000mL) 1,000 ML 999 ML IV (22:21)
[2023-08-06] MEDS: Morphine 4 MG/ML Syringe IV (22:24)
[2023-08-06 23:00] VITALS: BP 123/82; PULSE 114; RESP 29; TEMP 36.4; O2SAT 97
[2023-08-06] MEDS: Pantoprazole Sodium 80 MG in 0.9% Normal Saline (50mL Bag) 15 ML 420 MG IV BOLUS (23:07)
[2023-08-06] MEDS: Pantoprazole Sodium 80 MG in 0.9% Normal Saline (100mL Bag) 80 ML 10 MG CONT INF (23:36)
[2023-08-07] VITALS (17 sets, daily range): BP systolic 90–142; BP diastolic 50–88; PULSE 81–113; RESP 21–32; TEMP 36.3–36.6; O2SAT 92–99; BMI 27.6
[2023-08-07 01:19] LABS: AST(SGOT) 43 U/L (15-37); Alanine Aminotransfer ALT/SGPT 18 U/L (16-61); Albumin, Serum 3.2 g/dL (3.2-5.0); Alkaline Phosphatase 117 U/L (45-117); Bilirubin, Direct 0.65 mg/dL (0.00-0.30); Globulin 3.2 g/dL (2.2-4.2); Lipase 11 U/L (13-75); Protein, Total 6.4 g/dL (6.4-8.2); Troponin-I HS 404 pg/mL (3.0-78.0)
--- NOTE | 2023-08-07 02:33 | PCM.HP.STD ---
[facility] - General General Date of Admission: 08/07/23 Date of Service: 08/07/23 Chief Complaint: Chest pain, shortness of breath and diaphoresis. 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 Tanner on August 17, 2023 who presents to [facility] ER complaining of chest pain, shortness of breath and diaphoresis. Mr. Goodman reports his symptoms began approximately 4 hours prior to arrival with the abrupt onset of chest pain that occurred at rest and was substernal, pressure-like, ronsarii-wa-tiotao, nonradiating and with nothing making the pain better or worse. He also admits to diaphoresis, epigastric tenderness to palpation and severe fatigue but he denies a previous history of known coronary artery disease, GERD, gastric ulcers or peptic ulcer disease. However, his records do show previous evidence of hemorrhoidectomy. He denies associated fever, chills, vomiting, blood in stools or any other obvious blood loss but he does admit to nausea with generalized, cramping abdominal pain most pronounced in the epigastrium with a frontal tension-type headache and he states he is only on aspirin and not on any full anticoagulation. His niece, Americo, ([phone]) was present at the bedside and helped to augment the history and she is would like to be updated with any acute status changes and she is available to answer any other questions that may arise. In the ER he was diagnosed with non-ST elevation WA evidenced by an initial elevated troponin of 79 ng/mL rising to 404 ng/mL on the second check complicated by EKG evidence of a new right bundle branch /bifascicular block with a hemoglobin of 7.6 g/dL and Hemoccult positive stools in the ER along with a CT scan questionable for new splenomegaly so the ER physician spoke to the GI specialist on-call Dr. De Dios, who recommended admission to the hospitalist service with plans for endoscopy in the a.m. with help appreciated in advance. He was then ordered 2 units of packed red blood cells by the ER and then admitted to the PCU for ongoing care for stay that is expected to be greater than 48 hours. [facility] Medical History Arthritis back problems Cancer of kidney Carpal tunnel syndrome Diabetes Diarrhea Fatigue Frequent headaches Hearing problem High cholesterol Hives HTN (hypertension) Iatrogenic adrenal insufficiency Incontinence Kidney disease Knee pain Migraines Myasthenia gravis Pneumonia prostate issues Shoulder pain Skin cancer Vision problems Home Medications amlodipine 5 mg tablet 10 mg PO DAILY BP 11/30/15 [History Last Taken 06/21/19 08:00] lovastatin 20 mg tablet 20 mg PO LUNCH CHOLESTEROL 11/30/15 [History Last Taken 06/20/19] quinapril 40 mg tablet 20 mg PO BID BP 11/30/15 [History Last Taken 06/21/19 08:00] cyanocobalamin (vitamin B-12) 500 mcg tablet 1,000 mcg PO DAILY@0800 supplement 06/21/19 [History Last Taken 06/21/19 08:00] multivitamin 1 ea PO DAILY supplement 06/21/19 [History Last Taken 06/21/19 08:00] eculizumab 300 mg/30 mL intravenous solution 300 mg IV QMONTH 09/13/20 [History Last Taken Unknown] aspirin 81 mg tablet,delayed release (Adult Low Dose Aspirin) 81 mg PO DAILY 01/05/21 [History Last Taken Unknown] glimepiride 2 mg tablet 2 mg PO DAILY 01/05/21 [History Last Taken Unknown] labetalol 100 mg tablet 300 mg PO BID 04/12/21 [History Last Taken Unknown] acetaminophen 650 mg tablet,extended release (Tylenol 8 Hour) 650 mg PO Q8H PRN headache #14 tabs 12/14/21 [Rx Last Taken Unknown] buprenorphine 5 mcg/hour weekly transdermal patch 1 patch transdermal Q7D 09/30/22 [History Last Taken Unknown] fosinopril 20 mg tablet mg 08/06/23 [History Last Taken Unknown] glucosamine-chondroitin 250 mg-200 mg tablet (Osteo Bi-Flex) 2 tab PO DAILY 08/06/23 [History Last Taken Unknown] polyethylene glycol 3350 17 gram oral powder packet (Miralax) 17 g PO DAILY 08/06/23 [History Last Taken Unknown] Allergy/AdvReac Type Severity Reaction Status Date / Time Penicillins Allergy Hives Verified 08/06/23 20:59 Family History Mother Heart disease Myocardial infarction Other Cancer Surgical History History of hemorrhoidectomy History of partial nephrectomy History of thyroid surgery History of total left knee replacement Social History Smoking Status: Never smoker alcohol intake: never ROS ROS Narrative Review of systems: Constitutional: Patient admits to diaphoresis and generalized fatigue. Eyes: Patient denies visual changes. ENT: Patient denies runny nose or sore throat. Cardiovascular: Patient admits to chest pain as noted above in HPI. Respiratory: Patient does admit to shortness of breath but denies cough. Gastrointestinal: Patient does admit to abdominal pain and nausea. Urinary: Patient denies dysuria, hematuria or urinary frequency. Musculoskeletal: Patient denies arthralgias, neck pain or back pain. Integumentary: Patient denies abscess or rash. Neurologic: Patient admits to frontal tension-type headache as noted per HPI but denies focal neurologic deficits. Allergic: Patient denies urticaria, lip swelling or tongue swelling. Hematologic: Patient denies easy bruisability or easy bleeding. Psychiatric: Patient denies depression or anxiety. 14 point review of systems otherwise negative except for positives noted above in HPI. Vital Signs Vital Signs Vital Signs: 08/06/23 20:59 08/06/23 21:32 08/06/23 21:48 Temperature 97.1 F L 97.5 F L Temperature Source Temporal Oral Pulse Rate 102 H 113 H Respiratory Rate 19 H 36 H Blood Pressure 143/82 H 150/103 H Blood Pressure Mean 102 118 Pulse Ox 97 94 Oxygen Delivery Method Room Air Nasal Cannula Nasal Cannula Oxygen Flow Rate (L/min) 2 4 08/06/23 21:02 08/06/23 22:00 08/06/23 23:00 Temperature 97.4 F L 97.5 F L 97.6 F L Temperature Source Oral Oral Oral Pulse Rate 119 H 116 H 114 H Respiratory Rate 34 H 30 H 29 H Blood Pressure 157/99 H 151/86 H 123/82 H Blood Pressure Mean 118 107 95 Pulse Ox 95 95 97 Oxygen Delivery Method Nasal Cannula Nasal Cannula Nasal Cannula Oxygen Flow Rate (L/min) 4 4 4 08/07/23 00:00 08/07/23 01:00 Temperature 97.8 F Temperature Source Oral Pulse Rate 112 H 108 H Respiratory Rate 29 H 23 H Blood Pressure 133/85 H 128/80 H Blood Pressure Mean 101 96 Pulse Ox 98 99 Oxygen Delivery Method Nasal Cannula Nasal Cannula Oxygen Flow Rate (L/min) 4 4 Weight Weight: 179 lb 3.773 oz Body Mass Index (BMI) 25.7 Physical Exam Const alert, oriented x3, average body habitus and well nourished Constitutional Narrative: Mild discomfort noted with patient moderately hard of hearing. General Appearance: cooperative HEENT normocephalic HEENT Narrative: Patient has evidence of recent excision of a lesion over the lateral aspect of his left orbit that is healing well with no evidence of acute infection. Mouth: oral and palatal mucosa normal Eyes PERRL and EOMs intact bilaterally Eyes Narrative: Conjunctivae pale. Neck no lymphadenopathy, supple and no JVD Resp normal respiratory effort, no retractions, no use of accessory muscles and clear to auscultation bilaterally Cardio Cardio Narrative: Tachycardic and occasionally irregular. GI normal to inspection, nondistended, normoactive bowel sounds, soft to palpation and non-distended GI Narrative: Mild epigastric tenderness to palpation. Extremity normal to inspection, full ROM and no clubbing, cyanosis or edema Skin Skin Narrative: Patient has evidence of diaphoresis along with recent excision of a skin lesion on the lateral aspect of his left orbit with sutures still in place. Neuro oriented x3, CN's II-XII intact bilaterally, moves all extremities and no focal motor deficits Sensorium / Orientation: awake, alert, oriented to person, oriented to place and oriented to time Speech: speech normal Motor Exam: strength 5/5 throughout Psych affect normal Results Medical Records Data Attestation: I reviewed the patient's medical records Lab / Micro Data Attestation: I reviewed the patient's lab results. 08/06/23 21:12 08/06/23 21:12 Labs: Laboratory Results - last 24 hr 08/06/23 21:12: WBC 12.4 H, RBC 2.55 L, Hgb 7.6 L, Hct 24.3 L, MCV 95.3 H, MCH 29.8, MCHC 31.3 L, RDW Std Deviation 74.9 H, RDW Coeff of Rosemary 22.5 H, Plt Count 277, MPV 9.9, Immature Gran % (Auto) 0.500, Neut % (Auto) 61.1, Lymph % (Auto) 23.0, Cross % (Auto) 11.0 H, Eos % (Auto) 3.9, Baso % (Auto) 0.5, Absolute Neuts (auto) 7.6, Absolute Lymphs (auto) 2.86, Nucleated RBC % 0, Platelet Estimate ADEQUATE, RBC Morphology N CHROM, Hypochromasia RARE, Anisocytosis 1+, Macrocytosis 1+, Sodium 137, Potassium 4.1, Chloride 106, Carbon Dioxide 28.0, Anion Gap 3 L, BUN 18, Creatinine 0.97, Estim Creat Clear Calc 58.53, Est GFR (MDRD) Af Amer 95, Est GFR (MDRD) Non-Af 78, BUN/Creatinine Ratio 18.5, Glucose 165 H, Calcium 8.7, Troponin I High Sens 79 H 08/07/23 00:12: Total Bilirubin 2.00 H, Direct Bilirubin 0.65 H, AST 43 H, ALT 18, Alkaline Phosphatase 117, Troponin I High Sens 404 H*, Total Protein 6.4, Albumin 3.2, Globulin 3.2, Lipase 11 L Micro: Microbiology 08/06/23 23:30 Stool Stool Occult Blood (LISHA) - Final Occult Blood Positive Imagaing Radiology Impression Chest X-Ray 08/06/23 21:32 IMPRESSION: Mild opacities in the lower lungs bilaterally most likely represent atelectasis. Mild infection or aspiration are less likely. Possible small left pleural effusion. Electronically Signed: Roshan Burkett MD at 22:19 EST , Chest CTA 08/06/23 22:18 IMPRESSION: undefined Assessment & Plan Assessment/Plan (1) Non-ST elevation myocardial infarction (NSTEMI), initial care episode: (2) New onset right bundle branch block (RBBB): (3) Occult GI bleeding: PLAN: Plan 1. Non-ST elevation WA; evidenced by initial troponin of 79 ng/dL with a second troponin rising to 404 ng/dL - Admit to PCU. Proceed with blood transfusion ordered in the ER at this time. Antiplatelet therapy and anticoagulation will be held until patient can undergo GI evaluation to prevent increased risk of potential bleeding complications. Give Tylenol as needed for mild to moderate level 1-5/10 pain or fever. Give morphine IV as needed for severe level 6-10/10 pain. I personally spoke with Dr. Grider of the cardiology service about this patient and we agree there is little we can do until his GI workup is completed with formal cardiology consult appreciated in advance. 2. New onset right bundle branch block attributable to #1 - Place on continuous cardiac specialist to evaluate for continued stability. 3. Symptomatic anemia with hemoglobin of 7.6 g/dL present on admission along with Hemoccult positive stools with mild epigastric tenderness to palpation present on admission complicating and likely precipitated #1 & #2 - Continue Protonix drip begun in the ER. Proceed with blood transfusion of 2 units of packed red blood cells and then recheck CBC in the a.m. to ensure improvement. Check iron studies, B12 and folate levels to complete anemia workup. Patient may have a peptic ulcer secondary to an adverse drug reaction to his chronic aspirin. I personally spoke with Dr. Eaton about this complex patient and it is hopeful he will undergo EGD on the morning of 08/07/2023 with help greatly appreciated. 4. History of skin cancer; with recent resection of lesion over the lateral region of the skin around his Left orbit - Stable. This may also be part of the reason for the acute worsening of his chronic anemia. There is no evidence of bleeding at this time. 5. Generalized weakness with ambulatory dysfunction due to #1 - #4 - PT/OT and case management to consult and treat this admission with help appreciated in advance. 6. Essential hypertension - Hold most of his scheduled antihypertensives until potential bleeding issues have been resolved. Give IV hydralazine as needed for systolic blood pressure greater than 160 mmHg. 7. Hyperlipidemia - Resume statin and check lipid profile. 8. Diabetes mellitus type 2; of unknown control - Check hemoglobin A1c this admission to assess quality of diabetic control. N.p.o. for now with fingerstick blood sugars every 6 hours plus sliding scale insulin. 9. Myasthenia gravis - Stable at this time. Continue home medications as previous at time of discharge. 10. History of renal cell carcinoma; status post partial nephrectomy - Stable. 11. History of iatrogenic adrenal insufficiency - Apparently stable at this time. 12. Chronic pain syndrome; on buprenorphine patch - Resume buprenorphine patch as previous. 13. DVT prophylaxis - SCD's only at this time in light of suspected occult GI blood loss. Total time: Approximately 75 minutes. 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 I personally spoke with the corporate administrative assistant and the GI physician on-call about this patient with plan for EGD in the a.m. The patient's family was warned that he may require transfer to a tertiary care center if his case becomes too much more complex in spite of all of our efforts to treat him at this facility. Charges/Coding Visit Charges Inpatient E&M: 20350 Init Hosp L3
--- NOTE | 2023-08-07 04:05 | RAD_ITS ---
INDICATION: SOB-Labored breathing EXAMINATION: Frontal view of the chest COMPARISON: Chest x-ray from the previous day.. FINDINGS: Frontal view of the chest was obtained. The cardiac silhouette is borderline enlarged. Mild atelectasis in the lower lungs bilaterally, similar to the prior exam. Small left pleural effusion, stable. No pneumothorax. RAD/Chest 1 View (Portable) IMPRESSION: Mild bibasilar atelectasis. Small left pleural effusion. Electronically Signed: Roshan Burkett MD at 5:51 EST ,
[2023-08-07 04:12] LABS: Allen Test Positive; Base Excess -3 mmol/L (-2 to +2); Bicarbonate 23.6 mmol/L (22-26); Blood Gas Specimen Type ART; FI02 3.5; Mode Not entered; O2 Delivery Device Cannula; PO2 90 mmHG (75-100); SITE R Radial; SO2 96 % (95-99); Total Carbon Dioxide 25 mmol/L; pCO2 47.3 mmHg (35-45); pH 7.31 (7.35-7.45)
--- NOTE | 2023-08-07 04:25 | NURSING ---
Reported called to ICU-patient being transferred.
--- NOTE | 2023-08-07 04:34 | NURSING ---
Called patient's nephew Edmar updated about patient being transferred to ICU RM [id number]
--- NOTE | 2023-08-07 04:42 | EKG12_ITS ---
Test Reason : NON-STEMI ADMIT Blood Pressure : / mmHG Vent. Rate : 115 BPM Atrial Rate : 115 BPM P-R Int : 128 ms QRS Dur : 156 ms QT Int : 374 ms P-R-T Axes : 023 -60 074 degrees QTc Int : 517 ms Sinus tachycardia Right bundle branch block Left anterior fascicular block Bifascicular block Septal infarct , age undetermined Abnormal ECG When compared with ECG of 06-AUG-2023 21:07, MANUAL COMPARISON REQUIRED, DATA IS UNCONFIRMED Confirmed by MALATHI PEREIRA, RE ([id number]), film editor supervisor HERSON LINDQUIST ([id number]) on 08/09/2023 7:14:08 AM Referred By: Dominguez Confirmed By:RE SERVIN MD
[2023-08-07 04:53] LABS: Bedside Glucose 132 mg/dL (74-106)
[2023-08-07 05:29] LABS: Absolute Lymphocyte Count 2.45 X10^3/uL (0.83-4.51); Absolute Neutrophil Count 7.9 X10^3/uL (2.0-7.7); Basophil# 0.07 X10^3/uL; Basophil% 0.6 % (0-1); Eosinophil# 0.09 X10^3/uL; Eosinophils% 0.8 % (0-5); Hematocrit 26.3 % (40-54); Hemoglobin 7.9 g/dL (13.0-16.5); Lymphocyte # 2.45 X10^3/ul (0.83-4.51); Lymphocyte % 20.7 % (19-41); Mean Corpuscular Hgb 28.8 pg (27.0-32.0); Mean Platelet Vol. 9.4 fl (6.2-12.0); Monocyte# 1.28 X10^3/uL; Monocyte% 10.8 % (0-10); NRBC Flagged by Analyzer 0 % (0-5); Neutrophil # 7.89 X10^3/uL (2.7-7.7); Neutrophil % 66.4 % (47-70); POSITIVE MORPHOLOGY YES; Platelet Count 262 K/mm3 (150-450); RBC Distribution Width CV 22.5 % (11.6-14.6); RBC Distribution Width SD 77.1 fl (35.1-43.9); Red Blood Count 2.74 M/mm3 (4.6-6.2); White Blood Count 11.9 K/mm3 (4.4-11.0)
[2023-08-07 05:37] LABS: Differential Indicated SCAN CRITERIA MET
[2023-08-07 05:43] LABS: Partial Thromboplast Time 40.4 Seconds (24.1-36.2)
[2023-08-07] MEDS: 0.9% Normal Saline (1000mL) 1,000 ML 70 ML IV (05:45)
[2023-08-07 05:56] LABS: AST(SGOT) 105 U/L (15-37); Alanine Aminotransfer ALT/SGPT 23 U/L (16-61); Albumin, Serum 3.4 g/dL (3.2-5.0); Alkaline Phosphatase 124 U/L (45-117); Anion Gap 7 (5-15); BUN 16 mg/dL (7-18); BUN/Creat Ratio 17.4 RATIO (10-20); Calcium,Total 7.7 mg/dL (8.5-10.1); Chloride 109 mmol/L (98-107); Creatinine, Serum 0.92 mg/dL (0.70-1.30); EST Glomerular Filtration Rate 84 mL/min (>60); Est Glom Filt Rate - Afr Amer 101 mL/min (>60); Estimated Creatinine Clearance 61.71 ml/min; Globulin 3.4 g/dL (2.2-4.2); Glucose 126 mg/dL (74-106); Potassium 4.5 mmol/L (3.5-5.1); Protein, Total 6.8 g/dL (6.4-8.2); Sodium Level 141 mmol/L (136-145); Thyroid Stim Hormone (TSH) 1.59 uIU/mL (0.358-3.74)
[2023-08-07 06:01] LABS: Troponin-I HS 20688 pg/mL (3.0-78.0)
[2023-08-07 06:10] LABS: BNP,B-Type NATRIURETIC PEPTIDE 1785.7 pg/mL (0-100)
[2023-08-07 06:15] LABS: Anisocytosis 2+; Differential Comment SCANNED; Macrocytosis 1+; Microcytosis 1+; Polychromasia 1+
[2023-08-07 06:22] LABS: International Normalized Ratio 1.2; Prothrombin Time (Protime)PT. 15.5 SECONDS (11.7-14.9)
[2023-08-07 06:34] LABS: Bedside Glucose 111 mg/dL (74-106)
[2023-08-07 06:41] LABS: Iron Binding Capacity,Total 221 ug/dL (250-450)
--- NOTE | 2023-08-07 06:48 | EX.PCM.CON.S ---
Assessment & Plan Assessment/Plan (1) Fecal occult blood test positive: (2) New onset right bundle branch block (RBBB): (3) Non-ST elevation myocardial infarction (NSTEMI), initial care episode: (4) Anemia: PLAN: Plan Patient's troponins have continued to go up 20 K. Did discuss with anesthesia they do not feel comfortable giving this gentleman anesthesia until he is seen by cardiology. Per ER report his stool was yellow/brown --not red/black in color. Patient denies any black or red stools also did not have any hematemesis. Due to patient's antibodies he is unable to get blood until Tuesday if he were to need it. Current hemoglobin is 7.9. Initially was plan to do EGD however will discuss with Dr. Cox. Patient is agreeable to EGD if 1 is needed in the future. I have discussed the above with the patient. I have offered the patient esophagogastroduodenoscopy for evaluation. I have explained the risks/benefits of the procedure and described the procedure. I have discussed the risks with the patient, including but not limited to: infection, bleeding, perforation of the GI tract requiring emergency surgery, inability to complete the procedure, injury to any internal organs, complications of anesthesia, etc. - the patient understands and agrees to proceed. I have answered all the patient's questions to the patient's satisfaction and the patient has no further questions. Radha Montesinos M.D. Pager: [phone] [facility] [address] [place] [address], [address] [place] [address] Office: [phone] HPI Consult Data Date of Consult: 08/07/23 HPI Narrative Reason for Consultation: Fecal occult positive HPI Narrative: LOIS GOODMAN, is a 83 M who presents to the ER due to chest pain started about 4 PM yesterday per patient. Patient was found to have slight elevation of troponins in the ER but normal EKG. This changed overnight and continued to increase troponins and had a right bundle branch block which was new. Patient had a CTA which is negative for PE. Patient also had a fecal occult which was positive in the ER however his stool was yellow/brown per the ER doctor. Patient's hemoglobin was 7.6 previous hemoglobin from a month ago was 8.4. Current hemoglobin this morning is 7.9. Patient denies having any black or bloody stools. Patient had some nausea denies any vomiting. Initially anticoagulation was held due to the fecal occult positive and awaiting cardiology recommendations. Patient states his chest pain was a 7/10 when he came in currently rates it may be a 2 or 3/10. Patient denies any abdominal pain. [facility] Medical History Anemia Arthritis back problems Cancer of kidney Carpal tunnel syndrome Diabetes Diarrhea Fatigue Frequent headaches Hearing problem High cholesterol Hives HTN (hypertension) Iatrogenic adrenal insufficiency Incontinence Kidney disease Knee pain Migraines Myasthenia gravis Pneumonia prostate issues Shoulder pain Skin cancer Vision problems Home Medications amlodipine 5 mg tablet 10 mg PO DAILY BP 11/30/15 [History Last Taken 06/21/19 08:00] lovastatin 20 mg tablet 20 mg PO LUNCH CHOLESTEROL 11/30/15 [History Last Taken 06/20/19] quinapril 40 mg tablet 20 mg PO BID BP 11/30/15 [History Last Taken 06/21/19 08:00] cyanocobalamin (vitamin B-12) 500 mcg tablet 1,000 mcg PO DAILY@0800 supplement 06/21/19 [History Last Taken 06/21/19 08:00] multivitamin 1 ea PO DAILY supplement 06/21/19 [History Last Taken 06/21/19 08:00] eculizumab 300 mg/30 mL intravenous solution 300 mg IV QMONTH 09/13/20 [History Last Taken Unknown] aspirin 81 mg tablet,delayed release (Adult Low Dose Aspirin) 81 mg PO DAILY 01/05/21 [History Last Taken Unknown] glimepiride 2 mg tablet 2 mg PO DAILY 01/05/21 [History Last Taken Unknown] labetalol 100 mg tablet 300 mg PO BID 04/12/21 [History Last Taken Unknown] acetaminophen 650 mg tablet,extended release (Tylenol 8 Hour) 650 mg PO Q8H PRN headache #14 tabs 12/14/21 [Rx Last Taken Unknown] buprenorphine 5 mcg/hour weekly transdermal patch 1 patch transdermal Q7D 09/30/22 [History Last Taken Unknown] fosinopril 20 mg tablet mg 08/06/23 [History Last Taken Unknown] glucosamine-chondroitin 250 mg-200 mg tablet (Osteo Bi-Flex) 2 tab PO DAILY 08/06/23 [History Last Taken Unknown] polyethylene glycol 3350 17 gram oral powder packet (Miralax) 17 g PO DAILY 08/06/23 [History Last Taken Unknown] Allergy/AdvReac Type Severity Reaction Status Date / Time Penicillins Allergy Hives Verified 08/06/23 20:59 Family History Mother Heart disease Myocardial infarction Other Cancer Surgical History History of hemorrhoidectomy History of partial nephrectomy History of thyroid surgery History of total left knee replacement Social History Smoking Status: Never smoker alcohol intake: never ROS Constitutional Constitutional: Denies fever(s) Eyes Eyes: Denies blurry vision ENT HEENT: Denies dysphagia Cardiovascular Cardiovascular: Reports chest pain and chest pain at rest Respiratory/Chest Respiratory/Chest: Denies cough Gastrointestinal Gastrointestinal: Reports nausea; Denies abdominal pain, coffee ground emesis, diarrhea, hematemesis or vomiting Genitourinary Genitourinary: Denies dysuria Musculoskeletal Musculoskeletal: Denies joint swelling Integumentary Integumentary: Denies jaundice Psychiatric Psychiatric: Denies depression Hematologic/Lymphatic Hematologic/Lymphatic: Denies easy bleeding Physical Exam Const Constitutional Narrative: Diaphoretic General Appearance: cooperative Resp Effort and Inspection: able to speak in complete sentences Cardio Rate: tachycardic GI soft to palpation, non-tender and non-distended Extremity normal to inspection Skin no jaundice Neuro CN's II-XII intact bilaterally Psych affect normal Lab / Micro Data 08/07/23 05:10 08/07/23 05:10 Labs: Laboratory Results - last 24 hr 08/06/23 21:12: WBC 12.4 H, RBC 2.55 L, Hgb 7.6 L, Hct 24.3 L, MCV 95.3 H, MCH 29.8, MCHC 31.3 L, RDW Std Deviation 74.9 H, RDW Coeff of Rosemary 22.5 H, Plt Count 277, MPV 9.9, Immature Gran % (Auto) 0.500, Neut % (Auto) 61.1, Lymph % (Auto) 23.0, [place] % (Auto) 11.0 H, Eos % (Auto) 3.9, Baso % (Auto) 0.5, Absolute Neuts (auto) 7.6, Absolute Lymphs (auto) 2.86, Nucleated RBC % 0, Platelet Estimate ADEQUATE, RBC Morphology N CHROM, Hypochromasia RARE, Anisocytosis 1+, Macrocytosis 1+, Sodium 137, Potassium 4.1, Chloride 106, Carbon Dioxide 28.0, Anion Gap 3 L, BUN 18, Creatinine 0.97, Estim Creat Clear Calc 58.53, Est GFR (MDRD) Af Amer 95, Est GFR (MDRD) Non-Af 78, BUN/Creatinine Ratio 18.5, Glucose 165 H, Calcium 8.7, Troponin I High Sens 79 H 08/07/23 00:12: Total Bilirubin 2.00 H, Direct Bilirubin 0.65 H, AST 43 H, ALT 18, Alkaline Phosphatase 117, Troponin I High Sens 404 H*, Total Protein 6.4, Albumin 3.2, Globulin 3.2, Lipase 11 L 08/07/23 01:02: Blood Type O NEGATIVE, Antibody Screen POSITIVE 08/07/23 03:10: POC Glucose 132 H 08/07/23 05:10: WBC 11.9 H, RBC 2.74 L, Hgb 7.9 L, Hct 26.3 L, MCV 96.0 H, MCH 28.8, MCHC 30.0 L, RDW Std Deviation 77.1 H, RDW Coeff of Rosemary 22.5 H, Plt Count 262, MPV 9.4, Immature Gran % (Auto) 0.700, Neut % (Auto) 66.4, Lymph % (Auto) 20.7, [place] % (Auto) 10.8 H, Eos % (Auto) 0.8, Baso % (Auto) 0.6, Absolute Neuts (auto) 7.9 H, Absolute Lymphs (auto) 2.45, Nucleated RBC % 0, Differential Comment SCANNED, Polychromasia 1+, Anisocytosis 2+, Microcytosis 1+, Macrocytosis 1+, PT 15.5 H, INR 1.2, APTT 40.4 H, Sodium 141, Potassium 4.5, Chloride 109 H, Carbon Dioxide 25.0, Anion Gap 7, BUN 16, Creatinine 0.92, Estim Creat Clear Calc 61.71, Est GFR (MDRD) Af Amer 101, Est GFR (MDRD) Non-Af 84, BUN/Creatinine Ratio 17.4, Glucose 126 H, Calcium 7.7 L, TIBC 221 L, Total Bilirubin 1.60 H, AST 105 H, ALT 23, Alkaline Phosphatase 124 H, Troponin I High Sens 47109 H*, B-Natriuretic Peptide 1785.7 H, Total Protein 6.8, Albumin 3.4, Globulin 3.4, Albumin/Globulin Ratio 1.0, Folate 30.40, TSH 1.59 08/07/23 06:15: POC Glucose 111 H Micro: Microbiology 08/06/23 23:30 Stool Stool Occult Blood (LISHA) - Final Occult Blood Positive ABG Data ABG results: ABG 08/07/23 04:08 Specimen Type ART Sample Site R Radial pH 7.31 L Bicarbonate Actual 23.6 Total CO2 25 Base Excess -3 L O2 Saturation 96 O2 % 3.5 ABG pCO2 47.3 H ABG pO2 90 Evens Test Positive O2 Delivery Device Cannula Vent Mode Not entered Imagaing Radiology Impression Chest X-Ray 08/06/23 21:32 IMPRESSION: Mild opacities in the lower lungs bilaterally most likely represent atelectasis. Mild infection or aspiration are less likely. Possible small left pleural effusion. Electronically Signed: Roshan Burkett MD at 22:19 EST Reading Location ID and State: [id number] Tel , Service support , Chest CTA 08/06/23 22:18 IMPRESSION: undefined Chest X-Ray 08/07/23 04:05 IMPRESSION: Mild bibasilar atelectasis. Small left pleural effusion. Electronically Signed: Roshan Burkett MD at 5:51 EST , Charges/Coding Visit Charges Inpatient E&M: 93249 Init Hosp L3
--- NOTE | 2023-08-07 08:19 | PN.HOSP_ITS ---
Hospitalist Note Patient is an 83-year-old gentleman with multiple comorbidities including renal cell carcinoma status post partial right nephrectomy currently remission, essential hypertension dyslipidemia diabetes mellitus type 2 myasthenia gravis who presented with progressive shortness of breath with associated nausea and vomiting. Patient was found to be anemic on admission. Was also found to have elevated troponin which continues to rise consistent with acute non-STEMI. Admitted to the intensive care unit where patient is currently being managed GENERAL: Appears ill looking and dyspneic at rest HEENT: Atraumatic; normocephalic EYES; Anicteric, Normal Conjunctiva NECK; supple, normal thyroid, RESPIRATORY: Diminished to auscultation, with bibasilar Rales CARDIOVASCULAR: Regular S1 S2, GI: soft, normoactive bowel sounds, : No Renal angle tenderness; EXTREMITIES: No edema, no clubbing, MUSCULOSKELETAL: no muscle wasting NEURO: Awake; no lateralizing signs. SKIN: No Rash PSYCH; Flat affect Assessment 1. Acute non-ST segment elevation OK 2. Anemia secondary to anemia of chronic disorder with positive guaiac stools 3. Acute congestive heart failure 4. Diabetes mellitus type 2 5. Dyslipidemia 6. Adrenal insufficiency Plan ? Patient is admitted to the intensive care unit where he is currently being managed per protocol with consultation placed to physician assistant primary care, cardiology, as well as general surgery (for possible scope). With patient troponin being markedly elevated the decision to undergo endoscopic evaluation as part of management for his anemia was placed on hold. Patient has been typed and crossmatched patient has antibodies to aspect blood to be ready on 08/08/2023. Further decision regarding management of patient acute non-ST OK deferred to cardiology Advance planning; did discuss with the patient and family regarding advanced directives as well as CODE STATUS. Did explain the various scenarios involved ( FULL CODE, DNR CCA, DNR CCA with no intubation, and DNR CC and what each meant) patient elected to be DNR CCA no intubation. Order was placed. Time spent on discussion 18 minutes. Procedures Hospitalists Procedures: [id number] Advncd Care Plan 30 Min
--- NOTE | 2023-08-07 08:25 | EX.PCM.CONCC ---
Assessment & Plan Assessment/Plan (1) Non-ST elevation myocardial infarction (NSTEMI), initial care episode: (2) Anemia: QUALIFIERS: Anemia type: unspecified type Qualified Code(s): D64.9 - Anemia, unspecified (3) Fecal occult blood test positive: (4) New onset right bundle branch block (RBBB): (5) Thyroid nodule: (6) Type 2 diabetes mellitus: QUALIFIERS: Diabetes mellitus superintendent container terminal insulin use: with superintendent container terminal use PLAN: Plan RECOMMENDATIONS: 1. Initiate heparin drip without bolus 2. Wean oxygen as tolerated 3. Hold on diuresis for now pending cardiac issues 4. Defer to cardiology on initiation of antiplatelet therapy 5. Transfuse packed red blood cells when available 6. Continue antihypertensives for now 7. Cover with sliding scale insulin IMPRESSIONS: 1. Acute non-ST elevation IN Patient with significant elevation of troponin over the course of his hospitalization. Unfortunately, given level of troponin at this time, anesthesia is refusing any EGD. Will start a heparin drip without bolus given patient is guaiac positive. This will have to be held if patient shows signs of GI bleeding. Patient has not received any antiplatelet medications at this time. Await formal recommendations by cardiology. Echocardiogram has been ordered 2. Anemia Patient does have some mild epigastric tenderness along with Hemoccult positive stools, but has had some nausea and retching. Patient does have antibodies that limit the ability to transfuse blood. Given possibility of an ulcer and problem #1, would transfuse blood when available despite having a hemoglobin greater than 7. Exact etiology of anemia is unclear at this time. Patient would likely benefit from an endoscopy once more hemodynamically stable. Will recheck an H&H later this evening to evaluate for occult bleeding 3. Acute hypoxic respiratory insufficiency Patient reportedly has never been a smoker and imaging is more consistent with CHF from my perspective. Will hold off on any diuresis at this time, but this can be initiated if patient starts to progress with hypoxia. Hold on any bronchodilator or steroid therapy as patient does not have any history of obstructive lung disease in the past. 4. History of skin,kidney cancer/hyperlipidemia/type 2 diabetes mellitus/myasthenia gravis/chronic pain syndrome/advanced age Complicates care, management, recovery and prognosis. Patient is having very poor p.o. intake at this time, so will cover with sliding scale insulin. Patient does have a hemoglobin A1c currently pending. Patient did state that he wants to be a DNR Comfort Care arrest without intubation. I think this is appropriate given his comorbidities TIME: 33 minutes critical care time spent addressing patient's non-ST elevation IN, anemia, respiratory insufficiency, diabetes mellitus, review of all data and collaboration with care team. HPI Consult Data Date of Consult: 08/07/23 HPI Narrative Reason for Consultation: Non-ST elevation IN HPI Narrative: LOIS GOODMAN is a 83 M, with past medical history listed below, who presents to [facility] 08/06/2023 secondary to progressive shortness of breath, chest pain and nausea. Patient reported an acute onset approximately 4 hours prior to presentation. Patient reportedly had been noted to have some decreased hemoglobins recently and was discharged home. Patient reportedly had not had any black or bloody stools. Patient did not reported any coffee-ground emesis or epistaxis. Patient denied any cardiac history, but did report significant shortness of breath and diaphoresis. Patient does not have any history of previous gastric ulcers or abnormal colonoscopies. In the ER, patient was afebrile, but tachycardic as high as 119 bpm. Patient was reportedly requiring 4 L/min to maintain saturations while in the ER. Laboratory data showed a white blood cell count of 12.4, hemoglobin of 7.6 and platelet count of 277. Chemistry showed an elevated bicarbonate of 28 and a creatinine of 0.97. Glucose was slightly elevated at 165 and initial troponin was 79. Chest x-ray showed some mild alveolar infiltrates consistent with fluid overload. Patient reportedly had a Hemoccult positive stool in the ER and it was discussed with Dr. Terry. Patient reportedly was admitted to the hospital with plans of monitoring enzymes and having EGD this morning. On my arrival this morning, patient was extremely diaphoretic, nauseous and reporting some chest pain. EKG had not shown any ST elevations. Patient had not been initiated on a heparin drip secondary to concerns of an EGD this morning. Patient was requiring 3-1/2 L of supplemental oxygen to maintain saturations. This morning's labs show a troponin around 20,000 and this was brought to the surgeon's attention. After discussion with anesthesia, there was determined to be too high risk to proceed with EGD. Because of this, patient was ordered a heparin drip without a bolus. Patient reportedly does have a significant antibody and it is reported the patient will not be able to receive his 2 units of packed red blood cells until probably Tuesday. Patient denies any history of cardiac or respiratory issues. Patient reportedly has never been a smoker. 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 Patient does have a history of renal cell carcinoma, but this was completely resected by Dr. Hassan. Patient has not reported any dysuria or frequency. Patient does have diabetes, but states he has not changed his routine recently. Did discuss with the patient about his CODE STATUS. Patient states he would not want to be intubated or receive CPR for any reason. Patient did question if he was that sick. Review of systems otherwise negative from a constitutional, HEENT, respiratory, cardiovascular, GI, genitourinary, musculoskeletal, skin, neurologic, psychiatric and hematologic system unless stated above. [facility] Medical History Anemia Arthritis back problems Cancer of kidney Carpal tunnel syndrome Diabetes Diarrhea Fatigue Frequent headaches Hearing problem High cholesterol Hives HTN (hypertension) Iatrogenic adrenal insufficiency Incontinence Kidney disease Knee pain Migraines Myasthenia gravis Pneumonia prostate issues Shoulder pain Skin cancer Vision problems Home Medications amlodipine 5 mg tablet 10 mg PO DAILY BP 11/30/15 [History Last Taken 06/21/19 08:00] lovastatin 20 mg tablet 20 mg PO LUNCH CHOLESTEROL 11/30/15 [History Last Taken 06/20/19] quinapril 40 mg tablet 20 mg PO BID BP 11/30/15 [History Last Taken 06/21/19 08:00] cyanocobalamin (vitamin B-12) 500 mcg tablet 1,000 mcg PO DAILY@0800 supplement 06/21/19 [History Last Taken 06/21/19 08:00] multivitamin 1 ea PO DAILY supplement 06/21/19 [History Last Taken 06/21/19 08:00] eculizumab 300 mg/30 mL intravenous solution 300 mg IV QMONTH 09/13/20 [History Last Taken Unknown] aspirin 81 mg tablet,delayed release (Adult Low Dose Aspirin) 81 mg PO DAILY 01/05/21 [History Last Taken Unknown] glimepiride 2 mg tablet 2 mg PO DAILY 01/05/21 [History Last Taken Unknown] labetalol 100 mg tablet 300 mg PO BID 04/12/21 [History Last Taken Unknown] acetaminophen 650 mg tablet,extended release (Tylenol 8 Hour) 650 mg PO Q8H PRN headache #14 tabs 12/14/21 [Rx Last Taken Unknown] buprenorphine 5 mcg/hour weekly transdermal patch 1 patch transdermal Q7D 09/30/22 [History Last Taken Unknown] fosinopril 20 mg tablet mg 08/06/23 [History Last Taken Unknown] glucosamine-chondroitin 250 mg-200 mg tablet (Osteo Bi-Flex) 2 tab PO DAILY 08/06/23 [History Last Taken Unknown] polyethylene glycol 3350 17 gram oral powder packet (Miralax) 17 g PO DAILY 08/06/23 [History Last Taken Unknown] Allergy/AdvReac Type Severity Reaction Status Date / Time Penicillins Allergy Hives Verified 08/06/23 20:59 Family History Mother Heart disease Myocardial infarction Other Cancer Surgical History History of hemorrhoidectomy History of partial nephrectomy History of thyroid surgery History of total left knee replacement Social History Smoking Status: Never smoker alcohol intake: never ROS ROS Narrative See HPI Physical Exam Const alert, oriented x3, average body habitus and well nourished Constitutional Narrative: Diaphoretic on my evaluation General Appearance: cooperative, in distress Positive for moderate and ill appearing HEENT normocephalic HEENT Narrative: Patient has evidence of recent excision of a lesion over the lateral aspect of his left orbit that is healing well with no evidence of acute infection. General Ear: hearing grossly impaired diffuse Mouth: oral and palatal mucosa normal Eyes PERRL and EOMs intact bilaterally Eyes Narrative: Conjunctivae pale. No scleral injection noted Neck no lymphadenopathy, supple and no JVD Chest inspection of chest normal Resp normal respiratory effort, no retractions, no use of accessory muscles and clear to auscultation bilaterally Effort and Inspection: tachypneic; Negative for actively coughing Auscultation: Negative for rales, rhonchi or wheezes Cardio regular rate, S1 normal heart sound, S2 normal heart sound, no murmurs, no rub and no gallops Rhythm: abnormal rhythm ectopic beats GI normal to inspection, nondistended, normoactive bowel sounds, soft to palpation and non-distended Palpation: tender epigastric (Mild to palpation) Extremity normal to inspection, full ROM and no clubbing, cyanosis or edema Skin Skin Narrative: Laceration noted, but no signs of infection around sutures Neuro oriented x3, moves all extremities and no focal motor deficits Neuro Narrative: Hard of hearing Motor Exam: strength 5/5 throughout Psych affect normal Medical Records Data Attestation: I reviewed the patient's medical records Medical records narrative: Patient does not have any recent echocardiogram or catheterizations. Patient has had EKGs. Patient does not have any PFTs in the system. Patient does have some positive cultures including a pansensitive Pseudomonas from the urine in 2019, but no MDRO. CT of the chest shows motion artifacts with thyroid mass and small pleural effusions, but no PE Lab / Micro Data Attestation: I reviewed the patient's lab results. 08/07/23 05:10 08/07/23 05:10 Labs: Laboratory Results - last 24 hr 08/06/23 21:12: WBC 12.4 H, RBC 2.55 L, Hgb 7.6 L, Hct 24.3 L, MCV 95.3 H, MCH 29.8, MCHC 31.3 L, RDW Std Deviation 74.9 H, RDW Coeff of Rosemary 22.5 H, Plt Count 277, MPV 9.9, Immature Gran % (Auto) 0.500, Neut % (Auto) 61.1, Lymph % (Auto) 23.0, Greenlee % (Auto) 11.0 H, Eos % (Auto) 3.9, Baso % (Auto) 0.5, Absolute Neuts (auto) 7.6, Absolute Lymphs (auto) 2.86, Nucleated RBC % 0, Platelet Estimate ADEQUATE, RBC Morphology N CHROM, Hypochromasia RARE, Anisocytosis 1+, Macrocytosis 1+, Sodium 137, Potassium 4.1, Chloride 106, Carbon Dioxide 28.0, Anion Gap 3 L, BUN 18, Creatinine 0.97, Estim Creat Clear Calc 58.53, Est GFR (MDRD) Af Amer 95, Est GFR (MDRD) Non-Af 78, BUN/Creatinine Ratio 18.5, Glucose 165 H, Calcium 8.7, Troponin I High Sens 79 H 08/07/23 00:12: Total Bilirubin 2.00 H, Direct Bilirubin 0.65 H, AST 43 H, ALT 18, Alkaline Phosphatase 117, Troponin I High Sens 404 H*, Total Protein 6.4, Albumin 3.2, Globulin 3.2, Lipase 11 L 08/07/23 01:02: Blood Type O NEGATIVE, Antibody Screen POSITIVE 08/07/23 03:10: POC Glucose 132 H 08/07/23 05:10: WBC 11.9 H, RBC 2.74 L, Hgb 7.9 L, Hct 26.3 L, MCV 96.0 H, MCH 28.8, MCHC 30.0 L, RDW Std Deviation 77.1 H, RDW Coeff of Rosemary 22.5 H, Plt Count 262, MPV 9.4, Immature Gran % (Auto) 0.700, Neut % (Auto) 66.4, Lymph % (Auto) 20.7, Greenlee % (Auto) 10.8 H, Eos % (Auto) 0.8, Baso % (Auto) 0.6, Absolute Neuts (auto) 7.9 H, Absolute Lymphs (auto) 2.45, Nucleated RBC % 0, Differential Comment SCANNED, Polychromasia 1+, Anisocytosis 2+, Microcytosis 1+, Macrocytosis 1+, PT 15.5 H, INR 1.2, APTT 40.4 H, Sodium 141, Potassium 4.5, Chloride 109 H, Carbon Dioxide 25.0, Anion Gap 7, BUN 16, Creatinine 0.92, Estim Creat Clear Calc 61.71, Est GFR (MDRD) Af Amer 101, Est GFR (MDRD) Non-Af 84, BUN/Creatinine Ratio 17.4, Glucose 126 H, Calcium 7.7 L, TIBC 221 L, Total Bilirubin 1.60 H, AST 105 H, ALT 23, Alkaline Phosphatase 124 H, Troponin I High Sens 41847 H*, B-Natriuretic Peptide 1785.7 H, Total Protein 6.8, Albumin 3.4, Globulin 3.4, Albumin/Globulin Ratio 1.0, Folate 30.40, TSH 1.59 08/07/23 06:15: POC Glucose 111 H Micro: Microbiology 08/06/23 23:30 Stool Stool Occult Blood (LISHA) - Final Occult Blood Positive ABG Data ABG results: ABG 08/07/23 04:08 Specimen Type ART Sample Site R Radial pH 7.31 L Bicarbonate Actual 23.6 Total CO2 25 Base Excess -3 L O2 Saturation 96 O2 % 3.5 ABG pCO2 47.3 H ABG pO2 90 Evens Test Positive O2 Delivery Device Cannula Vent Mode Not entered Attestation: I personally reviewed and interpreted this ABG as follows: (Mild acute respiratory acidosis with elevated AA gradient) Imagaing Radiology Impression Chest X-Ray 08/06/23 21:32 IMPRESSION: Mild opacities in the lower lungs bilaterally most likely represent atelectasis. Mild infection or aspiration are less likely. Possible small left pleural effusion. Electronically Signed: Roshan Burkett MD at 22:19 EST , Chest CTA 08/06/23 22:18 IMPRESSION: undefined Chest X-Ray 08/07/23 04:05 IMPRESSION: Mild bibasilar atelectasis. Small left pleural effusion. Electronically Signed: Roshan Burkett MD at 5:51 EST , Charges/Coding Procedures Hospitalists Procedures: [id number] Critial Care 1st Hr
[2023-08-07] MEDS: Furosemide 40 MG/4 ML Vial IV (08:54)
[2023-08-07] MEDS: 0.9% Saline Lock 10 ML Syringe IV (08:54)
[2023-08-07] MEDS: Multivitamins,Therapeutic Tablet 1 TABLET PO (08:55)
[2023-08-07 08:56] LABS: Hemoglobin A1c < 3.8 % (3.8-5.6)
[2023-08-07] MEDS: Cyanocobalamin 500 MCG Tablet 1000 MCG PO (08:56)
[2023-08-07] MEDS: HEPARIN/D5w 25,000 UNITS 25,000 UNITS/250 ML IV.SOLN. 10 UNITS CONT INF (08:57)
--- NOTE | 2023-08-07 09:32 | CON.PCM.CA_ITS ---
Assessment & Plan Assessment/Plan (1) Non-ST elevation myocardial infarction (NSTEMI), initial care episode: PLAN: Agree with starting heparin. Monitor hemoglobin closely. Change beta- blockers to carvedilol. Nitrates. Statins. Patient's care is complicated by the fact that he has significant anemia. Also blood for transfusion is not readily available because of issues with antibodies. Check echocardiogram. Patient will need coronary angiography and possible revascularization at some stage. (2) Anemia: QUALIFIERS: Anemia type: unspecified type Qualified Code(s): D64.9 - Anemia, unspecified PLAN: Since hemoglobin last month was noted to be 8.2 g/dL. A year ago, it was 14.9 g/dL. Guaiac positive stools. Manage as per surgery/GI. (3) Hyperlipidemia: PLAN: Atorvastatin. (4) Myasthenia gravis: PLAN: As per medicine. (5) Type 2 diabetes mellitus: QUALIFIERS: Diabetes mellitus shelter insulin use: with long term care social worker use PLAN: As per internal medicine. PLAN: Plan The patient's care regarding his NSTEMI is complicated by his significant anemia and the fact that he is requiring antibody free packed red blood cells which are not readily available. I would recommend considering transfer to a tertiary care facility for further care. HPI Consult Data Date of Consult: 08/07/23 HPI Narrative Reason for Consultation: NSTEMI HPI Narrative: This patient has past medical history significant for hypertension, dyslipidemia, diabetes mellitus, myasthenia gravis, renal cell carcinoma status post partial nephrectomy and iatrogenic adrenal insufficiency. He presented to the hospital yesterday with complaints of chest pain radiating to his left arm. Positive history of diaphoresis and shortness of breath. Workup in the emergency room revealed significant anemia. Guaiac positive stools. His troponins show an upward trend with the third in series more than 20,000. BNP was also noted to be elevated. Patient presently is chest pain-free. [facility] Medical History Anemia Arthritis back problems Cancer of kidney Carpal tunnel syndrome Diabetes Diarrhea Fatigue Frequent headaches Hearing problem High cholesterol Hives HTN (hypertension) Iatrogenic adrenal insufficiency Incontinence Kidney disease Knee pain Migraines Myasthenia gravis Pneumonia prostate issues Shoulder pain Skin cancer Vision problems Home Medications amlodipine 5 mg tablet 10 mg PO DAILY BP 11/30/15 [History Last Taken 06/21/19 08:00] lovastatin 20 mg tablet 20 mg PO LUNCH CHOLESTEROL 11/30/15 [History Last Taken 06/20/19] quinapril 40 mg tablet 20 mg PO BID BP 11/30/15 [History Last Taken 06/21/19 08:00] cyanocobalamin (vitamin B-12) 500 mcg tablet 1,000 mcg PO DAILY@0800 supplement 06/21/19 [History Last Taken 06/21/19 08:00] multivitamin 1 ea PO DAILY supplement 06/21/19 [History Last Taken 06/21/19 08:0 0] eculizumab 300 mg/30 mL intravenous solution 300 mg IV QMONTH 09/13/20 [History Last Taken Unknown] aspirin 81 mg tablet,delayed release (Adult Low Dose Aspirin) 81 mg PO DAILY 01/05/21 [History Last Taken Unknown] glimepiride 2 mg tablet 2 mg PO DAILY 01/05/21 [History Last Taken Unknown] labetalol 100 mg tablet 300 mg PO BID 04/12/21 [History Last Taken Unknown] acetaminophen 650 mg tablet,extended release (Tylenol 8 Hour) 650 mg PO Q8H PRN headache #14 tabs 12/14/21 [Rx Last Taken Unknown] buprenorphine 5 mcg/hour weekly transdermal patch 1 patch transdermal Q7D 09/30/22 [History Last Taken Unknown] fosinopril 20 mg tablet mg 08/06/23 [History Last Taken Unknown] glucosamine-chondroitin 250 mg-200 mg tablet (Osteo Bi-Flex) 2 tab PO DAILY 08/06/23 [History Last Taken Unknown] polyethylene glycol 3350 17 gram oral powder packet (Miralax) 17 g PO DAILY 08/06/23 [History Last Taken Unknown] Allergy/AdvReac Type Severity Reaction Status Date / Time Penicillins Allergy Hives Verified 08/06/23 20:59 Family History Mother Heart disease Myocardial infarction Other Cancer Surgical History History of hemorrhoidectomy History of partial nephrectomy History of thyroid surgery History of total left knee replacement Social History Smoking Status: Never smoker alcohol intake: never Physical Exam Eyes Eyes Narrative: Comfortable. No apparent distress. Heart sounds 1 and 2 are noted. Chest examination shows decreased breath sounds at right base. Abdomen soft. Alert oriented x 3. No ankle edema. Left forearm absent. Risk Stratification Risk Stratification Applicable: No Objective Data Vital Signs: Vital Signs Temp Pulse Resp BP Pulse Ox O2 Del Method O2 Flow Rate 97.7 F L 107 H 26 H 139/84 H 97 Nasal Cannula 4 08/07/23 06:00 08/07/23 07:00 08/07/23 07:00 08/07/23 07:00 08/07/23 07:00 08/07/23 07:00 08/07/23 07:00 Oxygen Flow Rate (L/min) 4 Oxygen Delivery Method Nasal Cannula Weight: 192 lb 10.944 oz Body Mass Index (BMI) 27.6 Intake & Output: Intake and Output for Last 24 Hours 08/05/23 08/06/23 08/07/23 23:59 23:59 23:59 Intake Total 1035 / 1035 0 / 0 Output Total 50 / 50 Balance 1035 / 1035 -50 / -50 Lab / Micro Data Attestation: I reviewed the patient's lab results. 08/07/23 05:10 08/07/23 05:10 Labs: Laboratory Results - last 24 hr 08/06/23 21:12: WBC 12.4 H, RBC 2.55 L, Hgb 7.6 L, Hct 24.3 L, MCV 95.3 H, MCH 29.8, MCHC 31.3 L, RDW Std Deviation 74.9 H, RDW Coeff of Rosemary 22.5 H, Plt Count 277, MPV 9.9, Immature Gran % (Auto) 0.500, Neut % (Auto) 61.1, Lymph % (Auto) 23.0, Stephenson % (Auto) 11.0 H, Eos % (Auto) 3.9, Baso % (Auto) 0.5, Absolute Neuts (auto) 7.6, Absolute Lymphs (auto) 2.86, Nucleated RBC % 0, Platelet Estimate ADEQUATE, RBC Morphology N CHROM, Hypochromasia RARE, Anisocytosis 1+, Macrocytosis 1+, Sodium 137, Potassium 4.1, Chloride 106, Carbon Dioxide 28.0, Anion Gap 3 L, BUN 18, Creatinine 0.97, Estim Creat Clear Calc 58.53, Est GFR (MDRD) Af Amer 95, Est GFR (MDRD) Non-Af 78, BUN/Creatinine Ratio 18.5, Glucose 165 H, Calcium 8.7, Troponin I High Sens 79 H 08/07/23 00:12: Total Bilirubin 2.00 H, Direct Bilirubin 0.65 H, AST 43 H, ALT 18, Alkaline Phosphatase 117, Troponin I High Sens 404 H*, Total Protein 6.4, Albumin 3.2, Globulin 3.2, Lipase 11 L 08/07/23 01:02: Blood Type O NEGATIVE, Antibody Screen POSITIVE 08/07/23 03:10: POC Glucose 132 H 08/07/23 05:10: WBC 11.9 H, RBC 2.74 L, Hgb 7.9 L, Hct 26.3 L, MCV 96.0 H, MCH 28.8, MCHC 30.0 L, RDW Std Deviation 77.1 H, RDW Coeff of Rosemary 22.5 H, Plt Count 262, MPV 9.4, Immature Gran % (Auto) 0.700, Neut % (Auto) 66.4, Lymph % (Auto) 20.7, Stephenson % (Auto) 10.8 H, Eos % (Auto) 0.8, Baso % (Auto) 0.6, Absolute Neuts (auto) 7.9 H, Absolute Lymphs (auto) 2.45, Nucleated RBC % 0, Differential Comment SCANNED, Polychromasia 1+, Anisocytosis 2+, Microcytosis 1+, Macrocytosis 1+, PT 15.5 H, INR 1.2, APTT 40.4 H, Sodium 141, Potassium 4.5, Chloride 109 H, Carbon Dioxide 25.0, Anion Gap 7, BUN 16, Creatinine 0.92, Estim Creat Clear Calc 61.71, Est GFR (MDRD) Af Amer 101, Est GFR (MDRD) Non-Af 84, BUN/Creatinine Ratio 17.4, Glucose 126 H, Hemoglobin A1c < 3.8 L, Calcium 7.7 L, TIBC 221 L, Total Bilirubin 1.60 H, AST 105 H, ALT 23, Alkaline Phosphatase 124 H, Troponin I High Sens 73995 H*, B-Natriuretic Peptide 1785.7 H, Total Protein 6.8, Albumin 3.4, Globulin 3.4, Albumin/Globulin Ratio 1.0, Folate 30.40, TSH 1.59 08/07/23 06:15: POC Glucose 111 H Micro: Microbiology 08/06/23 23:30 Stool Stool Occult Blood ([facility]) - Final Occult Blood Positive ABG Data ABG results: ABG 08/07/23 04:08 Specimen Type ART Sample Site R Radial pH 7.31 L Bicarbonate Actual 23.6 Total CO2 25 Base Excess -3 L O2 Saturation 96 O2 % 3.5 ABG pCO2 47.3 H ABG pO2 90 Evens Test Positive O2 Delivery Device Cannula Vent Mode Not entered Rhythm Strip Rhythm Strip: Sinus Tach Cardiology Labs/Tests 08/06/23 21:12: WBC 12.4 H, RBC 2.55 L, Hgb 7.6 L, Hct 24.3 L, MCV 95.3 H, MCH 29.8, MCHC 31.3 L, Plt Count 277, MPV 9.9, Immature Gran % (Auto) 0.500, Neut % (Auto) 61.1, Lymph % (Auto) 23.0, Stephenson % (Auto) 11.0 H, Eos % (Auto) 3.9, Baso % (Auto) 0.5, Absolute Neuts (auto) 7.6, Nucleated RBC % 0, Sodium 137, Potassium 4.1, Chloride 106, Carbon Dioxide 28.0, Anion Gap 3 L, BUN 18, Creatinine 0.97, Est GFR (MDRD) Af Amer 95, Est GFR (MDRD) Non-Af 78, BUN/Creatinine Ratio 18.5, Glucose 165 H, Calcium 8.7 08/07/23 00:12: Total Bilirubin 2.00 H, Direct Bilirubin 0.65 H 08/07/23 04:08: pH 7.31 L, Bicarbonate Actual 23.6, Base Excess -3 L, O2 Saturation 96, ABG pCO2 47.3 H, ABG pO2 90, Evens Test Positive 08/07/23 05:10: WBC 11.9 H, RBC 2.74 L, Hgb 7.9 L, Hct 26.3 L, MCV 96.0 H, MCH 28.8, MCHC 30.0 L, Plt Count 262, MPV 9.4, Immature Gran % (Auto) 0.700, Neut % (Auto) 66.4, Lymph % (Auto) 20.7, Stephenson % (Auto) 10.8 H, Eos % (Auto) 0.8, Baso % (Auto) 0.6, Absolute Neuts (auto) 7.9 H, Nucleated RBC % 0, PT 15.5 H, INR 1.2, APTT 40.4 H, Sodium 141, Potassium 4.5, Chloride 109 H, Carbon Dioxide 25.0, Anion Gap 7, BUN 16, Creatinine 0.92, Est GFR (MDRD) Af Amer 101, Est GFR (MDRD) Non-Af 84, BUN/Creatinine Ratio 17.4, Glucose 126 H, Hemoglobin A1c < 3.8 L, Calcium 7.7 L, TIBC 221 L, Total Bilirubin 1.60 H, B-Natriuretic Peptide 1785.7 H Rhythm: EKG: Sinus tachycardia with right bundle branch block. ECHO: Stress Test: Cardiac Cath: PCI: CT Surgery: Holter monitor: EPS: PPM: CXR: Chest CT Scan: Radiography Diagnostic Testing: Radiology Impression Chest X-Ray 08/06/23 21:32 IMPRESSION: Mild opacities in the lower lungs bilaterally most likely represent atelectasis. Mild infection or aspiration are less likely. Possible small left pleural effusion. Electronically Signed: Roshan Burkett MD at 22:19 EST , Chest CTA 08/06/23 22:18 IMPRESSION: undefined Chest X-Ray 08/07/23 04:05 IMPRESSION: Mild bibasilar atelectasis. Small left pleural effusion. Electronically Signed: Roshan Burkett MD at 5:51 EST ,
[2023-08-07] MEDS: Nitroglycerin Oint 1 INCH PACKET TD ×2 (10:08→14:19)
[2023-08-07] MEDS: Carvedilol 6.25 MG Tablet PO (10:10)
[2023-08-07] MEDS: amLODIPine 10 MG Tablet PO (10:10)
[2023-08-07] MEDS: Pantoprazole Sodium 80 MG in 0.9% Normal Saline (100mL Bag) 80 ML 10 MG CONT INF (10:48)
[2023-08-07 10:52] LABS: Hematocrit 25.3 % (40-54); Hemoglobin 7.8 g/dL (13.0-16.5)
[2023-08-07 12:34] LABS: Bedside Glucose 134 mg/dL (74-106)
--- NOTE | 2023-08-07 12:37 | DS.PCM_ITS ---
Providers Date of Admission: 08/07/23 Date of Discharge: 08/07/23 Primary Care Physician: HAMMAD Torrez Consultations 08/07/23 03:15 Consult: Gastroenterology Routine Consulting Provider: Radha Montesinos Reason for Consult: Suspected occult GI bleed with acute blood loss anemia. EMERGENT Consult: Yes MD Notified: Yes Date Notified: 08/07/23 Time Notified: 03:15 Method of Notification: Verbal Method of Consult:: In-Person 08/07/23 03:22 Consult: Cardiology Routine Consulting Provider: Edda Grider Reason for Consult: Non-ST elevation SC with acute blood loss anemia. EMERGENT Consult: No MD Notified: Yes Date Notified: 08/07/23 Time Notified: 03:14 Method of Notification: Verbal Method of Consult:: In-Person 08/07/23 05:59 Consult: [employer] / Pulmonary Medicine Routine Consulting Provider: Pulmonary Medicine [facility] Reason for Consult: anesthesia clearance EMERGENT Consult: No MD Notified: Yes Date Notified: 08/07/23 Time Notified: 05:59 Method of Notification: Text Reason For Visit: NON ST ELEVATION SC, ACUTE BLOOD LOSS & ANEMIA Diagnosis Discharge Diagnosis (1) Non-ST elevation myocardial infarction (NSTEMI), initial care episode: Status: Acute Code(s): I21.4 - Non-ST elevation (NSTEMI) myocardial infarction (2) Anemia: Status: Acute Code(s): D64.9 - Anemia, unspecified Qualifiers: Anemia type: unspecified type Qualified Code(s): D64.9 - Anemia, unspecified (3) Hyperlipidemia: Status: Chronic Code(s): E78.5 - Hyperlipidemia, unspecified (4) Myasthenia gravis: Status: Chronic Code(s): G70.00 - Myasthenia gravis without (acute) exacerbation (5) Type 2 diabetes mellitus: Status: Chronic Code(s): E11.9 - Type 2 diabetes mellitus without complications Qualifiers: Diabetes mellitus termite helper insulin use: with termite helper use Medications at Discharge Home Medications amlodipine 5 mg tablet 10 mg PO DAILY BP 11/30/15 lovastatin 20 mg tablet 20 mg PO LUNCH CHOLESTEROL 11/30/15 quinapril 40 mg tablet 20 mg PO BID BP 11/30/15 cyanocobalamin (vitamin B-12) 500 mcg tablet 1,000 mcg PO DAILY@0800 supplement 06/21/19 multivitamin 1 ea PO DAILY supplement 06/21/19 eculizumab 300 mg/30 mL intravenous solution 300 mg IV QMONTH 09/13/20 aspirin 81 mg tablet,delayed release (Adult Low Dose Aspirin) 81 mg PO DAILY 01/05/21 glimepiride 2 mg tablet 2 mg PO DAILY 01/05/21 labetalol 100 mg tablet 300 mg PO BID 04/12/21 acetaminophen 650 mg tablet,extended release (Tylenol 8 Hour) 650 mg PO Q8H PRN headache #14 tabs 12/14/21 buprenorphine 5 mcg/hour weekly transdermal patch 1 patch transdermal Q7D 09/30/22 fosinopril 20 mg tablet mg 08/06/23 glucosamine-chondroitin 250 mg-200 mg tablet (Osteo Bi-Flex) 2 tab PO DAILY 08/06/23 polyethylene glycol 3350 17 gram oral powder packet (Miralax) 17 g PO DAILY 08/06/23 Hospital Course Summary of Care Provided Minutes Spent on Discharge: 35 Hospital Course: Patient is an 83-year-old gentleman with multiple comorbidities including renal cell carcinoma status post partial right nephrectomy currently remission, essential hypertension dyslipidemia diabetes mellitus type 2 myasthenia gravis who presented with progressive shortness of breath with associated nausea and vomiting. Patient was found to be anemic on admission. Was also found to have elevated troponin which continues to rise consistent with acute non-STEMI. Admitted to the intensive care unit where patient is currently being managed Assessment 1. Acute non-ST segment elevation SC 2. Anemia secondary to anemia of chronic disorder with positive guaiac stools 3. Acute congestive heart failure 4. Diabetes mellitus type 2 5. Dyslipidemia 6. Adrenal insufficiency Plan ? Patient is admitted to the intensive care unit where he is currently being managed per protocol with consultation placed to art critic, cardiology, as well as general surgery (for possible scope). With patient troponin being markedly elevated the decision to undergo endoscopic evaluation as part of management for his anemia was placed on hold. Patient has been typed and crossmatched patient has antibodies to aspect blood to be ready on 08/08/2023. Further decision regarding management of patient acute non-ST SC deferred to cardiology ? Case was discussed with Dr. Grider with cardiology recommended for patient to be transferred to tertiary care center. Call was placed to [facility] initiated transfer process Physical Exam Narrative GENERAL: Appears ill looking HEENT: Atraumatic; normocephalic EYES; Anicteric, Normal Conjunctiva NECK; supple, normal thyroid, RESPIRATORY: Diminished to auscultation, with bibasilar Rales CARDIOVASCULAR: Regular S1 S2, GI: soft, normoactive bowel sounds, : No Renal angle tenderness; EXTREMITIES: No edema, no clubbing, MUSCULOSKELETAL: no muscle wasting NEURO: Awake; no lateralizing signs. SKIN: No Rash PSYCH; Flat affect Weight / BMI Weight Weight: 87.4 kg Body Mass Index (BMI) 27.6 ABG / Lab / Microbiology Data 08/07/23 10:40 08/07/23 05:10 Laboratory: Laboratory Results - last 24 hr 08/06/23 21:12: WBC 12.4 H, RBC 2.55 L, Hgb 7.6 L, Hct 24.3 L, MCV 95.3 H, MCH 29.8, MCHC 31.3 L, RDW Std Deviation 74.9 H, RDW Coeff of Rosemary 22.5 H, Plt Count 277, MPV 9.9, Immature Gran % (Auto) 0.500, Neut % (Auto) 61.1, Lymph % (Auto) 23.0, Finney % (Auto) 11.0 H, Eos % (Auto) 3.9, Baso % (Auto) 0.5, Absolute Neuts (auto) 7.6, Absolute Lymphs (auto) 2.86, Nucleated RBC % 0, Platelet Estimate ADEQUATE, RBC Morphology N CHROM, Hypochromasia RARE, Anisocytosis 1+, Macrocytosis 1+, Sodium 137, Potassium 4.1, Chloride 106, Carbon Dioxide 28.0, Anion Gap 3 L, BUN 18, Creatinine 0.97, Estim Creat Clear Calc 58.53, Est GFR (MDRD) Af Amer 95, Est GFR (MDRD) Non-Af 78, BUN/Creatinine Ratio 18.5, Glucose 165 H, Calcium 8.7, Troponin I High Sens 79 H 08/07/23 00:12: Total Bilirubin 2.00 H, Direct Bilirubin 0.65 H, AST 43 H, ALT 18, Alkaline Phosphatase 117, Troponin I High Sens 404 H*, Total Protein 6.4, Albumin 3.2, Globulin 3.2, Lipase 11 L 08/07/23 01:02: Blood Type O NEGATIVE, Antibody Screen NEGATIVE, Antibody Identification COLD AUTO AB, Crossmatch See Detail 08/07/23 03:10: POC Glucose 132 H 08/07/23 05:10: WBC 11.9 H, RBC 2.74 L, Hgb 7.9 L, Hct 26.3 L, MCV 96.0 H, MCH 28.8, MCHC 30.0 L, RDW Std Deviation 77.1 H, RDW Coeff of Rosemary 22.5 H, Plt Count 262, MPV 9.4, Immature Gran % (Auto) 0.700, Neut % (Auto) 66.4, Lymph % (Auto) 20.7, Finney % (Auto) 10.8 H, Eos % (Auto) 0.8, Baso % (Auto) 0.6, Absolute Neuts (auto) 7.9 H, Absolute Lymphs (auto) 2.45, Nucleated RBC % 0, Differential Comment SCANNED, Polychromasia 1+, Anisocytosis 2+, Microcytosis 1+, Macrocyt osis 1+, PT 15.5 H, INR 1.2, APTT 40.4 H, Sodium 141, Potassium 4.5, Chloride 109 H, Carbon Dioxide 25.0, Anion Gap 7, BUN 16, Creatinine 0.92, Estim Creat Clear Calc 61.71, Est GFR (MDRD) Af Amer 101, Est GFR (MDRD) Non-Af 84, BUN /Creatinine Ratio 17.4, Glucose 126 H, Hemoglobin A1c < 3.8 L, Calcium 7.7 L, TIBC 221 L, Total Bilirubin 1.60 H, AST 105 H, ALT 23, Alkaline Phosphatase 124 H, Troponin I High Sens 45881 H*, B-Natriuretic Peptide 1785.7 H, Total Protein 6.8, Albumin 3.4, Globulin 3.4, Albumin/Globulin Ratio 1.0, Folate 30.40, TSH 1.59 08/07/23 06:15: POC Glucose 111 H 08/07/23 10:40: Hgb 7.8 L, Hct 25.3 L 08/07/23 12:16: POC Glucose 134 H Microbiology: Microbiology 08/06/23 23:30 Stool Stool Occult Blood (LISHA) - Final Occult Blood Positive ABG: ABG 08/07/23 04:08 Specimen Type ART Sample Site R Radial pH 7.31 L Bicarbonate Actual 23.6 Total CO2 25 Base Excess -3 L O2 Saturation 96 O2 % 3.5 ABG pCO2 47.3 H ABG pO2 90 Evens Test Positive O2 Delivery Device Cannula Vent Mode Not entered Radiography Diagnostic Testing: Radiology Impression Chest X-Ray 08/06/23 21:32 IMPRESSION: Mild opacities in the lower lungs bilaterally most likely represent atelectasis. Mild infection or aspiration are less likely. Possible small left pleural effusion. Electronically Signed: Roshan Burkett MD at 22:19 EST , Chest CTA 08/06/23 22:18 IMPRESSION: undefined Chest X-Ray 08/07/23 04:05 IMPRESSION: Mild bibasilar atelectasis. Small left pleural effusion. Electronically Signed: Roshan Burkett MD at 5:51 EST , D/C Instructions Discharge Diet: No restrictions Meaningful Use Info Meaningful Use Diagnoses (Choose all that apply): AMI AMI/Post PCI/Angioplasty Aspirin given w/in 24hrs of arrival?: Yes ASA at discharge?: Yes Antiplatelet Therapy at Discharge:: No Reason Antiplatelet Therapy not ordered:: No intervention at this point Statins at discharge?: Yes Yuniel/ARB at discharge?: Yes Beta Bartolo at discharge?: Yes Done w/ Acute SC measure.: Yes Discharge Plan Admission Admit Date/Time: 08/07/23 03:09 Attending Provider: Jeancarlos Munoz Primary Care Provider: Iram Russell Consulting Providers: Edda Grider; Radha Montesinos; Hugo Cox; Devon Nicole; Aaron Miranda; Pritesh Escobedo; Alanna Seo NP; Jeancarlos Evans Discharge Orders/Prescriptions Prescriptions: Continued aspirin [Adult Low Dose Aspirin] 81 mg tablet,delayed release (DR/EC) 81 mg PO DAILY glimepiride 2 mg tablet 2 mg PO DAILY amlodipine 5 MG tablet 10 mg PO DAILY Patient Comments: blood pressure quinapril 40 MG tablet 20 mg PO BID Patient Comments: blood pressure lovastatin 20 MG tablet 20 mg PO LUNCH Patient Comments: cholesterol multivitamin 1 EACH tablet 1 ea PO DAILY cyanocobalamin (vitamin B-12) 500 MCG tablet 1,000 mcg PO DAILY@0800 eculizumab 300 MG/30 ML solution 300 mg IV QMONTH Rx Instructions: every 2 weeks labetalol 100 mg tablet 300 mg PO BID Rx Instructions: For SBP > 160 acetaminophen [Tylenol 8 Hour] 650 mg tablet extended release 650 mg PO Q8H PRN (Reason: headache) Qty: 14 0RF buprenorphine 5 mcg/hour patch weekly 1 patch transdermal Q7D Patient Comments: apply TRANSDERMALLY every 7 days, changes on tuesday polyethylene glycol 3350 [Miralax] 17 gram powder in packet 17 g PO DAILY glucosamine-chondroitin [Osteo Bi-Flex] 250-200 mg tablet 2 tab PO DAILY Rx Instructions: give after food/meal fosinopril 20 mg tablet Referrals / Follow Up: Iram Russell PA [Primary Care Provider] - Disposition Disposition (needs filled in before D/C Order can be placed): Acute Care Hospital Charges/Coding Visit Charges Inpatient E&M: 16669 Disch Hosp >30min
--- NOTE | 2023-08-07 15:20 | NURSING ---
1410-report called to [facility] at [facility].
--- NOTE | 2023-08-07 15:44 | NURSING ---
1530- All belongings sent home with SATINDER Andrew
[2023-08-08 09:46] LABS: Vitamin B12 642 pg/mL (211-911)
== END 2023-08-07 15:30 | disposition short-term general hospital (02) | DRG 282 ==
LOC: ED 08-07 02:01 → PCU 08-07 02:48 → ICU 08-07 04:30
PROVIDERS: Anesthesiology; Internal Medicine Cardiovascular Disease; Admitting Provider Internal Medicine; Emergency Provider Student in an Organized Health Care Education/Training Program; PCP Physician Assistant; Visit Provider Internal Medicine
DX: I21.4 Non-ST elevation (NSTEMI) myocardial infarction (principal); G70.00 Myasthenia gravis without (acute) exacerbation; E11.65 Type 2 diabetes mellitus with hyperglycemia; E04.1 Nontoxic single thyroid nodule; D64.9 Anemia, unspecified; E78.5 Hyperlipidemia, unspecified; I11.0 Hypertensive heart disease with heart failure; I50.9 Heart failure, unspecified; I45.10 Unspecified right bundle-branch block; R19.5 Other fecal abnormalities; Z66 Do not resuscitate; G89.4 Chronic pain syndrome; Z90.5 Acquired absence of kidney; Z79.84 Long term (current) use of oral hypoglycemic drugs; I49.3 Ventricular premature depolarization; R09.02 Hypoxemia; Z85.528 Personal history of other malignant neoplasm of kidney; Z85.828 Personal history of other malignant neoplasm of skin
CPT/HCPCS: 36600; 71045; 71275; 80048; 80053; 80076; 82274; 82607; 82746; 82803; 82962; 83036; 83550; 83690; 83880; 84443; 84484; 85014; 85018; 85025; 85610; 85730; 86850; 86870; 86900; 86901; 86920; 86921; 86922; 93005; 97802; 99285; J7030; Q9967; A4216; J1940; J2405; J3490